=== PATIENT | female | born 1955 | race Caucasian/White ===

== ENCOUNTER → 2017-10-17 06:28 | Outpatient (CLI) | payer BC, SELFPAY ==
--- NOTE | 2017-10-17 11:00 | STRESSREP ---
Stress Test Report Exercise/pharmacologic myocardial perfusion stress test. 62-year-old lady with a history of an abnormal EKG. Medications aspirin atorvastatin lisinopril. Stress protocol: Resting EKG demonstrates normal sinus rhythm with a rate of 89 bpm and a right bundle branch block pattern. Resting blood pressures 130/78 mmHg. The patient exercised according to regular Stephen protocol for total duration of 50 seconds and then discontinue the treadmill. 0.4 mg of regadenoson was infused per usual protocol. Patient maintained sinus rhythm throughout the recording there were occasional premature ventricular complexes noted the average heart rate was noted to be 121 bpm which was 76% maximum predicted heart rate the maximum workload was 1 metabolic equivalent. At rest no ST or T-wave changes were noted suggest abnormal flow reserve at peak infusion no ST or T-wave changes were noted suggest abnormal flow reserve. The resting blood pressure is 130/78 with a final blood pressure 120/80 mmHg. Myocardial perfusion protocol. 14.8 mCi of technetium 99m sestamibi was injected at rest. 0.4 mg regadenoson was infused per usual protocol peak infusion 44.5 mCi of technetium 99m sestamibi was injected stress images were obtained stress and rest images were reconstructed and compared in the short axis vertical long horizontal long axis. Gated images were also obtained pre- Perfusion SPECT analysis: Review of the stress images demonstrate normal uptake of tracer noted in all areas of the myocardium. The resting images similarly demonstrate normal uptake of tracer noted in all areas of myocardium. No areas of reversibility are noted suggest ischemia. Gated SPECT analysis: The gated ejection fraction is noted to be 82%. Conclusion: Normal pharmacologic myocardial perfusion stress test. Preserved ejection fraction.
== END ==
PROVIDERS: Family Provider Family Medicine; PCP Family Medicine; Visit Provider Family Medicine
DX: I45.10 Unspecified right bundle-branch block (principal); R94.31 Abnormal electrocardiogram [ECG] [EKG]
CPT/HCPCS: 78452; 93017; A9500; A4216; J2785

== ENCOUNTER 2018-02-10 13:50 | Observation (INO) | payer BC, SELFPAY ==
[2018-02-10] VITALS (15 sets, daily range): BP systolic 98–143; BP diastolic 50–90; PULSE 80–105; RESP 16–18; TEMP 35.4–37.6; O2SAT 93–97; BMI 37.0; BMI 37.1
--- NOTE | 2018-02-10 14:36 | ED.VISSUMM ---
- ER Visit Summary Date of Service: 02/10/18 Chief Complaint: Sent in for low blood count from outpatient lab History of Present Illness: The patient is a 62 F prior history of noncemented diabetes, hypertension and prior hysterectomy due to heavy periods. 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 She denies any vaginal bleeding. She denies any rectal bleeding or melena. She denies any hematemesis. She denies any bruising. She denies any petechiae or purpura. She denies any nosebleeds. She is on no blood thinners. She has felt fatigued for multiple weeks. She denies chest pain. Physical Examination: Well-appearing older female. Vital signs are stable afebrile. Her initial blood pressure is 143/90. Heart rate 105. H EENT exam unremarkable other than pale. Moist weeks membranes. Neck anterior cervical lymphadenopathy bilaterally. Trachea midline. Lungs clear to auscultation bilaterally. Heart regular rhythm rate about 105 no murmur. Abdomen soft nontender nondistended no organomegaly or masses. Normal bowel sounds. No peritoneal signs. Patient is moving all 4 extremities. They are neurovascularly intact. Calves are nontender without edema or cords. Neurologically she is awake and alert. With no focal motor or sensory deficits. Back is nontender. Skin is unremarkable other than pale. There is no bruising or rashes. Test Results: CBC shows a white count of 7. Hemoglobin is 7.1 hematocrit of 24. We do not have any recent labs in the year except from 2011 at that time her hemoglobin was 12. Electrolytes unremarkable. Gap at 12. Glucose 237. Creatinine of 1. Emergency Department Course and Treatment: Patient with anemia with low hemoglobin from outpatient labs. She will be typed and crossed. Treatment Plan: I discussed with the patient options she is comfortable with inpatient admission for further workup of her anemia. I spoke to the hospitalist and they will admit her and do further evaluation of the cause of her anemia. I will leave it up to the hospitalist to order the labs they want to do further evaluation. Disposition: Admission Impression: Acute anemia of uncertain etiology This note was generated with [employer] dictation software. It may contain incorrect words, spelling, and punctuation that were not noted in review of the chart prior to signing ED Disposition - Plan for ED Patient: Chief Complaint: Abn Labs Referrals: Vladimir Dinh MD [Primary Care Provider] -
[2018-02-10 14:46] LABS: Absolute Lymphocyte Count 1.57 X10^3/ul (0.83-4.51); Basophil# 0.01 X10^3/uL; Basophil% 0.1 % (0-1); Eosinophil# 0.14 X10^3/uL; Hematocrit 24.6 % (37-47); Hemoglobin 7.1 g/dl (12.0-15.0); Lymphocyte # 1.57 X10^3/ul (4.0); Lymphocyte % 22.1 % (19-41); Mean Corp Hgb Conc 28.9 g/gl (32-36); Mean Corpuscular Hgb 20.3 pg (27.0-32.0); Mean Corpuscular Volume 70.5 fL (81-99); Mean Platelet Vol. 9.4 fl (6.2-12.0); Monocyte# 0.39 X10^3/uL; Monocyte% 5.5 % (0-10); Neutrophil # 4.97 X10^3/uL (2.7-7.7); Platelet Count 331 K/mm3 (150-450); RBC Distribution Width CV 16.5 % (11.6-14.6); RBC Distribution Width SD 42.5 fl (35.1-43.9); Red Blood Count 3.49 M/mm3 (4.2-5.4); White Blood Count 7.1 K/mm3 (4.4-11.0)
[2018-02-10 14:47] LABS: Differential Indicated SCAN CRITERIA MET; POSITIVE COUNT NO; POSITIVE DIFFERENTIAL NO; POSITIVE MORPHOLOGY YES
[2018-02-10 15:00] LABS: Anion Gap 12 (5-15); BUN 22 mg/dL (7-18); Calcium,Total 9.2 mg/dL (8.5-10.1); Chloride 102 mmol/L (98-107); Creatinine, Serum 1.05 mg/dL (0.55-1.02); EST Glomerular Filtration Rate 56 mL/min (>60); Est Glom Filt Rate - Afr Amer 68 mL/min (>60); Estimated Creatinine Clearance 47.97 ml/min; Glucose 237 mg/dL (74-106); Platelet Estimate ADEQUATE (ADEQ); Potassium 3.4 mmol/L (3.5-5.1); Sodium Level 140 mmol/L (136-145)
[2018-02-10 15:01] LABS: Anisocytosis 1+; Hypochromasia 2+; Microcytosis 1+; Ovalocyte 1+; Polychromasia RARE
--- NOTE | 2018-02-10 15:32 | NURSING ---
DR CARPENTER FOR DR MOSLEY
--- NOTE | 2018-02-10 15:37 | NURSING ---
PCU OBS ANEMIA OF UNCERTAIN CAUSE PAINTSIL
--- NOTE | 2018-02-10 15:44 | PCM.HP.STD ---
Problem List (1) Severe anemia Status: Acute (2) Hypertension Status: Chronic Qualifiers: Hypertension type: essential hypertension Qualified Code(s): I10 - Essential (primary) hypertension (3) DM type 2 (diabetes mellitus, type 2) Status: Chronic Qualifiers: Diabetes mellitus residential insulin use: without hard metals engraver hand use Diabetes mellitus complication status: without complication Qualified Code(s): E11.9 - Type 2 diabetes mellitus without complications (4) Hypothyroidism Status: Chronic Qualifiers: Hypothyroidism type: unspecified Qualified Code(s): E03.9 - Hypothyroidism, unspecified History of Present Illness Date of Admission: 02/10/18 Chief Complaint: Fatigue and dizziness on standing on going for days The patient is a 62 year old F with past medical history of menorrhagia status post hysterectomy who comes to the ED with abnormal blood work with hemoglobin of 7.1. Patient had blood work done by her cattle care worker and was supposed to follow-up with a physician financial legal assistant in [facility]. She received a call today to come to the ED because her blood work was abnormal. She had been complaining of fatigue and dizziness on standing up from lying. Denied any melena or hematochezia or hematemesis. In the ED showed temperature of 95.7, heart rate 105, blood pressure 143/90 which improved to 118/61, respiratory rate was 16, SPO2 is 97% on room air. Admitting blood work showed RBC count of 7.1, hemoglobin 7.1, with microcytic indices, platelet count 231, BMP shows sodium 140, potassium 3.4, chloride 102, bicarbonate 26, BUN 20, creatinine 1.05 Past Medical History Past Medical History (Chronic Problems): Chronic Problems Hypertension (Chronic) DM type 2 (diabetes mellitus, type 2) (Chronic) Hypothyroidism (Chronic) Allergies Iodinated Contrast- Oral and IV Dye [CONTRASTS] Allergy (Verified 02/02/17 10:34) Rash Sulfa (Sulfonamide Antibiotics) Allergy (Verified 02/02/17 10:34) Hives Home Medications: Ambulatory Orders Medication Instructions Recorded Cholecalciferol (VIT D3) [Vitamin 1,000 unit PO DAILY 02/02/17 D] Fish Oil/Om-3/E/Folic/B6-B12 1 capsule PO DAILY 02/02/17 [Cardiovid Plus Softgel] Fluticasone 0.05% [Flonase Nasal 1 spray NASAL QHS 02/02/17 [place]] Lansoprazole 30 mg PO DAILY 02/02/17 Levothyroxine [Synthroid] 100 mcg PO DAILY 02/02/17 Lisinopril [Zestril] 2.5 mg PO DAILY 02/02/17 Sertraline HCl [Zoloft] 100 mg PO DAILY 02/02/17 Spironolact/Hydrochlorothiazid 1 tab PO DAILY 02/02/17 [Aldactazide 25-25 Tablet] Verapamil HCl [Verapamil Sr] 120 mg PO DAILY 02/02/17 Aspirin E.C. [Ecotrin] 81 mg PO DAILY 02/10/18 Atorvastatin Calcium [Lipitor] 40 mg PO QHS 02/10/18 Diphenhydramine HCl [Benadryl 25 mg PO QHS PRN PRN 02/10/18 Allergy] Metformin HCl 1,000 mg PO BID 02/10/18 Montelukast Sodium [Singulair] 10 mg PO QHS 02/10/18 Surgical History: appendectomy, hysterectomy, total knee arthroplasty - Bilateral, tonsillectomy, - - Status post thyroid surgery Psychiatric History: No pertinent psych hx RESPIRATORY DIRECTOR History: No pertinent RESPIRATORY DIRECTOR history Lives: With Family Smoking Status: Never smoker Tobacco Use: Non-smoker Alcohol: None Drugs: None - *Family History Maternal History Items: Cancer, Heart Disease - Rheumatic heart disease, Paternal History Items: Heart Disease - Rheumatic heart disease Review of Systems Constitutional: Reports: Fatigue. Denies: Anorexia, Chills, Fever, Malaise, Weakness, Weight Change Eyes: Denies: Blurred vision, Cataracts, Pain, Redness, Vision Change HEENT: Denies: Difficulty Hearing, Difficulty Swallowing, Head Aches, Hearing Changes, Sinus Congestion, Sinus Drainage, Sore Throat Cardiovascular: Denies: Chest Pain, Claudication, Chest Pressure, Chest Tightness, Orthopnea, Palpitations, Paroxysmal Noc. Dyspnea Respiratory: Denies: Cough, Hemoptysis, Shortness of Breath, Shortness of breath at rest, Shortness of breath upon exertion, Sputum production Gastrointestinal: Denies: Abdominal Pain, Constipation, Hematemesis, Hematochezia, Nausea, Vomiting Genitourinary: Denies: Dysuria, Frequency, Incontinence, Nocturia Gynecological: Denies: Breast symptoms, Excessively long or heavy periods, Vaginal discharge, Vaginal itching Musculoskeletal: Denies: Joint Pain, Joint stiffness, Joint swelling, Joint Tenderness Skin: Denies: Pruritis, Rash, Wounds Neurological: Denies: Difficulty swallowing, Focal weakness, Numbness, Tingling Psychiatric: Denies: Anxiety, Depression, Homicidal Ideations, Suicidal Ideations Endocrine: Denies: Change in Body Habitus, Heat/ Cold Intolerance Hematologic/ Lymphatic: Denies: Easy Bruising, Easy Bleeding VTE Information - Inpt Only VTE Present on Admission: No VTE Pharm Prophylaxis ordered?: Yes Patient Problems: Active and Suspected Problems Severe anemia (Acute) - Physical Exam General: Alert, Oriented x3, Cooperative, No apparent distress HEENT: Atraumatic, PERRLA, EOMI, Normocephalic, - - obese Oral: Moist Mucosa Neck: Supple Lungs: Clear to auscultation, Normal air movement Cardiovascular: Regular rate, Regular Rhythm, Normal S1, Normal S2, No murmurs Abdomen: Bowel Sounds Present, Soft, Non Tender, Non-Distended, No Hepato-splenomegaly, Obese Extremities: No edema, Capillary Refill Less than 3 Seconds Skin: No rashes, No breakdown Musculoskeletal: No Tenderness to Palpation of Joints or Extremities Lymphatic: No Cervical, Supraclavicular, or Inguinal Adenopathy Neurological: Cranial nerves II-XII grossly intact, Neuro grossly intact Psych/Mental Status: Normal Affect, Appropriate Vital Signs Temp Pulse Resp BP Pulse Ox 95.7 F L 105 H 16 143/90 H 97 02/10/18 13:50 02/10/18 13:50 02/10/18 13:50 02/10/18 13:50 02/10/18 13:50 Oxygen Delivery Method Room Air Weight: 97.976 kg Body Mass Index (BMI) 37.0 Laboratory Tests Past 24 Hrs 02/10/18 02/10/18 02/10/18 14:34 14:34 14:34 WBC 7.1 RBC 3.49 L Hgb 7.1 L Hct 24.6 L MCV 70.5 L MCH 20.3 L MCHC 28.9 L RDW 16.5 H RDW Differential 42.5 Plt Count 331 MPV 9.4 Immature Gran % (Auto) 0.300 Neut % (Auto) 70.0 Lymph % (Auto) 22.1 [place] % (Auto) 5.5 Eos % (Auto) 2.0 Baso % (Auto) 0.1 Absolute Neuts (auto) 5.0 Absolute Lymphs (auto) 1.57 Total Counted Not Reportable Platelet Estimate ADEQUATE Polychromasia RARE Hypochromasia 2+ Anisocytosis 1+ Microcytosis 1+ Ovalocytes 1+ Sodium 140 Potassium 3.4 L Chloride 102 Carbon Dioxide 26.0 Anion Gap 12 BUN 22 H Creatinine 1.05 H Estim Creat Clear Calc 47.97 Est GFR (MDRD) Af Amer 68 Est GFR (MDRD) Non-Af 56 L BUN/Creatinine Ratio 21.0 H Glucose 237 H Calcium 9.2 Blood Type Pending Antibody Screen Pending Crossmatch See Detail Assessment/Plan All Active Problems Severe anemia (Acute) 62 year old F with past medical history of menorrhagia status post hysterectomy who comes to the ED with abnormal blood work with hemoglobin of 7.1. Patient had blood work done by her cattle care worker and was supposed to follow-up with a physician financial legal assistant in [facility]. 1. Severe symptomatic anemia, with fatigue, dizziness on from lying to standing, hemoglobin of 7.1, no active cardiac history, status post hysterectomy, suspected GI bleed, Plan: Admit to PCU, monitor on telemetry, will transfuse 1 unit of packed RBC, monitor per protocol, H&H, PPI IV twice daily, will hold aspirin, labs in a.m. 2. Suspected GI bleed, history of polyps, last colonoscopy was 3 years ago, will check stool for occult blood, IV PPI, general surgery, Dr. Pathak consulted, aspirin on hold 3. Hypertension, controlled, will continue on lisinopril, continue to monitor vitals 4. Type 2 DM, on metformin, will hold metformin during this admission, will put on Accu-Cheks with insulin sliding scale 5. Hypothyroidism, on levothyroxine 6. Hyperlipidemia, on statin 7. Depression, on Zoloft, will hold zoloft for now in the light of possible GI bleed 8. DVT PPx- SCDs. Code Visit Inpatient E&M: 40598 Init Hosp L3
[2018-02-10 17:31] LABS: Ferritin 5 ng/mL (8-252); Iron 16 ug/dL (50-170); Iron Binding Capacity,Total 342 ug/dL (250-450); PERCENT IRON SATURATION 4.7 % (15.0-55.0)
[2018-02-10 17:41] LABS: Bedside Glucose 89 mg/dL (70-110)
--- NOTE | 2018-02-10 20:48 | PCM.CONS.GEN ---
Reason for Consult Date of Consultation: 02/10/18 Reason for Consultation: fatigue-anemia History of Present Illness: The patient is a 62 year old F who has noticed increasing fatigue for at least the last few weeks. She presented for her routine gynecologic evaluation was noted to be pale. The patient a previous hysterectomy. She notes no reasons for pad blood loss. She denies abdominal pain. She notes no black tarry stools other difficulties. She underwent a complete blood count which demonstrated on 02 07 a hemoglobin of 7.8 with microcytic parameters. The patient had previous undergone a CBC in 2016 with a hemoglobin of 12.2 and normal red cell indices. She had undergone colonoscopy by Dr. Kole Parra on January 07, 2015. 25 mm polyps were found in the proximal transverse colon diverticulosis. It was recommended the patient have follow-up colonoscopy in 5 years. Prior to that, the patient went upper and lower endoscopy in December 26, 2011. Also by Dr. Kole Parra. Upper endoscopy was unremarkable.colonoscopy demonstrated 210 mm polyps and the patient was recommended 3 year follow-up colonoscopy at that time. patient's past history is otherwise significant for hypothyroidism, hypertension, asthma, type 2 diabetes, obesity, reflux depression. she'll surgical history includes carpal tunnel procedures, thyroidectomy, total abdominal hysterectomy, previous appendectomy. Past Medical History Past Medical History (Chronic Problems): Chronic Problems Hypertension (Chronic) DM type 2 (diabetes mellitus, type 2) (Chronic) Hypothyroidism (Chronic) Allergies Iodinated Contrast- Oral and IV Dye [CONTRASTS] Allergy (Verified 02/02/17 10:34) Rash Sulfa (Sulfonamide Antibiotics) Allergy (Verified 02/02/17 10:34) Hives Home Medications: Ambulatory Orders Medication Instructions Recorded Cholecalciferol (VIT D3) [Vitamin 1,000 unit PO DAILY 02/02/17 D] Fish Oil/Om-3/E/Folic/B6-B12 1 capsule PO DAILY 02/02/17 [Cardiovid Plus Softgel] Fluticasone 0.05% [Flonase Nasal 1 spray NASAL QHS 02/02/17 [place]] Lansoprazole 30 mg PO DAILY 02/02/17 Levothyroxine [Synthroid] 100 mcg PO DAILY 02/02/17 Lisinopril [Zestril] 2.5 mg PO DAILY 02/02/17 Sertraline HCl [Zoloft] 100 mg PO DAILY 02/02/17 Spironolact/Hydrochlorothiazid 1 tab PO DAILY 02/02/17 [Aldactazide 25-25 Tablet] Verapamil HCl [Verapamil Sr] 120 mg PO DAILY 02/02/17 Aspirin E.C. [Ecotrin] 81 mg PO DAILY 02/10/18 Atorvastatin Calcium [Lipitor] 40 mg PO QHS 02/10/18 Diphenhydramine HCl [Benadryl 25 mg PO QHS PRN PRN 02/10/18 Allergy] Metformin HCl 1,000 mg PO BID 02/10/18 Montelukast Sodium [Singulair] 10 mg PO QHS 02/10/18 Surgical History: appendectomy, hysterectomy, total knee arthroplasty - Bilateral, tonsillectomy, - - Status post thyroid surgery Psychiatric History: No pertinent psych hx PROFESSIONAL HEALTHCARE REPRESENTATIVE History: No pertinent PROFESSIONAL HEALTHCARE REPRESENTATIVE history Lives: With Family Smoking Status: Never smoker Tobacco Use: Non-smoker Alcohol: None Drugs: None - *Family History Maternal History Items: Cancer, Heart Disease - Rheumatic heart disease, Paternal History Items: Heart Disease - Rheumatic heart disease Review of Systems Constitutional: Reports: Malaise, Weakness. Denies: Chills, Fever, Weight Change HEENT: Denies: Head Aches, Sinus Congestion, Sinus Drainage Cardiovascular: Denies: Chest Pain, Palpitations Respiratory: Denies: Cough, Shortness of breath at rest, Sputum production Gastrointestinal: Denies: Abdominal Pain, Nausea, Vomiting Genitourinary: Denies: Dysuria Musculoskeletal: Denies: Joint Pain, Joint Tenderness Skin: Denies: Rash, Wounds Neurological: Denies: Numbness, Tingling, Focal weakness Psychiatric: Denies: Anxiety, Depression, Homicidal Ideations, Suicidal Ideations Hematologic/ Lymphatic: Denies: Easy Bruising, Easy Bleeding Patient Problems: Active and Suspected Problems Severe anemia (Acute) - Physical Exam General: Alert, Oriented x3, Cooperative HEENT: Atraumatic, PERRLA, EOMI, Normocephalic Neck: Supple, No JVD, Negative Carotid Bruits Lungs: Clear to auscultation, Normal air movement Cardiovascular: Regular rate, No murmurs Abdomen: Bowel Sounds Present, Soft, Non Tender Extremities: No edema, Capillary Refill Less than 3 Seconds Skin: No rashes, No breakdown Musculoskeletal: No Tenderness to Palpation of Joints or Extremities Neurological: Cranial nerves II-XII grossly intact Psych/Mental Status: Normal Affect, Appropriate Vital Signs Temp Pulse Resp BP Pulse Ox 98.2 F 83 18 98/56 L 93 02/10/18 20:23 02/10/18 20:23 02/10/18 20:23 02/10/18 20:23 02/10/18 20:23 Oxygen Delivery Method Room Air Weight: 97.976 kg Body Mass Index (BMI) 37.0 Intake and Output for Last 24 Hours 02/08/18 02/09/18 02/10/18 23:59 23:59 23:59 Intake Total 764 / 764 Output Total 0 / 0 Balance 764 / 764 Laboratory Tests Past 24 Hrs 02/10/18 02/10/18 02/10/18 14:34 14:34 14:34 WBC 7.1 RBC 3.49 L Hgb 7.1 L Hct 24.6 L MCV 70.5 L MCH 20.3 L MCHC 28.9 L RDW 16.5 H RDW Differential 42.5 Plt Count 331 MPV 9.4 Immature Gran % (Auto) 0.300 Neut % (Auto) 70.0 Lymph % (Auto) 22.1 [place] % (Auto) 5.5 Eos % (Auto) 2.0 Baso % (Auto) 0.1 Absolute Neuts (auto) 5.0 Absolute Lymphs (auto) 1.57 Total Counted Not Reportable Platelet Estimate ADEQUATE Polychromasia RARE Hypochromasia 2+ Anisocytosis 1+ Microcytosis 1+ Ovalocytes 1+ Sodium 140 Potassium 3.4 L Chloride 102 Carbon Dioxide 26.0 Anion Gap 12 BUN 22 H Creatinine 1.05 H Estim Creat Clear Calc 47.97 Est GFR (MDRD) Af Amer 68 Est GFR (MDRD) Non-Af 56 L BUN/Creatinine Ratio 21.0 H Glucose 237 H Calcium 9.2 Iron TIBC Iron Saturation Ferritin Blood Type A POSITIVE Antibody Screen NEGATIVE Crossmatch See Detail 02/10/18 14:34 WBC RBC Hgb Hct MCV MCH MCHC RDW RDW Differential Plt Count MPV Immature Gran % (Auto) Neut % (Auto) Lymph % (Auto) [place] % (Auto) Eos % (Auto) Baso % (Auto) Absolute Neuts (auto) Absolute Lymphs (auto) Total Counted Platelet Estimate Polychromasia Hypochromasia Anisocytosis Microcytosis Ovalocytes Sodium Potassium Chloride Carbon Dioxide Anion Gap BUN Creatinine Estim Creat Clear Calc Est GFR (MDRD) Af Amer Est GFR (MDRD) Non-Af BUN/Creatinine Ratio Glucose Calcium Iron 16 L TIBC 342 Iron Saturation 4.7 L Ferritin 5 L Blood Type Antibody Screen Crossmatch POC Glucose 02/10/18 17:19 POC Glucose 89 Assessment/Plan All Active Problems Severe anemia (Acute) significant anemia with iron deficient parameters. I would recommend upper and lower endoscopy. The patient understands the risks, benefits, complications and possible alternatives and consents to the planned procedure. She does not need to remain in the hospital for this procedure. Reaming performance procedure urgently the following week. She would like to proceed free from this week since her will be undergoing a foot procedure next Saturday.
[2018-02-10] MEDS: Montelukast 10 MG Tablet PO (21:27)
[2018-02-10] MEDS: Fluticasone 0.05% 1 SPRAY NASAL.SRY NASAL (21:27)
[2018-02-10] MEDS: Atorvastatin Calcium 40 MG Tablet PO (21:27)
[2018-02-10 21:41] LABS: Hematocrit 26.1 % (37-47); Hemoglobin 7.9 g/dl (12.0-15.0)
[2018-02-10 21:41] LABS: Bedside Glucose 101 mg/dL (70-110)
[2018-02-10] MEDS: 0.9% NaCl Peripheral Flush Adult/Peds IV (21:42)
[2018-02-11] VITALS (10 sets, daily range): BP systolic 100–136; BP diastolic 57–83; PULSE 74–81; RESP 18; TEMP 36.7–37; O2SAT 94–98
[2018-02-11] MEDS: Acetaminophen 325 MG Tablet 650 MG PO (02:14)
[2018-02-11] MEDS: Levothyroxine 100 MCG Tablet PO (05:00)
--- NOTE | 2018-02-11 06:26 | PN.SURG_ITS ---
Patient Problems: Active and Suspected Problems Severe anemia (Acute) Subjective: no complaints - Physical Exam Abdomen: Bowel Sounds Present, Soft, Non Tender Vital Signs Temp Pulse Resp BP Pulse Ox 98.1 F 76 18 136/77 H 97 02/11/18 04:57 02/11/18 04:57 02/11/18 04:57 02/11/18 04:57 02/11/18 04:57 Oxygen Delivery Method Room Air Weight: 97.976 kg Body Mass Index (BMI) 37.0 Orthostatic Vital Signs Start: 02/11/18 04:52 Freq: q24h Status: Active Protocol: Activity Type Activity Date Activity User E-Sign Co-Sign Detail Recorded Client Recorded Date Recorded By Document 02/11/18 04:52 [id number] 02/11/18 04:57 [facility] 02/11/18 04:52 Orthostatic Vitals Standing -Blood Pressure (90/60-120/80) 136/77 H -Extremity Use Left Arm -Pulse Rate (60-100) 76 Sitting -Blood Pressure (90/60-120/80) 129/83 H -Extremity Use Left Arm -Pulse Rate (60-100) 80 Lying -Blood Pressure (90/60-120/80) 100/62 -Extremity Use Left Arm -Pulse Rate (60-100) 76 Intake and Output for Last 24 Hours 02/09/18 02/10/18 02/11/18 23:59 23:59 23:59 Intake Total 1404 / 1404 520 / 520 Output Total 350 / 350 Balance 1054 / 1054 520 / 520 Laboratory Tests Past 24 Hrs 02/10/18 02/10/18 02/10/18 14:34 14:34 14:34 WBC 7.1 RBC 3.49 L Hgb 7.1 L Hct 24.6 L MCV 70.5 L MCH 20.3 L MCHC 28.9 L RDW 16.5 H RDW Differential 42.5 Plt Count 331 MPV 9.4 Immature Gran % (Auto) 0.300 Neut % (Auto) 70.0 Lymph % (Auto) 22.1 [place] % (Auto) 5.5 Eos % (Auto) 2.0 Baso % (Auto) 0.1 Absolute Neuts (auto) 5.0 Absolute Lymphs (auto) 1.57 Total Counted Not Reportable Platelet Estimate ADEQUATE Polychromasia RARE Hypochromasia 2+ Anisocytosis 1+ Microcytosis 1+ Ovalocytes 1+ Sodium 140 Potassium 3.4 L Chloride 102 Carbon Dioxide 26.0 Anion Gap 12 BUN 22 H Creatinine 1.05 H Estim Creat Clear Calc 47.97 Est GFR (MDRD) Af Amer 68 Est GFR (MDRD) Non-Af 56 L BUN/Creatinine Ratio 21.0 H Glucose 237 H Calcium 9.2 Iron TIBC Iron Saturation Ferritin Blood Type A POSITIVE Antibody Screen NEGATIVE Crossmatch See Detail 02/10/18 02/10/18 02/10/18 14:34 14:34 21:30 WBC RBC Hgb 7.9 L Hct 26.1 L MCV MCH MCHC RDW RDW Differential Plt Count MPV Immature Gran % (Auto) Neut % (Auto) Lymph % (Auto) [place] % (Auto) Eos % (Auto) Baso % (Auto) Absolute Neuts (auto) Absolute Lymphs (auto) Total Counted Platelet Estimate Polychromasia Hypochromasia Anisocytosis Microcytosis Ovalocytes Sodium Potassium Chloride Carbon Dioxide Anion Gap BUN Creatinine Estim Creat Clear Calc Est GFR (MDRD) Af Amer Est GFR (MDRD) Non-Af BUN/Creatinine Ratio Glucose Calcium Iron 16 L TIBC 342 Iron Saturation 4.7 L Ferritin 5 L Blood Type Antibody Screen Crossmatch See Detail 02/11/18 05:44 WBC RBC Hgb Hct MCV MCH MCHC RDW RDW Differential Plt Count MPV Immature Gran % (Auto) Neut % (Auto) Lymph % (Auto) [place] % (Auto) Eos % (Auto) Baso % (Auto) Absolute Neuts (auto) Absolute Lymphs (auto) Total Counted Platelet Estimate Polychromasia Hypochromasia Anisocytosis Microcytosis Ovalocytes Sodium Pending Potassium Pending Chloride Pending Carbon Dioxide Pending Anion Gap Pending BUN Pending Creatinine Pending Estim Creat Clear Calc Est GFR (MDRD) Af Amer Pending Est GFR (MDRD) Non-Af Pending BUN/Creatinine Ratio Pending Glucose Pending Calcium Pending Iron TIBC Iron Saturation Ferritin Blood Type Antibody Screen Crossmatch POC Glucose 02/10/18 02/10/18 21:36 17:19 POC Glucose 101 89 Medical Necessity - Tobacco Use Smoking Status: Never smoker Tobacco Use: Non-smoker Assessment/Plan All Active Problems Severe anemia (Acute) significant anemia with iron deficient parameters. Hgb to 7.9. would transfuse 3rd unit PRBC I would recommend upper and lower endoscopy. The patient understands the risks, benefits, complications and possible alternatives and consents to the planned procedure. She does not need to remain in the hospital for this procedure. We will schedule for Saturday since her will be undergoing a foot procedure next Saturday. Will send script [facility]
[2018-02-11 06:37] LABS: Absolute Neutrophil Count 5.1 X10^3/uL (2.0-7.7); Basophil# 0.02 X10^3/uL; Basophil% 0.2 % (0-1); Eosinophil# 0.18 X10^3/uL; Eosinophils% 2.1 % (0-5); Hemoglobin 8.7 g/dl (12.0-15.0); Lymphocyte % 29.7 % (19-41); Mean Corpuscular Hgb 22.1 pg (27.0-32.0); Mean Corpuscular Volume 73.8 fL (81-99); Mean Platelet Vol. 9.6 fl (6.2-12.0); Monocyte# 0.63 X10^3/uL; Monocyte% 7.5 % (0-10); Neutrophil # 5.08 X10^3/uL (2.7-7.7); Neutrophil % 60.3 % (47-70); Platelet Count 327 K/mm3 (150-450); RBC Distribution Width CV 18.2 % (11.6-14.6); RBC Distribution Width SD 49.3 fl (35.1-43.9); Red Blood Count 3.93 M/mm3 (4.2-5.4); White Blood Count 8.4 K/mm3 (4.4-11.0)
[2018-02-11 06:39] LABS: Differential Indicated SCAN CRITERIA MET; POSITIVE COUNT NO; POSITIVE DIFFERENTIAL NO; POSITIVE MORPHOLOGY YES
[2018-02-11 06:45] LABS: Bedside Glucose 129 mg/dL (70-110)
[2018-02-11 06:46] LABS: Anion Gap 10 (5-15); BUN 19 mg/dL (7-18); BUN/Creat Ratio 20.1 RATIO (10-20); Calcium,Total 8.9 mg/dL (8.5-10.1); Chloride 106 mmol/L (98-107); Creatinine, Serum 0.95 mg/dL (0.55-1.02); EST Glomerular Filtration Rate 64 mL/min (>60); Est Glom Filt Rate - Afr Amer 77 mL/min (>60); Estimated Creatinine Clearance 53.02 ml/min; Glucose 108 mg/dL (74-106); Potassium 4.2 mmol/L (3.5-5.1); Sodium Level 143 mmol/L (136-145)
[2018-02-11 06:55] LABS: Anisocytosis 3+; Differential Comment SCANNED; Hypochromasia 3+; Macrocytosis 1+; Microcytosis 2+; Ovalocyte 1+
[2018-02-11 06:56] LABS: Schistocytes RARE; Target Cells RARE
[2018-02-11] MEDS: Spironolactone 25 MG Tablet PO (10:18)
[2018-02-11] MEDS: Verapamil SR 240 MG Tablet 120 MG PO (10:18)
[2018-02-11] MEDS: hydroCHLOROthiazide 25 MG Tablet PO (10:18)
[2018-02-11] MEDS: Lisinopril 2.5 MG Tablet PO (10:19)
--- NOTE | 2018-02-11 10:59 | DCINST_ITS ---
- Discharge Diagnoses Current Active Problems: Current Active and Chronic Problems Severe anemia (Acute) Hypertension (Chronic) DM type 2 (diabetes mellitus, type 2) (Chronic) Hypothyroidism (Chronic) You will use the following diet at home:: Other - Light diet. Clear liquids beginning 02/13/18 with bowel prep per Dr. Pathak orders. Discharge Activity: Return to Normal Activity Call your doctor if you observe: Shortness of breath, Dizziness, Fainting spells, Chest pain Allergies/Adverse Reactions: Allergies Iodinated Contrast- Oral and IV Dye [CONTRASTS] Allergy (Verified 02/02/17 10:34) Rash Sulfa (Sulfonamide Antibiotics) Allergy (Verified 02/02/17 10:34) Hives Medications to take at Discharge Cholecalciferol (VIT D3) [Vitamin D3] 1,000 unit PO DAILY 02/02/17 Fish Oil/Om-3/E/Folic/B6-B12 [Cardiovid Plus Softgel] 1 capsule PO DAILY 02/02/17 Fluticasone 0.05% [Flonase Nasal [place]] 1 spray NASAL QHS 02/02/17 Lansoprazole 30 mg PO DAILY 02/02/17 Levothyroxine [Synthroid] 100 mcg PO DAILY 02/02/17 Lisinopril [Zestril] 2.5 mg PO DAILY 02/02/17 Sertraline HCl [Zoloft] 100 mg PO DAILY 02/02/17 Spironolact/Hydrochlorothiazid [Aldactazide 25-25 Tablet] 1 tab PO DAILY 02/02/17 Verapamil HCl [Verapamil Sr] 120 mg PO DAILY 02/02/17 Aspirin E.C. [Ecotrin] 81 mg PO DAILY 02/10/18 Atorvastatin Calcium [Lipitor] 40 mg PO QHS 02/10/18 Diphenhydramine HCl [Benadryl Allergy] 25 mg PO QHS PRN PRN 02/10/18 Metformin HCl 1,000 mg PO BID 02/10/18 Montelukast Sodium [Singulair] 10 mg PO QHS 02/10/18 Ferrous Sulfate [Iron] 325 mg PO BID #60 tablet 02/11/18 Pantoprazole Sodium [Protonix] 40 mg PO DAILY #30 tablet 02/11/18 The following prescriptions were given: Pantoprazole Sodium [Protonix] 40 mg PO DAILY #30 tablet Ferrous Sulfate [Iron] 325 mg PO BID #60 tablet Primary Care Physician: Vladimir Dinh MD [Primary Care Provider] - Please follow up with your Primary Care Physician in: 1 Week Test Results: Test results from this visit will be discussed in further detail at your follow- up appointment, if applicable. Please Follow Up With: Juvencio Pathak MD When: As scheduled, for scope 02/14/18. Proposed Discharge Date: 02/11/18
--- NOTE | 2018-02-11 11:00 | PCM.DC.SUM ---
<Jaci Timmons - Last Filed: 02/11/18 11:12> Discharge Date and Diagnosis Date of Admission: 02/10/18 Date of Discharge: 02/11/18 - Primary Discharge Diagnosis Active and Suspected Problems 1. Acute blood loss anemia due to suspected GI bleed/iron deficiency anemia 2. Hypertension 3. Hyperlipidemia 4. Type 2 diabetes mellitus 5. Depression 6. Hypothyroidism 7. Obesity - Secondary Discharge Diagnosis Chronic Problems Hypertension (Chronic) DM type 2 (diabetes mellitus, type 2) (Chronic) Hypothyroidism (Chronic) Hospital Course and Treatment Dr. Pathak- General Surgery Operations: None Procedures: None Summary of Care Provided: The patient is a 62 year old F admitted 02/10/2018 due to abnormal blood work with hemoglobin 7.1. Patient denies symptoms with this. She states she was at routine [facility] appointments where her provider felt that she was pale and ordered routine lab work. She was noted to have a hemoglobin of 7.1 and referred to the emergency room. Stool positive for occult blood. Patient received 2 units PRBC. Hemoglobin 8.7 [address] of [address] Hollingsworth, general surgery consulted. Patient is stable for discharge home with EGD/colonoscopy with Dr. Hollingsworth on 02/14/2018. Patient was instructed to hold home aspirin regimen until further evaluated by general surgery. She was noted to have iron deficiency and received IV iron x1. She will be discharged on iron 325 mg p.o. twice daily. She will also be discharged on Protonix 40 mg daily which may later be discontinued if further workup unremarkable. Patient denies melena, hematochezia, hematemesis. She denies dizziness, lightheadedness, shortness of breath, chest pain. Her other past medical history includes hypertension, hyperlipidemia, type 2 diabetes mellitus, hypothyroidism, depression, obesity. Chronic medical conditions stable at this time. General: Alert, Oriented x3, Cooperative, No apparent distress HEENT: Atraumatic, PERRLA, EOMI, Normocephalic Oral: Moist Mucosa Neck: Supple Lungs: Clear to auscultation, Normal air movement Cardiovascular: Regular rate, Regular Rhythm, Normal S1, Normal S2, No murmurs Abdomen: Bowel Sounds Present, Soft, Non Tender, Non-Distended, Obese Extremities: No edema, Capillary Refill Less than 3 Seconds Skin: No rashes, No breakdown Musculoskeletal: No Tenderness to Palpation of Joints or Extremities Lymphatic: No Cervical, Supraclavicular, or Inguinal Adenopathy Neurological: Cranial nerves II-XII grossly intact, Neuro grossly intact Psych/Mental Status: Normal Affect, Appropriate Patient seen and examined prior to discharge. Physical assessment as noted above. Patient is stable for discharge home with follow-up as noted above. This patient was seen by DILMA Chino under the supervision of Dr. Granados. - Physical Exam Vital Signs Temp Pulse Resp BP Pulse Ox 98.2 F 80 18 103/62 94 02/11/18 10:11 02/11/18 10:11 02/11/18 10:11 02/11/18 10:11 02/11/18 10:11 Oxygen Delivery Method Room Air Weight: 216 lb Body Mass Index (BMI) 37.0 Orthostatic Vital Signs Start: 02/11/18 04:52 Freq: q24h Status: Active Protocol: Activity Type Activity Date Activity User E-Sign Co-Sign Detail Recorded Client Recorded Date Recorded By Document 02/11/18 04:52 [facility] [id number] 02/11/18 04:57 [facility] 02/11/18 04:52 Orthostatic Vitals Standing -Blood Pressure (90/60-120/80) 136/77 H -Extremity Use Left Arm -Pulse Rate (60-100) 76 Sitting -Blood Pressure (90/60-120/80) 129/83 H -Extremity Use Left Arm -Pulse Rate (60-100) 80 Lying -Blood Pressure (90/60-120/80) 100/62 -Extremity Use Left Arm -Pulse Rate (60-100) 76 Intake and Output for Last 24 Hours 02/09/18 02/10/18 02/11/18 23:59 23:59 23:59 Intake Total 1404 / 1404 520 / 520 Output Total 350 / 350 Balance 1054 / 1054 520 / 520 Microbiology Past 72 Hours 02/11/18 06:40 Stool Occult Blood (YULIA) - Final Stool Occult Blood Positive Laboratory Tests Past 24 Hrs 02/10/18 02/10/18 02/10/18 14:34 14:34 14:34 WBC 7.1 RBC 3.49 L Hgb 7.1 L Hct 24.6 L MCV 70.5 L MCH 20.3 L MCHC 28.9 L RDW 16.5 H RDW Differential 42.5 Plt Count 331 MPV 9.4 Immature Gran % (Auto) 0.300 Neut % (Auto) 70.0 Lymph % (Auto) 22.1 [place] % (Auto) 5.5 Eos % (Auto) 2.0 Baso % (Auto) 0.1 Absolute Neuts (auto) 5.0 Absolute Lymphs (auto) 1.57 Total Counted Not Reportable Differential Comment Platelet Estimate ADEQUATE Polychromasia RARE Hypochromasia 2+ Anisocytosis 1+ Microcytosis 1+ Macrocytosis Target Cells Ovalocytes 1+ Schistocytes Sodium 140 Potassium 3.4 L Chloride 102 Carbon Dioxide 26.0 Anion Gap 12 BUN 22 H Creatinine 1.05 H Estim Creat Clear Calc 47.97 Est GFR (MDRD) Af Amer 68 Est GFR (MDRD) Non-Af 56 L BUN/Creatinine Ratio 21.0 H Glucose 237 H Calcium 9.2 Iron TIBC Iron Saturation Ferritin Blood Type A POSITIVE Antibody Screen NEGATIVE Crossmatch See Detail 02/10/18 02/10/18 02/10/18 14:34 14:34 21:30 WBC RBC Hgb 7.9 L Hct 26.1 L MCV MCH MCHC RDW RDW Differential Plt Count MPV Immature Gran % (Auto) Neut % (Auto) Lymph % (Auto) [place] % (Auto) Eos % (Auto) Baso % (Auto) Absolute Neuts (auto) Absolute Lymphs (auto) Total Counted Differential Comment Platelet Estimate Polychromasia Hypochromasia Anisocytosis Microcytosis Macrocytosis Target Cells Ovalocytes Schistocytes Sodium Potassium Chloride Carbon Dioxide Anion Gap BUN Creatinine Estim Creat Clear Calc Est GFR (MDRD) Af Amer Est GFR (MDRD) Non-Af BUN/Creatinine Ratio Glucose Calcium Iron 16 L TIBC 342 Iron Saturation 4.7 L Ferritin 5 L Blood Type Antibody Screen Crossmatch See Detail 02/11/18 02/11/18 05:44 05:44 WBC 8.4 RBC 3.93 L Hgb 8.7 L Hct 29.0 L MCV 73.8 L MCH 22.1 L MCHC 30.0 L RDW 18.2 H RDW Differential 49.3 H Plt Count 327 MPV 9.6 Immature Gran % (Auto) 0.200 Neut % (Auto) 60.3 Lymph % (Auto) 29.7 [place] % (Auto) 7.5 Eos % (Auto) 2.1 Baso % (Auto) 0.2 Absolute Neuts (auto) 5.1 Absolute Lymphs (auto) 2.50 Total Counted Not Reportable Differential Comment SCANNED Platelet Estimate Polychromasia Hypochromasia 3+ Anisocytosis 3+ Microcytosis 2+ Macrocytosis 1+ Target Cells RARE Ovalocytes 1+ Schistocytes RARE Sodium 143 Potassium 4.2 Chloride 106 Carbon Dioxide 27.0 Anion Gap 10 BUN 19 H Creatinine 0.95 Estim Creat Clear Calc 53.02 Est GFR (MDRD) Af Amer 77 Est GFR (MDRD) Non-Af 64 BUN/Creatinine Ratio 20.1 H Glucose 108 H Calcium 8.9 Iron TIBC Iron Saturation Ferritin Blood Type Antibody Screen Crossmatch POC Glucose 02/11/18 02/10/18 02/10/18 06:39 21:36 17:19 POC Glucose 129 H 101 89 Discharge Diet: - - Light diet Discharge Activity: Return to Normal Activity Call your doctor if you observe: Shortness of breath, Dizziness, Fainting spells, Chest pain Home Medications: Medications to take at Discharge Cholecalciferol (VIT D3) [Vitamin D3] 1,000 unit PO DAILY 02/02/17 Fish Oil/Om-3/E/Folic/B6-B12 [Cardiovid Plus Softgel] 1 capsule PO DAILY 02/02/17 Fluticasone 0.05% [Flonase Nasal [place]] 1 spray NASAL QHS 02/02/17 Lansoprazole 30 mg PO DAILY 02/02/17 Levothyroxine [Synthroid] 100 mcg PO DAILY 02/02/17 Lisinopril [Zestril] 2.5 mg PO DAILY 02/02/17 Sertraline HCl [Zoloft] 100 mg PO DAILY 02/02/17 Spironolact/Hydrochlorothiazid [Aldactazide 25-25 Tablet] 1 tab PO DAILY 02/02/17 Verapamil HCl [Verapamil Sr] 120 mg PO DAILY 02/02/17 Aspirin E.C. [Ecotrin] 81 mg PO DAILY 02/10/18 Atorvastatin Calcium [Lipitor] 40 mg PO QHS 02/10/18 Diphenhydramine HCl [Benadryl Allergy] 25 mg PO QHS PRN PRN 02/10/18 Metformin HCl 1,000 mg PO BID 02/10/18 Montelukast Sodium [Singulair] 10 mg PO QHS 02/10/18 Ferrous Sulfate [Iron] 325 mg PO BID #60 tablet 02/11/18 Pantoprazole Sodium [Protonix] 40 mg PO DAILY #30 tablet 02/11/18 Following Prescrptions Were Given to Patient: Pantoprazole Sodium [Protonix] 40 mg PO DAILY #30 tablet Ferrous Sulfate [Iron] 325 mg PO BID #60 tablet Primary Care Physician: Vladimir Dinh MD [Primary Care Provider] - Please follow up with your Primary Care Physician in: 1 Week Please Follow Up With: Juvencio Pathak MD When: As scheduled, for scope 02/14/18. Disposition: Home Minutes spent on discharge:: 35 Patient Condition:: Stable Medical Necessity - Tobacco Use Smoking Status: Never smoker Tobacco Use: Non-smoker Meaningful Use Info Meaningful Use Diagnoses (Choose all that apply): None applicable <Lulu Granados E - Last Filed: 02/11/18 11:43> Discharge Date and Diagnosis - Secondary Discharge Diagnosis Chronic Problems Hypertension (Chronic) DM type 2 (diabetes mellitus, type 2) (Chronic) Hypothyroidism (Chronic) Hospital Course and Treatment Procedures: Blood transfusion Summary of Care Provided: Hospitalist note: Discharge summary above reviewed and I agree with above discharge plan. Patient was admitted for symptoms of fatigue and dizziness secondary to acute blood loss anemia attributed to suspected GI bleed as well as severe iron deficiency anemia. On admission, her hemoglobin was 7.1 g/dL and she was symptomatic. She denied any bleeding from body orifices such as epistaxis, hematemesis, hemoptysis, hematuria, metaplasia or melena. She did have a history of menorrhagia long time ago status post hysterectomy. At this time, she denied any vaginal bleeding. Her stool was positive for occult blood. She received 2 units of packed RBCs and hemoglobin went up to 8.7 g/dL. Serum iron was very low as well as serum ferritin and iron saturation her TIBC was normal. General surgery consulted and Dr. Hollingsworth recommended outpatient upper EGD and colonoscopy this coming Saturday. After transfusion, patient symptoms improved and her vital signs remained stable. She received 1 dose of IV Venofer. Patient discharged home in a stable medical condition, discharged on Protonix and iron supplement, continued on her home medications without any changes, plan for upper EGD and colonoscopy this coming Saturday with Dr. Hollingsworth, recommended from PCP in 1 week. - Physical Exam General: Alert, Oriented x3, Cooperative, No apparent distress. HEENT: Atraumatic, PERRLA, EOMI. Neck: Supple, No JVD, Negative Carotid Bruits, Trachea Midline, Thyroid Normal. Lungs: Clear to auscultation, Normal air movement, No rhonchi, No wheeze, No rales. Cardiovascular: Regular rate, Regular Rhythm, Normal S1, Normal S2, PMI Normal. Abdomen: Bowel Sounds Present, Soft, Non Tender, Non-Distended, No Hepato-splenomegaly. Extremities: No clubbing, No cyanosis, No edema Skin: No rashes, No breakdown Neurological: Neuro grossly intact Vital Signs are stable. This note was generated with [employer] dictation software. It may contain incorrect words, spelling, and punctuation that were not noted in checking the note before signing. - Physical Exam Vital Signs Temp Pulse Resp BP Pulse Ox 98.2 F 77 18 103/62 94 02/11/18 10:11 02/11/18 11:06 02/11/18 10:11 02/11/18 10:11 02/11/18 10:11 Oxygen Delivery Method Room Air Weight: 216 lb Body Mass Index (BMI) 37.0 Orthostatic Vital Signs Start: 02/11/18 04:52 Freq: q24h Status: Active Protocol: Activity Type Activity Date Activity User E-Sign Co-Sign Detail Recorded Client Recorded Date Recorded By Document 02/11/18 04:52 [facility] [id number] 02/11/18 04:57 [facility] 02/11/18 04:52 Orthostatic Vitals Standing -Blood Pressure (90/60-120/80) 136/77 H -Extremity Use Left Arm -Pulse Rate (60-100) 76 Sitting -Blood Pressure (90/60-120/80) 129/83 H -Extremity Use Left Arm -Pulse Rate (60-100) 80 Lying -Blood Pressure (90/60-120/80) 100/62 -Extremity Use Left Arm -Pulse Rate (60-100) 76 Intake and Output for Last 24 Hours 02/09/18 02/10/18 02/11/18 23:59 23:59 23:59 Intake Total 1404 / 1404 838 / 838 Output Total 350 / 350 Balance 1054 / 1054 838 / 838 Microbiology Past 72 Hours 02/11/18 06:40 Stool Occult Blood (YULIA) - Final Stool Occult Blood Positive Laboratory Tests Past 24 Hrs 02/10/18 02/10/18 02/10/18 14:34 14:34 14:34 WBC 7.1 RBC 3.49 L Hgb 7.1 L Hct 24.6 L MCV 70.5 L MCH 20.3 L MCHC 28.9 L RDW 16.5 H RDW Differential 42.5 Plt Count 331 MPV 9.4 Immature Gran % (Auto) 0.300 Neut % (Auto) 70.0 Lymph % (Auto) 22.1 [place] % (Auto) 5.5 Eos % (Auto) 2.0 Baso % (Auto) 0.1 Absolute Neuts (auto) 5.0 Absolute Lymphs (auto) 1.57 Total Counted Not Reportable Differential Comment Platelet Estimate ADEQUATE Polychromasia RARE Hypochromasia 2+ Anisocytosis 1+ Microcytosis 1+ Macrocytosis Target Cells Ovalocytes 1+ Schistocytes Sodium 140 Potassium 3.4 L Chloride 102 Carbon Dioxide 26.0 Anion Gap 12 BUN 22 H Creatinine 1.05 H Estim Creat Clear Calc 47.97 Est GFR (MDRD) Af Amer 68 Est GFR (MDRD) Non-Af 56 L BUN/Creatinine Ratio 21.0 H Glucose 237 H Calcium 9.2 Iron TIBC Iron Saturation Ferritin Blood Type A POSITIVE Antibody Screen NEGATIVE Crossmatch See Detail 02/10/18 02/10/18 02/10/18 14:34 14:34 21:30 WBC RBC Hgb 7.9 L Hct 26.1 L MCV MCH MCHC RDW RDW Differential Plt Count MPV Immature Gran % (Auto) Neut % (Auto) Lymph % (Auto) [place] % (Auto) Eos % (Auto) Baso % (Auto) Absolute Neuts (auto) Absolute Lymphs (auto) Total Counted Differential Comment Platelet Estimate Polychromasia Hypochromasia Anisocytosis Microcytosis Macrocytosis Target Cells Ovalocytes Schistocytes Sodium Potassium Chloride Carbon Dioxide Anion Gap BUN Creatinine Estim Creat Clear Calc Est GFR (MDRD) Af Amer Est GFR (MDRD) Non-Af BUN/Creatinine Ratio Glucose Calcium Iron 16 L TIBC 342 Iron Saturation 4.7 L Ferritin 5 L Blood Type Antibody Screen Crossmatch See Detail 02/11/18 02/11/18 05:44 05:44 WBC 8.4 RBC 3.93 L Hgb 8.7 L Hct 29.0 L MCV 73.8 L MCH 22.1 L MCHC 30.0 L RDW 18.2 H RDW Differential 49.3 H Plt Count 327 MPV 9.6 Immature Gran % (Auto) 0.200 Neut % (Auto) 60.3 Lymph % (Auto) 29.7 [place] % (Auto) 7.5 Eos % (Auto) 2.1 Baso % (Auto) 0.2 Absolute Neuts (auto) 5.1 Absolute Lymphs (auto) 2.50 Total Counted Not Reportable Differential Comment SCANNED Platelet Estimate Polychromasia Hypochromasia 3+ Anisocytosis 3+ Microcytosis 2+ Macrocytosis 1+ Target Cells RARE Ovalocytes 1+ Schistocytes RARE Sodium 143 Potassium 4.2 Chloride 106 Carbon Dioxide 27.0 Anion Gap 10 BUN 19 H Creatinine 0.95 Estim Creat Clear Calc 53.02 Est GFR (MDRD) Af Amer 77 Est GFR (MDRD) Non-Af 64 BUN/Creatinine Ratio 20.1 H Glucose 108 H Calcium 8.9 Iron TIBC Iron Saturation Ferritin Blood Type Antibody Screen Crossmatch POC Glucose 02/11/18 02/10/18 02/10/18 06:39 21:36 17:19 POC Glucose 129 H 101 89 Disposition: Home Minutes spent on discharge:: 26 Patient Condition:: Stable Meaningful Use Info Meaningful Use Diagnoses (Choose all that apply): None applicable Code Visit OBSV E&M: 25679 Observation care discharge
--- NOTE | 2018-02-11 11:10 | DS.PCM_ITS ---
<Jaci Timmons - Last Filed: 02/11/18 11:12> Discharge Date and Diagnosis Date of Admission: 02/10/18 Date of Discharge: 02/11/18 - Primary Discharge Diagnosis Active and Suspected Problems 1. Acute blood loss anemia due to suspected GI bleed/iron deficiency anemia 2. Hypertension 3. Hyperlipidemia 4. Type 2 diabetes mellitus 5. Depression 6. Hypothyroidism 7. Obesity - Secondary Discharge Diagnosis Chronic Problems Hypertension (Chronic) DM type 2 (diabetes mellitus, type 2) (Chronic) Hypothyroidism (Chronic) Hospital Course and Treatment Dr. Pathak- General Surgery Operations: None Procedures: None Summary of Care Provided: The patient is a 62 year old F admitted 02/10/2018 due to abnormal blood work with hemoglobin 7.1. Patient denies symptoms with this. She states she was at routine [employer] appointments where her provider felt that she was pale and ordered routine lab work. She was noted to have a hemoglobin of 7.1 and referred to the emergency room. Stool positive for occult blood. Patient received 2 units PRBC. Hemoglobin 8.7 [address] Hollingsworth, general surgery consulted. Patient is stable for discharge home with EGD/colonoscopy with Dr. Hollingsworth on 02/14/2018. Patient was instructed to hold home aspirin regimen until further evaluated by general surgery. She was noted to have iron deficiency and received IV iron x1. She will be discharged on iron 325 mg p.o. twice daily. She will also be discharged on Protonix 40 mg daily which may lat er be discontinued if further workup unremarkable. Patient denies melena, hematochezia, hematemesis. She denies dizziness, lightheadedness, shortness of breath, chest pain. Her other past medical history includes hypertension, hyperlipidemia, type 2 diabetes mellitus, hypothyroidism, depression, obesity. Chronic medical conditions stable at this time. General: Alert, Oriented x3, Cooperative, No apparent distress HEENT: Atraumatic, PERRLA, EOMI, Normocephalic Oral: Moist Mucosa Neck: Supple Lungs: Clear to auscultation, Normal air movement Cardiovascular: Regular rate, Regular Rhythm, Normal S1, Normal S2, No murmurs Abdomen: Bowel Sounds Present, Soft, Non Tender, Non-Distended, Obese Extremities: No edema, Capillary Refill Less than 3 Seconds Skin: No rashes, No breakdown Musculoskeletal: No Tenderness to Palpation of Joints or Extremities Lymphatic: No Cervical, Supraclavicular, or Inguinal Adenopathy Neurological: Cranial nerves II-XII grossly intact, Neuro grossly intact Psych/Mental Status: Normal Affect, Appropriate Patient seen and examined prior to discharge. Physical assessment as noted above. Patient is stable for discharge home with follow-up as noted above. This patient was seen by DILMA Chino under the supervision of Dr. Granados. - Physical Exam Vital Signs Temp Pulse Resp BP Pulse Ox 98.2 F 80 18 103/62 94 02/11/18 10:11 02/11/18 10:11 02/11/18 10:11 02/11/18 10:11 02/11/18 10:11 Oxygen Delivery Method Room Air Weight: 216 lb Body Mass Index (BMI) 37.0 Orthostatic Vital Signs Start: 02/11/18 04:52 Freq: q24h Status: Active Protocol: Activity Type Activity Date Activity User E-Sign Co-Sign Detail Recorded Client Recorded Date Recorded By Document 02/11/18 04:52 [facility] [id number] 02/11/18 04:57 [facility] 02/11/18 04:52 Orthostatic Vitals Standing -Blood Pressure (90/60-120/80) 136/77 H -Extremity Use Left Arm -Pulse Rate (60-100) 76 Sitting -Blood Pressure (90/60-120/80) 129/83 H -Extremity Use Left Arm -Pulse Rate (60-100) 80 Lying -Blood Pressure (90/60-120/80) 100/62 -Extremity Use Left Arm -Pulse Rate (60-100) 76 Intake and Output for Last 24 Hours 02/09/18 02/10/18 02/11/18 23:59 23:59 23:59 Intake Total 1404 / 1404 520 / 520 Output Total 350 / 350 Balance 1054 / 1054 520 / 520 Microbiology Past 72 Hours 02/11/18 06:40 Stool Occult Blood (YULIA) - Final Stool Occult Blood Positive Laboratory Tests Past 24 Hrs 02/10/18 02/10/18 02/10/18 14:34 14:34 14:34 WBC 7.1 RBC 3.49 L Hgb 7.1 L Hct 24.6 L MCV 70.5 L MCH 20.3 L MCHC 28.9 L RDW 16.5 H RDW Differential 42.5 Plt Count 331 MPV 9.4 Immature Gran % (Auto) 0.300 Neut % (Auto) 70.0 Lymph % (Auto) 22.1 Levy % (Auto) 5.5 Eos % (Auto) 2.0 Baso % (Auto) 0.1 Absolute Neuts (auto) 5.0 Absolute Lymphs (auto) 1.57 Total Counted Not Reportable Differential Comment Platelet Estimate ADEQUATE Polychromasia RARE Hypochromasia 2+ Anisocytosis 1+ Microcytosis 1+ Macrocytosis Target Cells Ovalocytes 1+ Schistocytes Sodium 140 Potassium 3.4 L Chloride 102 Carbon Dioxide 26.0 Anion Gap 12 BUN 22 H Creatinine 1.05 H Estim Creat Clear Calc 47.97 Est GFR (MDRD) Af Amer 68 Est GFR (MDRD) Non-Af 56 L BUN/Creatinine Ratio 21.0 H Glucose 237 H Calcium 9.2 Iron TIBC Iron Saturation Ferritin Blood Type A POSITIVE Antibody Screen NEGATIVE Crossmatch See Detail 02/10/18 02/10/18 02/10/18 14:34 14:34 21:30 WBC RBC Hgb 7.9 L Hct 26.1 L MCV MCH MCHC RDW RDW Differential Plt Count MPV Immature Gran % (Auto) Neut % (Auto) Lymph % (Auto) Levy % (Auto) Eos % (Auto) Baso % (Auto) Absolute Neuts (auto) Absolute Lymphs (auto) Total Counted Differential Comment Platelet Estimate Polychromasia Hypochromasia Anisocytosis Microcytosis Macrocytosis Target Cells Ovalocytes Schistocytes Sodium Potassium Chloride Carbon Dioxide Anion Gap BUN Creatinine Estim Creat Clear Calc Est GFR (MDRD) Af Amer Est GFR (MDRD) Non-Af BUN/Creatinine Ratio Glucose Calcium Iron 16 L TIBC 342 Iron Saturation 4.7 L Ferritin 5 L Blood Type Antibody Screen Crossmatch See Detail 02/11/18 02/11/18 05:44 05:44 WBC 8.4 RBC 3.93 L Hgb 8.7 L Hct 29.0 L MCV 73.8 L MCH 22.1 L MCHC 30.0 L RDW 18.2 H RDW Differential 49.3 H Plt Count 327 MPV 9.6 Immature Gran % (Auto) 0.200 Neut % (Auto) 60.3 Lymph % (Auto) 29.7 Levy % (Auto) 7.5 Eos % (Auto) 2.1 Baso % (Auto) 0.2 Absolute Neuts (auto) 5.1 Absolute Lymphs (auto) 2.50 Total Counted Not Reportable Differential Comment SCANNED Platelet Estimate Polychromasia Hypochromasia 3+ Anisocytosis 3+ Microcytosis 2+ Macrocytosis 1+ Target Cells RARE Ovalocytes 1+ Schistocytes RARE Sodium 143 Potassium 4.2 Chloride 106 Carbon Dioxide 27.0 Anion Gap 10 BUN 19 H Creatinine 0.95 Estim Creat Clear Calc 53.02 Est GFR (MDRD) Af Amer 77 Est GFR (MDRD) Non-Af 64 BUN/Creatinine Ratio 20.1 H Glucose 108 H Calcium 8.9 Iron TIBC Iron Saturation Ferritin Blood Type Antibody Screen Crossmatch POC Glucose 02/11/18 02/10/18 02/10/18 06:39 21:36 17:19 POC Glucose 129 H 101 89 Discharge Diet: - - Light diet Discharge Activity: Return to Normal Activity Call your doctor if you observe: Shortness of breath, Dizziness, Fainting spells, Chest pain Home Medications: Medications to take at Discharge Cholecalciferol (VIT D3) [Vitamin D3] 1,000 unit PO DAILY 02/02/17 Fish Oil/Om-3/E/Folic/B6-B12 [Cardiovid Plus Softgel] 1 capsule PO DAILY 02/02/17 Fluticasone 0.05% [Flonase Nasal [place]] 1 spray NASAL QHS 02/02/17 Lansoprazole 30 mg PO DAILY 02/02/17 Levothyroxine [Synthroid] 100 mcg PO DAILY 02/02/17 Lisinopril [Zestril] 2.5 mg PO DAILY 02/02/17 Sertraline HCl [Zoloft] 100 mg PO DAILY 02/02/17 Spironolact/Hydrochlorothiazid [Aldactazide 25-25 Tablet] 1 tab PO DAILY 02/02/17 Verapamil HCl [Verapamil Sr] 120 mg PO DAILY 02/02/17 Aspirin E.C. [Ecotrin] 81 mg PO DAILY 02/10/18 Atorvastatin Calcium [Lipitor] 40 mg PO QHS 02/10/18 Diphenhydramine HCl [Benadryl Allergy] 25 mg PO QHS PRN PRN 02/10/18 Metformin HCl 1,000 mg PO BID 02/10/18 Montelukast Sodium [Singulair] 10 mg PO QHS 02/10/18 Ferrous Sulfate [Iron] 325 mg PO BID #60 tablet 02/11/18 Pantoprazole Sodium [Protonix] 40 mg PO DAILY #30 tablet 02/11/18 Following Prescrptions Were Given to Patient: Pantoprazole Sodium [Protonix] 40 mg PO DAILY #30 tablet Ferrous Sulfate [Iron] 325 mg PO BID #60 tablet Primary Care Physician: Vladimir Dinh MD [Primary Care Provider] - Please follow up with your Primary Care Physician in: 1 Week Please Follow Up With: Juvencio Pathak MD When: As scheduled, for scope 02/14/18. Disposition: Home Minutes spent on discharge:: 35 Patient Condition:: Stable Medical Necessity - Tobacco Use Smoking Status: Never smoker Tobacco Use: Non-smoker Meaningful Use Info Meaningful Use Diagnoses (Choose all that apply): None applicable <Lulu Granados E - Last Filed: 02/11/18 11:43> Discharge Date and Diagnosis - Secondary Discharge Diagnosis Chronic Problems Hypertension (Chronic) DM type 2 (diabetes mellitus, type 2) (Chronic) Hypothyroidism (Chronic) Hospital Course and Treatment Procedures: Blood transfusion Summary of Care Provided: Hospitalist note: Discharge summary above reviewed and I agree with above discharge plan. Patient was admitted for symptoms of fatigue and dizziness secondary to acute blood loss anemia attributed to suspected GI bleed as well as severe iron deficiency anemia. On admission, her hemoglobin was 7.1 g/dL and she was symptomatic. She denied any bleeding from body orifices such as epistaxis, hematemesis, hemoptysis, hematuria, metaplasia or melena. She did have a history of menorrhagia long time ago status post hysterectomy. At this time, she denied any vaginal bleeding. Her stool was positive for occult blood. She received 2 units of packed RBCs and hemoglobin went up to 8.7 g/dL. Serum iron was very low as well as serum ferritin and iron saturation her TIBC was normal. General surgery consulted and Dr. Hollingsworth recommended outpatient upper EGD and co lonoscopy this coming Saturday. After transfusion, patient symptoms improved and her vital signs remained stable. She received 1 dose of IV Venofer. Patient discharged home in a stable medical condition, discharged on Protonix and iron supplement, continued on her home medications without any changes, plan for upper EGD and colonoscopy this coming Saturday with Dr. Hollingsworth, recommended from PCP in 1 week. - Physical Exam General: Alert, Oriented x3, Cooperative, No apparent distress. HEENT: Atraumatic, PERRLA, EOMI. Neck: Supple, No JVD, Negative Carotid Bruits, Trachea Midline, Thyroid Normal. Lungs: Clear to auscultation, Normal air movement, No rhonchi, No wheeze, No rales. Cardiovascular: Regular rate, Regular Rhythm, Normal S1, Normal S2, PMI Normal. Abdomen: Bowel Sounds Present, Soft, Non Tender, Non-Distended, No Hepato- splenomegaly. Extremities: No clubbing, No cyanosis, No edema Skin: No rashes, No breakdown Neurological: Neuro grossly intact Vital Signs are stable. This note was generated with [employer] dictation software. It may contain incorrect words, spelling, and punctuation that were not noted in checking the note before signing. - Physical Exam Vital Signs Temp Pulse Resp BP Pulse Ox 98.2 F 77 18 103/62 94 02/11/18 10:11 02/11/18 11:06 02/11/18 10:11 02/11/18 10:11 02/11/18 10:11 Oxygen Delivery Method Room Air Weight: 216 lb Body Mass Index (BMI) 37.0 Orthostatic Vital Signs Start: 02/11/18 04:52 Freq: q24h Status: Active Protocol: Activity Type Activity Date Activity User E-Sign Co-Sign Detail Recorded Client Recorded Date Recorded By Document 02/11/18 04:52 [facility] [id number] 02/11/18 04:57 [facility] 02/11/18 04:52 Orthostatic Vitals Standing -Blood Pressure (90/60-120/80) 136/77 H -Extremity Use Left Arm -Pulse Rate (60-100) 76 Sitting -Blood Pressure (90/60-120/80) 129/83 H -Extremity Use Left Arm -Pulse Rate (60-100) 80 Lying -Blood Pressure (90/60-120/80) 100/62 -Extremity Use Left Arm -Pulse Rate (60-100) 76 Intake and Output for Last 24 Hours 02/09/18 02/10/18 02/11/18 23:59 23:59 23:59 Intake Total 1404 / 1404 838 / 838 Output Total 350 / 350 Balance 1054 / 1054 838 / 838 Microbiology Past 72 Hours 02/11/18 06:40 Stool Occult Blood (YULIA) - Final Stool Occult Blood Positive Laboratory Tests Past 24 Hrs 02/10/18 02/10/18 02/10/18 14:34 14:34 14:34 WBC 7.1 RBC 3.49 L Hgb 7.1 L Hct 24.6 L MCV 70.5 L MCH 20.3 L MCHC 28.9 L RDW 16.5 H RDW Differential 42.5 Plt Count 331 MPV 9.4 Immature Gran % (Auto) 0.300 Neut % (Auto) 70.0 Lymph % (Auto) 22.1 Levy % (Auto) 5.5 Eos % (Auto) 2.0 Baso % (Auto) 0.1 Absolute Neuts (auto) 5.0 Absolute Lymphs (auto) 1.57 Total Counted Not Reportable Differential Comment Platelet Estimate ADEQUATE Polychromasia RARE Hypochromasia 2+ Anisocytosis 1+ Microcytosis 1+ Macrocytosis Target Cells Ovalocytes 1+ Schistocytes Sodium 140 Potassium 3.4 L Chloride 102 Carbon Dioxide 26.0 Anion Gap 12 BUN 22 H Creatinine 1.05 H Estim Creat Clear Calc 47.97 Est GFR (MDRD) Af Amer 68 Est GFR (MDRD) Non-Af 56 L BUN/Creatinine Ratio 21.0 H Glucose 237 H Calcium 9.2 Iron TIBC Iron Saturation Ferritin Blood Type A POSITIVE Antibody Screen NEGATIVE Crossmatch See Detail 02/10/18 02/10/18 02/10/18 14:34 14:34 21:30 WBC RBC Hgb 7.9 L Hct 26.1 L MCV MCH MCHC RDW RDW Differential Plt Count MPV Immature Gran % (Auto) Neut % (Auto) Lymph % (Auto) Levy % (Auto) Eos % (Auto) Baso % (Auto) Absolute Neuts (auto) Absolute Lymphs (auto) Total Counted Differential Comment Platelet Estimate Polychromasia Hypochromasia Anisocytosis Microcytosis Macrocytosis Target Cells Ovalocytes Schistocytes Sodium Potassium Chloride Carbon Dioxide Anion Gap BUN Creatinine Estim Creat Clear Calc Est GFR (MDRD) Af Amer Est GFR (MDRD) Non-Af BUN/Creatinine Ratio Glucose Calcium Iron 16 L TIBC 342 Iron Saturation 4.7 L Ferritin 5 L Blood Type Antibody Screen Crossmatch See Detail 02/11/18 02/11/18 05:44 05:44 WBC 8.4 RBC 3.93 L Hgb 8.7 L Hct 29.0 L MCV 73.8 L MCH 22.1 L MCHC 30.0 L RDW 18.2 H RDW Differential 49.3 H Plt Count 327 MPV 9.6 Immature Gran % (Auto) 0.200 Neut % (Auto) 60.3 Lymph % (Auto) 29.7 Levy % (Auto) 7.5 Eos % (Auto) 2.1 Baso % (Auto) 0.2 Absolute Neuts (auto) 5.1 Absolute Lymphs (auto) 2.50 Total Counted Not Reportable Differential Comment SCANNED Platelet Estimate Polychromasia Hypochromasia 3+ Anisocytosis 3+ Microcytosis 2+ Macrocytosis 1+ Target Cells RARE Ovalocytes 1+ Schistocytes RARE Sodium 143 Potassium 4.2 Chloride 106 Carbon Dioxide 27.0 Anion Gap 10 BUN 19 H Creatinine 0.95 Estim Creat Clear Calc 53.02 Est GFR (MDRD) Af Amer 77 Est GFR (MDRD) Non-Af 64 BUN/Creatinine Ratio 20.1 H Glucose 108 H Calcium 8.9 Iron TIBC Iron Saturation Ferritin Blood Type Antibody Screen Crossmatch POC Glucose 02/11/18 02/10/18 02/10/18 06:39 21:36 17:19 POC Glucose 129 H 101 89 Disposition: Home Minutes spent on discharge:: 26 Patient Condition:: Stable Meaningful Use Info Meaningful Use Diagnoses (Choose all that apply): None applicable Code Visit OBSV E&M: 13575 Observation care discharge
[2018-02-11] MEDS: 0.9% NaCl Peripheral Flush Adult/Peds IV (11:35)
[2018-02-11 11:45] LABS: Bedside Glucose 135 mg/dL (70-110)
== END 2018-02-11 10:58 | disposition home or self-care (01) ==
LOC: ED 15:40 → PCU 15:46
PROVIDERS: Family Medicine; Admitting Provider Internal Medicine; Emergency Provider Emergency Medicine; Family Provider Family Medicine; PCP Family Medicine; Visit Provider Hospitalist
DX: D62 Acute posthemorrhagic anemia (principal); D50.0 Iron deficiency anemia secondary to blood loss (chronic); E78.5 Hyperlipidemia, unspecified; E03.9 Hypothyroidism, unspecified; E11.9 Type 2 diabetes mellitus without complications; F32.9 Major depressive disorder, single episode, unspecified; Z79.899 Other long term (current) drug therapy; Z79.82 Long term (current) use of aspirin; Z79.84 Long term (current) use of oral hypoglycemic drugs; Z79.51 Long term (current) use of inhaled steroids; I10 Essential (primary) hypertension; K92.2 Gastrointestinal hemorrhage, unspecified; E66.9 Obesity, unspecified; Z68.37 Body mass index [BMI] 37.0-37.9, adult; Z71.3 Dietary counseling and surveillance
CPT/HCPCS: 36415; 36430; 80048; 82274; 82728; 82962; 83540; 83550; 85014; 85018; 85025; 86850; 86900; 86920; 86922; 96365; 96366; 96367; 99218; 99283; J1756; J7040; P9016; A4216; G0378

== ENCOUNTER 2018-02-14 22:05 | Emergency (ER) | payer BC, SELFPAY ==
[2018-02-14 22:07] VITALS: BP 121/73; PULSE 88; RESP 20; TEMP 36.8; O2SAT 97; BMI 37.2
--- NOTE | 2018-02-14 22:26 | ED.VISSUMM ---
- ER Visit Summary Date of Service: 02/14/18 Chief Complaint: Right arm redness History of Present Illness: The patient is a 62 F who presents with redness on her right arm. She was admitted earlier this week for anemia and had a blood transfusion. Tonight she noticed some redness around the site where her IV was. She otherwise denies any fever chest pain shortness of breath or other complaints. Physical Examination: Afebrile vitals normal Moist mucous membranes Heart regular Arrest distress There is some induration in the right forearm near the site where her IV was. However there is also some surrounding cellulitis no fluctuance no drainage no lymphangitic streaking she is neurovascularly intact distally with easily palpable radial pulse brisk capillary refill normal sensation no edema of the upper extremity Test Results: Not indicated Emergency Department Course and Treatment: History and examination are consistent with thrombophlebitis with associated cellulitis. She was advised on supportive care for phlebitis including warm compresses. She was prescribed Keflex. She understands to return for new or worsening symptoms and was instructed on signs and symptoms to monitor for. She was discharged Treatment Plan: [] Disposition: Discharge Impression: Phlebitis Cellulitis This note was generated with [employer] dictation software. It may contain incorrect words, spelling, and punctuation that were not noted in review of the chart prior to signing ED Disposition - Plan for ED Patient: Chief Complaint: Cellulitis Referrals: Vladimir Dinh MD [Primary Care Provider] -
--- NOTE | 2018-02-14 22:28 | ED.DEP ---
ED Disposition - Plan for ED Patient: Chief Complaint: Cellulitis Instructions: ED Phlebitis Superficial, ED Infec Skin Cellulitis Prescriptions: Cephalexin [Keflex] 500 mg PO Q6 #40 cap Referrals: Vladimir Dinh MD [Primary Care Provider] -
[2018-02-14 22:35] VITALS: BP 114/78; PULSE 80; RESP 14; O2SAT 98
[2018-02-14] MEDS: Cephalexin 250 MG Capsule 500 MG PO (22:39)
== END 2018-02-14 22:40 | disposition home or self-care (01) ==
LOC: ED 22:39
PROVIDERS: Emergency Provider Emergency Medicine; Family Provider Family Medicine; PCP Family Medicine
DX: I80.8 Phlebitis and thrombophlebitis of other sites (principal); L03.113 Cellulitis of right upper limb; I10 Essential (primary) hypertension; E11.9 Type 2 diabetes mellitus without complications; K21.9 Gastro-esophageal reflux disease without esophagitis; Z79.82 Long term (current) use of aspirin; Z79.84 Long term (current) use of oral hypoglycemic drugs; Z79.899 Other long term (current) drug therapy
CPT/HCPCS: 99283

== ENCOUNTER → 2018-03-19 05:36 | Outpatient (CLI) | payer BC, SELFPAY ==
[2018-02-18 09:55] VITALS: BP 131/75; PULSE 85; RESP 16; TEMP 36.9; O2SAT 97; BMI 37.1
--- NOTE | 2018-02-18 10:19 | SDCEKG_ITS ---
Test Reason : Blood Pressure : / mmHG Vent. Rate : 075 BPM Atrial Rate : 075 BPM P-R Int : 176 ms QRS Dur : 144 ms QT Int : 410 ms P-R-T Axes : 038 000 003 degrees QTc Int : 457 ms Normal sinus rhythm Right bundle branch block Abnormal ECG Confirmed by ASHISH FERRARI, JOHAN ([id number]), photographic editor SUSAN PATRICIA ([id number]) on 02/21/2018 1:44:49 PM Referred By: Juvencio Pathak Confirmed By:JOHAN HINOJOSA MD
[2018-02-18 10:53] LABS: Partial Thromboplast Time 24.7 Seconds (24.1-36.2)
[2018-02-18 10:55] LABS: Hematocrit 31.4 % (37-47); Hemoglobin 9.5 g/dl (12.0-15.0); Mean Corp Hgb Conc 30.3 g/gl (32-36); Mean Corpuscular Hgb 22.6 pg (27.0-32.0); Mean Corpuscular Volume 74.8 fL (81-99); Mean Platelet Vol. 10.7 fl (6.2-12.0); Platelet Count 351 K/mm3 (150-450); RBC Distribution Width CV 20.2 % (11.6-14.6); RBC Distribution Width SD 52.5 fl (35.1-43.9); Scan Indicated on CBC? Y/N YES- FLAGS NOTED; White Blood Count 13.3 K/mm3 (4.4-11.0)
[2018-02-18 11:03] LABS: Anion Gap 11 (5-15); BUN 22 mg/dL (7-18); BUN/Creat Ratio 23.8 RATIO (10-20); Calcium,Total 9.8 mg/dL (8.5-10.1); Chloride 106 mmol/L (98-107); Creatinine, Serum 0.92 mg/dL (0.55-1.02); EST Glomerular Filtration Rate 65 mL/min (>60); Est Glom Filt Rate - Afr Amer 79 mL/min (>60); Estimated Creatinine Clearance 54.75 ml/min; Glucose 124 mg/dL (74-106); Potassium 3.5 mmol/L (3.5-5.1); Sodium Level 142 mmol/L (136-145); Thyroid Stim Hormone (TSH) 0.45 uIU/mL (0.358-3.74)
[2018-02-18 11:16] LABS: Hemoglobin A1c 6.6 % (4.2-6.3)
--- OUTSIDE RECORDS SUMMARY | 2018-06-20 07:22 | XMS RPT_ITS ---
:1955 Author Organization OHIP Support Name Relationship Address Phone IVELISSE CORDERO Unavailable [address] + [place] [address] HARVEY, KATERINA Unavailable [address] + [place] [address] UE Unavailable Unavailable Unavailable GIL IVELISSE Unavailable [address] + [place] [address] HARVEY, KATERINA Unavailable [address] + [place] [address] UE Unavailable Unavailable Unavailable IVELISSE CORDERO Unavailable [address] + [place] [address] HARVEY, KATERINA Unavailable [address] + [place] [address] UE Unavailable Unavailable Unavailable GILIVELISSE Unavailable [address] + [place] [address] HARVEY, KATERINA Unavailable [address] + [place] [address] UE Unavailable Unavailable Unavailable IVELISSE CORDERO Unavailable [address] + [place] [address] HARVEY, KATERINA Unavailable [address] + [place] [address] UE Unavailable Unavailable Unavailable GILIVELISSE Unavailable [address] + [place] [address] HARVEY, KATERINA Unavailable [address] + [place] [address] UE Unavailable Unavailable Unavailable IVELISSE CORDERO Unavailable [address] + [place] [address] HARVEY, KATERINA Unavailable [address] + [place] [address] UE Unavailable Unavailable Unavailable IVELISSE CORDERO Unavailable [address] + [place] [address] KATERINA HARVEY Unavailable [address] + [place] [address] UE Unavailable Unavailable Unavailable Care Team Providers Name Role Phone CELESTINA MONTESINOS ([facility]) Attending Unavailable ELIZABETH DINH) Referring Unavailable ELIZABETH DINH) Attending Unavailable ELIZABETH DINH) Referring Unavailable DALY HARRISON ([facility]) Attending Unavailable NARGIS SNYDER Referring Unavailable ELIZABETH DINH) Referring Unavailable ZO, PRAFUL Jamison Admitting Unavailable ZO, PRAFUL Jamison Attending Unavailable ZO, PRAFUL Jamison Referring Unavailable ZO, PRAFUL Jamison Admitting Unavailable ZO, PRAFUL Jamison Attending Unavailable ELIZABETH DINH) Referring Unavailable ZO, PRAFUL Jamison Admitting Unavailable ZO, PRAFUL Jamison Attending Unavailable ZO, PRAFUL Jamison Referring Unavailable ZO, PRAFUL Jamison Admitting Unavailable ZO, PRAFUL Jamison Attending Unavailable ZO, PRAFUL Jamison Referring Unavailable ZO, PRAFUL Jamison Attending Unavailable ELIZABETH DINH) Referring Unavailable ZO, PRAFUL Jamison Referring Unavailable YODER, KING R Attending Unavailable ZO, PRAFUL Jamison Referring Unavailable YODER, KING R Referring Unavailable YODER, KING R Referring Unavailable GRBILL S Attending Unavailable JUSTINA CONSTANTINO Referring Unavailable YODER, KING R Referring Unavailable YODER, KING R Referring Unavailable YODER, KING R Admitting Unavailable YODER, KING R Attending Unavailable ZO, PRAFUL Jamison Attending Unavailable ELIZABETH DINH) Referring Unavailable MASCI, OLLIE Holguin Attending Unavailable YODERKING Rice R Referring Unavailable MASCI, OLLIE Holguin Referring Unavailable ELIZABETH DINH) Attending Unavailable ELIZABETH DINH) Referring Unavailable STACEY BARRIGA ([facility]) Attending Unavailable MASCI, OLLIE Holguin Referring Unavailable MASCI, OLLIE Holguin Referring Unavailable ELIZABETH DINH) Referring Unavailable MASCI, OLLIE Holguin Referring Unavailable MASCI, OLLIE Holguin Referring Unavailable MASCI, OLLIE Holguin Referring Unavailable MASCI, OLLIE Chelsie Referring Unavailable MASCI, OLLIE Chelsie Referring Unavailable MASCI, OLLIE Chelsie Referring Unavailable MASCI, OLLIE Chelsie Referring Unavailable MASCI, OLLIE A Referring Unavailable ZO, PRAFUL T Referring Unavailable PRAFUL PATHAK T Referring Unavailable PRAFUL PATHAK T Admitting Unavailable PRAFUL PATHAK T Attending Unavailable Vladimir Dinh Attending Unavailable Vladimir Ledesma Referring Unavailable Vladimir Dinh Primary Care Unavailable Bart Veras Attending Unavailable Vladimir Dinh Primary Care Unavailable Paintsil, Crawford Admitting Unavailable Zo, Praful Consulting Unavailable Reneelftanvi, Kenyaasem Attending Unavailable Paintsil, Crawford Admitting Unavailable Paintsil, Crawford Attending Unavailable Fabrizio, Vladimir Primary Care Unavailable Paintsil, Crawford Consulting Unavailable Paintsil, Crawford Admitting Unavailable Fabrizio, Vladiimr Primary Care Unavailable Zo, Praful Consulting Unavailable Ashelfah, Ghasem Attending Unavailable Ashelfah, Ghasem Consulting Unavailable Fabrizio, Vladimir Primary Care Unavailable Zack Felix Attending Unavailable Zo, Praful Admitting Unavailable Zo, Praful Attending Unavailable Zo, Praful Referring Unavailable Vladimir Dinh Primary Care Unavailable Rito, Bart Attending Unavailable Zo, Praful Referring Unavailable PROBLEMS PROBLEMS DATE TYPE CONDITION / CODE ATTENDING STATUS SOURCE 04/15/2018 Active 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 secondary to blood Clinic Main loss (chronic) / [place] D50.0(ICD-10) Repository 04/14/2018 Active Hypercalcemia / NA [facility] E83.52(ICD-10) Clinic Main [place] Repository 03/31/2018 Active Malignant neoplasm of [facility] transverse colon / Clinic Main C18.4(ICD-10) [place] Repository 04/10/2018 Active Other terminal operator NA [facility] (current) drug therapy Clinic Main / Z79.899(ICD-10) [place] Repository 04/07/2012 Active Other allergy status, [facility] other than to drugs PRAFUL Jamison Clinic Other and biological [place] substances / Repository Z91.09(ICD-10) 03/04/2018 Active Malignant neoplasm of KING YODER [facility] colon, unspecified / R Clinic Main C18.9(ICD-10) [place] Repository 03/06/2018 Active Other acute YODER KING [facility] postprocedural pain / R Clinic Main G89.18(ICD-10) [place] Repository 03/04/2018 Active Encounter for other BILL GR Active [place] preprocedural S [facility] Main examination / [place] Z01.818(ICD-10) Repository 03/04/2018 Unknown R94.31 - Abnormal [place], [place] Active [place] electrocardiogram Community [ECG] [EKG] / Hospital R94.31(ICD-10) Repository 03/04/2018 Unknown I45.10 - Unspecified Rito, Bart Active [place] right bundle-branch Community block / I45.10(ICD-10) Hospital Repository 02/14/2018 Active Anemia, unspecified / ZO, Active [place] D64.9(ICD-10) [facility] Main [place] Repository 04/23/2015 Active Mixed hyperlipidemia / ZO, Active [place] E78.2(ICD-10) [facility] Main [place] Repository 02/14/2018 Active Intra-abdominal and ZO, Active [place] pelvic swelling, mass [facility] Main and lump, unspecified [place] site / R19.00(ICD-10) Repository 02/07/2018 Active Hypothyroidism, NA Active [place] unspecified / Clinic Main E03.9(ICD-10) [place] Repository 02/07/2018 Active Encounter for NA Active [place] screening mammogram [facility] Main for malignant neoplasm [place] of breast / Repository Z12.31(ICD-10) 10/04/2017 Active Type 2 diabetes NA Active [place] mellitus without Clinic Main complications / [place] E11.9(ICD-10) Repository PROCEDURES PROCEDURES No Procedure Records FoundRESULTS RESULTS [place] ABS GR + CBC Collected: 04/14/2018 Status: F Source: [facility] 8:25 AM CLINIC MAIN CAMPUS REPOSITORY TYPE CODE TESTS RESULT OUT OF REFERENCE UNITS RANGE LAB WWBC 3.70-11.00 k/uL [place] WBC 5.83 LAB WRBC 3.90-5.20 m/uL [place] RBC 4.09 LAB WHGB 11.5-15.5 g/dL Low [place] Hemoglobin 9.7 LAB WHCT 36.0-46.0 % Low [place] Hematocrit 31.5 LAB WMCV 80.0-100.0 fL Low [place] MCV 77.0 LAB WMCH 26.0-34.0 pg Low [place] MCH 23.7 LAB WMCHC 30.5-36.0 g/dL [place] MCHC 30.8 LAB WRDW 11.5-15.0 % [place] High RDW 20.7 LAB WPLT 150-400 k/uL [place] Platelet Cnt 234 LAB WMPV 9.0-12.7 fL [place] MPV 11.0 Result Comment: Test performed at: [facility] [place], [address] [place] [address]. LAB ABGRAN 1.45-7.50 k/uL Absol Gran 2.98 Count COMP METABOLIC PANEL Collected: 04/14/2018 Status: F Source: [place] 8:25 AM [facility] MAIN CAMPUS REPOSITORY TYPE CODE TESTS RESULT OUT OF REFERENCE UNITS RANGE LAB TP 6.3-8.0 g/dL Protein, Total 6.8 LAB ALB 3.9-4.9 g/dL Albumin 4.1 LAB CA 8.5-10.2 mg/dL Calcium, Total 10.2 LAB TBIL 0.2-1.3 mg/dL Bilirubin, Total 0.2 LAB ALKP 34-123 U/L Alkaline Phosphatase 98 LAB AST 13-35 U/L AST 13 LAB GLU 74-99 mg/dL Glucose High 173 LAB BUN 7-21 mg/dL BUN 19 LAB CRET 0.58-0.96 mg/dL Creatinine 0.76 LAB NA 136-144 mmol/L Sodium 140 LAB K 3.7-5.1 mmol/L Potassium Low 3.3 LAB CL 97-105 mmol/L Chloride 103 LAB CO2 22-30 mmol/L CO2 26 LAB AGAP mmol/L Anion Gap 11 LAB ALT 7-38 U/L ALT 12 LAB GFRAA eGFR- >60 Amer. LAB GFRNAA . eGFR-All Other Races >60 Result Comment: eGFR (Estimated GFR) Units of measure: mL/min/1.73 meters squared eGFR is derived from the reexpressed MDRD Study equation using the following parameters: serum creatinine, age, gender and race. The creatinine assay has been calibrated to be traceable to IDMS. An eGFR <60 mL/min/1.73m2 for >3 months is consistent with chronic kidney disease. Refer to KDOQI guidelines for clinical interpretation. In patients with unstable renal function, e.g. those with acute kidney injury, the eGFR may not accurately reflect actual GFR. MAGNESIUM Collected: 04/14/2018 Status: F Source: [place] 8:25 AM [facility] REPOSITORY TYPE CODE TESTS RESULT OUT OF REFERENCE UNITS RANGE LAB MG 1.7-2.3 mg/dL Low Magnesium 1.4 FERRITIN Collected: 04/14/2018 Status: F Source: [place] 8:25 AM [facility] REPOSITORY TYPE CODE TESTS RESULT OUT OF REFERENCE UNITS RANGE LAB FERR 14.7-205.1 ng/mL Ferritin 26.4 Performed By: #### FERR, IRON, HBA1C #### [place] [id number] [place] [address] IRON AND TIBC Collected: 04/14/2018 Status: F Source: [facility] 8:25 AM [facility] REPOSITORY TYPE CODE TESTS RESULT OUT OF REFERENCE UNITS RANGE LAB IRN 41-186 ug/dL Low Iron 29 LAB TIBC 232-386 ug/dL TIBC 293 LAB SAT 15-57 % Low Transferrin Saturatn 10 Performed By: #### FERR, IRON, HBA1C #### [place] [address] HEMOGLOBIN A1C Collected: 04/14/2018 Status: F Source: [facility] 8:25 AM [facility] REPOSITORY TYPE CODE TESTS RESULT OUT OF REFERENCE UNITS RANGE LAB HGBA1C 4.3-5.6 % High Hemoglobin A1c 6.1 Result Comment: [place] Diabetes Association guidelines indicate that patients with HgbA1c in the range 5.7-6.4% are at increased risk for development of diabetes, and intervention by lifestyle modification may be beneficial. HgbA1c greater or equal to 6.5% is considered diagnostic of diabetes. LAB HBA0 mg/dL Est. Average Glucose 128 Result Comment: eAG: (Estimated average glucose) is a calculated value from HgbA1c and is small business sales representative of the average blood glucose level in the last 2-3 month period. Performed By: #### FERR, IRON, HBA1C #### [place] [address] PTH, INTACT Collected: 04/14/2018 Status: F Source: [place] 8:25 [facility] REPOSITORY TYPE CODE TESTS RESULT OUT OF REFERENCE UNITS RANGE LAB PTH 15-65 pg/mL High PTH, Intact 66 Performed By: #### PTHI #### [facility] [address] [place] [address] [place], [place] [address] PROGRESS Observed: 04/11/2018 Status: COMPLETED Source: [facility] 2:10 PM [facility] MAIN CAMPUS REPOSITORY HNO ID: [id number] Author: Elizabeth Heurta) Fabrizio Service: (none) Author Type: Physician Type: Progress Notes Filed: 04/13/2018 7:22 PM Note Text: Chief Complaint Patient presents with: F/U 6 Month HPI Anne Cordero is a 62 year old female who presents here today for 6 month follow up. Since last OV, patient was found to have colon cancer after presenting to [employer] office pale and SOB. New finding of anemia on CBC. Admitted to [facility] and Dr. Pathak found bulky mass on colonoscopy. Underwent laparoscopic colectomy in March and has been following up with Dr. Krause since. 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 -Reviewed CT results with patient and . -I discussed with the patient and her the natural history, treated course, and prognosis of stage IIIC colon cancer. Also discussed the rationale, logistics, potential risks (including ), benefits and alternatives, as well as the personnel involved in the administration of FOLFOX. I answered her questions in detail and she verbalized understanding and agreed with the recommended therapy. Please see the electronic consent document for details of doses and schedule. Plan: -Genetic counseling assessment. -Referral to Dr. Pathak for port. -Chemotherapy teaching. -Rx for Zofran sent. -Begin chemotherapy week of 04/07. Port placed in left chest on 04/09 without complication. Chemo to start Friday 04/14 at 8 am. Has bandage in place over port, requesting help removing today. Has been feeling well physically, but has been more nervous. Complains of productive cough and night sweats last night. Admits to sinus congestion, rhinorrhea. Denies fever, chills, nausea, vomiting, diarrhea, sore throat, ear pain/fullness, swollen glands. Treating cough with robitussin DM which worked well for symptoms. DIABETES MELLITUS: Ms. Cordero was last seen 6 months ago. Since our last visit she denies excessive thirst or increased frequency of urination, numbness, tingling or pain in extremities, new or unusual visual symptoms and low sugar/hypoglycemic reactions. Follows a diabetic diet most of the time. She is compliant with medication(s) and is tolerating med(s) without any side effects. She reports checking her glucose on a infrequent to not at all basis. Patient's last HgA1C was Hemoglobin A1C (%) Date Value 10/04/2017 7.0 04/09/2017 6.6 ) Last Ophthalmology exam was more than 12 months ago Last Podiatry exam was within the past 12 months Anxiety/depression: symptoms fairly well controlled on current dose of Zoloft, even with new cancer diagnosis. Denies suicidal ideation, panic symptoms. Happy with current dosage. Refusing counseling. Past medical history, appointments, medications, allergies reviewed. Previous Medical History PAST MEDICAL HISTORY Diagnosis Date - Abnormal EKG RIGHT BUNDLE BRANCH BLOCK - Anxiety state, unspecified - Arrhythmia Dr. 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) 03/2018 - Depressive disorder, not elsewhere classified - Diarrhea - Diverticulosis of colon (without mention of hemorrhage) - Esophageal reflux - Family history of malignant neoplasm of gastrointestinal tract family history of colon cancer - Goiter, unspecified Goiter - Internal hemorrhoids without mention of complication - LATERAL EPICONDYLITIS 04/27/2007 - Mixed hyperlipidemia Hyperlipidemia - Obesity, unspecified Obesity - Osteoarthrosis, unspecified whether generalized or localized, other specified sites - Osteopenia - Snoring - Tooth abscess - Type II or unspecified type diabetes mellitus without mention of complication, not stated as uncontrolled - Unspecified essential hypertension Essential hypertension - Unspecified hypothyroidism Previous Surgical History PAST SURGICAL HISTORY Procedure Laterality Date - APPENDECTOMY 07/24/1966 - CARPAL TUNNEL 2011 bilateral - CHG DELIVERY 1986 , low cervical - COLONOSCOP W/ OR W/O BRSH SPEC 07/15/06 Repeat in -2011 - COLONOSCOP W/ OR W/O BRSH SPEC 12/26/2011 Colonoscopy - COLONOSCOP W/ OR W/O BRSH SPEC 01/07/2015 Colonoscopy - COLONOSCOP W/ OR W/O BRSH SPEC 02/14/2018 Colonoscopy - EGD W/O OR W/BRUSH/WASH 12/26/2011 EGD - EGD W/O OR W/BRUSH/WASH 02/14/2018 EGD - HYSTEROSCOPY, DIAGNOSTIC (SEPARATE 11/30/1993 Hysteroscopy - KNEE SCOPE,DIAGNOSTIC 04/29/2003 Arthroscopy, knee, left - LAPAROSCOPY DIAGNOSTIC 03/06/2018 with splenic flexure mobilization / colectomy/TAP block - PAST SURGICAL HISTORY OF SINUS SURGERY - PAST SURGICAL HISTORY OF 2010 EYE SURGERY- DROOPY LIDS - PAST SURGICAL HISTORY OF 03/11 right partial knee replacement - PAST SURGICAL HISTORY OF 01/08/12 left medial compartment unicompartmental knee arthroplasty - PORTOCATH PLACEMENT 04/09/2018 - REMOVAL OF TONSILS,<12 Y/O 03/08/1961 Tonsillectomy AND adenoidectomy - SIGMOIDOSCOPY 03/06/2018 - SIGMOIDOSCOPY FLEX DIAG 5 YEARS AGO Sigmoidoscopy - THYROIDECTOMY 08/25/1992 left - THYROIDECTOMY 12/14/2003 right lobectomy - TOTAL ABDOM HYSTERECTOMY 03/29/1994 Hysterectomy, PASCUAL Family History FAMILY HISTORY Problem Relation Age of Onset - Breast Cancer Mother - Heart Mother - Diabetes Mother - Colon Cancer Father - Heart Father - Diabetes Father - Colon Cancer Paternal Grandmother - Colon Cancer Paternal Grandfather Patient Allergies ALLERGIES Allergen Reactions - Atenolol Mental Status Change fatigue - Depo-Medrol [Methyl* facial redness, elevated glucose - Ivp Dye [Iodine] Hives, Swelling occurred in the 70's. Had swelling and hives on arm only where IV was - Sulfa (Sulfonamide * Hives Current Medications Current Outpatient Prescriptions on File Prior to Visit: sertraline (ZOLOFT) 100 mg tablet Take 1 tablet by mouth once daily. acetaminophen (TYLENOL) 325 mg tablet Take 2 tablets by mouth every 6 hours as needed for Pain. metFORMIN (GLUCOPHAGE) 1,000 mg tablet TAKE 1 TABLET BY MOUTH TWICE A DAY WITH MEALS lansoprazole (PREVACID) 30 mg capsule TAKE 1 CAPSULE BY MOUTH ONCE DAILY verapamil ER (VERELAN) 120 mg 24 hr capsule TAKE 1 CAPSULE BY MOUTH ONCE DAILY lisinopril 2.5 mg tablet TAKE 1 TABLET BY MOUTH ONCE A DAY FOR BLOOD PRESSURE atorvastatin (LIPITOR) 80 mg tablet TAKE ONE-HALF TABLET BY MOUTH ONCE DAILY spironolactone-hctz 25/25 (ALDACTAZIDE) 25-25 mg per tablet TAKE 1 TABLET BY MOUTH ONCE DAILY fluticasone (FLONASE) 50 mcg/actuation nasal spray Use 2 Sprays in each nostril once daily. Rinse mouth after use. Cholecalciferol, Vitamin D3, 1,000 unit cap Take 1 capsule by mouth once daily. levothyroxine (SYNTHROID) 100 mcg ORAL tablet Take 1 tablet by mouth once daily. ASPIRIN 81 MG ORAL TAB Take one (1) tablet daily . oxyCODONE-acetaminophen (PERCOCET) 5-325 mg tablet Take 1 tablet by mouth every 8 hours as needed for up to 7 days. ondansetron (ZOFRAN) 8 mg tablet Take 1 tablet by mouth every 8 hours as needed for Nausea/Vomiting. clotrimazole (LOTRIMIN, CLOTRIM) 1 % cream Apply 1 application to affected area twice daily. LORATADINE/PSEUDOEPHEDRINE (CLARITIN-D 24 HOUR ORAL) Take 1 tablet by mouth once daily. Prn Oxymetazoline HCl 0.05 % mist Use 30 mL in the nose twice daily as needed. WEAN off No current facility-administered medications on file prior to visit. 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 Social History Main Topics Smoking status: Never Smoker Smokeless tobacco: Never Used Alcohol use: No Drug use: No Sexual activity: Yes Partners with: Male control/protection: Surgical Comment: [facility] Review of Symptoms REVIEW OF SYSTEMS GENERAL: No weight loss, malaise or fevers RESPIRATORY: Negative for cough, hemoptysis, wheezing, COPD, dyspnea or shortness of breath CARDIOVASCULAR: Negative for chest pain, leg swelling, hypertension, CHF or palpitations GI: No nausea, vomiting, or diarrhea SKIN: Negative for lesions, rash, and itching EXAM: BP 102/70 Pulse 84 Temp 36.9 ?C (98.5 ?F) (Left Tympanic) Resp 10 Wt 95.3 kg (210 lb) BMI 34.95 kg/m? General Appearance: Well appearing, alert, in no acute distress, well-hydrated, well nourished.. Skin: Skin color, texture, turgor normal, no suspicious rashes or lesions. Port in place on left chest. Bandage removed. Steri strips in place. No cellulitis. Ears: Negative findings: Right tympanic membrane normal. Positive findings: cerumen on right, amount Large. Removed manually during exam without complications. Lungs: lungs clear to auscultation. No wheezing, rhonchi, rales. Heart: RRR without murmur, gallop, or rubs. No ectopy. Abdomen: Normal abdominal exam, Abdomen soft, non-tender. Bowel sounds normal. No masses, organomegaly. Extremities: No deformities, edema, skin discoloration, clubbing or cyanosis. Good capillary refill. . Health Maintenance List DILATED RETINAL EXAM due on 02/12/2018 HBA1C due on 04/06/2018 STATIN MED ADHERENCE due on 05/02/2018 DIABETES MED ADHERENCE due on 05/02/2018 DIABETIC FOOT EXAM due on 10/09/2018 ANNUAL PCP TEAM CHRONIC DISEASE VISIT due on 10/09/2018 MAMMOGRAM due on 02/07/2019 LDL CHOLESTEROL due on 02/14/2019 BP CONTROLLED (<130/80) due on 03/31/2019 URINE ALBUMIN:CREATININE RATIO due on 04/10/2019 COLORECTAL CANCER SCREENING,SEE MODIFIER due on 02/14/2023 DTAP,TDAP,TD(2 - Td) due on 10/21/2023 ONE PNEUMOVAX PRIOR TO AGE 65 Completed INFLUENZA Completed HEPATITIS C SCREENING Completed Data reviewed Component Latest Ref Rng AND Units 03/07/2018 03/26/2018 04/10/2018 Protein, Total 6.3 - 8.0 g/dL 7.3 Albumin 3.9 - 4.9 g/dL 4.6 Calcium 8.5 - 10.2 mg/dL 8.9 10.5 (H) Bilirubin, Total 0.2 - 1.3 mg/dL 0.2 Alkaline Phosphatase 34 - 123 U/L 81 AST 13 - 35 U/L 13 Glucose 74 - 99 mg/dL 116 (H) 112 (H) BUN 7 - 21 mg/dL 17 18 Creatinine 0.58 - 0.96 mg/dL 1.03 (H) 0.76 Sodium 136 - 144 mmol/L 141 138 Potassium 3.7 - 5.1 mmol/L 4.0 4.1 Chloride 97 - 105 mmol/L 102 99 CO2 22 - 30 mmol/L 27 28 Anion Gap mmol/L 12 11 ALT 7 - 38 U/L 11 eGFR- >60 >60 eGFR-All Other Races . 54 >60 WBC 3.70 - 11.00 k/uL 5.84 RBC 3.90 - 5.20 m/uL 3.32 (L) Hemoglobin 11.5 - 15.5 g/dL 7.5 (L) Hematocrit 36.0 - 46.0 % 25.0 (L) MCV 80.0 - 100.0 fL 75.3 (L) MCH 26.0 - 34.0 pG 22.6 (L) MCHC 30.5 - 36.0 g/dL 30.0 (L) RDW-CV 11.5 - 15.0 % 21.4 (H) Platelet Count 150 - 400 k/uL 218 MPV 9.0 - 12.7 fL 11.2 Absolute nRBC <0.01 k/uL <0.01 WBC, [place] 3.70 - 11.00 k/uL 7.21 RBC, [place] 3.90 - 5.20 m/uL 4.52 Hemoglobin, [place] 11.5 - 15.5 g/dL 10.5 (L) Hematocrit, [place] 36.0 - 46.0 % 34.5 (L) MCV, [place] 80.0 - 100.0 fL 76.3 (L) MCH, [place] 26.0 - 34.0 pg 23.2 (L) MCHC, [place] 30.5 - 36.0 g/dL 30.4 (L) RDW, [place] 11.5 - 15.0 % 21.9 (H) Platelet Cnt, [place] 150 - 400 k/uL 354 MPV, [place] 9.0 - 12.7 fL 10.5 Absol Gran Count 1.45 - 7.50 k/uL 4.39 Iron 41 - 186 ug/dL 35 (L) TIBC 232 - 386 ug/dL 378 Transferrin Saturation 15 - 57 % 9 (L) Creatinine, Ur Random (UCRR) 20 - 300 mg/dL 226.3 Albumin, Urine Random 0.0 - 23.0 mg/L 46.7 (H) Albumin/Creat Ratio 0 - 30 mg/g 21 Magnesium 1.7 - 2.3 mg/dL 2.1 Phosphorus 2.7 - 4.8 mg/dL 2.5 (L) Troponin T 0.000 - 0.029 ng/mL <0.010 Ferritin 14.7 - 205.1 ng/mL 23.1 ASSESSMENT/PLAN: 1. Cancer of splenic flexure of colon metastatic to intra- abdominal lymph node (HCC) - ICD9: 153.7, 196.2, ICD10: C18.5, C77.2 (primary diagnosis) S/p colectomy. Port in place. F/u with oncology as recommended. 2. Type 2 diabetes mellitus without complication, without long-term current use of insulin (HCC) - ICD9: 250.00, ICD10: E11.9 Controlled. - Continue current medications - Check HgA1C - Blood glucose monitoring on a twice a day schedule - Encouraged regular aerobic exercise and weight loss - Daily Asprin therapy recommended - Follow up in 3 months, sooner should any other issues arise. - HGB A1C 3. Essential hypertension - ICD9: 401.9, ICD10: I10 - good control - Continue current medication(s) - Encouraged dietary sodium restriction/DASH diet - Recommended regular aerobic exercise. - Reviewed risks of HTN and principles of treatment - Goal of BP <140/90 4. Mixed hyperlipidemia - ICD9: 272.2, ICD10: E78.2 - good control - Continue current medication. - Encouraged following a low fat, low cholesterol diet. - Discussed the benefits of regular aerobic exercise and weight loss. 5. Acquired hypothyroidism - ICD9: 244.9, ICD10: E03.9 - Instructed patient on importance of taking on an empty stomach either first thing in the morning or at bedtime. - continue current dose of Synthroid 0.100 mg 6. Gastroesophageal reflux disease, esophagitis presence not specified - ICD9: 530.81, ICD10: K21.9 - Continue treatment with Prevacid 30 mg BID 7. Anxiety - ICD9: 300.00, ICD10: F41.9 Controlled on current regimen despite recent cancer diagnosis. Continue current regimen. 8. Impacted cerumen of right ear - ICD9: 380.4, ICD10: H61.21 Cerumen removed with cuvette. TM normal. Elizabeth Dinh MD CNOV Observed: 04/11/2018 Status: COMPLETED Source: [place] 2:00 PM [facility] REPOSITORY Office Visit (FAMPWS) ANNE CORDERO ([id number]) 1955 F Date Time Provider Department 04/11/18 2:00 PM ELIZABETH DINH) FAMPWS During your visit today, we recorded the following information about you: Temperature Pulse Respiration Blood pressure 98.5 degrees 84/minute 10/minute 102/70 Weight 95.3 kg Elizabeth Dinh MD 04/13/2018 7:22 PM Signed Chief Complaint Patient presents with: F/U 6 Month HPI Anne Cordero is a 62 year old female who presents here today for 6 month follow up. Since last OV, patient was found to have colon cancer after presenting to [facility] office pale and SOB. New finding of anemia on CBC. Admitted to [facility] and Dr. Pathak found bulky mass on colonoscopy. Underwent laparoscopic colectomy in March and has been following up with Dr. Krause since. 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 -Reviewed CT results with patient and . -I discussed with the patient and her the natural history, treated course, and prognosis of stage IIIC colon cancer. Also discussed the rationale, logistics, potential risks (including ), benefits and alternatives, as well as the personnel involved in the administration of FOLFOX. I answered her questions in detail and she verbalized understanding and agreed with the recommended therapy. Please see the electronic consent document for details of doses and schedule. Plan: -Genetic counseling assessment. -Referral to Dr. Pathak for port. -Chemotherapy teaching. -Rx for Zofran sent. -Begin chemotherapy week of 04/07. Port placed in left chest on 04/09 without complication. Chemo to start Friday 04/14 at 8 am. Has bandage in place over port, requesting help removing today. Has been feeling well physically, but has been more nervous. Complains of productive cough and night sweats last night. Admits to sinus congestion, rhinorrhea. Denies fever, chills, nausea, vomiting, diarrhea, sore throat, ear pain/fullness, swollen glands. Treating cough with robitussin DM which worked well for symptoms. DIABETES MELLITUS: Ms. Cordero was last seen 6 months ago. Since our last visit she denies excessive thirst or increased frequency of urination, numbness, tingling or pain in extremities, new or unusual visual symptoms and low sugar/hypoglycemic reactions. Follows a diabetic diet most of the time. She is compliant with medication(s) and is tolerating med(s) without any side effects. She reports checking her glucose on a infrequent to not at all basis. Patient's last HgA1C was Hemoglobin A1C (%) Date Value 10/04/2017 7.0 04/09/2017 6.6 ) Last Ophthalmology exam was more than 12 months ago Last Podiatry exam was within the past 12 months Anxiety/depression: symptoms fairly well controlled on current dose of Zoloft, even with new cancer diagnosis. Denies suicidal ideation, panic symptoms. Happy with current dosage. Refusing counseling. Past medical history, appointments, medications, allergies reviewed. Previous Medical History PAST MEDICAL HISTORY Diagnosis Date - Abnormal EKG RIGHT BUNDLE BRANCH BLOCK - Anxiety state, unspecified - Arrhythmia Dr. 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) 03/2018 - Depressive disorder, not elsewhere classified - Diarrhea - Diverticulosis of colon (without mention of hemorrhage) - Esophageal reflux - Family history of malignant neoplasm of gastrointestinal tract family history of colon cancer - Goiter, unspecified Goiter - Internal hemorrhoids without mention of complication - LATERAL EPICONDYLITIS 04/27/2007 - Mixed hyperlipidemia Hyperlipidemia - Obesity, unspecified Obesity - Osteoarthrosis, unspecified whether generalized or localized, other specified sites - Osteopenia - Snoring - Tooth abscess - Type II or unspecified type diabetes mellitus without mention of complication, not stated as uncontrolled - Unspecified essential hypertension Essential hypertension - Unspecified hypothyroidism Previous Surgical History PAST SURGICAL HISTORY Procedure Laterality Date - APPENDECTOMY 07/24/1966 - CARPAL TUNNEL 2011 bilateral - CHG DELIVERY 1981, 1986 , low cervical - COLONOSCOP W/ OR W/O [facility] SPEC 07/15/06 Repeat in - COLONOSCOP W/ OR W/O [facility] SPEC 12/26/2011 Colonoscopy - COLONOSCOP W/ OR W/O [facility] SPEC 01/07/2015 Colonoscopy - COLONOSCOP W/ OR W/O [facility] SPEC 02/14/2018 Colonoscopy - EGD W/O OR W/BRUSH/WASH 12/26/2011 EGD - EGD W/O OR W/BRUSH/WASH 02/14/2018 EGD - HYSTEROSCOPY, DIAGNOSTIC (SEPARATE 11/30/1993 Hysteroscopy - KNEE SCOPE,DIAGNOSTIC 04/29/2003 Arthroscopy, knee, left - LAPAROSCOPY DIAGNOSTIC 03/06/2018 with splenic flexure mobilization / colectomy/TAP block - PAST SURGICAL HISTORY OF SINUS SURGERY - PAST SURGICAL HISTORY OF 2010 EYE SURGERY- DROOPY LIDS - PAST SURGICAL HISTORY OF 03/11 right partial knee replacement - PAST SURGICAL HISTORY OF 01/08/12 left medial compartment unicompartmental knee arthroplasty - PORTOCATH PLACEMENT 04/09/2018 - REMOVAL OF TONSILS,<12 Y/O 03/08/1961 Tonsillectomy AND adenoidectomy - SIGMOIDOSCOPY 03/06/2018 - SIGMOIDOSCOPY FLEX DIAG 5 YEARS AGO Sigmoidoscopy - THYROIDECTOMY 08/25/1992 left - THYROIDECTOMY 12/14/2003 right lobectomy - TOTAL ABDOM HYSTERECTOMY 03/29/1994 Hysterectomy, PASCUAL Family History FAMILY HISTORY Problem Relation Age of Onset - Breast Cancer Mother - Heart Mother - Diabetes Mother - Colon Cancer Father - Heart Father - Diabetes Father - Colon Cancer Paternal Grandmother - Colon Cancer Paternal Grandfather Patient Allergies ALLERGIES Allergen Reactions - Atenolol Mental Status Change fatigue - Depo-Medrol [Methyl* facial redness, elevated glucose - Ivp Dye [Iodine] Hives, Swelling occurred in the 70's. Had swelling and hives on arm only where IV was - Sulfa (Sulfonamide * Hives Current Medications Current Outpatient Prescriptions on File Prior to Visit: sertraline (ZOLOFT) 100 mg tablet Take 1 tablet by mouth once daily. acetaminophen (TYLENOL) 325 mg tablet Take 2 tablets by mouth every 6 hours as needed for Pain. metFORMIN (GLUCOPHAGE) 1,000 mg tablet TAKE 1 TABLET BY MOUTH TWICE A DAY WITH MEALS lansoprazole (PREVACID) 30 mg capsule TAKE 1 CAPSULE BY MOUTH ONCE DAILY verapamil ER (VERELAN) 120 mg 24 hr capsule TAKE 1 CAPSULE BY MOUTH ONCE DAILY lisinopril 2.5 mg tablet TAKE 1 TABLET BY MOUTH ONCE A DAY FOR BLOOD PRESSURE atorvastatin (LIPITOR) 80 mg tablet TAKE ONE-HALF TABLET BY MOUTH ONCE DAILY spironolactone-hctz 25/25 (ALDACTAZIDE) 25-25 mg per tablet TAKE 1 TABLET BY MOUTH ONCE DAILY fluticasone (FLONASE) 50 mcg/actuation nasal spray Use 2 Sprays in each nostril once daily. Rinse mouth after use. Cholecalciferol, Vitamin D3, 1,000 unit cap Take 1 capsule by mouth once daily. levothyroxine (SYNTHROID) 100 mcg ORAL tablet Take 1 tablet by mouth once daily. ASPIRIN 81 MG ORAL TAB Take one (1) tablet daily . oxyCODONE-acetaminophen (PERCOCET) 5-325 mg tablet Take 1 tablet by mouth every 8 hours as needed for up to 7 days. ondansetron (ZOFRAN) 8 mg tablet Take 1 tablet by mouth every 8 hours as needed for Nausea/Vomiting. clotrimazole (LOTRIMIN, CLOTRIM) 1 % cream Apply 1 application to affected area twice daily. LORATADINE/PSEUDOEPHEDRINE (CLARITIN-D 24 HOUR ORAL) Take 1 tablet by mouth once daily. Prn Oxymetazoline HCl 0.05 % mist Use 30 mL in the nose twice daily as needed. WEAN off No current facility-administered medications on file prior to visit. 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 Social History Main Topics Smoking status: Never Smoker Smokeless tobacco: Never Used Alcohol use: No Drug use: No Sexual activity: Yes Partners with: Male control/protection: Surgical Comment: [facility] Review of Symptoms REVIEW OF SYSTEMS GENERAL: No weight loss, malaise or fevers RESPIRATORY: Negative for cough, hemoptysis, wheezing, COPD, dyspnea or shortness of breath CARDIOVASCULAR: Negative for chest pain, leg swelling, hypertension, CHF or palpitations GI: No nausea, vomiting, or diarrhea SKIN: Negative for lesions, rash, and itching EXAM: BP 102/70 Pulse 84 Temp 36.9 ?C (98.5 ?F) (Left Tympanic) Resp 10 Wt 95.3 kg (210 lb) BMI 34.95 kg/m? General Appearance: Well appearing, alert, in no acute distress, well-hydrated, well nourished.. Skin: Skin color, texture, turgor normal, no suspicious rashes or lesions. Port in place on left chest. Bandage removed. Steri strips in place. No cellulitis. Ears: Negative findings: Right tympanic membrane normal. Positive findings: cerumen on right, amount Large. Removed manually during exam without complications. Lungs: lungs clear to auscultation. No wheezing, rhonchi, rales. Heart: RRR without murmur, gallop, or rubs. No ectopy. Abdomen: Normal abdominal exam, Abdomen soft, non-tender. Bowel sounds normal. No masses, organomegaly. Extremities: No deformities, edema, skin discoloration, clubbing or cyanosis. Good capillary refill. . Health Maintenance List DILATED RETINAL EXAM due on 02/12/2018 HBA1C due on 04/06/2018 STATIN MED ADHERENCE due on 05/02/2018 DIABETES MED ADHERENCE due on 05/02/2018 DIABETIC FOOT EXAM due on 10/09/2018 ANNUAL PCP TEAM CHRONIC DISEASE VISIT due on 10/09/2018 MAMMOGRAM due on 02/07/2019 LDL CHOLESTEROL due on 02/14/2019 BP CONTROLLED (<130/80) due on 03/31/2019 URINE ALBUMIN:CREATININE RATIO due on 04/10/2019 COLORECTAL CANCER SCREENING,SEE MODIFIER due on 02/14/2023 DTAP,TDAP,TD(2 - Td) due on 10/21/2023 ONE PNEUMOVAX PRIOR TO AGE 65 Completed INFLUENZA Completed HEPATITIS C SCREENING Completed Data reviewed Component Latest Ref Rng AND Units 03/07/2018 03/26/2018 04/10/2018 Protein, Total 6.3 - 8.0 g/dL 7.3 Albumin 3.9 - 4.9 g/dL 4.6 Calcium 8.5 - 10.2 mg/dL 8.9 10.5 (H) Bilirubin, Total 0.2 - 1.3 mg/dL 0.2 Alkaline Phosphatase 34 - 123 U/L 81 AST 13 - 35 U/L 13 Glucose 74 - 99 mg/dL 116 (H) 112 (H) BUN 7 - 21 mg/dL 17 18 Creatinine 0.58 - 0.96 mg/dL 1.03 (H) 0.76 Sodium 136 - 144 mmol/L 141 138 Potassium 3.7 - 5.1 mmol/L 4.0 4.1 Chloride 97 - 105 mmol/L 102 99 CO2 22 - 30 mmol/L 27 28 Anion Gap mmol/L 12 11 ALT 7 - 38 U/L 11 eGFR- >60 >60 eGFR-All Other Races . 54 >60 WBC 3.70 - 11.00 k/uL 5.84 RBC 3.90 - 5.20 m/uL 3.32 (L) Hemoglobin 11.5 - 15.5 g/dL 7.5 (L) Hematocrit 36.0 - 46.0 % 25.0 (L) MCV 80.0 - 100.0 fL 75.3 (L) MCH 26.0 - 34.0 pG 22.6 (L) MCHC 30.5 - 36.0 g/dL 30.0 (L) RDW-CV 11.5 - 15.0 % 21.4 (H) Platelet Count 150 - 400 k/uL 218 MPV 9.0 - 12.7 fL 11.2 Absolute nRBC <0.01 k/uL <0.01 WBC, [place] 3.70 - 11.00 k/uL 7.21 RBC, [place] 3.90 - 5.20 m/uL 4.52 Hemoglobin, Rupinder 11.5 - 15.5 g/dL 10.5 (L) Hematocrit, [place] 36.0 - 46.0 % 34.5 (L) MCV, [place] 80.0 - 100.0 fL 76.3 (L) MCH, [place] 26.0 - 34.0 pg 23.2 (L) MCHC, [place] 30.5 - 36.0 g/dL 30.4 (L) RDW, [place] 11.5 - 15.0 % 21.9 (H) Platelet Cnt, [place] 150 - 400 k/uL 354 MPV, [place]up[place] 9.0 - 12.7 fL 10.5 Absol Gran Count 1.45 - 7.50 k/uL 4.39 Iron 41 - 186 ug/dL 35 (L) TIBC 232 - 386 ug/dL 378 Transferrin Saturation 15 - 57 % 9 (L) Creatinine, Ur Random (UCRR) 20 - 300 mg/dL 226.3 Albumin, Urine Random 0.0 - 23.0 mg/L 46.7 (H) Albumin/Creat Ratio 0 - 30 mg/g 21 Magnesium 1.7 - 2.3 mg/dL 2.1 Phosphorus 2.7 - 4.8 mg/dL 2.5 (L) Troponin T 0.000 - 0.029 ng/mL <0.010 Ferritin 14.7 - 205.1 ng/mL 23.1 ASSESSMENT/PLAN: 1. Cancer of splenic flexure of colon metastatic to intra- abdominal lymph node (HCC) - ICD9: 153.7, 196.2, ICD10: C18.5, C77.2 (primary diagnosis) S/p colectomy. Port in place. F/u with oncology as recommended. 2. Type 2 diabetes mellitus without complication, without long-term current use of insulin (HCC) - ICD9: 250.00, ICD10: E11.9 Controlled. - Continue current medications - Check HgA1C - Blood glucose monitoring on a twice a day schedule - Encouraged regular aerobic exercise and weight loss - Daily Asprin therapy recommended - Follow up in 3 months, sooner should any other issues arise. - HGB A1C 3. Essential hypertension - ICD9: 401.9, ICD10: I10 - good control - Continue current medication(s) - Encouraged dietary sodium restriction/DASH diet - Recommended regular aerobic exercise. - Reviewed risks of HTN and principles of treatment - Goal of BP <140/90 4. Mixed hyperlipidemia - ICD9: 272.2, ICD10: E78.2 - good control - Continue current medication. - Encouraged following a low fat, low cholesterol diet. - Discussed the benefits of regular aerobic exercise and weight loss. 5. Acquired hypothyroidism - ICD9: 244.9, ICD10: E03.9 - Instructed patient on importance of taking on an empty stomach either first thing in the morning or at bedtime. - continue current dose of Synthroid 0.100 mg 6. Gastroesophageal reflux disease, esophagitis presence not specified - ICD9: 530.81, ICD10: K21.9 - Continue treatment with Prevacid 30 mg BID 7. Anxiety - ICD9: 300.00, ICD10: F41.9 Controlled on current regimen despite recent cancer diagnosis. Continue current regimen. 8. Impacted cerumen of right ear - ICD9: 380.4, ICD10: H61.21 Cerumen removed with cuvette. TM normal. Elizabeth Dinh MD Referring Provider: ELIZABETH DINH) [[id number]] Allergies As of Date: 04/11/2018 Noted Allergy Reaction ATENOLOL 03/07/2011 1 - Mental Status Change Comments: fatigue DEPO-MEDROL (METHYLPREDNISOLONE A*03/01/2005 Comments: facial redness, elevated glucose IVP DYE (IODINE) 03/01/2005 4 - Hives 7 - Swelling Comments: occurred in the 70's. Had swelling and hives on arm only where IV was SULFA (SULFONAMIDE ANTIBIOTICS) 03/01/2005 4 - Hives Date Reviewed: 04/11/2018 Reviewed by: Gisselle Alvarado Ma - Fully Assessed Reason for Visit: F/U 6 Month [444] Primary Visit Diagnosis:Cancer of splenic flexure of colon metastatic to intra-abdominal lymph node (HCC) [C18.5, C77.2] Other Visit Diagnoses:Type 2 diabetes mellitus without complication, without long-term current use of insulin (HCC) [E11.9] Essential hypertension [I10] Mixed hyperlipidemia [E78.2] Acquired hypothyroidism [E03.9] Gastroesophageal reflux disease, esophagitis presence not specified [K21.9] Anxiety [F41.9] Impacted cerumen of right ear [H61.21] Order(s):HGB A1C [[id number]] Order #: [id number] FUTURE Prescriptions as of 04/11/2018 Sig: SERTRALINE 100 MG TABLET Take 1 tablet by mouth once d* ACETAMINOPHEN 325 MG TABLET Take 2 tablets by mouth every* METFORMIN 1,000 MG TABLET TAKE 1 TABLET BY MOUTH TWICE* LANSOPRAZOLE 30 MG CAPSULE,DE* TAKE 1 CAPSULE BY MOUTH ONCE* VERAPAMIL ER 120 MG 24 HR CAP* TAKE 1 CAPSULE BY MOUTH ONCE* LISINOPRIL 2.5 MG TABLET TAKE 1 TABLET BY MOUTH ONCE A* ATORVASTATIN 80 MG TABLET TAKE ONE-HALF TABLET BY MOUT* SPIRONOLACTONE 25 MG-HYDROCHL* TAKE 1 TABLET BY MOUTH ONCE D* FLUTICASONE 50 MCG/ACTUATION * Use 2 Sprays in each nostril * CHOLECALCIFEROL (VITAMIN D3) * Take 1 capsule by mouth once * LEVOTHYROXINE 100 MCG TABLET Take 1 tablet by mouth once d* * ASPIRIN 81 MG TABLET Take one (1) tablet daily . 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 Essential hypertension [I10] INVALID FOR* More... Mixed hyperlipidemia [E78.2] INVALID FOR* More... Unspecified asthma(493.90) [J45.909] INVALID FOR*04/10/2017 More... Primary osteoarthritis involving multiple joint*INVALID FOR* RIGHT AXILLARY PAIN [R07.9] INVALID FOR*01/25/2011 FAMILY HX COLON CANCER [Z80.0] INVALID FOR* More... Esophageal reflux [K21.9] More... Anxiety [F41.9] Recurrent major depressive disorder, in full re* 04/10/2017 More... Hypokalemia [E87.6] INVALID FOR* More... OSTEOARTHROS NOS-L/LEG [M17.10] INVALID FOR* Lateral epicondylitis of elbow [M77.10] INVALID FOR*02/18/2013 Hypothyroidism [E03.9] INVALID FOR* More... PVC's [I49.49] INVALID FOR* Shoulder bursitis [M75.50] INVALID FOR*02/18/2013 Allergy to environmental factors [Z91.09] INVALID FOR* Special screening for malignant neoplasms, colo*INVALID FOR*01/07/2015 Malignant neoplasm of transverse colon (HCC) [C*INVALID FOR* More... Obesity, Class II, BMI 35-39.9 [E66.9] INVALID FOR* Hypomagnesemia [E83.42] INVALID FOR* More... Post-op pain [G89.18] INVALID FOR* More... JOSE (acute kidney injury) (HCC) [N17.9] INVALID FOR* More... Cancer of splenic flexure of colon metastatic t*INVALID FOR* Disposition: Return in about 6 months (around 10/09/2018). Follow-up and Disposition History Recorded Encounter Status:Closed by ELIZABETH DINH MD on 04/13/18 ALBUMIN/CREAT RATIO Collected: 04/10/2018 Status: F Source: [facility] 11:18 AM [facility] REPOSITORY TYPE CODE TESTS RESULT OUT OF REFERENCE UNITS RANGE LAB UCRR 20-300 mg/dL Creatinine,Ur 226.3 ine,Ran LAB UALBR 0.0-23.0 mg/L High Albumin Urine 46.7 Random LAB UALBCR 0-30 mg/g Albumin/Creat 21 Ratio Result Comment: 30 to 300 mg/g indicates an increased risk for diabetic nephropathy. Greater than 300 mg/g is consistent with clinical nephropathy. (Am J Kidney Disease 1995, 25:107) Performed By: #### UACR #### [facility] [address] [place], [place] [address] ANES POST Observed: 04/09/2018 Status: COMPLETED Source: [place] 11:57 AM [facility] OTHER CAMPUS REPOSITORY HNO ID: [id number] Author: Bobo Thompson Service: Anesthesiology Author Type: Anesthesiologist Type: Anesthesia PostOp Filed: 04/09/2018 12:50 PM Note Text: POST ANESTHESIA EVALUATION NOTE SERVICE DATE: 04/09/2018 SERVICE TIME: 12:50 PM : 1955 Vitals: 04/09/18 0822 04/09/18 1020 04/09/18 1100 Temp: 36.6 ?C (97.9 ?F) 37.1 ?C (98.8 ?F) 36.8 ?C (98.2 ?F) 04/09/18 1030 04/09/18 1045 04/09/18 1100 04/09/18 1115 BP: 116/66 115/66 116/66 118/65 04/09/18 1030 04/09/18 1045 04/09/18 1100 04/09/18 1115 Pulse: 95 82 86 84 04/09/18 1030 04/09/18 1045 04/09/18 1100 04/09/18 1115 Resp: 16 16 16 16 04/09/18 1030 04/09/18 1045 04/09/18 1100 04/09/18 1115 SpO2: 95% 96% 95% 96% Validated Vital Signs: Yes POST ANES STATUS: No apparent anesthetic complications. The patient is appropriately hydrated with stable respiratory and cardiovascular status. Patient has safe and adequate airway control. The patient has appropriate pain relief and no significant post operative nausea or vomiting. The patient has achieved baseline mental status. Further assessment by Anesthesia Service: None Other Remarks: SIGNATURE: Bobo Thompson MD PATIENT NAME: Anne Cordero DATE: April 09, 2018 TIME: 12:50 PM PAGER/CONTACT #: [phone] PT ED Observed: 04/09/2018 Status: COMPLETED Source: [place] 11:57 AM [facility] REPOSITORY HNO ID: [id number] Author: Edwin Childers) FILIPPO Stone Service: Nursing Author Type: Registered Nurse Type: Patient Education Filed: 04/09/2018 1:38 PM Note Text: POST OP LEARNING RESPONSE ? INSTRUCTION PROVIDED TO: Patient and family member METHOD OF INSTRUCTION: Teach Back . Written instruction - handouts PATIENT / FAMILY RESPONSE: Verbalizes understanding of: POST-PROCEDURE INSTRUCTIONS-Correct actions to take to reduce post procedure complications FOLLOW-UP PLAN: Complete - No need for follow-up SUPPLEMENTAL MATERIAL: None REFERRAL (RECOMMENDATION): None ? ? Electronically Signed By: Edwin Stone RN In Department: [facility] SURGERY NURSING PROG Observed: 04/09/2018 Status: COMPLETED Source: [place] 11:56 AM [facility] REPOSITORY HNO ID: [id number] Author: Edwin Stone RN Service: Nursing Author Type: Registered Nurse Type: Nursing Progress Note Filed: 04/09/2018 11:57 AM Note Text: POST OP LEARNING RESPONSE INSTRUCTION PROVIDED TO: Patient and family member METHOD OF INSTRUCTION: Teach Back . Written instruction - handouts PATIENT / FAMILY RESPONSE: Verbalizes understanding of: POST-PROCEDURE INSTRUCTIONS-Correct actions to take to reduce post procedure complications FOLLOW-UP PLAN: Complete - No need for follow-up SUPPLEMENTAL MATERIAL: None REFERRAL (RECOMMENDATION): None Electronically Signed By: dEwin Stone RN In Department: [facility] SURGERY XR CHEST 1V FRONTAL Observed: 04/09/2018 Status: F Source: [facility] 10:33 AM [facility] REPOSITORY * * *Final Report* * * DATE OF EXAM: Apr 09 2018 10:33AM MDX [id number] - XR CHEST 1V FRONTAL PORT / PROCEDURE REASON: Evaluate tube, line or lead position * * * * Physician Interpretation * * * * EXAMINATION: CHEST RADIOGRAPH (PORTABLE SINGLE VIEW AP) Exam Date/Time: 04/09/2018 10:33 AM Clinical History: Evaluate tube, line or lead position, MQ: [id number] Comparison: CT 02/19/2018 RESULT: IMPRESSION: 1. Lines, Tubes, and Devices: Left-sided central line tip projects over the expected region of the superior vena cava. 2. Lungs and Pleura: The lungs are clear. No infiltrates, nodules or pleural effusions are seen. No pneumothorax is seen 3. Cardiomediastinal silhouette: Heart size is unchanged. Pulmonary vascularity is unremarkable. 4. Other: Bony structures unremarkable. Emulsion Operator: PSCB Transcribe Date/Time: Apr 09 2018 10:40A Dictated by : BOLIVAR VALDES DO This examination was interpreted and the report reviewed and electronically signed by: BOLIVAR VALDES DO on Apr 09 2018 10:49AM EST [id number] OP NOT Observed: 04/09/2018 Status: COMPLETED Source: [place] 10:09 AM [facility] OTHER CAMP[facility] REPOSITORY HNO ID: [id number] Author: Praful Pathak Service: General Surgery Author Type: Physician Type: Brief Op Note Filed: 04/09/2018 10:12 AM Note Text: BRIEF OPERATIVE NOTATION FOR SURGICAL PROCEDURE. Anne Cordero 1955 [id number] female LOG ID: [id number] Surgery/Procedure Date: 04/09/2018 Incision/Procedure Start Time: 9:48 AM Incision Close/Procedure End Time: 10:07 AM Surgeon(s)/Proceduralist(s) and Transformer Shop Supervisor(s): Surgeon(s) and Role: * Praful Pathak - Primary Physician Transformer Shop Supervisor: Renee Palafox REFERRING PHYSICIAN: Outpatient DEPT: [facility] PROVIDER: Sp POS: [id number] ANESTHESIA: Monitored Anesthesia Care ASA CLASS: 3 - Severe DIAGNOSIS: PROCEDURE: left Subclavian portacath - [id number] and Fluoroscopic for vascular access - 10149-508-39 IVF: 200 EBL: 10 Specimens: none ADDITIONAL DIAGNOSES: FINDINGS: COMPLICATIONS: None PMHx - PAST MEDICAL HISTORY Diagnosis Date - Abnormal EKG RIGHT BUNDLE BRANCH BLOCK - Anxiety state, unspecified - Arrhythmia Dr. 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) 03/2018 - Depressive disorder, not elsewhere classified - Diarrhea - Diverticulosis of colon (without mention of hemorrhage) - Esophageal reflux - Family history of malignant neoplasm of gastrointestinal tract family history of colon cancer - Goiter, unspecified Goiter - Internal hemorrhoids without mention of complication - LATERAL EPICONDYLITIS 04/27/2007 - Mixed hyperlipidemia Hyperlipidemia - Obesity, unspecified Obesity - Osteoarthrosis, unspecified whether generalized or localized, other specified sites - Osteopenia - Snoring - Tooth abscess - Type II or unspecified type diabetes mellitus without mention of complication, not stated as uncontrolled - Unspecified essential hypertension Essential hypertension - Unspecified hypothyroidism COMORBIDITIES - HTN Post Op Occurrences - None Wound Classification - Clean Operative note dictated in the dictation system. - [id number] Praful Pathak MD XR FLUOROSCOPY Observed: 04/09/2018 Status: F Source: [place] 10:05 AM [facility] REPOSITORY * * *Final Report* * * DATE OF EXAM: Apr 09 2018 10:05AM MDR [id number] - XR FLUOROSCOPY / PROCEDURE REASON: PORT PLACEMENT UNDER FLUORO FOR COLON CA * * * * Physician Interpretation * * * * XR FLUOROSCOPY HISTORY: Indication: PORT PLACEMENT UNDER FLUORO FOR COLON CA COLON CA TECHNIQUE: Fluoroscopic Radiation Summary: Plane A, Air Kerma: 8.1 mGy Dose Area Product (DAP): 2420.4 mGy*cmS2 Fluoro time: 0:41 min:sec Images obtained: 2 Spot film images under fluoroscopic guidance. Images were stored in a permanent archive. Comparison: NONE. RESULT: Findings: Tip of the left-sided central line projects over the expected region of superior vena cava. See procedural note in Epic for further discussion. IMPRESSION: As discussed above Emulsion Operator: GARY Transcribe Date/Time: Apr 09 2018 10:40A Dictated by : BOLIVAR VALDES DO This examination was interpreted and the report reviewed and electronically signed by: BOLIVAR VALDES DO on Apr 09 2018 10:40AM EST [id number] ANES PREOP Observed: 04/09/2018 Status: COMPLETED Source: [place] 8:43 AM [facility] REPOSITORY HNO ID: [id number] Author: Bobo Thompson Service: Anesthesiology Author Type: Anesthesiologist Type: Anesthesia PreOp Filed: 04/09/2018 8:43 AM Note Text: ANESTHESIOLOGY DAY OF SURGERY NOTE SERVICE DATE: 04/09/2018 SERVICE TIME: 8:43 AM : 1955 Procedure(s) (LRB): INSERTION PORT VENOUS ACCESS ADULT (Pending) Surgeon(s): Praful Pathak Estimated body mass index is 33.95 kg/m? as calculated from the following: Height as of this encounter: 165.1 cm (5' 5). Weight as of this encounter: 92.5 kg (204 lb). Most recent hematocrit and potassium results: Hematocrit 25.0 03/07/2018 Potassium 4.1 03/26/2018 ANES DOS/PREOP NOTE: Vitals: 04/09/18 0822 BP: 128/70 Pulse: 90 Resp: 17 Temp: 36.6 ?C (97.9 ?F) SpO2: 96% Weight: 92.5 kg (204 lb) Height: 165.1 cm (5' 5) ACTIVE PROBLEM LIST Diabetes Mellitus (Hcc) Essential Hypertension Mixed Hyperlipidemia Primary Osteoarthritis Involving Multiple Joints FAMILY HX COLON CANCER Esophageal Reflux Anxiety Hypokalemia Osteoarthrosis, Unspecified Whether Generalized Or Localized, Lower Leg Hypothyroidism PVC's Allergy to Environmental Factors Malignant Neoplasm of Transverse Colon (Hcc) Obesity, Class II, Bmi 35-39.9 Hypomagnesemia Post-Op Pain Jose (Acute Kidney Injury) (Hcc) PAST MEDICAL HISTORY Diagnosis Date - Abnormal EKG RIGHT BUNDLE BRANCH BLOCK - Anxiety state, unspecified - Arrhythmia Dr. 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) 03/2018 - Depressive disorder, not elsewhere classified - Diarrhea - Diverticulosis of colon (without mention of hemorrhage) - Esophageal reflux - Family history of malignant neoplasm of gastrointestinal tract family history of colon cancer - Goiter, unspecified Goiter - Internal hemorrhoids without mention of complication - LATERAL EPICONDYLITIS 04/27/2007 - Mixed hyperlipidemia Hyperlipidemia - Obesity, unspecified Obesity - Osteoarthrosis, unspecified whether generalized or localized, other specified sites - Osteopenia - Snoring - Tooth abscess - Type II or unspecified type diabetes mellitus without mention of complication, not stated as uncontrolled - Unspecified essential hypertension Essential hypertension - Unspecified hypothyroidism PAST SURGICAL HISTORY Procedure Laterality Date - APPENDECTOMY 07/24/1966 - CARPAL TUNNEL 2011 bilateral - CHG DELIVERY 1981, 1986 , low cervical - COLONOSCOP W/ OR W/O [facility] SPEC 07/15/06 Repeat in 4-2011 - COLONOSCOP W/ OR W/O [facility] SPEC 12/26/2011 Colonoscopy - COLONOSCOP W/ OR W/O [facility] SPEC 01/07/2015 Colonoscopy - COLONOSCOP W/ OR W/O BRS SPEC 02/14/2018 Colonoscopy - EGD W/O OR W/BRUSH/WASH 12/26/2011 EGD - EGD W/O OR W/BRUSH/WASH 02/14/2018 EGD - HYSTEROSCOPY, DIAGNOSTIC (SEPARATE 11/30/1993 Hysteroscopy - KNEE SCOPE,DIAGNOSTIC 04/29/2003 Arthroscopy, knee, left - LAPAROSCOPY DIAGNOSTIC 03/06/2018 with splenic flexure mobilization / colectomy/TAP block - PAST SURGICAL HISTORY OF SINUS SURGERY - PAST SURGICAL HISTORY OF 2010 EYE SURGERY- DROOPY LIDS - PAST SURGICAL HISTORY OF 03/11 right partial knee replacement - PAST SURGICAL HISTORY OF 01/08/12 left medial compartment unicompartmental knee arthroplasty - REMOVAL OF TONSILS,<12 Y/O 03/08/1961 Tonsillectomy AND adenoidectomy - SIGMOIDOSCOPY 03/06/2018 - SIGMOIDOSCOPY FLEX DIAG 5 YEARS AGO Sigmoidoscopy - THYROIDECTOMY 08/25/1992 left - THYROIDECTOMY 12/14/2003 right lobectomy - TOTAL ABDOM HYSTERECTOMY 03/29/1994 Hysterectomy, PASCUAL FAMILY HISTORY Problem Relation Age of Onset - Breast Cancer Mother - Heart Mother - Diabetes Mother - Colon Cancer Father - Heart Father - Diabetes Father - Colon Cancer Paternal Grandmother - Colon Cancer Paternal Grandfather Social History: Social History Substance Use Topics - Smoking status: Never Smoker - Smokeless tobacco: Never Used - Alcohol use No No current facility-administered medications on file prior to encounter. Current Outpatient Prescriptions on File Prior to Encounter: ondansetron (ZOFRAN) 8 mg tablet Take 1 tablet by mouth every 8 hours as needed for Nausea/Vomiting. acetaminophen (TYLENOL) 325 mg tablet Take 2 tablets by mouth every 6 hours as needed for Pain. metFORMIN (GLUCOPHAGE) 1,000 mg tablet TAKE 1 TABLET BY MOUTH TWICE A DAY WITH MEALS lansoprazole (PREVACID) 30 mg capsule TAKE 1 CAPSULE BY MOUTH ONCE DAILY verapamil ER (VERELAN) 120 mg 24 hr capsule TAKE 1 CAPSULE BY MOUTH ONCE DAILY lisinopril 2.5 mg tablet TAKE 1 TABLET BY MOUTH ONCE A DAY FOR BLOOD PRESSURE atorvastatin (LIPITOR) 80 mg tablet TAKE ONE-HALF TABLET BY MOUTH ONCE DAILY spironolactone-hctz 25/25 (ALDACTAZIDE) 25-25 mg per tablet TAKE 1 TABLET BY MOUTH ONCE DAILY clotrimazole (LOTRIMIN, CLOTRIM) 1 % cream Apply 1 application to affected area twice daily. fluticasone (FLONASE) 50 mcg/actuation nasal spray Use 2 Sprays in each nostril once daily. Rinse mouth after use. LORATADINE/PSEUDOEPHEDRINE (CLARITIN-D 24 HOUR ORAL) Take 1 tablet by mouth once daily. Prn Oxymetazoline HCl 0.05 % mist Use 30 mL in the nose twice daily as needed. WEAN off Cholecalciferol, Vitamin D3, 1,000 unit cap Take 1 capsule by mouth once daily. levothyroxine (SYNTHROID) 100 mcg ORAL tablet Take 1 tablet by mouth once daily. ASPIRIN 81 MG ORAL TAB Take one (1) tablet daily . Current Facility-Administered Medications: lactated ringers infusion 30 mL/hr INTRAVENOUS CONTINUOUS Praful Pathak Last Rate: 30 mL/hr at 04/09/18825 30 mL/hr at 04/09/18825 ceFAZolin iv piggyback 2 g in D5W (iso-osmotic) 100 mL (ANCEF) 2 g INTRAVENOUS Pre-Op Once Praful Pathak Allergies: ALLERGIES Allergen Reactions - Atenolol Mental Status Change fatigue - Depo-Medrol [Methyl* facial redness, elevated glucose - Ivp Dye [Iodine] Hives, Swelling occurred in the 70's. Had swelling and hives on arm only where IV was - Sulfa (Sulfonamide * Hives DOS EXAM: Adequate NPO status: Yes Anesthetic risks, benefits, alternatives, personnel and consent discussed: Yes Patient agrees to proceed: Yes Previous Anesthesia: No history of adverse event. Airway Assessment: MP 2; Neck ROM: Full ROM without neurologic symptoms; Airway Evaluation: No significant abnormalities Symptoms of Sleep Apnea: None Dentition: Teeth intact Additional Physical Exam: Lungs: Patient health status unchanged since recent history and physical. See history and physical for exam findings. Cardiac: Patient health status unchanged since recent history and physical. See history and physical for exam findings. Additional Pertinent Findings: N/A Blood Products: Not anticipated for this procedure. Anesthetic Plan: MAC with Sedation Pain Management Plan: Parenteral or Oral ASA Class: 3 Other Medical Problems: None I have interviewed and examined the patient. I have reviewed the medical record and/or the pre-anesthesia evaluation, pertinent labs, and test results. Significant changes in the patient's condition since the History and Physical, not otherwise documented in primary service progress notes: No This contains updated information obtained within 48 hours of Surgery/Procedure. SIGNATURE: Bobo Thompson MD PATIENT NAME: Anne Cordero DATE: April 09, 2018 TIME: 8:43 AM CSN: [id number] HISTORY PHYSICAL Observed: 04/09/2018 Status: COMPLETED Source: [facility] 8:33 AM [facility] OTHER [facility] REPOSITORY O ID: [id number] Author: Praful Pathak Service: General Surgery Author Type: Physician Type: HANDP Filed: 04/09/2018 8:33 AM Note Text: HISTORY AND PHYSICAL ? Anne Cordero 1955 ? ? REFERRING PHYSICIAN: Ollie Krause, DO ? CHIEF COMPLAINT: Consult (Consult Port placement) ? HPI: The patient is a 62 year old female with a diagnosis of colon cancer. Anne is currently scheduled to undergo chemotherapy and needs vascular access for treatment. The patient denies a prior history of clavicular injury or central venous access. ? The patient is being seen by me today at the request of Dr. Krause to schedule port placement. ? Patient's past medical history is significant for colon cancer as noted above, hypertension, hyperlipidemia, PVCs, type II diabetes mellitus, hypothyroidism, anxiety. Patient follows with Dr. Dinh for her chronic medical conditions and with Dr. Krause for her colon cancer. ? Patient denies chest pain or shortness of breath. Denies problems with sedation in the past. ? ? PAST MEDICAL HISTORY PAST MEDICAL HISTORY Diagnosis Date - Abnormal EKG ? ? RIGHT BUNDLE BRANCH BLOCK - Anxiety state, unspecified ? - Arrhythmia ? ? Dr. 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) 03/2018 - Depressive disorder, not elsewhere classified ? - Diarrhea ? - Diverticulosis of colon (without mention of hemorrhage) ? - Esophageal reflux ? - Family history of malignant neoplasm of gastrointestinal tract ? ? family history of colon cancer - Goiter, unspecified ? ? Goiter - Internal hemorrhoids without mention of complication ? - LATERAL EPICONDYLITIS 04/27/2007 - Mixed hyperlipidemia ? ? Hyperlipidemia - Obesity, unspecified ? ? Obesity - Osteoarthrosis, unspecified whether generalized or localized, other specified sites ? - Osteopenia ? - Snoring ? - Tooth abscess ? - Type II or unspecified type diabetes mellitus without mention of complication, not stated as uncontrolled ? - Unspecified essential hypertension ? ? Essential hypertension - Unspecified hypothyroidism ? ? ? PAST SURGICAL HISTORY PAST SURGICAL HISTORY Procedure Laterality Date - APPENDECTOMY ? 07/24/1966 - CARPAL TUNNEL ? 2010 ? bilateral - CHG DELIVERY ? 1981, 1986 ? , low cervical - COLONOSCOP W/ OR W/O [facility] SPEC ? 07/15/06 ? Repeat in - COLONOSCOP W/ OR W/O [facility] SPEC ? 12/26/2011 ? Colonoscopy - COLONOSCOP W/ OR W/O [facility] SPEC ? 01/07/2015 ? Colonoscopy - COLONOSCOP W/ OR W/O [facility] SPEC ? 02/14/2018 ? Colonoscopy - EGD W/O OR W/BRUSH/WASH ? 12/26/2011 ? EGD - EGD W/O OR W/BRUSH/WASH ? 02/14/2018 ? EGD - HYSTEROSCOPY, DIAGNOSTIC (SEPARATE ? 11/30/1993 ? Hysteroscopy - KNEE SCOPE,DIAGNOSTIC ? 04/29/2003 ? Arthroscopy, knee, left - LAPAROSCOPY DIAGNOSTIC ? 03/06/2018 ? with splenic flexure mobilization / colectomy/TAP block - PAST SURGICAL HISTORY OF ? ? ? SINUS SURGERY - PAST SURGICAL HISTORY OF ? 2010 ? EYE SURGERY- DROOPY LIDS - PAST SURGICAL HISTORY OF ? 03/11 ? right partial knee replacement - PAST SURGICAL HISTORY OF ? 01/08/12 ? left medial compartment unicompartmental knee arthroplasty - REMOVAL OF TONSILS,<12 Y/O ? 03/08/1961 ? Tonsillectomy AND adenoidectomy - SIGMOIDOSCOPY ? 03/06/2018 - SIGMOIDOSCOPY FLEX DIAG ? 5 YEARS AGO ? Sigmoidoscopy - THYROIDECTOMY ? 08/25/1992 ? left - THYROIDECTOMY ? 12/14/2003 ? right lobectomy - TOTAL ABDOM HYSTERECTOMY ? 03/29/1994 ? Hysterectomy, PASCUAL ? ? ? CURRENT MEDICATIONS ? Current Outpatient Prescriptions: acetaminophen (TYLENOL) 325 mg tablet Take 2 tablets by mouth every 6 hours as needed for Pain. Disp: Rfl: ASPIRIN 81 MG ORAL TAB Take one (1) tablet daily . Disp: Rfl: 0 atorvastatin (LIPITOR) 80 mg tablet TAKE ONE-HALF TABLET BY MOUTH ONCE DAILY Disp: 45 tablet Rfl: 3 Cholecalciferol, Vitamin D3, 1,000 unit cap Take 1 capsule by mouth once daily. Disp: 100 capsule Rfl: 3 clotrimazole (LOTRIMIN, CLOTRIM) 1 % cream Apply 1 application to affected area twice daily. Disp: 30 g Rfl: 2 fluticasone (FLONASE) 50 mcg/actuation nasal spray Use 2 Sprays in each nostril once daily. Rinse mouth after use. Disp: 3 Bottle Rfl: 3 lansoprazole (PREVACID) 30 mg capsule TAKE 1 CAPSULE BY MOUTH ONCE DAILY Disp: 90 capsule Rfl: 1 levothyroxine (SYNTHROID) 100 mcg ORAL tablet Take 1 tablet by mouth once daily. Disp: 90 tablet Rfl: 3 lisinopril 2.5 mg tablet TAKE 1 TABLET BY MOUTH ONCE A DAY FOR BLOOD PRESSURE Disp: 90 tablet Rfl: 3 LORATADINE/PSEUDOEPHEDRINE (CLARITIN-D 24 HOUR ORAL) Take 1 tablet by mouth once daily. Prn Disp: Rfl: metFORMIN (GLUCOPHAGE) 1,000 mg tablet TAKE 1 TABLET BY MOUTH TWICE A DAY WITH MEALS Disp: 180 tablet Rfl: 1 ondansetron (ZOFRAN) 8 mg tablet Take 1 tablet by mouth every 8 hours as needed for Nausea/Vomiting. Disp: 30 tablet Rfl: 2 Oxymetazoline HCl 0.05 % mist Use 30 mL in the nose twice daily as needed. WEAN off Disp: Rfl: sertraline (ZOLOFT) 100 mg tablet TAKE 1 TABLET BY MOUTH ONCE DAILY Disp: 90 tablet Rfl: 1 spironolactone-hctz 25/25 (ALDACTAZIDE) 25-25 mg per tablet TAKE 1 TABLET BY MOUTH ONCE DAILY Disp: 90 tablet Rfl: 1 verapamil ER (VERELAN) 120 mg 24 hr capsule TAKE 1 CAPSULE BY MOUTH ONCE DAILY Disp: 90 capsule Rfl: 1 ? No current facility-administered medications for this visit. ? ALLERGIES: Atenolol; Depo-Medrol [Methylprednisolone Acetate]; Ivp Dye [Iodine]; Sulfa (Sulfonamide Antibiotics) ? PERSONAL HISTORY: SOCIAL HISTORY Social History Marital status: Spouse name: Ivelisse Years of education: Number of children: 2 ? Occupational History 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ER ? Social History Main Topics Smoking status: Never Smoker ? Smokeless tobacco: Never Used Alcohol use: No Drug use: No Sexual activity: Yes Partners with: Male control/protection: Surgical Comment: PASCUAL ? ? FAMILY HISTORY: FAMILY HISTORY FAMILY HISTORY Problem Relation Age of Onset - Breast Cancer Mother ? - Heart Mother ? - Diabetes Mother ? - Colon Cancer Father ? - Heart Father ? - Diabetes Father ? - Colon Cancer Paternal Grandmother ? - Colon Cancer Paternal Grandfather ? ? ? REVIEW OF SYMPTOMS: The review of systems data was entered by the nurse and reviewed by me ? Nursing Notes: Naresh Patricia 03/31/2018 9:04 AM Signed REVIEW OF SYSTEMS: General: The patient denies fatigue, denies weight loss, denies weight gain, denies feeling hot, and denies feelings of cold. Eyes: The patient denies glaucoma, denies eye injury/surgery, does not wear glasses or contacts. Ear/Nose/Throat: The patient NOTES allergies, NOTES hayfever, denies ear infections, and denies bloody noses. Cardiovascular: The patient denies chest pain, denies heart disease, NOTES high blood pressure,denies cardiac stent, denies prior heart attack, denies irregular heart beat, NOTES high cholesterol, denies poor circulation, denies heart failure, other cardiac issues, denies claudication, denies cold feet, denies peripheral arterial stent. Respiratory: The patient denies tuberculosis, denies pneumonia, denies frequent cough, denies pulmonary embolism, denies shortness of breath, and denies coughing up blood. Gastrointestinal: The patient denies difficulty swallowing, NOTES acid reflux, denies ulcers, denies vomiting, denies jaundice/hepatitis, denies gallbladder problems, denies black or tarry stools, denies hemorrhoids, denies bleeding from rectum, denies diverticulitis, denies constipation, denies diarrhea, denies loss of stool control, and denies hernias. Kidney/Bladder: The patient denies kidney stones, denies urine infections, and denies bloody urine. Skin: The patient denies a history of skin cancer, denies bleeding/changing moles, and denies a history of skin rash. Neurologic: The patient denies a history of epilepsy/convulsions, denies headaches, denies head/spinal injuries, and denies stroke/TIA. Psychiatric: The patient denies psychiatric medications, NOTES depression, and denies voices, denies substance abuse. Endocrine: The patient denies thyroid disorders, NOTES diabetes, and denies hormonal problems. Hematologic: The patient denies a history of bruising, denies bleeding, and denies anemia, denies blood clots. Infections: The patient denies a history of measles and mumps, denies rheumatic fever, and denies sexually transmitted diseases. Musculoskeletal: The patient denies back pain/injury, denies back problems, denies sciatica, denies knee/foot trouble, NOTES arthritis, or denies gout. ? ? When was patient's last Mammogram screening? 02/07/2018 ? Last Colonoscopy: 02/14/2018 ? Naresh Patricia I have confirmed and edited as necessary, the PFSH and ROS obtained by others. ? PHYSICAL EXAMINATION: ? General: The patient is 62 year old female, well nourished, well hydrated in no acute distress. The patient is oriented to time, place, and person. ? VITALS: Blood pressure 112/64, pulse 99, temperature (!) 35.8 ?C (96.5 ?F), temperature source Temporal Artery, height 164.5 cm (5' 4.75), weight 95.4 kg (210 lb 6.4 oz), SpO2 97 %. Body mass index is 35.28 kg/m?. ? HEENT: Normal cephalic, ataumatic, pupils are equally round, sclera are anicteric, mucous membranes are moist, oropharynx is clear. Neck has no masses, asymmetry or lymphadenopathy. ? Respiratory: Clear to auscultation and percussion. Normal respiratory excursion and pattern. ? Cardiac: Examination is regular rate and rhythm. Normal S1/S2 ? Abdominal exam: Soft, nontender, with no palpable masses. No hepatosplenomegaly. No palpable hernias. ? Rectal exam: exam deferred ? Extremities: no clubbing, cyanosis or edema. No adenopathy. ? Other: ? ? LABORATORY VALUES: As Noted ? RADIOLOGIC STUDIES: As Noted ? Assessment IMPRESSION: Colon cancer, need for IV access. Anemia ? PLAN: I have reviewed my findings with Dr. Pathak. He plans to perform a left subclavian port a cath placement. The planned surgical procedure was discussed extensively with the patient. The risks, benefits, anticipated outcomes and possible complications were mentioned. My staff has also explained the procedure in understandable terms and the patient was given the option to take printed material concerning the planned procedure. The patient had the opportunity to ask questions concerning the planned procedure. The patient freely consents to the planned procedure. ? Patient instructed to hold fish oil for 5 days prior to port placement ? [facility] [id number] ? Patient Weight Last 1 Encounter Wt Readings: Date: Wt: 03/31/2018 95.4 kg (210 lb 6.4 oz) ? Antibiotic: Ancef 1gm IVPB air conditioning equipment mechanic to OR ? Planned Anesthetic: MAC with local ? Dr. Pathak may plan to access the port at the time of surgery. ? Diagnoses: (C18.5) Malignant neoplasm of splenic flexure (HCC) (primary encounter diagnosis) ? ? ? Stacey Barriga PA-C PT ED Observed: 04/09/2018 Status: COMPLETED Source: [place] 8:23 AM [facility] REPOSITORY HNO ID: [id number] Author: Britney (Rn) FILIPPO Linares Service: (none) Author Type: Registered Nurse Type: Patient Education Filed: 04/09/2018 8:24 AM Note Text: PRE OP LEARNING ASSESSMENT PROCEDURE/SURGERY: SURGERY: port placement READINESS TO LEARN COGNITIVE ABILITY: Alert and oriented MOTIVATION TO LEARN: Interested FAMILY SUPPORT: High - Very involved in pt care PATIENT LEARNS BEST BY: Verbal Instruction FACTORS AFFECTING LEARNING: None PHYSICAL LIMITATIONS AFFECTING LEARNING: None Electronically Signed By: Britney Linares RN In Department: [facility] SURGERY OPERATIVE NO Observed: 04/09/2018 Status: COMPLETED Source: [place] 12:00 AM [facility] REPOSITORY HNO ID: [id number] Author: Praful Pathak Service: General Surgery Author Type: Physician Type: Operative Report Filed: 04/10/2018 10:59 AM Note Text: [facility] - Operative Report ANNE CORDERO : 1955 AGE: 62. SEX: F PATIENT TYPE: A HOSP SVC: GENS LOCATION: [facility] ATTENDING PHYSICIAN: PRAFUL PATHAK CSN NUMBER: [id number] DATE OF SURGERY/PROCEDURE: 04/09/2018 INCISION/PROCEDURE START TIME: 9:48. INCISION CLOSE/PROCEDURE END TIME: 10:07. PREOPERATIVE DIAGNOSIS: Colon cancer, need for IV access. POSTOPERATIVE DIAGNOSIS: Successful left subclavian Port-A-Cath placement. SURGEON: Praful Pathak M.D. LOG FEEDER: Physician Transformer Shop Supervisor: Renee Palafox SURGERY/PROCEDURE: Left subclavian Port-A-Cath placement with fluoroscopy using a Bard PowerPort, reference number [id number], lot number [id number], expires 06/30/2019. ANESTHESIA: Local MAC. LOG ID NUMBER: [id number]. ASA: 3. IV FLUIDS: 200 cc. EBL: 10 cc. URINE OUTPUT: No catheter. FINDINGS: Tip of the catheter in the SVC-RA. DRAINS: None. COMPLICATIONS: None. DISPOSITION: The patient was taken to PACU in stable condition. DESCRIPTION OF PROCEDURE: The patient was marked in the holding area on the left side and that we would not be accessing the port, and the patient concurred this was the planned site. Sign-in was performed verifying patient, site, procedure, position, critical nursing information, VTE and antibiotic prophylaxis. The patient received 2 grams of Ancef. Following IV sedation, the left neck and chest were prepped and draped in the usual fashion. Time-out was performed verifying patient, site, procedure, and position. Local anesthetic was injected. Seldinger needle was used to access the left subclavian vein on the first attempt. Under fluoroscopic guidance, the guidewire was inserted to the SVC-RA region. Following this, the needle was withdrawn. Local anesthetic was injected and incision was made. A pocket was created for the port site. Next, the catheter was tunneled from the wire site to the port site under fluoroscopic control. Introducer sheath and dilator were inserted over the wire. Wire and dilator were removed. Catheter fed through the introducer sheath to the SVC-RA region and the introducer sheath removed. The catheter was cut to length, affixed to the port with a locking ring, and secured in the pocket with two 2-0 Prolene sutures. There was good return of venous blood and easy inflow of saline. Fluoroscopy demonstrated good position of the system. Subcutaneous fat was closed with 3-0 Vicryl sutures. Skin was closed with 4-0 Biosyn running subcuticular suture. Steri-Strips and dressings were applied. The port was accessed, good return of venous blood and easy inflow of saline, flushed with 4 cc of 100 units/cc heparin. Dressing was applied. The patient was taken to recovery with plans for postprocedure chest x-ray. Praful Pathak M.D. [id number] /[id number] NURSING PROG Observed: 04/08/2018 Status: COMPLETED Source: [facility] 7:34 AM CLINIC OTHER CAMPUS REPOSITORY HNO ID: [id number] Author: Lo (Rn) FILIPPO Childers Service: Nursing Author Type: Registered Nurse Type: Nursing Progress Note Filed: 04/08/2018 1:56 PM Note Text: PACC Nurse Progress Note History AND Physical: PACC Visit Date: N/A Original HANDP Date: 03/26/18 ED visit Date: N/A Outside HANDP Scanned Date: N/A Labs Within Last 6 Months: CBC: Date 03/26/18 Cbc-within acceptable limits, Hgb 10.5/hct 34.5 BMP/CMP: Date 03/26/18 cmp BS 112, Hx DM 03/26/18 Tibc and ferritin- wnl, Iron low Imaging Within Last 12 Months: CT Scan- chest, 02/19/18, wnl Cardiac Testing: EKG in last 12 Months: Yes: Date: 03/04/18, Comment: NSR,complete RBBB Last Menstrual Period: LMP Date: N/A Postmenopausal >1yr: yes S/P Hysterectomy: yes BMI Percentile (PEDS): N/A Risk Assessment: N/A Anesthesia Review: N/A Narrative: HX SHARAD anemia colon CA Pre-op Considerations: HX DM- oral med Chart Check: IN PROGRESS needs instructions. Lo Childers RN April 08, 2018 7:34 AM 04/08/18 9 am ML x1 for pt to call back for instructions. FILIPPO Costa PATIENT PREOPERATIVE INSTRUCTIONS No ref. provider found has scheduled you for your procedure at this surgery center: [facility]: [phone] -- [address] [id number]. Please read below carefully for your personalized instructions. Blood Thinning Medications: - Stop NSAIDS (Ibuprofen, Advil, Aleve, Motrin, Celebrex, Mobic, etc.) 7 days before surgery, as directed by your surgeon. - Stop Vitamin E, ALL multi-vitamins, herbals and dietary supplements 7 days before surgery. Dietary Restrictions: - No solid food after midnight. - You may have 12 ounces of clear liquids (water, clear juices such as apple juice or gatorade, carbonated beverages, clear tea, black coffee, jello) until 2 hours before scheduled arrival at facility. Pain Medications: Medications: Approved medications to take the morning of surgery with a sip of water: Zoloft, synthroid, verapamil - No diabetic medication the morning of surgery. - Accucheck day of surgery. If you start any new medications after today's visit, please contact the surgeon's office. Important Reminders: - Candy, mints, gum and tobacco products are NOT permitted the morning of surgery. - Hearing aids, dentures and glasses may be worn the morning of surgery. - NO jewelry, body piercings, makeup, hairpins or contacts are to be worn the day of surgery. OK to shower DOS do not use creams, lotions, powders perfume/cologne or after shave if extremity surgery remove all nail vietnamese pre op and do not shave site If you develop symptoms such as a fever, cold, or flu, or have other changes to your health within TWO DAYS of scheduled surgery or the morning of surgery, please contact the surgery center above. Personal Belongings: - Leave ALL valuables and money at home or with family members. For Outpatient Procedures: - YOU MUST HAVE A RESPONSIBLE CORSET MAKER TAKE YOU HOME. A MOBILE PHLEBOTOMIST OR METROLOGIST CANNOT BE MADE A RESPONSIBLE CORSET MAKER. - We recommend that a responsible person stays with you overnight to take care of you. - You cannot stay in a hotel alone after outpatient surgery. You will not be permitted to have your surgery, if you do not have someone to take care of you. Arrival Time for Surgery: - The Surgery Center or hospital where you are having surgery will call the afternoon before surgery (or Saturday for Saturday surgery) with a scheduled arrival time. - If you have not heard by 4 pm, please contact the surgery center above. Please be aware that emergency situations arise, which may delay or change your surgical time. If this happens, we will notify you as soon as possible and regret any inconvenience. Lo Childers RN 04/08/18 1:55 pm PROGRESS Observed: 03/31/2018 Status: COMPLETED Source: [place] 4:40 PM [facility] REPOSITORY HNO ID: [id number] Author: Stacey Barriga (Pa) Service: (none) Author Type: Physician Transformer Shop Supervisor Type: Progress Notes Filed: 04/02/2018 4:52 PM Note Text: HISTORY AND PHYSICAL Anne Cordero 1955 REFERRING PHYSICIAN: Ollie Krause DO CHIEF COMPLAINT: Consult (Consult Port placement) HPI: The patient is a 62 year old female with a diagnosis of colon cancer. Anne is currently scheduled to undergo chemotherapy and needs vascular access for treatment. The patient denies a prior history of clavicular injury or central venous access. The patient is being seen by me today at the request of Dr. Krause to schedule port placement. Patient's past medical history is significant for colon cancer as noted above, hypertension, hyperlipidemia, PVCs, type II diabetes mellitus, hypothyroidism, anxiety. Patient follows with Dr. Dinh for her chronic medical conditions and with Dr. Krause for her colon cancer. Patient denies chest pain or shortness of breath. Denies problems with sedation in the past. PAST MEDICAL HISTORY Diagnosis Date - Abnormal EKG RIGHT BUNDLE BRANCH BLOCK - Anxiety state, unspecified - Arrhythmia Dr. 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) 03/2018 - Depressive disorder, not elsewhere classified - Diarrhea - Diverticulosis of colon (without mention of hemorrhage) - Esophageal reflux - Family history of malignant neoplasm of gastrointestinal tract family history of colon cancer - Goiter, unspecified Goiter - Internal hemorrhoids without mention of complication - LATERAL EPICONDYLITIS 04/27/2007 - Mixed hyperlipidemia Hyperlipidemia - Obesity, unspecified Obesity - Osteoarthrosis, unspecified whether generalized or localized, other specified sites - Osteopenia - Snoring - Tooth abscess - Type II or unspecified type diabetes mellitus without mention of complication, not stated as uncontrolled - Unspecified essential hypertension Essential hypertension - Unspecified hypothyroidism PAST SURGICAL HISTORY Procedure Laterality Date - APPENDECTOMY 07/24/1966 - CARPAL TUNNEL 2011 bilateral - CHG DELIVERY 1986 , low cervical - COLONOSCOP W/ OR W/O BRSH SPEC 07/15/06 Repeat in - COLONOSCOP W/ OR W/O BRS SPEC 12/26/2011 Colonoscopy - COLONOSCOP W/ OR W/O [facility] SPEC 01/07/2015 Colonoscopy - COLONOSCOP W/ OR W/O [facility] SPEC 02/14/2018 Colonoscopy - EGD W/O OR W/BRUSH/WASH 12/26/2011 EGD - EGD W/O OR W/BRUSH/WASH 02/14/2018 EGD - HYSTEROSCOPY, DIAGNOSTIC (SEPARATE 11/30/1993 Hysteroscopy - KNEE SCOPE,DIAGNOSTIC 04/29/2003 Arthroscopy, knee, left - LAPAROSCOPY DIAGNOSTIC 03/06/2018 with splenic flexure mobilization / colectomy/TAP block - PAST SURGICAL HISTORY OF SINUS SURGERY - PAST SURGICAL HISTORY OF 2010 EYE SURGERY- DROOPY LIDS - PAST SURGICAL HISTORY OF 03/11 right partial knee replacement - PAST SURGICAL HISTORY OF 01/08/12 left medial compartment unicompartmental knee arthroplasty - REMOVAL OF TONSILS,<12 Y/O 03/08/1961 Tonsillectomy AND adenoidectomy - SIGMOIDOSCOPY 03/06/2018 - SIGMOIDOSCOPY FLEX DIAG 5 YEARS AGO Sigmoidoscopy - THYROIDECTOMY 08/25/1992 left - THYROIDECTOMY 12/14/2003 right lobectomy - TOTAL ABDOM HYSTERECTOMY 03/29/1994 Hysterectomy, [facility] Current Outpatient Prescriptions: acetaminophen (TYLENOL) 325 mg tablet Take 2 tablets by mouth every 6 hours as needed for Pain. Disp: Rfl: ASPIRIN 81 MG ORAL TAB Take one (1) tablet daily . Disp: Rfl: 0 atorvastatin (LIPITOR) 80 mg tablet TAKE ONE-HALF TABLET BY MOUTH ONCE DAILY Disp: 45 tablet Rfl: 3 Cholecalciferol, Vitamin D3, 1,000 unit cap Take 1 capsule by mouth once daily. Disp: 100 capsule Rfl: 3 clotrimazole (LOTRIMIN, CLOTRIM) 1 % cream Apply 1 application to affected area twice daily. Disp: 30 g Rfl: 2 fluticasone (FLONASE) 50 mcg/actuation nasal spray Use 2 Sprays in each nostril once daily. Rinse mouth after use. Disp: 3 Bottle Rfl: 3 lansoprazole (PREVACID) 30 mg capsule TAKE 1 CAPSULE BY MOUTH ONCE DAILY Disp: 90 capsule Rfl: 1 levothyroxine (SYNTHROID) 100 mcg ORAL tablet Take 1 tablet by mouth once daily. Disp: 90 tablet Rfl: 3 lisinopril 2.5 mg tablet TAKE 1 TABLET BY MOUTH ONCE A DAY FOR BLOOD PRESSURE Disp: 90 tablet Rfl: 3 LORATADINE/PSEUDOEPHEDRINE (CLARITIN-D 24 HOUR ORAL) Take 1 tablet by mouth once daily. Prn Disp: Rfl: metFORMIN (GLUCOPHAGE) 1,000 mg tablet TAKE 1 TABLET BY MOUTH TWICE A DAY WITH MEALS Disp: 180 tablet Rfl: 1 ondansetron (ZOFRAN) 8 mg tablet Take 1 tablet by mouth every 8 hours as needed for Nausea/Vomiting. Disp: 30 tablet Rfl: 2 Oxymetazoline HCl 0.05 % mist Use 30 mL in the nose twice daily as needed. WEAN off Disp: Rfl: sertraline (ZOLOFT) 100 mg tablet TAKE 1 TABLET BY MOUTH ONCE DAILY Disp: 90 tablet Rfl: 1 spironolactone-hctz 25/25 (ALDACTAZIDE) 25-25 mg per tablet TAKE 1 TABLET BY MOUTH ONCE DAILY Disp: 90 tablet Rfl: 1 verapamil ER (VERELAN) 120 mg 24 hr capsule TAKE 1 CAPSULE BY MOUTH ONCE DAILY Disp: 90 capsule Rfl: 1 No current facility-administered medications for this visit. ALLERGIES: Atenolol; Depo-Medrol [Methylprednisolone Acetate]; Ivp Dye [Iodine]; Sulfa (Sulfonamide Antibiotics) PERSONAL HISTORY: Social History Marital status: Spouse name: Ivelisse Years of education: Number of children: 2 Occupational History 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ER Social History Main Topics Smoking status: Never Smoker Smokeless tobacco: Never Used Alcohol use: No Drug use: No Sexual activity: Yes Partners with: Male control/protection: Surgical Comment: PACSUAL FAMILY HISTORY: FAMILY HISTORY Problem Relation Age of Onset - Breast Cancer Mother - Heart Mother - Diabetes Mother - Colon Cancer Father - Heart Father - Diabetes Father - Colon Cancer Paternal Grandmother - Colon Cancer Paternal Grandfather REVIEW OF SYMPTOMS: The review of systems data was entered by the nurse and reviewed by sc Nursing Notes: Naresh Patricia 03/31/2018 9:04 AM Signed REVIEW OF SYSTEMS: General: The patient denies fatigue, denies weight loss, denies weight gain, denies feeling hot, and denies feelings of cold. Eyes: The patient denies glaucoma, denies eye injury/surgery, does not wear glasses or contacts. Ear/Nose/Throat: The patient NOTES allergies, NOTES hayfever, denies ear infections, and denies bloody noses. Cardiovascular: The patient denies chest pain, denies heart disease, NOTES high blood pressure,denies cardiac stent, denies prior heart attack, denies irregular heart beat, NOTES high cholesterol, denies poor circulation, denies heart failure, other cardiac issues, denies claudication, denies cold feet, denies peripheral arterial stent. Respiratory: The patient denies tuberculosis, denies pneumonia, denies frequent cough, denies pulmonary embolism, denies shortness of breath, and denies coughing up blood. Gastrointestinal: The patient denies difficulty swallowing, NOTES acid reflux, denies ulcers, denies vomiting, denies jaundice/hepatitis, denies gallbladder problems, denies black or tarry stools, denies hemorrhoids, denies bleeding from rectum, denies diverticulitis, denies constipation, denies diarrhea, denies loss of stool control, and denies hernias. Kidney/Bladder: The patient denies kidney stones, denies urine infections, and denies bloody urine. Skin: The patient denies a history of skin cancer, denies bleeding/changing moles, and denies a history of skin rash. Neurologic: The patient denies a history of epilepsy/convulsions, denies headaches, denies head/spinal injuries, and denies stroke/TIA. Psychiatric: The patient denies psychiatric medications, NOTES depression, and denies voices, denies substance abuse. Endocrine: The patient denies thyroid disorders, NOTES diabetes, and denies hormonal problems. Hematologic: The patient denies a history of bruising, denies bleeding, and denies anemia, denies blood clots. Infections: The patient denies a history of measles and mumps, denies rheumatic fever, and denies sexually transmitted diseases. Musculoskeletal: The patient denies back pain/injury, denies back problems, denies sciatica, denies knee/foot trouble, NOTES arthritis, or denies gout. When was patient's last Mammogram screening? 02/07/2018 Last Colonoscopy: 02/14/2018 Naresh Patricia I have confirmed and edited as necessary, the PFSH and ROS obtained by others. PHYSICAL EXAMINATION: General: The patient is 62 year old female, well nourished, well hydrated in no acute distress. The patient is oriented to time, place, and person. VITALS: Blood pressure 112/64, pulse 99, temperature (!) 35.8 ?C (96.5 ?F), temperature source Temporal Artery, height 164.5 cm (5' 4.75), weight 95.4 kg (210 lb 6.4 oz), SpO2 97 %. Body mass index is 35.28 kg/m?. HEENT: Normal cephalic, ataumatic, pupils are equally round, sclera are anicteric, mucous membranes are moist, oropharynx is clear. Neck has no masses, asymmetry or lymphadenopathy. Respiratory: Clear to auscultation and percussion. Normal respiratory excursion and pattern. Cardiac: Examination is regular rate and rhythm. Normal S1/S2 Abdominal exam: Soft, nontender, with no palpable masses. No hepatosplenomegaly. No palpable hernias. Rectal exam: exam deferred Extremities: no clubbing, cyanosis or edema. No adenopathy. Other: LABORATORY VALUES: As Noted RADIOLOGIC STUDIES: As Noted Assessment IMPRESSION: Colon cancer, need for IV access. Anemia PLAN: I have reviewed my findings with Dr. Pathak. He plans to perform a left subclavian port a cath placement. The planned surgical procedure was discussed extensively with the patient. The risks, benefits, anticipated outcomes and possible complications were mentioned. My staff has also explained the procedure in understandable terms and the patient was given the option to take printed material concerning the planned procedure. The patient had the opportunity to ask questions concerning the planned procedure. The patient freely consents to the planned procedure. Patient instructed to hold fish oil for 5 days prior to port placement Planned [facility] [id number] Patient Weight Last 1 Encounter Wt Readings: Date: Wt: 03/31/2018 95.4 kg (210 lb 6.4 oz) Antibiotic: Ancef 1gm IVPB air conditioning equipment mechanic to OR Planned Anesthetic: MAC with local Dr. Pathak may plan to access the port at the time of surgery. Diagnoses: (C18.5) Malignant neoplasm of splenic flexure (HCC) (primary encounter diagnosis) Stacey Barriga PA-C PROGRESS Observed: 03/31/2018 Status: COMPLETED Source: [place] 9:38 AM [facility] [place] REPOSITORY HNO ID: [id number] Author: Kira Shields Service: (none) Author Type: (none) Type: Progress Notes Filed: 03/31/2018 9:39 AM Note Text: AMBULATORY PATIENT EDUCATION NOTE TOPIC: Chemotherapy READINESS TO LEARN COGNITIVE ABILITY: Alert and oriented MOTIVATION TO LEARN: Interested FAMILY SUPPORT: High - Very involved in pt care INSTRUCTION PROVIDED TO: Patient and family member PATIENT LEARNS BEST BY: Individual Instruction FACTORS AFFECTING LEARNING: None PHYSICAL LIMITATIONS AFFECTING LEARNING: None LEARNING RESPONSE DIAGNOSIS: Colon CA METHOD OF INSTRUCTION: Individual instruction PATIENT / FAMILY RESPONSE: Verbalizes understanding of: CHEMOTHERAPY-Regimen, toxicity and side effects FOLLOW-UP PLAN: Complete - No need for follow-up SUPPLEMENTAL MATERIAL: Patient instructions given for: Fluorouracil/5FU, including side effect information from [email or web address] REFERRAL (RECOMMENDATION): None Electronically Signed By Kira Shields In the department of : Hematology/Oncology CNLASHAUN Observed: 03/31/2018 Status: COMPLETED Source: [place] 8:30 AM [facility] REPOSITORY Office Visit (GENSWS) ANNE CORDERO ([id number]) 1955 F Date Time Provider Department 03/31/18 8:30 AM STACEY BARRIGA) GENSWS During your visit today, we recorded the following information about you: Temperature Pulse Blood pressure Weight 96.5 degrees 99/minute 112/64 95.4 kg Height 1.645 m Naresh Patricia 03/31/2018 9:04 AM Signed REVIEW OF SYSTEMS: General: The patient denies fatigue, denies weight loss, denies weight gain, denies feeling hot, and denies feelings of cold. Eyes: The patient denies glaucoma, denies eye injury/surgery, does not wear glasses or contacts. Ear/Nose/Throat: The patient NOTES allergies, NOTES hayfever, denies ear infections, and denies bloody noses. Cardiovascular: The patient denies chest pain, denies heart disease, NOTES high blood pressure,denies cardiac stent, denies prior heart attack, denies irregular heart beat, NOTES high cholesterol, denies poor circulation, denies heart failure, other cardiac issues, denies claudication, denies cold feet, denies peripheral arterial stent. Respiratory: The patient denies tuberculosis, denies pneumonia, denies frequent cough, denies pulmonary embolism, denies shortness of breath, and denies coughing up blood. Gastrointestinal: The patient denies difficulty swallowing, NOTES acid reflux, denies ulcers, denies vomiting, denies jaundice/hepatitis, denies gallbladder problems, denies black or tarry stools, denies hemorrhoids, denies bleeding from rectum, denies diverticulitis, denies constipation, denies diarrhea, denies loss of stool control, and denies hernias. Kidney/Bladder: The patient denies kidney stones, denies urine infections, and denies bloody urine. Skin: The patient denies a history of skin cancer, denies bleeding/changing moles, and denies a history of skin rash. Neurologic: The patient denies a history of epilepsy/convulsions, denies headaches, denies head/spinal injuries, and denies stroke/TIA. Psychiatric: The patient denies psychiatric medications, NOTES depression, and denies voices, denies substance abuse. Endocrine: The patient denies thyroid disorders, NOTES diabetes, and denies hormonal problems. Hematologic: The patient denies a history of bruising, denies bleeding, and denies anemia, denies blood clots. Infections: The patient denies a history of measles and mumps, denies rheumatic fever, and denies sexually transmitted diseases. Musculoskeletal: The patient denies back pain/injury, denies back problems, denies sciatica, denies knee/foot trouble, NOTES arthritis, or denies gout. When was patient's last Mammogram screening? 02/07/2018 Last Colonoscopy: 02/14/2018 Naresh Barriga PA-C 04/02/2018 4:52 PM Signed HISTORY AND PHYSICAL Anne Cash Gil 1955 REFERRING PHYSICIAN: Ollie Krause DO CHIEF COMPLAINT: Consult (Consult Port placement) HPI: The patient is a 62 year old female with a diagnosis of colon cancer. Anne is currently scheduled to undergo chemotherapy and needs vascular access for treatment. The patient denies a prior history of clavicular injury or central venous access. The patient is being seen by me today at the request of Dr. Krause to schedule port placement. Patient's past medical history is significant for colon cancer as noted above, hypertension, hyperlipidemia, PVCs, type II diabetes mellitus, hypothyroidism, anxiety. Patient follows with Dr. Dinh for her chronic medical conditions and with Dr. Krause for her colon cancer. Patient denies chest pain or shortness of breath. Denies problems with sedation in the past. PAST MEDICAL HISTORY Diagnosis Date - Abnormal EKG RIGHT BUNDLE BRANCH BLOCK - Anxiety state, unspecified - Arrhythmia Dr. 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) 03/2018 - Depressive disorder, not elsewhere classified - Diarrhea - Diverticulosis of colon (without mention of hemorrhage) - Esophageal reflux - Family history of malignant neoplasm of gastrointestinal tract family history of colon cancer - Goiter, unspecified Goiter - Internal hemorrhoids without mention of complication - LATERAL EPICONDYLITIS 04/27/2007 - Mixed hyperlipidemia Hyperlipidemia - Obesity, unspecified Obesity - Osteoarthrosis, unspecified whether generalized or localized, other specified sites - Osteopenia - Snoring - Tooth abscess - Type II or unspecified type diabetes mellitus without mention of complication, not stated as uncontrolled - Unspecified essential hypertension Essential hypertension - Unspecified hypothyroidism PAST SURGICAL HISTORY Procedure Laterality Date - APPENDECTOMY 07/24/1966 - CARPAL TUNNEL 2011 bilateral - CHG DELIVERY 1986 , low cervical - COLONOSCOP W/ OR W/O [facility] SPEC 07/15/06 Repeat in -2011 - COLONOSCOP W/ OR W/O [facility] SPEC 12/26/2011 Colonoscopy - COLONOSCOP W/ OR W/O [facility] SPEC 01/07/2015 Colonoscopy - COLONOSCOP W/ OR W/O [facility] SPEC 02/14/2018 Colonoscopy - EGD W/O OR W/BRUSH/WASH 12/26/2011 EGD - EGD W/O OR W/BRUSH/WASH 02/14/2018 EGD - HYSTEROSCOPY, DIAGNOSTIC (SEPARATE 11/30/1993 Hysteroscopy - KNEE SCOPE,DIAGNOSTIC 04/29/2003 Arthroscopy, knee, left - LAPAROSCOPY DIAGNOSTIC 03/06/2018 with splenic flexure mobilization / colectomy/TAP block - PAST SURGICAL HISTORY OF SINUS SURGERY - PAST SURGICAL HISTORY OF 2010 EYE SURGERY- DROOPY LIDS - PAST SURGICAL HISTORY OF 03/11 right partial knee replacement - PAST SURGICAL HISTORY OF 01/08/12 left medial compartment unicompartmental knee arthroplasty - REMOVAL OF TONSILS,<12 Y/O 03/08/1961 Tonsillectomy AND adenoidectomy - SIGMOIDOSCOPY 03/06/2018 - SIGMOIDOSCOPY FLEX DIAG 5 YEARS AGO Sigmoidoscopy - THYROIDECTOMY 08/25/1992 left - THYROIDECTOMY 12/14/2003 right lobectomy - TOTAL ABDOM HYSTERECTOMY 03/29/1994 Hysterectomy, [facility] Current Outpatient Prescriptions: acetaminophen (TYLENOL) 325 mg tablet Take 2 tablets by mouth every 6 hours as needed for Pain. Disp: Rfl: ASPIRIN 81 MG ORAL TAB Take one (1) tablet daily . Disp: Rfl: 0 atorvastatin (LIPITOR) 80 mg tablet TAKE ONE-HALF TABLET BY MOUTH ONCE DAILY Disp: 45 tablet Rfl: 3 Cholecalciferol, Vitamin D3, 1,000 unit cap Take 1 capsule by mouth once daily. Disp: 100 capsule Rfl: 3 clotrimazole (LOTRIMIN, CLOTRIM) 1 % cream Apply 1 application to affected area twice daily. Disp: 30 g Rfl: 2 fluticasone (FLONASE) 50 mcg/actuation nasal spray Use 2 Sprays in each nostril once daily. Rinse mouth after use. Disp: 3 Bottle Rfl: 3 lansoprazole (PREVACID) 30 mg capsule TAKE 1 CAPSULE BY MOUTH ONCE DAILY Disp: 90 capsule Rfl: 1 levothyroxine (SYNTHROID) 100 mcg ORAL tablet Take 1 tablet by mouth once daily. Disp: 90 tablet Rfl: 3 lisinopril 2.5 mg tablet TAKE 1 TABLET BY MOUTH ONCE A DAY FOR BLOOD PRESSURE Disp: 90 tablet Rfl: 3 LORATADINE/PSEUDOEPHEDRINE (CLARITIN-D 24 HOUR ORAL) Take 1 tablet by mouth once daily. Prn Disp: Rfl: metFORMIN (GLUCOPHAGE) 1,000 mg tablet TAKE 1 TABLET BY MOUTH TWICE A DAY WITH MEALS Disp: 180 tablet Rfl: 1 ondansetron (ZOFRAN) 8 mg tablet Take 1 tablet by mouth every 8 hours as needed for Nausea/Vomiting. Disp: 30 tablet Rfl: 2 Oxymetazoline HCl 0.05 % mist Use 30 mL in the nose twice daily as needed. WEAN off Disp: Rfl: sertraline (ZOLOFT) 100 mg tablet TAKE 1 TABLET BY MOUTH ONCE DAILY Disp: 90 tablet Rfl: 1 spironolactone-hctz 25/25 (ALDACTAZIDE) 25-25 mg per tablet TAKE 1 TABLET BY MOUTH ONCE DAILY Disp: 90 tablet Rfl: 1 verapamil ER (VERELAN) 120 mg 24 hr capsule TAKE 1 CAPSULE BY MOUTH ONCE DAILY Disp: 90 capsule Rfl: 1 No current facility-administered medications for this visit. ALLERGIES: Atenolol; Depo-Medrol [Methylprednisolone Acetate]; Ivp Dye [Iodine]; Sulfa (Sulfonamide Antibiotics) PERSONAL HISTORY: Social History Marital status: Spouse name: Ivelisse Years of education: Number of children: 2 Occupational History 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ER Social History Main Topics Smoking status: Never Smoker Smokeless tobacco: Never Used Alcohol use: No Drug use: No Sexual activity: Yes Partners with: Male control/protection: Surgical Comment: [facility] FAMILY HISTORY: FAMILY HISTORY Problem Relation Age of Onset - Breast Cancer Mother - Heart Mother - Diabetes Mother - Colon Cancer Father - Heart Father - Diabetes Father - Colon Cancer Paternal Grandmother - Colon Cancer Paternal Grandfather REVIEW OF SYMPTOMS: The review of systems data was entered by the nurse and reviewed by sc Nursing Notes: Naresh Patricia 03/31/2018 9:04 AM Signed REVIEW OF SYSTEMS: General: The patient denies fatigue, denies weight loss, denies weight gain, denies feeling hot, and denies feelings of cold. Eyes: The patient denies glaucoma, denies eye injury/surgery, does not wear glasses or contacts. Ear/Nose/Throat: The patient NOTES allergies, NOTES hayfever, denies ear infections, and denies bloody noses. Cardiovascular: The patient denies chest pain, denies heart disease, NOTES high blood pressure,denies cardiac stent, denies prior heart attack, denies irregular heart beat, NOTES high cholesterol, denies poor circulation, denies heart failure, other cardiac issues, denies claudication, denies cold feet, denies peripheral arterial stent. Respiratory: The patient denies tuberculosis, denies pneumonia, denies frequent cough, denies pulmonary embolism, denies shortness of breath, and denies coughing up blood. Gastrointestinal: The patient denies difficulty swallowing, NOTES acid reflux, denies ulcers, denies vomiting, denies jaundice/hepatitis, denies gallbladder problems, denies black or tarry stools, denies hemorrhoids, denies bleeding from rectum, denies diverticulitis, denies constipation, denies diarrhea, denies loss of stool control, and denies hernias. Kidney/Bladder: The patient denies kidney stones, denies urine infections, and denies bloody urine. Skin: The patient denies a history of skin cancer, denies bleeding/changing moles, and denies a history of skin rash. Neurologic: The patient denies a history of epilepsy/convulsions, denies headaches, denies head/spinal injuries, and denies stroke/TIA. Psychiatric: The patient denies psychiatric medications, NOTES depression, and denies voices, denies substance abuse. Endocrine: The patient denies thyroid disorders, NOTES diabetes, and denies hormonal problems. Hematologic: The patient denies a history of bruising, denies bleeding, and denies anemia, denies blood clots. Infections: The patient denies a history of measles and mumps, denies rheumatic fever, and denies sexually transmitted diseases. Musculoskeletal: The patient denies back pain/injury, denies back problems, denies sciatica, denies knee/foot trouble, NOTES arthritis, or denies gout. When was patient's last Mammogram screening? 02/07/2018 Last Colonoscopy: 02/14/2018 Naresh Patricia I have confirmed and edited as necessary, the PFSH and ROS obtained by others. PHYSICAL EXAMINATION: General: The patient is 62 year old female, well nourished, well hydrated in no acute distress. The patient is oriented to time, place, and person. VITALS: Blood pressure 112/64, pulse 99, temperature (!) 35.8 ?C (96.5 ?F), temperature source Temporal Artery, height 164.5 cm (5' 4.75), weight 95.4 kg (210 lb 6.4 oz), SpO2 97 %. Body mass index is 35.28 kg/m?. HEENT: Normal cephalic, ataumatic, pupils are equally round, sclera are anicteric, mucous membranes are moist, oropharynx is clear. Neck has no masses, asymmetry or lymphadenopathy. Respiratory: Clear to auscultation and percussion. Normal respiratory excursion and pattern. Cardiac: Examination is regular rate and rhythm. Normal S1/S2 Abdominal exam: Soft, nontender, with no palpable masses. No hepatosplenomegaly. No palpable hernias. Rectal exam: exam deferred Extremities: no clubbing, cyanosis or edema. No adenopathy. Other: LABORATORY VALUES: As Noted RADIOLOGIC STUDIES: As Noted Assessment IMPRESSION: Colon cancer, need for IV access. Anemia PLAN: I have reviewed my findings with Dr. Pathak. He plans to perform a left subclavian port a cath placement. The planned surgical procedure was discussed extensively with the patient. The risks, benefits, anticipated outcomes and possible complications were mentioned. My staff has also explained the procedure in understandable terms and the patient was given the option to take printed material concerning the planned procedure. The patient had the opportunity to ask questions concerning the planned procedure. The patient freely consents to the planned procedure. 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 Pathak may plan to access the port at the time of surgery. Diagnoses: (C18.5) Malignant neoplasm of splenic flexure (HCC) (primary encounter diagnosis) GERRY CalderónC Referring Provider: OLLIE KRAUSE [[id number]] Allergies As of Date: 03/31/2018 Noted Allergy Reaction ATENOLOL 03/07/2011 1 - Mental Status Change Comments: fatigue DEPO-MEDROL (METHYLPREDNISOLONE A*03/01/2005 Comments: facial redness, elevated glucose IVP DYE (IODINE) 03/01/2005 4 - Hives 7 - Swelling Comments: occurred in the 70's. Had swelling and hives on arm only where IV was SULFA (SULFONAMIDE ANTIBIOTICS) 03/01/2005 4 - Hives Date Reviewed: 03/31/2018 Reviewed by: Stacey Barriga (Pa) - Fully Assessed Reason for Visit: Consult [173] Cmt: Consult Port placement Primary Visit Diagnosis:Malignant neoplasm of splenic flexure (HCC) [C18.5] Prescriptions as of 03/31/2018 Sig: ACETAMINOPHEN 325 MG TABLET Take 2 tablets by mouth every* * ASPIRIN 81 MG TABLET Take one (1) tablet daily . ATORVASTATIN 80 MG TABLET TAKE ONE-HALF TABLET BY MOUT* CHOLECALCIFEROL (VITAMIN D3) * Take 1 capsule by mouth once * CLOTRIMAZOLE 1 % TOPICAL CREAM Apply 1 application to affect* FLUTICASONE 50 MCG/ACTUATION * Use 2 Sprays in each nostril * LANSOPRAZOLE 30 MG CAPSULE,DE* TAKE 1 CAPSULE BY MOUTH ONCE* LEVOTHYROXINE 100 MCG TABLET Take 1 tablet by mouth once d* LISINOPRIL 2.5 MG TABLET TAKE 1 TABLET BY MOUTH ONCE A* CLARITIN-D 24 HOUR ORAL Take 1 tablet by mouth once d* METFORMIN 1,000 MG TABLET TAKE 1 TABLET BY MOUTH TWICE* ONDANSETRON HCL 8 MG TABLET Take 1 tablet by mouth every * OXYMETAZOLINE 0.05 % NASAL IL* Use 30 mL in the nose twice d* SERTRALINE 100 MG TABLET TAKE 1 TABLET BY MOUTH ONCE D* SPIRONOLACTONE 25 MG-HYDROCHL* TAKE 1 TABLET BY MOUTH ONCE D* VERAPAMIL ER 120 MG 24 HR CAP* TAKE 1 CAPSULE BY MOUTH ONCE* Problem List As Of Date 03/31/2018 Noted Resolved 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 Essential hypertension [I10] INVALID FOR* More... Mixed hyperlipidemia [E78.2] INVALID FOR* More... Unspecified asthma(493.90) [J45.909] INVALID FOR*04/10/2017 More... Primary osteoarthritis involving multiple joint*INVALID FOR* RIGHT AXILLARY PAIN [R07.9] INVALID FOR*01/25/2011 FAMILY HX COLON CANCER [Z80.0] INVALID FOR* More... Esophageal reflux [K21.9] More... Anxiety [F41.9] Recurrent major depressive disorder, in full re* 04/10/2017 More... Hypokalemia [E87.6] INVALID FOR* More... OSTEOARTHROS NOS-L/LEG [M17.10] INVALID FOR* Lateral epicondylitis of elbow [M77.10] INVALID FOR*02/18/2013 Hypothyroidism [E03.9] INVALID FOR* More... PVC's [I49.49] INVALID FOR* Shoulder bursitis [M75.50] INVALID FOR*02/18/2013 Allergy to environmental factors [Z91.09] INVALID FOR* Special screening for malignant neoplasms, colo*INVALID FOR*01/07/2015 Malignant neoplasm of transverse colon (HCC) [C*INVALID FOR* More... Obesity, Class II, BMI 35-39.9 [E66.9] INVALID FOR* Hypomagnesemia [E83.42] INVALID FOR* More... Post-op pain [G89.18] INVALID FOR* More... JOSE (acute kidney injury) (HCC) [N17.9] INVALID FOR* More... Visit Notes: >> Naresh Patricia Mon Mar 31, 2018 9:01 AM Status: Signed REVIEW OF SYSTEMS: General: The patient denies fatigue, denies weight loss, denies weight gain, denies feeling hot, and denies feelings of cold. Eyes: The patient denies glaucoma, denies eye injury/surgery, does not wear glasses or contacts. Ear/Nose/Throat: The patient NOTES allergies, NOTES hayfever, denies ear infections, and denies bloody noses. Cardiovascular: The patient denies chest pain, denies heart disease, NOTES high blood pressure,denies cardiac stent, denies prior heart attack, denies irregular heart beat, NOTES high cholesterol, denies poor circulation, denies heart failure, other cardiac issues, denies claudication, denies cold feet, denies peripheral arterial stent. Respiratory: The patient denies tuberculosis, denies pneumonia, denies frequent cough, denies pulmonary embolism, denies shortness of breath, and denies coughing up blood. Gastrointestinal: The patient denies difficulty swallowing, NOTES acid reflux, denies ulcers, denies vomiting, denies jaundice/hepatitis, denies gallbladder problems, denies black or tarry stools, denies hemorrhoids, denies bleeding from rectum, denies diverticulitis, denies constipation, denies diarrhea, denies loss of stool control, and denies hernias. Kidney/Bladder: The patient denies kidney stones, denies urine infections, and denies bloody urine. Skin: The patient denies a history of skin cancer, denies bleeding/changing moles, and denies a history of skin rash. Neurologic: The patient denies a history of epilepsy/convulsions, denies headaches, denies head/spinal injuries, and denies stroke/TIA. Psychiatric: The patient denies psychiatric medications, NOTES depression, and denies voices, denies substance abuse. Endocrine: The patient denies thyroid disorders, NOTES diabetes, and denies hormonal problems. Hematologic: The patient denies a history of bruising, denies bleeding, and denies anemia, denies blood clots. Infections: The patient denies a history of measles and mumps, denies rheumatic fever, and denies sexually transmitted diseases. Musculoskeletal: The patient denies back pain/injury, denies back problems, denies sciatica, denies knee/foot trouble, NOTES arthritis, or denies gout. When was patient's last Mammogram screening? 02/07/2018 Last Colonoscopy: 02/14/2018 Naresh Noble Follow-up and Disposition History Recorded Encounter Status:Closed by STACEY BARRIGA PA-C on 04/02/18 HOSP Observed: 03/31/2018 Status: COMPLETED Source: [facility] 12:00 AM CLINIC OTHER CAMPUS REPOSITORY Patient:Anne Cordero MRN: <[id number]> Height:5' 5(1.651 m) Weight:204 lb (92.534 kg) Outpatient Medications as of 04/09/18: sertraline (ZOLOFT) 100 mg tablet ondansetron (ZOFRAN) 8 mg tablet acetaminophen (TYLENOL) 325 mg tablet metFORMIN (GLUCOPHAGE) 1,000 mg tablet lansoprazole (PREVACID) 30 mg capsule verapamil ER (VERELAN) 120 mg 24 hr capsule lisinopril 2.5 mg tablet atorvastatin (LIPITOR) 80 mg tablet spironolactone-hctz 25/25 (ALDACTAZIDE) 25-25 mg per tablet clotrimazole (LOTRIMIN, CLOTRIM) 1 % cream fluticasone (FLONASE) 50 mcg/actuation nasal spray LORATADINE/PSEUDOEPHEDRINE (CLARITIN-D 24 HOUR ORAL) Oxymetazoline HCl 0.05 % mist Cholecalciferol, Vitamin D3, 1,000 unit cap levothyroxine (SYNTHROID) 100 mcg ORAL tablet ASPIRIN 81 MG ORAL TAB Admission/Clinic Administered Medications as of 04/09/18: lactated ringers infusion ceFAZolin iv piggyback 2 g in D5W (iso-osmotic) 100 mL (ANCEF) Problem List: Diabetes mellitus (HCC) [E11.9] Essential hypertension [I10] Mixed hyperlipidemia [E78.2] Primary osteoarthritis involving multiple joints [M15.0] FAMILY HX COLON CANCER [Z80.0] Esophageal reflux [K21.9] Anxiety [F41.9] Hypokalemia [E87.6] Osteoarthrosis, unspecified whether generalized or localized, lower leg [M17.10] Hypothyroidism [E03.9] PVC's [I49.49] Allergy to environmental factors [Z91.09] Malignant neoplasm of transverse colon (HCC) [C18.4] Obesity, Class II, BMI 35-39.9 [E66.9] Hypomagnesemia [E83.42] Post-op pain [G89.18] JOSE (acute kidney injury) (HCC) [N17.9] Allergies: Atenolol Depo-Medrol [Methylprednisolone Acetate] Ivp Dye [Iodine] Sulfa (Sulfonamide Antibiotics) Date Verified: 04/09/18 Lab Values Lab Value Units Date High Low POTA* 4.1 mmol/L 03/26/2018 5.1 3.7 Progress Notes ([facility]): Gaurav Denis 04/07/2018 4:49 PM Signed Patient has been identified by name and date of : Yes Pharmacy phones for refill(s): No medications selected for refill. Date of last office visit in primary care: 10/09/17; next 04/11/18 Last rx 10/23/17 #90 w/1 refill Last 2 Encounter Wt Readings: Date: Wt: 03/31/2018 95.4 kg (210 lb 6.4 oz) 03/26/2018 94.6 kg (208 lb 8 oz) Previous labs/tests for medication: Not applicable Please advise. Thank you. Gaurav Denis Progress Notes ([facility]): Naresh Patricia 03/31/2018 10:45 AM Signed Called left patient a message asking her if she can do her procedure in [place] on 04-09-2018. No other time available Naresh Particia 03/31/2018 11:01 AM Signed 04-09-2018 port placement Naresh Patricia IRON AND TIBC Collected: 03/26/2018 Status: F Source: [facility] 3:12 PM CLINIC MAIN CAMPUS REPOSITORY TYPE CODE TESTS RESULT OUT OF REFERENCE UNITS RANGE LAB IRN 41-186 ug/dL Low Iron 35 LAB TIBC 232-386 ug/dL TIBC 378 LAB SAT 15-57 % Low Transferrin Saturatn 9 Performed By: #### IRON, FERR #### [facility] [employer] [address], [place] [address] FERRITIN Collected: 03/26/2018 Status: F Source: [facility] 3:12 PM [facility] REPOSITORY TYPE CODE TESTS RESULT OUT OF REFERENCE UNITS RANGE LAB FERR 14.7-205.1 ng/mL Ferritin 23.1 Performed By: #### IRON, FERR #### [facility] [address], [place] [address] RUPINDER ABS GR + CBC Collected: 03/26/2018 Status: F Source: [facility] 3:11 PM [facility] REPOSITORY TYPE CODE TESTS RESULT OUT OF REFERENCE UNITS RANGE LAB WWBC 3.70-11.00 k/uL [place] WBC 7.21 LAB WRBC 3.90-5.20 m/uL Rupinder RBC 4.52 LAB WHGB 11.5-15.5 g/dL Low Rupinder Hemoglobin 10.5 LAB WHCT 36.0-46.0 % Low [place] Hematocrit 34.5 LAB WMCV 80.0-100.0 fL Low Rupinder MCV 76.3 LAB WMCH 26.0-34.0 pg Low Rupinder MCH 23.2 LAB WMCHC 30.5-36.0 g/dL Low Rupindre MCHC 30.4 LAB WRDW 11.5-15.0 % [place] High RDW 21.9 LAB WPLT 150-400 k/uL Rupinder Platelet Cnt 354 LAB WMPV 9.0-12.7 fL Rupinder MPV 10.5 Result Comment: Test performed at: [facility], [address] [place] [address] Rd[address] [place] [address]. LAB ABGRAN 1.45-7.50 k/uL Absol Gran 4.39 Count COMP METABOLIC PANEL Collected: 03/26/2018 Status: F Source: [facility] 3:11 PM [facility] REPOSITORY TYPE CODE TESTS RESULT OUT OF REFERENCE UNITS RANGE LAB TP 6.3-8.0 g/dL Protein, Total 7.3 LAB ALB 3.9-4.9 g/dL Albumin 4.6 LAB CA 8.5-10.2 mg/dL Calcium, High Total 10.5 LAB TBIL 0.2-1.3 mg/dL Bilirubin, Total 0.2 LAB ALKP 34-123 U/L Alkaline Phosphatase 81 LAB AST 13-35 U/L AST 13 LAB GLU 74-99 mg/dL Glucose High 112 LAB BUN 7-21 mg/dL BUN 18 LAB CRET 0.58-0.96 mg/dL Creatinine 0.76 LAB NA 136-144 mmol/L Sodium 138 LAB K 3.7-5.1 mmol/L Potassium 4.1 LAB CL 97-105 mmol/L Chloride 99 LAB CO2 22-30 mmol/L CO2 28 LAB AGAP mmol/L Anion Gap 11 LAB ALT 7-38 U/L ALT 11 LAB GFRAA eGFR- >60 Amer. LAB GFRNAA . eGFR-All Other Races >60 Result Comment: eGFR (Estimated GFR) Units of measure: mL/min/1.73 meters squared eGFR is derived from the reexpressed MDRD Study equation using the following parameters: serum creatinine, age, gender and race. The creatinine assay has been calibrated to be traceable to IDMS. An eGFR <60 mL/min/1.73m2 for >3 months is consistent with chronic kidney disease. Refer to KDOQI guidelines for clinical interpretation. In patients with unstable renal function, e.g. those with acute kidney injury, the eGFR may not accurately reflect actual GFR. CNOVSP Observed: 03/26/2018 Status: COMPLETED Source: [facility] 2:00 PM [facility] REPOSITORY Visit (SP) Office ([facility]) ANNE CORDERO ([id number]) 1955 F Date Time Provider Department 03/26/18 2:00 PM OLLIE KRAUSE During your visit today, we recorded the following information about you: Temperature Pulse Blood pressure Weight 97.4 degrees 99/minute 138/64 94.6 kg Height 1.645 m Ollie Krause DO 03/27/2018 1:05 PM Signed Diagnosis: 1) Stage III colon cancer. HPI: The patient is a 62-year-old female who has a past medical history significant for hypertension, hypothyroidism, type 2 diabetes who in early January 2018 was found to be anemic with a hemoglobin of 7.1 g/dL. Underwent EGD and colonoscopy on 02/14/2018. On the EGD portion of the study, she was observed to have moderate inflammation characterized by adherent blood, Marlene in's and erythema in the gastric antrum. Biopsies were obtained. The examined portions of the jejunum and duodenum were normal. The esophagus was noted to be normal. There were multiple small sessile polyps with no stigmata of recent bleeding found in the gastric fundus. On colonoscopy she was found to have a fungating partially obstructing large mass in the mid transverse colon. It was circumferential. Oozing was observed. Biopsies were obtained. Tattoo was performed. Exam was otherwise without abnormality. CT A/P 02/17/2018: Irregular wall thickening involving the colon at the splenic flexure with adjacent nodules potentially representing peritoneum metastasis was observed. There was no other abdominal or pelvic lymphadenopathy. The observed nodules were in the mesentery/peritoneum adjacent to the splenic flexure area liver was noted to be normal. No other abnormal findings. CT chest 02/19/2018: Normal. Patient underwent diagnostic laparoscopy with laparoscopic splenic flexure mobilization, tap block and flexible sigmoidoscopy on 03/06/2018. Pathology: Splenic flexure, segmental colectomy: - Invasive poorly-differentiated adenocarcinoma with neuroendocrine features and focal mucinous and signet ring cell features (see Tumor synoptic report and comment). - Tumor penetrates to the surface of the visceral peritoneum (serosa). - Lymphovascular invasion is present. - Margins negative for dysplasia and malignancy. - Three tumor deposits. - Ten of thirty-six lymph nodes, positive for metastatic carcinoma (10/36). COMMENT Immunostains were performed on the previously submitted biopsy of this tumor (see [id number],02/14/2018) and demonstrate that the overall immunoreactivity pattern was consistent with a poorly-differentiated carcinoma (colonic primary) with neuroendocrine features. In addition, focal mucinous and signet ring cell features are present within sections from the tumor from this resection specimen. SYNOPTIC REPORT OF [facility] SPLENIC FLEXURE: ? ? ?COLON AND RECTUM:RESECTION, INCLUDING TRANSANAL DISK EXCISION OF RECTAL NEOPLASMS WORKSHEET: Procedure: ? ? ? Other: Segmental colectomy Tumor Site: ? ? ? Splenic flexure Tumor Size: ? ? ? Greatest dimension: 5.0 cm Macroscopic Tumor Perforation: ? ? ? Not identified Histologic Type: ? ? ? Adenocarcinoma Histologic Grade: ? ? ? G3: Poorly differentiated Tumor Extension: ? ? ? Tumor invades the visceral peritoneum (including tumor continuous with serosal surface through area of inflammation) Margins: ? ? ? All margins are uninvolved by invasive carcinoma, high-grade dysplasia, intramucosal adenocarcinoma, and adenoma ? ? ? Margins examined: Proximal, distal, mesenteric ? ? ? Distance of invasive carcinoma from closest margin: 4.4 cm ? ? ? Distance of invasive carcinoma from closest margin - Specify margin: mesenteric Proximal Margin: ? ? ? Uninvolved by invasive carcinoma Distal Margin: ? ? ? Uninvolved by invasive carcinoma Circumferential Radial Margin: ? ? ? Not applicable Mesenteric Margin: ? ? ? Uninvolved by invasive carcinoma Treatment Effect: ? ? ? No known presurgical therapy Lymphovascular Invasion: ? ? ? Present ? ? ? Small vessel lymph-vascular invasion ? ? ? Large vessel (venous) invasion ? ? ? Extramural Perineural Invasion: ? ? ? Present Tumor Deposits: ? ? ? Present ? ? ? Specify number of deposits: 3 Regional Lymph Nodes: ? ? ? Number of nodes involved: 10 ? ? ? Number of nodes examined: 36 ? Pathologic Stage Classification (pTNM,AJCC 8th ed) TNM Descriptors: ? ? ? Not applicable Pathologic Staging (pTNM): pT4a: -Tumor invades through the visceral peritoneum (including gross perforation of the bowel through tumor and continuous invasion of tumor through areas of inflammation to the surface of the visceral peritoneum Regional Lymph Nodes (pN): pN2b: -7 or more regional lymph nodes are positive Distant Metastasis (pM): ? ? ? Not applicable/Not confirmed pathologically in this case Additional Pathologic Findings: ? ? ? Adenoma(s) ? ? ? Other: Focal tattoo pigment present SPECIMEN SUBMITTED A: SPLENIC FLEXURE ADDITIONAL PROCEDURE(S) MMR STATUS ? Date Ordered: ?03/12/2018 ? ? ? Date Reported: ?03/12/2018 Procedure Results and Interpretation MMR Status Report - Immunohistochemistry Colon, invasive adenocarcinoma, immunohistochemical staining for mismatch repair proteins: Result: - Loss of MLH1 and PMS2 proteins in carcinoma nuclei. - Normal expression of MSH2 and MSH6 proteins in carcinoma nuclei. Mismatch repair (MMR) status: Deficient (microsatellite unstable) Family history: Both paternal grand parents of colon cancer. Father had colon cancer in his 70s. from complications of heart valve surgery. Paternal uncle has colon polyps. She became very nice recovery from surgery. She has chronic loose bowel movements that predated her colon cancer diagnosis. Her appetite is normal. No nausea or vomiting. No abdominal pain per se but she has soreness still at the trocar insertion sites. No episodes of jaundice. She feels that she's not had any issues with urinary retention. PMH, medications and allergies personally reviewed by me today. Any changes documented in appropriate section. ROS: Constitutional: Denies episodes of fever and night sweats. Not significantly fatigued. Normal appetite. Neuro: Denies RODAS, vertigo, dizziness and imbalance. No symptoms of baseline neuropathy. HEENT: No recent change in voice, vision or hearing. Resp: Denies cough, wheeze and hemoptysis. Denies shortness of breath at rest. Denies BROWN. CVS: Denies exertional chest pain, PND, orthopnea and LE edema. GI: Denies dysgeusia. Denies symptoms of stomatitis. Denies dysphagia and odynophagia. : Denies dysuria or gross hematuria. Endo: Denies hot flashes. Denies polyuria and polydipsia. Denies heat and cold intolerance. Musculoskeletal: Denies bone, back, joint and muscular pain. Derm: Denies rash. Denies jaundice and diffuse pruritis. Heme: Denies unusual bleeding and unexplained bruising. Psych: Normal mood. PHYSICAL EXAM: Vitals: Blood pressure 138/64, pulse 99, temperature 36.3 ?C (97.4 ?F), height 164.5 cm (5' 4.76), weight 94.6 kg (208 lb 8 oz). Well-appearing and in no acute distress. EYES: Sclerae are anicteric bilaterally. NECK: Supple. LYMPHATIC: There is no palpable cervical, supraclavicular, axillary or inguinal adenopathy. RESPIRATORY: Inspiratory breath sounds are of normal intensity in all adams. No rales, wheezes or rhonchi. CARDIOVASCULAR: Rhythm is regular. Normal intensity S1/S2. ABDOMEN: The abdomen is nondistended. Incision site and trocar sites appear to be healing very nicely with no evidence of infection. There is no significant tenderness with palpation throughout the abdomen. Extremities: No swelling or edema. SKIN: No jaundice or rash. No petechiae. NEUROLOGIC: activities aide II-XII are grossly intact. No focal motor weakness. DTRs are symmetric and normal. MUSCULOSKELETAL: No muscle wasting. 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 -Reviewed CT results with patient and . -I discussed with the patient and her the natural history, treated course, and prognosis of stage IIIC colon cancer. Also discussed the rationale, logistics, potential risks (including ), benefits and alternatives, as well as the personnel involved in the administration of FOLFOX. I answered her questions in detail and she verbalized understanding and agreed with the recommended therapy. Please see the electronic consent document for details of doses and schedule. Plan: -Genetic counseling assessment. -Referral to Dr. Pathak for port. -Chemotherapy teaching. -Rx for Zofran sent. -Begin chemotherapy week of 04/07. DO Sally Ramirez LPN, LPN 03/26/2018 2:25 PM Signed New pat. Discuss recent DX: Invascive poorly differentialted adenocarcinoma colon Referring Provider: KING YODER [[id number]] Allergies As of Date: 03/26/2018 Noted Allergy Reaction ATENOLOL 03/07/2011 1 - Mental Status Change Comments: fatigue DEPO-MEDROL (METHYLPREDNISOLONE A*03/01/2005 Comments: facial redness, elevated glucose IVP DYE (IODINE) 03/01/2005 4 - Hives 7 - Swelling Comments: occurred in the 70's. Had swelling and hives on arm only where IV was SULFA (SULFONAMIDE ANTIBIOTICS) 03/01/2005 4 - Hives Date Reviewed: 03/26/2018 Reviewed by: Sally Bright (David) DAVID Bhagat - Fully Assessed Reason for Visit: New Patient [172] Primary Visit Diagnosis:Malignant neoplasm of transverse colon (HCC) [C18.4] Other Visit Diagnoses:Iron deficiency anemia due to chronic blood loss [D50.0] Family history of colon cancer [Z80.0] Order(s):RUPINDER ABS GRAN CT + CBC [SQWAGCBC] Order #: [id number] FUTURE COMP METABOLIC PANEL [SQCMP] Order #: [id number] FUTURE IRON + TIBC [SQIRON] Order #: [id number] FUTURE FERRITIN BLD [SQFERR] Order #: [id number] FUTURE CONSULT TO GENETIC COUNSELING [[id number]] Order #: [id number]: 1 ondansetron (ZOFRAN) 8 mg tabletTake 1 tablet by mouth every 8 hours as needed for Nausea/Vomiting.Disp: 30 tabletRfl: 2 Follow-up and Disposition History Recorded Prescriptions as of 03/26/2018 Sig: ACETAMINOPHEN 325 MG TABLET Take 2 tablets by mouth every* * ASPIRIN 81 MG TABLET Take one (1) tablet daily . ATORVASTATIN 80 MG TABLET TAKE ONE-HALF TABLET BY MOUT* CHOLECALCIFEROL (VITAMIN D3) * Take 1 capsule by mouth once * CLOTRIMAZOLE 1 % TOPICAL CREAM Apply 1 application to affect* FLUTICASONE 50 MCG/ACTUATION * Use 2 Sprays in each nostril * LANSOPRAZOLE 30 MG CAPSULE,DE* TAKE 1 CAPSULE BY MOUTH ONCE* LEVOTHYROXINE 100 MCG TABLET Take 1 tablet by mouth once d* LISINOPRIL 2.5 MG TABLET TAKE 1 TABLET BY MOUTH ONCE A* CLARITIN-D 24 HOUR ORAL Take 1 tablet by mouth once d* METFORMIN 1,000 MG TABLET TAKE 1 TABLET BY MOUTH TWICE* OXYMETAZOLINE 0.05 % NASAL IL* Use 30 mL in the nose twice d* SERTRALINE 100 MG TABLET TAKE 1 TABLET BY MOUTH ONCE D* SPIRONOLACTONE 25 MG-HYDROCHL* TAKE 1 TABLET BY MOUTH ONCE D* VERAPAMIL ER 120 MG 24 HR CAP* TAKE 1 CAPSULE BY MOUTH ONCE* ONDANSETRON HCL 8 MG TABLET Take 1 tablet by mouth every * Problem List As Of Date 03/26/2018 Noted Resolved 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 Essential hypertension [I10] INVALID FOR* More... Mixed hyperlipidemia [E78.2] INVALID FOR* More... Unspecified asthma(493.90) [J45.909] INVALID FOR*04/10/2017 More... Primary osteoarthritis involving multiple joint*INVALID FOR* RIGHT AXILLARY PAIN [R07.9] INVALID FOR*01/25/2011 FAMILY HX COLON CANCER [Z80.0] INVALID FOR* More... Esophageal reflux [K21.9] More... Anxiety [F41.9] Recurrent major depressive disorder, in full re* 04/10/2017 More... Hypokalemia [E87.6] INVALID FOR* More... OSTEOARTHROS NOS-L/LEG [M17.10] INVALID FOR* Lateral epicondylitis of elbow [M77.10] INVALID FOR*02/18/2013 Hypothyroidism [E03.9] INVALID FOR* More... PVC's [I49.49] INVALID FOR* Shoulder bursitis [M75.50] INVALID FOR*02/18/2013 Allergy to environmental factors [Z91.09] INVALID FOR* Special screening for malignant neoplasms, colo*INVALID FOR*01/07/2015 Malignant neoplasm of transverse colon (HCC) [C*INVALID FOR* More... Obesity, Class II, BMI 35-39.9 [E66.9] INVALID FOR* Hypomagnesemia [E83.42] INVALID FOR* More... Post-op pain [G89.18] INVALID FOR* More... JOSE (acute kidney injury) (HCC) [N17.9] INVALID FOR* More... Visit Notes: >> Sally Bright ([facility]) DAVID Bhagat Wed Mar 26, 2018 2:05 PM Status: Signed New pat. Discuss recent DX: Invascive poorly differentialted adenocarcinoma colon Encounter Status:Closed by OLLIE KRAUSE DO on 03/27/18 PROGRESS Observed: 03/26/2018 Status: COMPLETED Source: [place] 1:53 PM [facility] REPOSITORY O ID: [id number] Author: Ollie Krause Service: (none) Author Type: Physician Type: Progress Notes Filed: 03/27/2018 1:05 PM Note Text: Diagnosis: 1) Stage III colon cancer. HPI: The patient is a 62-year-old female who has a past medical history significant for hypertension, hypothyroidism, type 2 diabetes who in early January 2018 was found to be anemic with a hemoglobin of 7.1 g/dL. Underwent EGD and colonoscopy on 02/14/2018. On the EGD portion of the study, she was observed to have moderate inflammation characterized by adherent blood, Marlene in's and erythema in the gastric antrum. Biopsies were obtained. The examined portions of the jejunum and duodenum were normal. The esophagus was noted to be normal. There were multiple small sessile polyps with no stigmata of recent bleeding found in the gastric fundus. On colonoscopy she was found to have a fungating partially obstructing large mass in the mid transverse colon. It was circumferential. Oozing was observed. Biopsies were obtained. Tattoo was performed. Exam was otherwise without abnormality. CT A/P 02/17/2018: Irregular wall thickening involving the colon at the splenic flexure with adjacent nodules potentially representing peritoneum metastasis was observed. There was no other abdominal or pelvic lymphadenopathy. The observed nodules were in the mesentery/peritoneum adjacent to the splenic flexure area liver was noted to be normal. No other abnormal findings. CT chest 02/19/2018: Normal. Patient underwent diagnostic laparoscopy with laparoscopic splenic flexure mobilization, tap block and flexible sigmoidoscopy on 03/06/2018. Pathology: Splenic flexure, segmental colectomy: - Invasive poorly-differentiated adenocarcinoma with neuroendocrine features and focal mucinous and signet ring cell features (see Tumor synoptic report and comment). - Tumor penetrates to the surface of the visceral peritoneum (serosa). - Lymphovascular invasion is present. - Margins negative for dysplasia and malignancy. - Three tumor deposits. - Ten of thirty-six lymph nodes, positive for metastatic carcinoma (10/36). COMMENT Immunostains were performed on the previously submitted biopsy of this tumor (see [id number],02/14/2018) and demonstrate that the overall immunoreactivity pattern was consistent with a poorly-differentiated carcinoma (colonic primary) with neuroendocrine features. In addition, focal mucinous and signet ring cell features are present within sections from the tumor from this resection specimen. SYNOPTIC REPORT OF [facility] SPLENIC FLEXURE: ? ? ?COLON AND RECTUM:RESECTION, INCLUDING TRANSANAL DISK EXCISION OF RECTAL NEOPLASMS WORKSHEET: Procedure: ? ? ? Other: Segmental colectomy Tumor Site: ? ? ? Splenic flexure Tumor Size: ? ? ? Greatest dimension: 5.0 cm Macroscopic Tumor Perforation: ? ? ? Not identified Histologic Type: ? ? ? Adenocarcinoma Histologic Grade: ? ? ? G3: Poorly differentiated Tumor Extension: ? ? ? Tumor invades the visceral peritoneum (including tumor continuous with serosal surface through area of inflammation) Margins: ? ? ? All margins are uninvolved by invasive carcinoma, high-grade dysplasia, intramucosal adenocarcinoma, and adenoma ? ? ? Margins examined: Proximal, distal, mesenteric ? ? ? Distance of invasive carcinoma from closest margin: 4.4 cm ? ? ? Distance of invasive carcinoma from closest margin - Specify margin: mesenteric Proximal Margin: ? ? ? Uninvolved by invasive carcinoma Distal Margin: ? ? ? Uninvolved by invasive carcinoma Circumferential Radial Margin: ? ? ? Not applicable Mesenteric Margin: ? ? ? Uninvolved by invasive carcinoma Treatment Effect: ? ? ? No known presurgical therapy Lymphovascular Invasion: ? ? ? Present ? ? ? Small vessel lymph-vascular invasion ? ? ? Large vessel (venous) invasion ? ? ? Extramural Perineural Invasion: ? ? ? Present Tumor Deposits: ? ? ? Present ? ? ? Specify number of deposits: 3 Regional Lymph Nodes: ? ? ? Number of nodes involved: 10 ? ? ? Number of nodes examined: 36 ? Pathologic Stage Classification (pTNM,AJCC 8th ed) TNM Descriptors: ? ? ? Not applicable Pathologic Staging (pTNM): pT4a: -Tumor invades through the visceral peritoneum (including gross perforation of the bowel through tumor and continuous invasion of tumor through areas of inflammation to the surface of the visceral peritoneum Regional Lymph Nodes (pN): pN2b: -7 or more regional lymph nodes are positive Distant Metastasis (pM): ? ? ? Not applicable/Not confirmed pathologically in this case Additional Pathologic Findings: ? ? ? Adenoma(s) ? ? ? Other: Focal tattoo pigment present SPECIMEN SUBMITTED A: SPLENIC FLEXURE ADDITIONAL PROCEDURE(S) MMR STATUS ? Date Ordered: ?03/12/2018 ? ? ? Date Reported: ?03/12/2018 Procedure Results and Interpretation MMR Status Report - Immunohistochemistry Colon, invasive adenocarcinoma, immunohistochemical staining for mismatch repair proteins: Result: - Loss of MLH1 and PMS2 proteins in carcinoma nuclei. - Normal expression of MSH2 and MSH6 proteins in carcinoma nuclei. Mismatch repair (MMR) status: Deficient (microsatellite unstable) Family history: Both paternal grand parents of colon cancer. Father had colon cancer in his 70s. from complications of heart valve surgery. Paternal uncle has colon polyps. She became very nice recovery from surgery. She has chronic loose bowel movements that predated her colon cancer diagnosis. Her appetite is normal. No nausea or vomiting. No abdominal pain per se but she has soreness still at the trocar insertion sites. No episodes of jaundice. She feels that she's not had any issues with urinary retention. PMH, medications and allergies personally reviewed by me today. Any changes documented in appropriate section. ROS: Constitutional: Denies episodes of fever and night sweats. Not significantly fatigued. Normal appetite. Neuro: Denies RODAS, vertigo, dizziness and imbalance. No symptoms of baseline neuropathy. HEENT: No recent change in voice, vision or hearing. Resp: Denies cough, wheeze and hemoptysis. Denies shortness of breath at rest. Denies BROWN. CVS: Denies exertional chest pain, PND, orthopnea and LE edema. GI: Denies dysgeusia. Denies symptoms of stomatitis. Denies dysphagia and odynophagia. : Denies dysuria or gross hematuria. Endo: Denies hot flashes. Denies polyuria and polydipsia. Denies heat and cold intolerance. Musculoskeletal: Denies bone, back, joint and muscular pain. Derm: Denies rash. Denies jaundice and diffuse pruritis. Heme: Denies unusual bleeding and unexplained bruising. Psych: Normal mood. PHYSICAL EXAM: Vitals: Blood pressure 138/64, pulse 99, temperature 36.3 ?C (97.4 ?F), height 164.5 cm (5' 4.76), weight 94.6 kg (208 lb 8 oz). Well-appearing and in no acute distress. EYES: Sclerae are anicteric bilaterally. NECK: Supple. LYMPHATIC: There is no palpable cervical, supraclavicular, axillary or inguinal adenopathy. RESPIRATORY: Inspiratory breath sounds are of normal intensity in all adams. No rales, wheezes or rhonchi. CARDIOVASCULAR: Rhythm is regular. Normal intensity S1/S2. ABDOMEN: The abdomen is nondistended. Incision site and trocar sites appear to be healing very nicely with no evidence of infection. There is no significant tenderness with palpation throughout the abdomen. Extremities: No swelling or edema. SKIN: No jaundice or rash. No petechiae. NEUROLOGIC: activities aide II-XII are grossly intact. No focal motor weakness. DTRs are symmetric and normal. MUSCULOSKELETAL: No muscle wasting. 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 -Reviewed CT results with patient and . -I discussed with the patient and her the natural history, treated course, and prognosis of stage IIIC colon cancer. Also discussed the rationale, logistics, potential risks (including ), benefits and alternatives, as well as the personnel involved in the administration of FOLFOX. I answered her questions in detail and she verbalized understanding and agreed with the recommended therapy. Please see the electronic consent document for details of doses and schedule. Plan: -Genetic counseling assessment. -Referral to Dr. Pathak for port. -Chemotherapy teaching. -Rx for Zofran sent. -Begin chemotherapy week of 04/07. Ollie Krause DO [facility] Observed: 03/24/2018 Status: COMPLETED Source: [place] 12:00 AM [facility] REPOSITORY Patient Outreach ([facility]) ANNE CORDERO ([id number]) 1955 F Date Time Provider Department 03/24/18 ELIZABETH DINH) [facility] During your visit today, we recorded the following information about you: Allergies As of Date: 03/24/2018 Noted Allergy Reaction ATENOLOL 03/07/2011 1 - Mental Status Change Comments: fatigue DEPO-MEDROL (METHYLPREDNISOLONE A*03/01/2005 Comments: facial redness, elevated glucose IVP DYE (IODINE) 03/01/2005 4 - Hives 7 - Swelling Comments: occurred in the 70's. Had swelling and hives on arm only where IV was SULFA (SULFONAMIDE ANTIBIOTICS) 03/01/2005 4 - Hives Date Reviewed: 03/20/2018 Reviewed by: Praful T Zo - Fully Assessed Visit Diagnosis:Medication management [Z79.899] Order(s):ALBUMIN/CREAT RATIO RND UR [SQUACR] Order #: [id number] FUTURE Prescriptions as of 03/24/2018 Sig: ACETAMINOPHEN 325 MG TABLET Take 2 tablets by mouth every* METFORMIN 1,000 MG TABLET TAKE 1 TABLET BY MOUTH TWICE* LANSOPRAZOLE 30 MG CAPSULE,DE* TAKE 1 CAPSULE BY MOUTH ONCE* VERAPAMIL ER 120 MG 24 HR CAP* TAKE 1 CAPSULE BY MOUTH ONCE* LISINOPRIL 2.5 MG TABLET TAKE 1 TABLET BY MOUTH ONCE A* ATORVASTATIN 80 MG TABLET TAKE ONE-HALF TABLET BY MOUT* SPIRONOLACTONE 25 MG-HYDROCHL* TAKE 1 TABLET BY MOUTH ONCE D* X SERTRALINE 100 MG TABLET TAKE 1 TABLET BY MOUTH ONCE D* CLOTRIMAZOLE 1 % TOPICAL CREAM Apply 1 application to affect* FLUTICASONE 50 MCG/ACTUATION * Use 2 Sprays in each nostril * CLARITIN-D 24 HOUR ORAL Take 1 tablet by mouth once d* OXYMETAZOLINE 0.05 % NASAL IL* Use 30 mL in the nose twice d* CHOLECALCIFEROL (VITAMIN D3) * Take 1 capsule by mouth once * LEVOTHYROXINE 100 MCG TABLET Take 1 tablet by mouth once d* * ASPIRIN 81 MG TABLET Take one (1) tablet daily . 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 Essential hypertension [I10] INVALID FOR* More... Mixed hyperlipidemia [E78.2] INVALID FOR* More... Unspecified asthma(493.90) [J45.909] INVALID FOR*04/10/2017 More... Primary osteoarthritis involving multiple joint*INVALID FOR* RIGHT AXILLARY PAIN [R07.9] INVALID FOR*01/25/2011 FAMILY HX COLON CANCER [Z80.0] INVALID FOR* More... Esophageal reflux [K21.9] More... Anxiety [F41.9] Recurrent major depressive disorder, in full re* 04/10/2017 More... Hypokalemia [E87.6] INVALID FOR* More... OSTEOARTHROS NOS-L/LEG [M17.10] INVALID FOR* Lateral epicondylitis of elbow [M77.10] INVALID FOR*02/18/2013 Hypothyroidism [E03.9] INVALID FOR* More... PVC's [I49.49] INVALID FOR* Shoulder bursitis [M75.50] INVALID FOR*02/18/2013 Allergy to environmental factors [Z91.09] INVALID FOR* Special screening for malignant neoplasms, colo*INVALID FOR*01/07/2015 Colon cancer (HCC) [C18.9] INVALID FOR* More... Obesity, Class II, BMI 35-39.9 [E66.9] INVALID FOR* Hypomagnesemia [E83.42] INVALID FOR* More... Post-op pain [G89.18] INVALID FOR* More... JOSE (acute kidney injury) (HCC) [N17.9] INVALID FOR* More... Encounter Status:Closed by HOWARD, PRODUSER on 04/08/18 CNCO Observed: 03/21/2018 Status: COMPLETED Source: [place] 12:00 AM [facility] [place] REPOSITORY Letter Text [facility] Department of Colorectal Surgery King Yoder MD [address] [place] [address] March 21, 2018 Praful Pathak MD [address] [address] VIA In Basket Re: Anne Cordero : [address] Pathak, We recently discussed our patient, Anne Cordero at the Multidisciplinary Tumor Board Meeting. Attached are the summarized discussion and recommendations. Colon Cancer Tumor Board Post-Operative Discussion Note ? Date of conference: March 19, 2018 ? Presenter/specialty: CORS ? Date of surgery: 03/06/2018 ? Surgical procedure: 1. Diagnostic laparoscopy with a laparoscopic splenic flexure mobilization. 2. TAP block. 3. Flexible sigmoidoscopy. ? Enbloc resection: NA ? Metastectomy: NA ? Margins: Not involved ? Lymph Nodes Examined: 36 ? Lymph Nodes Involved: 10 ? Type of Imaging Reviewed: NA ? Pathology stage: [id number] ? Histology: Invasive poorly-differentiated adenocarcinoma with neuroendocrine features and focal mucinous and signet ring cell features ? Lymphovascular invasion: Present ? Perineural Invasion: Present ? Tumor deposits: 3 ? MSI status: MSI-H ? Clinical Trial Candidate: No ? Tumor Board recommends 1-Adjuvant chemotherapy 2-Methylation study for the promoter regions of the Mismatch repair genes ( by pathology) - if this is positive, will meet with genetic counseling. ? ? I called and spoke to the patient and passed along this information. I also told Dr. Praful Pathak her referring provider. ? Disciplines present: Colorectal Surgery, Medical Oncology, Radiation Oncology, Radiology, Anatomic Pathology and Genetic Counseling ? This is the summary of the general discussion provided at tumor board conference. The final recommendations will be made by the primary health car team and the patient after discussing the benefits, risks and alternatives to the various treatment options. Please feel free to call if you have any questions or concerns. Thank you for allowing us to participate in the care of your patient. Sincerely, King Yoder MD (Signed electronically to expedite mailing) cc: Elizabeth Huerta) MD [address] [place] [address] VIA Facsimile: [phone] Ollie Krause MD [address] [address] VIA In Basket Anne Cordero [address] [place] [address] PROGRESS Observed: 03/20/2018 Status: COMPLETED Source: [place] 10:29 AM [facility] [place] REPOSITORY HNO ID: [id number] Author: Praful Pathak Service: (none) Author Type: Physician Type: Progress Notes Filed: 03/20/2018 11:21 AM Note Text: FOLLOW [id number] DATE OF SERVICE: 03/20/2018 : 1955 REFERRING PHYSICIAN: Elizabeth Dinh MD Anne is a patient I am following for a bulky splenic flexure colon cancer. Anne is a patient I am following for anemia with no other significant complaints. I saw her in [facility] on February 10 and the diagnosis of anemia The patient is a 62 year old F who has noticed increasing fatigue for at least the last few weeks. She presented for her routine gynecologic evaluation was noted to be pale. The patient had undergone a previous hysterectomy. She notes no reasons for other than gastrointestinal blood loss. She denies abdominal pain. She notes no black tarry stools other difficulties. She underwent a complete blood count which demonstrated on 02/07/18 a hemoglobin of 7.8 with microcytic parameters. The patient had previous undergone a CBC in 2017 with a hemoglobin of 12.2 and normal red cell indices. She had undergone colonoscopy by Dr. Kole Parra on January 07, 2015. 2 - 5 mm polyps were found in the proximal transverse colon and also noted was a degree of diverticulosis. It was recommended the patient have follow-up colonoscopy in 5 years. Prior to that, the patient went upper and lower endoscopy in December 26, 2011. Also by Dr. Kole Parra. Upper endoscopy was unremarkable. Colonoscopy demonstrated 2 - 10 mm polyps and the patient was recommended 3 year follow-up colonoscopy at that time. All polyps were noted to be adenomatous polyps. The patient's past history is otherwise significant for hypothyroidism, hypertension, asthma, type 2 diabetes, obesity, reflux depression. she'll surgical history includes carpal tunnel procedures, thyroidectomy, total abdominal hysterectomy, previous appendectomy. I performed upper and lower endoscopy on February 14, 2018. The patient was found to have a degree of erosive gastritis with some adherent superficial clots without significant ulceration noted and fundic gland polyps on upper endoscopy. Colonoscopy demonstrated a near obstructing mass when the scope was advanced to 90 cm. Attempts to advance the scope beyond this point were unsuccessful. The site was tattooed and a resolution metallic clip was placed to allow identification of the site of abnormality. A KUB was obtained that day which demonstrated the abnormality to be at the splenic flexure. Laboratory studies were obtained which demonstrated: CT scan demonstrated a bulky tumor at the splenic flexure with concern for invasion or local advanced disease close to the spleen and near the first portion of the jejunum. For these reasons, the patient was referred to [facility]-colorectal surgery-Dr. King Yoder for definitive surgical procedure. The patient underwent laparoscopic splenic flexure mobilization/resection on March 06, 2018 area did surgery all with the patient. She had minimal pain postoperatively. The patient was discharged home on March 08, 2018. 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 - Tumor penetrates to the surface of the visceral peritoneum (serosa). - Lymphovascular invasion is present. - Margins negative for dysplasia and malignancy. - Three tumor deposits. - Ten of thirty-six lymph nodes, positive for metastatic carcinoma (10/36). COMMENT Immunostains were performed on the previously submitted biopsy of this tumor (see [id number],02/14/2018) and demonstrate that the overall immunoreactivity pattern was consistent with a poorly-differentiated carcinoma (colonic primary) with neuroendocrine features. In addition, focal mucinous and signet ring cell features are present within sections from the tumor from this resection specimen. NHI/arturo 03/11/2018 SYNOPTIC REPORT OF [facility] SPLENIC FLEXURE: ? ? ?COLON AND RECTUM:RESECTION, INCLUDING TRANSANAL DISK EXCISION OF RECTAL NEOPLASMS WORKSHEET: Procedure: ? ? ? Other: Segmental colectomy Tumor Site: ? ? ? Splenic flexure Tumor Size: ? ? ? Greatest dimension: 5.0 cm Macroscopic Tumor Perforation: ? ? ? Not identified Histologic Type: ? ? ? Adenocarcinoma Histologic Grade: ? ? ? G3: Poorly differentiated Tumor Extension: ? ? ? Tumor invades the visceral peritoneum (including tumor continuous with serosal surface through area of inflammation) Margins: ? ? ? All margins are uninvolved by invasive carcinoma, high-grade dysplasia, intramucosal adenocarcinoma, and adenoma ? ? ? Margins examined: Proximal, distal, mesenteric ? ? ? Distance of invasive carcinoma from closest margin: 4.4 cm ? ? ? Distance of invasive carcinoma from closest margin - Specify margin: mesenteric Proximal Margin: ? ? ? Uninvolved by invasive carcinoma Distal Margin: ? ? ? Uninvolved by invasive carcinoma Circumferential Radial Margin: ? ? ? Not applicable Mesenteric Margin: ? ? ? Uninvolved by invasive carcinoma Treatment Effect: ? ? ? No known presurgical therapy Lymphovascular Invasion: ? ? ? Present ? ? ? Small vessel lymph-vascular invasion ? ? ? Large vessel (venous) invasion ? ? ? Extramural Perineural Invasion: ? ? ? Present Tumor Deposits: ? ? ? Present ? ? ? Specify number of deposits: 3 Regional Lymph Nodes: ? ? ? Number of nodes involved: 10 ? ? ? Number of nodes examined: 36 ? Pathologic Stage Classification (pTNM,AJCC 8th ed) TNM Descriptors: ? ? ? Not applicable Pathologic Staging (pTNM): ? ? ? pT4a: Tumor invades through the visceral peritoneum (including gross perforation of the bowel through tumor and continuous invasion of tumor through areas of inflammation to the surface of the visceral peritoneum Regional Lymph Nodes (pN): ? ? ? pN2b: 7 or more regional lymph nodes are positive Distant Metastasis (pM): ? ? ? Not applicable/Not confirmed pathologically in this case Additional Pathologic Findings: ? ? ? Adenoma(s) ? ? ? Other: Focal tattoo pigment present Ancillary Studies: ? ? ? Immunohistochemistry Studies for Mismatch Repair Proteins-Addendum to follow Patient returns for staple removal. She is doing quite well. She had minimal pain postoperatively area her bowel habits are normal. ADDITIONAL PROCEDURE(S) VITALS: Blood pressure 130/78, pulse 90, temperature 36 ?C (96.8 ?F), weight 94.2 kg (207 lb 9.6 oz), SpO2 98 %. On examination, patient's abdomen is clinically benign. The wounds are healing well as expected. The ashish were removed and Steri- Strips were applied. Assessment IMPRESSION: Splenic flexure colon cancer PLAN: If the patient notes any problems or signs of wound issues, the patient should contact me immediately. She is currently scheduled see Dr. Ollie Krause. If the patient requires a Port-A-Cath to follow- up with me for placement. Otherwise, I'm happy to follow up with the patient whenever she has issues or concerns. I generally discussed with the patient that after she follows with Dr. Yoder for the first few visits, I like to see my patients 6 months after surgery to make sure that doing well and then perform colonoscopy to check the anastomosis and assure there is no other issues at 1 year post procedure. Diagnoses: (C18.5) Malignant neoplasm of splenic flexure (HCC) (primary encounter diagnosis) Return to Clinic: The patient is instructed to follow- up with me in 6 months or sooner if needed. Praful Pathak MD CNOV Observed: 03/20/2018 Status: COMPLETED Source: [place] 10:10 AM [facility] REPOSITORY Office Visit (GENSWS) ANNE CORDERO ([id number]) 1955 F Date Time Provider Department 03/20/18 10:10 AM PRAFUL PATHAK During your visit today, we recorded the following information about you: Temperature Pulse Blood pressure Weight 96.8 degrees 90/minute 130/78 94.2 kg Praful Pathak MD 03/20/2018 11:21 AM Signed FOLLOW UP VISIT NAME: Anne Cordero CLINIC NO.: [id number] DATE OF SERVICE: 03/20/2018 : 1955 REFERRING PHYSICIAN: Elizabeth Dinh MD Anne is a patient I am following for a bulky splenic flexure colon cancer. Anne is a patient I am following for anemia with no other significant complaints. I saw her in [facility] on February 10 and the diagnosis of anemia The patient is a 62 year old F who has noticed increasing fatigue for at least the last few weeks. She presented for her routine gynecologic evaluation was noted to be pale. The patient had undergone a previous hysterectomy. She notes no reasons for other than gastrointestinal blood loss. She denies abdominal pain. She notes no black tarry stools other difficulties. She underwent a complete blood count which demonstrated on 02/07/18 a hemoglobin of 7.8 with microcytic parameters. The patient had previous undergone a CBC in 2016 with a hemoglobin of 12.2 and normal red cell indices. She had undergone colonoscopy by Dr. Kole Parra on January 07, 2015. 2 - 5 mm polyps were found in the proximal transverse colon and also noted was a degree of diverticulosis. It was recommended the patient have follow-up colonoscopy in 5 years. Prior to that, the patient went upper and lower endoscopy in December 26, 2011. Also by Dr. Kole Parra. Upper endoscopy was unremarkable. Colonoscopy demonstrated 2 - 10 mm polyps and the patient was recommended 3 year follow-up colonoscopy at that time. All polyps were noted to be adenomatous polyps. The patient's past history is otherwise significant for hypothyroidism, hypertension, asthma, type 2 diabetes, obesity, reflux depression. she'll surgical history includes carpal tunnel procedures, thyroidectomy, total abdominal hysterectomy, previous appendectomy. I performed upper and lower endoscopy on February 14, 2018. The patient was found to have a degree of erosive gastritis with some adherent superficial clots without significant ulceration noted and fundic gland polyps on upper endoscopy. Colonoscopy demonstrated a near obstructing mass when the scope was advanced to 90 cm. Attempts to advance the scope beyond this point were unsuccessful. The site was tattooed and a resolution metallic clip was placed to allow identification of the site of abnormality. A KUB was obtained that day which demonstrated the abnormality to be at the splenic flexure. Laboratory studies were obtained which demonstrated: CT scan demonstrated a bulky tumor at the splenic flexure with concern for invasion or local advanced disease close to the spleen and near the first portion of the jejunum. For these reasons, the patient was referred to [facility]-colorectal surgery-Dr. iKng Yoder for definitive surgical procedure. The patient underwent laparoscopic splenic flexure mobilization/resection on March 06, 2018 area did surgery all with the patient. She had minimal pain postoperatively. The patient was discharged home on March 08, 2018. 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 - Tumor penetrates to the surface of the visceral peritoneum (serosa). - Lymphovascular invasion is present. - Margins negative for dysplasia and malignancy. - Three tumor deposits. - Ten of thirty-six lymph nodes, positive for metastatic carcinoma (10/36). COMMENT Immunostains were performed on the previously submitted biopsy of this tumor (see [id number],02/14/2018) and demonstrate that the overall immunoreactivity pattern was consistent with a poorly-differentiated carcinoma (colonic primary) with neuroendocrine features. In addition, focal mucinous and signet ring cell features are present within sections from the tumor from this resection specimen. NHI/arturo 03/11/2018 SYNOPTIC REPORT OF [facility] SPLENIC FLEXURE: ? ? ?COLON AND RECTUM:RESECTION, INCLUDING TRANSANAL DISK EXCISION OF RECTAL NEOPLASMS WORKSHEET: Procedure: ? ? ? Other: Segmental colectomy Tumor Site: ? ? ? Splenic flexure Tumor Size: ? ? ? Greatest dimension: 5.0 cm Macroscopic Tumor Perforation: ? ? ? Not identified Histologic Type: ? ? ? Adenocarcinoma Histologic Grade: ? ? ? G3: Poorly differentiated Tumor Extension: ? ? ? Tumor invades the visceral peritoneum (including tumor continuous with serosal surface through area of inflammation) Margins: ? ? ? All margins are uninvolved by invasive carcinoma, high-grade dysplasia, intramucosal adenocarcinoma, and adenoma ? ? ? Margins examined: Proximal, distal, mesenteric ? ? ? Distance of invasive carcinoma from closest margin: 4.4 cm ? ? ? Distance of invasive carcinoma from closest margin - Specify margin: mesenteric Proximal Margin: ? ? ? Uninvolved by invasive carcinoma Distal Margin: ? ? ? Uninvolved by invasive carcinoma Circumferential Radial Margin: ? ? ? Not applicable Mesenteric Margin: ? ? ? Uninvolved by invasive carcinoma Treatment Effect: ? ? ? No known presurgical therapy Lymphovascular Invasion: ? ? ? Present ? ? ? Small vessel lymph-vascular invasion ? ? ? Large vessel (venous) invasion ? ? ? Extramural Perineural Invasion: ? ? ? Present Tumor Deposits: ? ? ? Present ? ? ? Specify number of deposits: 3 Regional Lymph Nodes: ? ? ? Number of nodes involved: 10 ? ? ? Number of nodes examined: 36 ? Pathologic Stage Classification (pTNM,AJCC 8th ed) TNM Descriptors: ? ? ? Not applicable Pathologic Staging (pTNM): ? ? ? pT4a: Tumor invades through the visceral peritoneum (including gross perforation of the bowel through tumor and continuous invasion of tumor through areas of inflammation to the surface of the visceral peritoneum Regional Lymph Nodes (pN): ? ? ? pN2b: 7 or more regional lymph nodes are positive Distant Metastasis (pM): ? ? ? Not applicable/Not confirmed pathologically in this case Additional Pathologic Findings: ? ? ? Adenoma(s) ? ? ? Other: Focal tattoo pigment present Ancillary Studies: ? ? ? Immunohistochemistry Studies for Mismatch Repair Proteins- Addendum to follow Patient returns for staple removal. She is doing quite well. She had minimal pain postoperatively area her bowel habits are normal. ADDITIONAL PROCEDURE(S) VITALS: Blood pressure 130/78, pulse 90, temperature 36 ?C (96.8 ?F), weight 94.2 kg (207 lb 9.6 oz), SpO2 98 %. On examination, patient's abdomen is clinically benign. The wounds are healing well as expected. The ashish were removed and Steri-Strips were applied. Assessment IMPRESSION: Splenic flexure colon cancer PLAN: If the patient notes any problems or signs of wound issues, the patient should contact me immediately. She is currently scheduled see Dr. Ollie Krause. If the patient requires a Port-A-Cath to follow-up with me for placement. Otherwise, I'm happy to follow up with the patient whenever she has issues or concerns. I generally discussed with the patient that after she follows with Dr. Yoder for the first few visits, I like to see my patients 6 months after surgery to make sure that doing well and then perform colonoscopy to check the anastomosis and assure there is no other issues at 1 year post procedure. Diagnoses: (C18.5) Malignant neoplasm of splenic flexure (HCC) (primary encounter diagnosis) Return to Clinic: The patient is instructed to follow- up with me in 6 months or sooner if needed. Praful Pathak MD Referring Provider: ELIZABETH DINH) [[id number]] Allergies As of Date: 03/20/2018 Noted Allergy Reaction ATENOLOL 03/07/2011 1 - Mental Status Change Comments: fatigue DEPO-MEDROL (METHYLPREDNISOLONE A*03/01/2005 Comments: facial redness, elevated glucose IVP DYE (IODINE) 03/01/2005 4 - Hives 7 - Swelling Comments: occurred in the 70's. Had swelling and hives on arm only where IV was SULFA (SULFONAMIDE ANTIBIOTICS) 03/01/2005 4 - Hives Date Reviewed: 03/20/2018 Reviewed by: Praful Pathak - Fully Assessed Reason for Visit: Post Op [174] Primary Visit Diagnosis:Malignant neoplasm of splenic flexure (HCC) [C18.5] Prescriptions as of 03/20/2018 Sig: ACETAMINOPHEN 325 MG TABLET Take 2 tablets by mouth every* * ASPIRIN 81 MG TABLET Take one (1) tablet daily . ATORVASTATIN 80 MG TABLET TAKE ONE-HALF TABLET BY MOUT* CHOLECALCIFEROL (VITAMIN D3) * Take 1 capsule by mouth once * CLOTRIMAZOLE 1 % TOPICAL CREAM Apply 1 application to affect* FLUTICASONE 50 MCG/ACTUATION * Use 2 Sprays in each nostril * LANSOPRAZOLE 30 MG CAPSULE,DE* TAKE 1 CAPSULE BY MOUTH ONCE* LEVOTHYROXINE 100 MCG TABLET Take 1 tablet by mouth once d* LISINOPRIL 2.5 MG TABLET TAKE 1 TABLET BY MOUTH ONCE A* CLARITIN-D 24 HOUR ORAL Take 1 tablet by mouth once d* METFORMIN 1,000 MG TABLET TAKE 1 TABLET BY MOUTH TWICE* OXYMETAZOLINE 0.05 % NASAL IL* Use 30 mL in the nose twice d* SERTRALINE 100 MG TABLET TAKE 1 TABLET BY MOUTH ONCE D* SPIRONOLACTONE 25 MG-HYDROCHL* TAKE 1 TABLET BY MOUTH ONCE D* VERAPAMIL ER 120 MG 24 HR CAP* TAKE 1 CAPSULE BY MOUTH ONCE* Problem List As Of Date 03/20/2018 Noted Resolved 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 Essential hypertension [I10] INVALID FOR* More... Mixed hyperlipidemia [E78.2] INVALID FOR* More... Unspecified asthma(493.90) [J45.909] INVALID FOR*04/10/2017 More... Primary osteoarthritis involving multiple joint*INVALID FOR* RIGHT AXILLARY PAIN [R07.9] INVALID FOR*01/25/2011 FAMILY HX COLON CANCER [Z80.0] INVALID FOR* More... Esophageal reflux [K21.9] More... Anxiety [F41.9] Recurrent major depressive disorder, in full re* 04/10/2017 More... Hypokalemia [E87.6] INVALID FOR* More... OSTEOARTHROS NOS-L/LEG [M17.10] INVALID FOR* Lateral epicondylitis of elbow [M77.10] INVALID FOR*02/18/2013 Hypothyroidism [E03.9] INVALID FOR* More... PVC's [I49.49] INVALID FOR* Shoulder bursitis [M75.50] INVALID FOR*02/18/2013 Allergy to environmental factors [Z91.09] INVALID FOR* Special screening for malignant neoplasms, colo*INVALID FOR*01/07/2015 Colon cancer (HCC) [C18.9] INVALID FOR* More... Obesity, Class II, BMI 35-39.9 [E66.9] INVALID FOR* Hypomagnesemia [E83.42] INVALID FOR* More... Post-op pain [G89.18] INVALID FOR* More... JOSE (acute kidney injury) (HCC) [N17.9] INVALID FOR* More... Follow-up and Disposition History Recorded Encounter Status:Closed by PRAFUL PATHAK MD on 03/20/18 PROGRESS Observed: 03/19/2018 Status: COMPLETED Source: [place] 3:13 PM [facility] REPOSITORY HNO ID: [id number] Author: Dru Martinez (Fel) Service: (none) Author Type: Fellow Type: Progress Notes Filed: 03/19/2018 3:52 PM Note Text: Colon Cancer Tumor Board Post-Operative Discussion Note Date of conference: March 19, 2018 Presenter/specialty: CORS Date of surgery: 03/06/2018 Surgical procedure: 1. Diagnostic laparoscopy with a laparoscopic splenic flexure mobilization. 2. TAP block. 3. Flexible sigmoidoscopy. 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 I called and spoke to the patient and passed along this information. I also told Dr Praful Pathak her referring provider. Disciplines present: Colorectal Surgery, Medical Oncology, Radiation Oncology, Radiology, Anatomic Pathology and Genetic Counseling This is the summary of the general discussion provided at tumor board conference. The final recommendations will be made by the primary health car team and the patient after discussing the benefits, risks and alternatives to the various treatment options. PLAN OF CARE Observed: 03/08/2018 Status: COMPLETED Source: [place] 1:49 PM [facility] REPOSITORY HNO ID: [id number] Author: Fiona Milton (Neon Technician) Service: (none) Author Type: (none) Type: Plan of Care Filed: 03/08/2018 1:50 PM Note Text: PHARMACY BEDSIDE DELIVERY SERVICE Patient Name: Anne Cordero The marked outpatient medications were Filled at: [facility] and delivered to the patient's bedside to patient Medication List START taking these medications acetaminophen 325 mg tablet Commonly known as: TYLENOL Take 2 tablets by mouth every 6 hours as needed for Pain. oxyCODONE IR 5 mg immediate release tablet Commonly known as: ROXICODONE Take 1-2 tablets by mouth every 4 hours as needed for up to 7 days. Delivered CONTINUE taking these medications Aspirin 81 mg Tab atorvastatin 80 mg tablet Commonly known as: LIPITOR TAKE ONE-HALF TABLET BY MOUTH ONCE DAILY Cholecalciferol (Vitamin D3) 1,000 unit Cap Take 1 capsule by mouth once daily. CLARITIN-D 24 HOUR ORAL clotrimazole 1 % cream Commonly known as: LOTRIMIN, CLOTRIM Apply 1 application to affected area twice daily. fluticasone 50 mcg/actuation nasal spray Commonly known as: FLONASE Use 2 Sprays in each nostril once daily. Rinse mouth after use. lansoprazole 30 mg capsule Commonly known as: PREVACID TAKE 1 CAPSULE BY MOUTH ONCE DAILY levothyroxine 100 mcg tablet Commonly known as: SYNTHROID Take 1 tablet by mouth once daily. lisinopril 2.5 mg tablet TAKE 1 TABLET BY MOUTH ONCE A DAY FOR BLOOD PRESSURE metFORMIN 1,000 mg tablet Commonly known as: GLUCOPHAGE TAKE 1 TABLET BY MOUTH TWICE A DAY WITH MEALS Oxymetazoline HCl 0.05 % Mist Use 30 mL in the nose twice daily as needed. WEAN off sertraline 100 mg tablet Commonly known as: ZOLOFT TAKE 1 TABLET BY MOUTH ONCE DAILY spironolactone-hctz 25/25 25-25 mg per tablet Commonly known as: ALDACTAZIDE TAKE 1 TABLET BY MOUTH ONCE DAILY verapamil ER 120 mg 24 hr capsule Commonly known as: VERELAN TAKE 1 CAPSULE BY MOUTH ONCE DAILY You might also be taking other medications not listed above. If you have questions about any of your other medications, talk to the person who prescribed them or your Primary Care Provider. Fiona Milton (Neon Technician) March 08, 2018 1:49 PM PROGRESS Observed: 03/08/2018 Status: COMPLETED Source: [place] 12:34 PM [facility] REPOSITORY HNO ID: [id number] Author: Esther Turner (Fel) Service: Colorectal Author Type: Fellow Type: Progress Notes Filed: 03/08/2018 12:34 PM Note Text: SERVICE DATE: 03/08/2018 SERVICE TIME: 12:34 PM COLORECTAL SURGERY PROGRESS NOTE POD #2 Diagnostic laparoscopy with a laparoscopic splenic flexure mobilization, TAP block, Flexible sigmoidoscopy. ? Subjective INTERVAL HPI and PERTINENT ROS: Doing well, tolerating a diet, having flatus and BM. MEDICATIONS: Current hospital medications: oxymetazoline 0.05 % 2 Pana (GENASAL) 2 Pana EACH NOSTRIL BID acetaminophen 325 mg-caffeine 40 mg-butalbital 50 mg 1 tablet (FIORICET) 1 tablet ORAL q 6 H PRN acetaminophen 650 mg tab(s) (TYLENOL) 650 mg ORAL q 6 H insulin lispro injection (rapid acting) (HumaLOG) SUBCUTANEOUS w MEALS AND HS potassium chloride ER 20-40 mEq tab(s) (K-DUR, KLOR-CON) 20- 40 mEq ORAL PRN potassium chloride iv piggyback 20 mEq/100 mL 20 mEq INTRAVENOUS PRN magnesium sulfate in water 2 g in sterile water 50 ml 2 g INTRAVENOUS PRN(NO DISPENSE) sodium glycerophosphate 45 mmol in NaCl 0.9% 250 mL (GLYCOPHOS) 45 mmol INTRAVENOUS PRN(NO DISPENSE) ondansetron (PF) 4 mg injection (ZOFRAN) 4 mg INTRAVENOUS q 6 H PRN gabapentin 300 mg cap(s) (NEURONTIN) 300 mg ORAL q 8 H diazePAM 2 mg tab(s) (VALIUM) 2 mg ORAL q 8 H PRN oxyCODONE IR 5-10 mg tab(s) (ROXICODONE) 5-10 mg ORAL q 4 H PRN HYDROmorphone 0.2 mg injection (DILAUDID) 0.2 mg INTRAVENOUS q 3 H PRN heparin 5,000 Units injection 5,000 Units SUBCUTANEOUS q 12 H dextrose 40 % 15 g 15 g ORAL PRN glucagon 1 mg injection (GLUCAGEN) 1 mg INTRAMUSCULAR PRN dextrose 50 % 12.5 g injection 12.5 g INTRAVENOUS PRN atorvastatin 80 mg tab(s) (LIPITOR) 80 mg ORAL DAILY sertraline 100 mg tab(s) (ZOLOFT) 100 mg ORAL DAILY levothyroxine 100 mcg tab(s) (SYNTHROID) 100 mcg ORAL BEFORE BREAKFAST DAILY Objective PHYSICAL EXAM: BP 107/56 Pulse 83 Temp 36.9 ?C (98.4 ?F) (Oral) Resp 18 Ht 162.6 cm (5' 4.02) Wt 97.6 kg (215 lb 1.6 oz) SpO2 94% BMI 36.90 kg/m? GENERAL: Alert and oriented times 3, in no acute distress. LUNGS: Clear to auscultation, no wheezing or rhonchi. CARDIAC: RRR without murmur, gallop, or rubs. No ectopy. ABDOMEN: Soft, non-tender, non-distended. Incisions clean dry and intact. No skin breakdown noted. Date 03/08/18 0700 - 03/09/18 0659 Shift 6521-3110 3650-7987 6766-1013 24 Hour Total I N T A K E PO 120 120 Shift Total 120 120 O U T P U T Urine 950 950 Shift Total 950 950 Weight (kg) 97.6 97.6 97.6 97.6 Lines, Drains, and Airways Line Peripheral 03/07/18 1200 Short Left Wrist 20 Gauge 1 day DATA: Diagnostic tests reviewed for today's visit: Most recent labs and imaging results. LABS: CBC, Coags, BMP, Mg, Phos Recent Labs 03/07/18 2156 03/06/18 2107 WBC 5.84 7.25 HB 7.5* 7.6* HCT 25.0* 25.2* PLT 218 238 NA 141 143 K 4.0 3.6* CHLOR 102 105 CO2 27 26 BUN 17 13 CREAT 1.03* 1.02* GLUC 116* 119* CA 8.9 8.9 MG 2.1 1.4* P 2.5* 4.5 *A review of daily goals, interventions, and plan of care with the multidisciplinary team and patient has been conducted. The patient?s concerns have been addressed and he/she agrees to proceed with today?s plan of care. ASSESSMENT AND PLAN Assessment AND Plan, Most Recent Note from ALL Problems our Service Addressed Neurology Post-op pain PLAN: -multimodal pain management Nephrology JOSE (acute kidney injury) (HCC) PLAN: -avoid nephrotoxic meds -d/c toradol/ibuprofen Hypomagnesemia PLAN: -replete mag>2 Hypokalemia PLAN: -replete k>4 Oncology * Colon cancer (HCC) PLAN: -GI soft diet - dc home Medication and Non-Pharmacologic VTE Prophylaxis/Anticoagulants Anticoagulant AND Antiplatelet Medications Start Dose Route Frequency Ordered Stop 03/07/18 0900 heparin 5,000 Units injection (Surgical High Risk ) 5,000 Units SUBCUTANEOUS EVERY 12 HOURS 03/06/181910 -- 03/06/181914 pneumatic compression stockings (mo,pr) 03/06/181914 activity - mobilize patient ([place], [place]) 03/06/18 06 pneumatic compression stockings ([place]) VTE Prophylaxis: VTE prophylaxis appropriate Plan of care discussed with: Attending SIGNATURE: Esther Turner MD PATIENT NAME: Anne Cordero DATE: March 08, 2018 TIME: 12:34 PM PAGER/CONTACT #: [phone] PLAN OF CARE Observed: 03/08/2018 Status: COMPLETED Source: [place] 11:26 AM [facility] REPOSITORY HNO ID: [id number] Author: Dottie Reynaga (Shoot it!) Service: (none) Author Type: (none) Type: Plan of Care Filed: 03/08/2018 11:27 AM Note Text: Pharmacy Discharge Medication Service: This patient has elected to receive their discharge prescriptions through the [facility] Bedside Prescription Delivery program. The prescriptions are currently being processed. A follow-up note will be entered once the prescriptions have been filled and delivered to the patient. Please contact me with any questions or updates to the patient's discharge medications. Dottie Reynaga (Shoot it!) DCT Contact Info: [id number] PLAN OF CARE Observed: 03/08/2018 Status: COMPLETED Source: [place] 11:26 AM [facility] REPOSITORY HNO ID: [id number] Author: Dottie Reynaga (Shoot it!) Service: (none) Author Type: (none) Type: Plan of Care Filed: 03/08/2018 11:26 AM Note Text: TONE REGULATOR BEDSIDE DELIVERY SURVEY 1. Patient to use [facility] Bedside Delivery - YES 2. If fax, patient would like us to fax prescriptions to Pharmacy of choice a. Pharmacy: b. Location: c. Phone: 3. Insurance card on file - YES 4. Credit card for payment - N/A D/c 2pm please have delivered before 1:30 CNDS Observed: 03/08/2018 Status: COMPLETED Source: [place] 8:21 AM [facility] REPOSITORY HNO ID: [id number] Author: King Yoder Service: Colorectal Author Type: Physician Type: Discharge Summaries Filed: 03/18/2018 9:21 AM Note Text: DISCHARGE SUMMARY PATIENT NAME: Anne Cordero ADMISSION DATE: 03/06/2018 DISCHARGE DATE: 03/08/2018 ATTENDING PHYSICIAN: King Yoder Code Status: Not on file REASON FOR HOSPITALIZATION: Ms. Cordero is a 62 y/o female with a known transverse colon mass and possible peritoneal carcinomatosis who presents to the [facility] for planned surgery. DIAGNOSIS: Principal Problem: Colon cancer (HCC) Active Problems: Hypokalemia Hypomagnesemia Post-op pain JOSE (acute kidney injury) (HCC) Resolved Problems: * No resolved hospital problems. * OPERATIONS DURING HOSPITALIZATION: Diagnostic laparoscopy and laparoscopic segmental colectomy with end to end hand sewn two layered anastomosis PROCEDURES DURING HOSPITALIZATION: Intubation: For surgery HOSPITAL COURSE: Ms. Cordero came to the hospital to have surgery with Dr. King Yoder MD. Her surgery was uneventful and afterwards, she was transferred to a regular nursing floor. Her pain was controlled with oral and IV medication and her intake and output was closely monitored. Her diet was advanced as tolerated. Her Ricks catheter was removed on postoperative day (POD) 1 and she was able to void. DVT prophylaxis was managed by Heparin 5000 units BID and intermittent compression stockings. Her electrolytes were monitored with daily labs and replaced as needed. Once her pain was controlled with oral medication, she was tolerating a GI soft diet, and her bowels was functioning appropriately, she was deemed fit for discharge. Please follow up with Jessica Langley Colorectal ANCHOR TACKER in the clinic in 4-6 weeks. Transitions of Care Critical Issues: LABS AND PROCEDURES PENDING AT DISCHARGE: Pathology Results (surgical pathology) PATIENT CONDITION AT DISCHARGE: Stable DISCHARGE DISPOSITION: Home/Self Care INFORMATION PROVIDED TO PATIENT: Discharge instructions ALLERGIES Allergen Reactions - Atenolol Mental Status Change fatigue - Depo-Medrol [Methyl* facial redness, elevated glucose - Ivp Dye [Iodine] Hives, Swelling occurred in the 70's. Had swelling and hives on arm only where IV was - Sulfa (Sulfonamide * Hives DISCHARGE MEDICATION: Current Discharge Medication List START taking these medications acetaminophen (TYLENOL) 650 mg Take 650 mg by mouth every 6 hours as needed for Pain. oxyCODONE IR (ROXICODONE) 5-10 mg Take 5-10 mg by mouth every 4 hours as needed. Earliest Fill Date: 03/08/18 Qty: 20 tablet Refills: 0 Associated Diagnoses:Post-op pain CONTINUE these medications which have NOT CHANGED metFORMIN (GLUCOPHAGE) 1,000 mg tablet TAKE 1 TABLET BY MOUTH TWICE A DAY WITH MEALS Qty: 180 tablet Refills: 1 lansoprazole (PREVACID) 30 mg capsule TAKE 1 CAPSULE BY MOUTH ONCE DAILY Qty: 90 capsule Refills: 1 verapamil ER (VERELAN) 120 mg Take 120 mg by mouth once daily. Qty: 90 capsule Refills: 1 lisinopril 2.5 mg tablet TAKE 1 TABLET BY MOUTH ONCE A DAY FOR BLOOD PRESSURE Qty: 90 tablet Refills: 3 atorvastatin (LIPITOR) 80 mg tablet TAKE ONE-HALF TABLET BY MOUTH ONCE DAILY Qty: 45 tablet Refills: 3 spironolactone-hctz 25/25 (ALDACTAZIDE) 25-25 mg per tablet TAKE 1 TABLET BY MOUTH ONCE DAILY Qty: 90 tablet Refills: 1 sertraline (ZOLOFT) 100 mg tablet TAKE 1 TABLET BY MOUTH ONCE DAILY Qty: 90 tablet Refills: 1 fluticasone (FLONASE) 2 Sprays Use 2 Sprays in each nostril once daily. Rinse mouth after use. Qty: 3 Bottle Refills: 3 Associated Diagnoses:Chronic rhinitis LORATADINE/PSEUDOEPHEDRINE (CLARITIN-D 24 HOUR ORAL) 1 tablet Take 1 tablet by mouth once daily. Oxymetazoline HCl 30 mL Use 30 mL in the nose twice daily as needed. WEAN off Cholecalciferol (Vitamin D3) 1,000 Units Take 1,000 Units by mouth once daily. Qty: 100 capsule Refills: 3 levothyroxine (SYNTHROID) 100 mcg Take 100 mcg by mouth once daily. Qty: 90 tablet Refills: 3 clotrimazole (LOTRIMIN, CLOTRIM) 1 application Apply 1 application to affected area twice daily. Qty: 30 g Refills: 2 Associated Diagnoses:Fungal infection of skin ASPIRIN 81 MG ORAL TAB Take one (1) tablet daily . Refills: 0 Addendum, final pathology with 'Ten of thirty-six lymph nodes, positive for metastatic carcinoma ()' consistent with stage 3 colon cancer. FUTURE APPOINTMENTS: Future Appointments Date Time Provider Department Center 03/20/2018 10:10 AM Praful Pathak GENSWS [facility] RUPINDER 04/10/2018 11:00 AM Jessica Holguin BLDG 04/11/2018 2:00 PM Elizabeth SULTANAPWS [facility] SIGNATURE: Esther Turner MD PAGER/CONTACT #: [phone] DATE: 03/08/18 TIME: 11:03 AM CBC Collected: 03/07/2018 Status: F Source: [place] 9:56 PM [facility] REPOSITORY TYPE CODE TESTS RESULT OUT OF REFERENCE UNITS RANGE LAB WBC 3.70-11.00 k/uL WBC 5.84 LAB RBC 3.90-5.20 m/uL Low RBC 3.32 LAB HGB 11.5-15.5 g/dL Low Hemoglobin 7.5 LAB HCT 36.0-46.0 % Low Hematocrit 25.0 LAB MCV 80.0-100.0 fL Low MCV 75.3 LAB MCH 26.0-34.0 pG Low MCH 22.6 LAB MCHC 30.5-36.0 g/dL Low MCHC 30.0 LAB RDWCV 11.5-15.0 % RDW-CV High 21.4 LAB PLTCT 150-400 k/uL Platelet Count 218 LAB MPV 9.0-12.7 fL MPV 11.2 LAB ABSNUC <0.01 k/uL Absolute nRBC <0.01 Performed By: #### CBC, BMP, MG1, PHOS, BUZZ #### [facility] [address] [address] BASIC METABOLIC PANL Collected: 03/07/2018 Status: F Source: [place] 9:56 PM [facility] REPOSITORY TYPE CODE TESTS RESULT OUT OF REFERENCE UNITS RANGE LAB GLU 74-99 mg/dL High Glucose 116 Result Comment: The English Diabetes Association (ADA) provides guidance for cutoff values for fasting glucose and random glucose. The ADA defines fasting as no caloric intake for at least 8 hours. Fas ting plasma glucose results between 100 to 125 mg/dL indicate increased risk for diabetes (prediabetes). Fasting plasma glucose results greater than or equal to 126 mg/dL meet the criteria for diagnosis of diabetes. In the absence of unequivocal hyperglycemia, results should be confirmed by repeat testing. In a patient with classic symptoms of hyperglycemia or hyperglycemic crisis, random plasma glucose results greater than or equal to 200 mg/dL meet the criteria for diagnosis of diabetes. Reference: Standards of Medical Care in Diabetes 2016, English Diabetes Association. Diabetes Care. 2016.39(Suppl 1). LAB BUN 7-21 mg/dL BUN 17 LAB CRET 0.58-0.96 mg/dL Creatinine High 1.03 LAB NA 136-144 mmol/L Sodium 141 LAB K 3.7-5.1 mmol/L Potassium 4.0 LAB CL 97-105 mmol/L Chloride 102 LAB CO2 22-30 mmol/L CO2 27 LAB AGAP 9-18 mmol/L Anion Gap 12 LAB CA 8.5-10.2 mg/dL Calcium, Total 8.9 LAB GFRAA eGFR- Amer. >60 LAB GFRNAA . eGFR-All Other Races 54 Result Comment: eGFR (Estimated GFR) Units of measure: mL/min/1.73 meters squared eGFR is derived from the reexpressed MDRD Study equation using the following parameters: serum creatinine, age, gender and race. The creatinine assay has been calibrated to be traceable to IDMS. An eGFR <60 mL/min/1.73m2 for >3 months is consistent with chronic kidney disease. Refer to KDOQI guidelines for clinical interpretation. In patients with unstable renal function, e.g. those with acute kidney injury, the eGFR may not accurately reflect actual GFR. Performed By: #### CBC, BMP, MG1, PHOS, BUZZ #### [facility] [employer] [address] [place] [id number] MAGNESIUM Collected: 03/07/2018 Status: F Source: [place] 9:56 PM [facility] REPOSITORY TYPE CODE TESTS RESULT OUT OF REFERENCE UNITS RANGE LAB MG 1.7-2.3 mg/dL Magnesium 2.1 Performed By: #### CBC, BMP, MG1, PHOS, BUZZ #### [facility] [employer] [address] [place], [place] [id number] PHOSPHORUS Collected: 03/07/2018 Status: F Source: [place] 9:56 PM [facility] REPOSITORY TYPE CODE TESTS RESULT OUT OF REFERENCE UNITS RANGE LAB PHOS 2.7-4.8 mg/dL Low Phosphorus 2.5 Performed By: #### CBC, BMP, MG1, PHOS, BUZZ #### [facility] [address] [place], [place] [address] TROPONIN T Collected: 03/07/2018 Status: F Source: [place] 9:56 PM [facility] [place] REPOSITORY TYPE CODE TESTS RESULT OUT OF REFERENCE UNITS RANGE LAB TROPT 0.000-0.029 ng/mL Troponin T <0.010 Performed By: #### CBC, BMP, MG1, PHOS, BUZZ #### [facility] [address] [place], [place] [address] PT ED Observed: 03/07/2018 Status: COMPLETED Source: [place] 12:17 PM [facility] REPOSITORY HNO ID: [id number] Author: Lo Caraballo (Diet-T) Service: Nutrition Therapy Author Type: Strand And Binder Controller Type: Patient Education Filed: 03/07/2018 12:19 PM Note Text: NUTRITION PATIENT EDUCATION TOPIC: Lifestyle Changes: Diet PATIENT NAME: Anne Cordero SERVICE DATE: March 07, 2018 Diagnosis: ADULT: colon cancer READINESS TO LEARN Motivation to Learn: Eager Family Support: Unable to assess - Family not present Instruction Provided to: Patient Factors Affecting Learning: None Physical Limitations Affecting Learning: None LEARNING RESPONSE Patient / Family Response: Verbalizes understanding of CORS/GI Soft Diet: Rationale behind diet restriction, foods allowed/to avoid, small frequent meals, chewing thoroughly, fluid recommendations, how long to continue on diet as well as how to transition off diet and(if applicable) dealing with potential problems (ostomy patients only). Method of Instruction: Individual instruction Written instruction - handouts Verbal instruction Instructional Aids Used: NA Supplemental Material Provided to Patient: Nutrition Therapy instruction material: Eating Right and Avoiding Dehydration after Bowel Surgery Referral (Recommendation): None MNT Billing Type: Routine Care/15 min 2 units Nathan Gary Pager: [phone] March 07, 2018 12:17 PM CASE MGT INIT Observed: 03/07/2018 Status: COMPLETED Source: [facility] 11:14 AM [facility] [place] REPOSITORY HNO ID: [id number] Author: Debbie MckennaRn) FILIPPO Rodriguez Service: Case Management Author Type: Registered Nurse Type: Care Mgt Initial Assessment Filed: 03/07/2018 11:28 AM Note Text: CARE MANAGEMENT: ASSESSMENT AND DISCHARGE PLAN SERVICE DATE: 03/07/2018 SERVICE TIME: 10:50am PRIMARY CARE PHYSICIAN: Elizabeth Dinh MD ADMISSION STATUS: Inpatient Needs Prior to Discharge: None MEDICAL: Patient/Motor Analyst Stated Goals: To have reduction in symptoms To be cured/healed Health Insurance: BLUE CARD PPO patient verified Health Issues Impacting Discharge Plan: None Last Admission Date: none Is this Within the Past 30 days? No Advance Directive: Current Advance Directive: None Machine Plug Shaper Attempted to Assist with AD Completion: Yes Action: Patient Unwilling (Patient states she has the paperwork at home. ) Health Literacy: 1. How often do you need to have someone help you when you read instructions, pamphlets, or other written material from your doctor or pharmacy? Never - 1 2. How confident are you filling out medical forms by yourself? Extremely - 1 If Patient scores > 3 on either question, the following interventions were put into place: Patient did not score > 3 FUNCTIONAL AND COGNITIVE/BEHAVIORAL PRIOR TO ADMISSION: Baseline Mental Status: Alert AND Oriented, Person, Place , Time and Situation Functional Status: Independent Does Patient Currently Receive Any Community Services or Home Care? None Equipment Prior to Admission: None Has the Patient Been in a Fdc Facility in the Past 30 days? No SOCIAL: Living Arrangement: Home Lives With: Spouse, Son and sister Financial Resources: Unemployed Primary Contact: Extended Emergency Contact Information Primary Emergency Contact: Ivelisse Cordero Address: [address] [place] [address] Mobile Relation: Spouse Supportive: Yes Other Important Patient Contacts: Family: Name: Nancy Harvey Caregiver Assessment: Caregiver is ready, willing and able to meet the patient's needs as recommended by the inter-professional team? No Caregiver Needed Patient's transition needs and plan for meeting these needs: f/u appointments Does the patient have an acute stroke diagnosis, or has the patient had a stroke during this admission? No Medication Adherence: I am convinced of the importance of my prescription medication: Agree mostly - 0 I worry that my prescription medication will do more harm than good to me Disagree mostly - 0 I feel financially burdened by my iyo-jy-hwapyl expenses for my prescription medication: Disagree mostly -0 Patient is categorized as low risk < 2 Are you interested in bedside delivery of your medications? Yes Food Concerns: In the Last Month, Have You had Trouble Getting Food? No trouble getting food During the Last Month, Have You Worried Whether Your Food Would Run Out Before You Had Enough Money to Buy More? No Is the Patient Psychosocially Complex? No ASSESSMENT AND PLAN: Medical Needs: 2 or more chronic diseases and Diabetes - Education Psychosocial Needs: None FREEDOM OF CHOICE EXPLAINED: N/A POTENTIAL TRANSITION PLANS Home Met with patient at bedside after brief review of EMR to discuss CM role and discharge plan. Patient is a 62 year old female admit for malignant neoplasm of colon. Patient independent prior to admission. Anticipates no skilled needs. Spouse to transport at time of discharge. Per morning rounds, patient will dc Saturday with no skilled needs. SIGNATURE: Debbie Rodriguez RN PATIENT NAME: Anne Cordero DATE: March 07, 2018 TIME: 11:14 AM PAGER/CONTACT #: [phone] [facility] Observed: 03/07/2018 Status: COMPLETED Source: [place] 11:03 AM [facility] REPOSITORY [facility] ID: [id number] Author: Latonya Acosta (Chaplain) Service: (none) Author Type: Type: Allied Health Filed: 03/07/2018 11:07 AM Note Text: SPIRITUALCARE Spiritual Care Visit- Brief Note Name: Anne Cordero Date: March 07, 2018 Notes: Crusher Feeder visited. Pt expressed great happiness at the results of her procedure, feeling relief. Pt optimistic about her future. Crusher Feeder Signature: Chaplain Janice Resident To contact the Spiritual Care Department: Please call [phone] or Page the On-Call Crusher Feeder at pager [phone] Thank you for the opportunity to be of service. This is an electronically created document. IF PRINTED, PLEASE DO NOT REMOVE FROM THE CHART OR MODIFY PRINTED COPY. PROGRESS Observed: 03/07/2018 Status: COMPLETED Source: [place] 9:41 AM [facility] REPOSITORY HNO ID: [id number] Author: Aga Chavarria (Pa) Service: Colorectal Author Type: Physician Transformer Shop Supervisor Type: Progress Notes Filed: 03/07/2018 9:41 AM Note Text: SERVICE DATE: 03/07/2018 SERVICE TIME: 9:41 AM COLORECTAL SURGERY PROGRESS NOTE POD #1 Diagnostic laparoscopy with a laparoscopic splenic flexure mobilization, TAP block, Flexible sigmoidoscopy. ? Subjective INTERVAL HPI and PERTINENT ROS: JOE overnight. HANDH trending down to 7.6/25.2 from pre-op 9.9/32.9. Serum CR/BUN mild increase from pre-op values. Tolerating GI soft diet. No bowel function yet. Pain control adequate. MEDICATIONS: Current hospital medications: NaCl 0.45% with 20 mEq/L KCl iv infusion 75 mL/hr INTRAVENOUS CONTINUOUS potassium chloride ER 20-40 mEq tab(s) (K-DUR, KLOR-CON) 20- 40 mEq ORAL PRN potassium chloride iv piggyback 20 mEq/100 mL 20 mEq INTRAVENOUS PRN magnesium sulfate in water 2 g in sterile water 50 ml 2 g INTRAVENOUS PRN(NO DISPENSE) sodium glycerophosphate 45 mmol in NaCl 0.9% 250 mL (GLYCOPHOS) 45 mmol INTRAVENOUS PRN(NO DISPENSE) ondansetron (PF) 4 mg injection (ZOFRAN) 4 mg INTRAVENOUS q 6 H PRN acetaminophen 1,000 mg tab(s) (TYLENOL) 1,000 mg ORAL q 6 H gabapentin 300 mg cap(s) (NEURONTIN) 300 mg ORAL q 8 H diazePAM 2 mg tab(s) (VALIUM) 2 mg ORAL q 8 H PRN oxyCODONE IR 5-10 mg tab(s) (ROXICODONE) 5-10 mg ORAL q 4 H PRN HYDROmorphone 0.2 mg injection (DILAUDID) 0.2 mg INTRAVENOUS q 3 H PRN heparin 5,000 Units injection 5,000 Units SUBCUTANEOUS q 12 H dextrose 40 % 15 g 15 g ORAL PRN glucagon 1 mg injection (GLUCAGEN) 1 mg INTRAMUSCULAR PRN dextrose 50 % 12.5 g injection 12.5 g INTRAVENOUS PRN insulin lispro injection (rapid acting) (HumaLOG) SUBCUTANEOUS q 6 H atorvastatin 80 mg tab(s) (LIPITOR) 80 mg ORAL DAILY sertraline 100 mg tab(s) (ZOLOFT) 100 mg ORAL DAILY levothyroxine 100 mcg tab(s) (SYNTHROID) 100 mcg ORAL BEFORE BREAKFAST DAILY Objective PHYSICAL EXAM: BP 110/62 Pulse 86 Temp 37.1 ?C (98.7 ?F) (Oral) Resp 16 Ht 162.6 cm (5' 4.02) Wt 101.5 kg (223 lb 12.3 oz) SpO2 94% BMI 38.39 kg/m? GENERAL: Alert and oriented times 3, in no acute distress. SKIN: Skin color, texture, turgor normal, no suspicious rashes or lesions. HEAD: Normal EYES: Extraocular movements are intact. EARS: External ears normal. OROPHARYNX: Mucosa moist. NECK: Normal size. BACK: Motor and sensory appear to be normal. ABDOMEN: abdomen soft, incision c/d/i with ashish No skin breakdown noted. Date 03/07/18 0700 - 03/08/18 0659 Shift [id number] 4275-3173 1655-9487 24 Hour Total I N T A K E PO 220 220 Shift Total 220 220 O U T P U T Urine 200 200 Shift Total 200 200 Weight (kg) 101.5 101.5 101.5 101.5 Lines, Drains, and Airways Line Peripheral 03/06/18 Assessment Short Right Hand 18 Gauge 1 day Reviewed lines, drains, AND airways. Need to be continued post op car DATA: Diagnostic tests reviewed for today's visit: Most recent labs LABS: CBC, Coags, BMP, Mg, Phos Recent Labs 03/06/18 2107 03/04/18 1608 WBC 7.25 9.48 HB 7.6* 9.9* HCT 25.2* 32.9* PLT 238 373 NA 143 142 K 3.6* 3.6* CHLOR 105 102 CO2 26 24 BUN 13 18 CREAT 1.02* 0.90 GLUC 119* 118* CA 8.9 10.5* MG 1.4* -- P 4.5 -- *A review of daily goals, interventions, and plan of care with the multidisciplinary team and patient has been conducted. The patient?s concerns have been addressed and he/she agrees to proceed with today?s plan of care. ASSESSMENT AND PLAN Assessment AND Plan, all Hosp Problems Active Hospital Problems as of 03/07/2018 Noted - Resolved Hospital JOSE (acute kidney injury) (HCC) 03/07/2018 - Present Current Assessment AND Plan PLAN: -avoid nephrotoxic meds -d/c toradol/ibuprofen * (Principal)Colon cancer (HCC) 03/04/2018 - Present Current Assessment AND Plan PLAN: -GI soft diet -remove ricks catheter -encourage OOB and ambulation -anticipated d/c wknd pending ROBF -hold dvt ppx heparin today due to drop in HANDH Hypokalemia 07/23/2006 - Present Current Assessment AND Plan PLAN: -replete k>4 Hypomagnesemia 03/07/2018 - Present Current Assessment AND Plan PLAN: -replete mag>2 Post-op pain 03/07/2018 - Present Current Assessment AND Plan PLAN: -multimodal pain management Medication and Non-Pharmacologic VTE Prophylaxis/Anticoagulants Anticoagulant AND Antiplatelet Medications Start Dose Route Frequency Ordered Stop 03/07/18 0900 heparin 5,000 Units injection (Surgical High Risk ) 5,000 Units SUBCUTANEOUS EVERY 12 HOURS 03/06/181910 -- 03/06/181914 pneumatic compression stockings (mo,oh) 03/06/181914 activity - mobilize patient (mo,oh) 03/06/18 0600 pneumatic compression stockings (mo,pr) VTE Prophylaxis: VTE prophylaxis appropriate Plan of care discussed with: Attending and Patient SIGNATURE: Aga Chavarria PA-C PATIENT NAME: Anne Cordero DATE: March 07, 2018 TIME: 9:41 AM PAGER/CONTACT #: [phone] CBC AND DIFFERENTIAL Collected: 03/06/2018 Status: F Source: [place] 9:07 PM [facility] REPOSITORY TYPE CODE TESTS RESULT OUT OF REFERENCE UNITS RANGE LAB WBC 3.70-11.00 k/uL WBC 7.25 LAB RBC 3.90-5.20 m/uL Low RBC 3.38 LAB HGB 11.5-15.5 g/dL Low Hemoglobin 7.6 LAB HCT 36.0-46.0 % Low Hematocrit 25.2 LAB MCV 80.0-100.0 fL Low MCV 74.6 LAB MCH 26.0-34.0 pG Low MCH 22.5 LAB MCHC 30.5-36.0 g/dL Low MCHC 30.2 LAB RDWCV 11.5-15.0 % RDW-CV High 21.5 LAB PLTCT 150-400 k/uL Platelet Count 238 LAB MPV 9.0-12.7 fL MPV 11.3 LAB ANEUT % Neut% 72.4 LAB AANEUT 1.45-7.50 k/uL Abs Neut 5.25 LAB ALYMP % Lymph% 20.4 LAB AALYMP 1.00-4.00 k/uL Abs Lymph 1.48 LAB AMONO % [place]% 6.6 LAB AAMONO <0.87 k/uL Abs [place] 0.48 LAB AEOS % Eosin% 0.3 LAB AAEOS <0.46 k/uL Abs Eosin <0.03 LAB ABASO % Baso% 0.3 LAB AABASO <0.11 k/uL Abs Baso <0.03 LAB AUNRBC 0 /100 WBC NRBCs 0.0 LAB ABNRBC <0.01 k/uL Absolute nRBC <0.01 LAB DTYP DTYPE Auto Diff Performed By: #### CBCDIF, BMP, MG1, PHOS, BUZZ #### [facility] [address] [place], [place] [address] BASIC METABOLIC PANL Collected: 03/06/2018 Status: F Source: [place] 9:07 PM [facility] REPOSITORY TYPE CODE TESTS RESULT OUT OF REFERENCE UNITS RANGE LAB GLU 74-99 mg/dL High Glucose 119 Result Comment: The English Diabetes Association (ADA) provides guidance for cutoff values for fasting glucose and random glucose. The ADA defines fasting as no caloric intake for at least 8 hours. Fas ting plasma glucose results between 100 to 125 mg/dL indicate increased risk for diabetes (prediabetes). Fasting plasma glucose results greater than or equal to 126 mg/dL meet the criteria for diagnosis of diabetes. In the absence of unequivocal hyperglycemia, results should be confirmed by repeat testing. In a patient with classic symptoms of hyperglycemia or hyperglycemic crisis, random plasma glucose results greater than or equal to 200 mg/dL meet the criteria for diagnosis of diabetes. Reference: Standards of Medical Care in Diabetes 2016, English Diabetes Association. Diabetes Care. 2016.39(Suppl 1). LAB BUN 7-21 mg/dL BUN 13 LAB CRET 0.58-0.96 mg/dL Creatinine High 1.02 LAB NA 136-144 mmol/L Sodium 143 LAB K 3.7-5.1 mmol/L Low Potassium 3.6 LAB CL 97-105 mmol/L Chloride 105 LAB CO2 22-30 mmol/L CO2 26 LAB AGAP 9-18 mmol/L Anion Gap 12 LAB CA 8.5-10.2 mg/dL Calcium, Total 8.9 LAB GFRAA eGFR- Amer. >60 LAB GFRNAA . eGFR-All Other Races 55 Result Comment: eGFR (Estimated GFR) Units of measure: mL/min/1.73 meters squared eGFR is derived from the reexpressed MDRD Study equation using the following parameters: serum creatinine, age, gender and race. The creatinine assay has been calibrated to be traceable to IDMS. An eGFR <60 mL/min/1.73m2 for >3 months is consistent with chronic kidney disease. Refer to KDOQI guidelines for clinical interpretation. In patients with unstable renal function, e.g. those with acute kidney injury, the eGFR may not accurately reflect actual GFR. Performed By: #### CBCDIF, BMP, MG1, PHOS, BUZZ #### [facility] [employer] [address] [address] MAGNESIUM Collected: 03/06/2018 Status: F Source: [place] 9:07 [facility] REPOSITORY TYPE CODE TESTS RESULT OUT OF REFERENCE UNITS RANGE LAB MG 1.7-2.3 mg/dL Low Magnesium 1.4 Performed By: #### CBCDIF, BMP, MG1, PHOS, BUZZ #### [facility] [employer] [address] [address] PHOSPHORUS Collected: 03/06/2018 Status: F Source: [place] 9:07 [facility] REPOSITORY TYPE CODE TESTS RESULT OUT OF REFERENCE UNITS RANGE LAB PHOS 2.7-4.8 mg/dL Phosphorus 4.5 Performed By: #### CBCDIF, BMP, MG1, PHOS, BUZZ #### [facility] [employer] [address] [address] TROPONIN T Collected: 03/06/2018 Status: F Source: [place] 9:07 [facility] REPOSITORY TYPE CODE TESTS RESULT OUT OF REFERENCE UNITS RANGE LAB TROPT 0.000-0.029 ng/mL Troponin T <0.010 Performed By: #### CBCDIF, BMP, MG1, PHOS, BUZZ #### [facility] [address] [place], [place] [address] NURSING PROG Observed: 03/06/2018 Status: COMPLETED Source: [place] 7:39 PM [facility] REPOSITORY HNO ID: [id number] Author: Emy Benites RN Service: Nursing Author Type: Registered Nurse Type: Nursing Progress Note Filed: 03/06/2018 7:40 PM Note Text: Nursing Progress Note Patient Name: Anne Cordero Patient Location: [facility] 011/H050-11 Transfer Note: Patient transferred into room/unit H50-11 in stable condition. Actions taken: Skin check performed with Skye Anderson RN and WNL. No futher actions taken at this time. Will continue to monitor and check with patient. This note was completed by: Emy Benites RN NURSING PROG Observed: 03/06/2018 Status: COMPLETED Source: [place] 4:04 PM [facility] REPOSITORY HNO ID: [id number] Author: Katie Villasenor RN Service: (none) Author Type: Registered Nurse Type: Nursing Progress Note Filed: 03/06/2018 4:07 PM Note Text: Nursing Progress Note Topic of Note: PACU nursing note Anne Cordero [id number] Assumed care of patient at 1600 for a lunch coverage. Aware of plan of care. Patient is still in pacu awaiting a regular floor bed. States pain 2/10, declines need for pain medicine. Family at bedside recently but did go home. This note was completed by: Katie Villasenor RN ANES POST Observed: 03/06/2018 Status: COMPLETED Source: [place] 2:37 PM [facility] REPOSITORY HNO ID: [id number] Author: Matthew Rojas Service: Anesthesiology Author Type: Anesthesiologist Type: Anesthesia PostOp Filed: 03/06/2018 2:38 PM Note Text: POST ANESTHESIA EVALUATION NOTE SERVICE DATE: 03/06/2018 SERVICE TIME: 2:38 PM : 1955 Vitals: 03/06/18 0618 03/06/18 1102 03/06/18 1400 Temp: 36.2 ?C (97.2 ?F) 36.1 ?C (97 ?F) 36.3 ?C (97.3 ?F) 03/06/18 1215 03/06/18 1230 03/06/18 1300 03/06/18 1400 BP: 110/64 113/66 119/74 121/76 03/06/18 1215 03/06/18 1230 03/06/18 1300 03/06/18 1400 Pulse: 83 83 79 80 03/06/18 1215 03/06/18 1230 03/06/18 1300 03/06/18 1400 Resp: 14 16 16 20 03/06/18 1215 03/06/18 1230 03/06/18 1300 03/06/18 1400 SpO2: 99% 99% 99% 98% Validated Vital Signs: Yes POST ANES STATUS: No apparent anesthetic complications. The patient is appropriately hydrated with stable respiratory and cardiovascular status. Patient has safe and adequate airway control. The patient has appropriate pain relief and no significant post operative nausea or vomiting. The patient has achieved baseline mental status. Intra-Operative Events: See the [facility] record for the event detail Further assessment by Anesthesia Service: None Other Remarks: SIGNATURE: Matthew Rojas MD PATIENT NAME: Anne Cordero DATE: March 06, 2018 TIME: 2:38 PM PAGER/CONTACT #: [phone] BRIEF OP NOT Observed: 03/06/2018 Status: COMPLETED Source: [place] 10:34 AM [facility] REPOSITORY HNO ID: [id number] Author: Felicia Barney (Fel) Service: Colorectal Author Type: Fellow Type: Brief Op Note Filed: 03/06/2018 10:36 AM Note Text: BRIEF OPERATIVE NOTE - COLORECTAL SURGERY Log ID: [id number] Surgery/Procedure Date: 03/06/2018 Incision/Procedure Start Time: 8:00 AM Incision Close/Procedure End Time: 10:33am Surgeon(s) and Transformer Shop Supervisor(s): Surgeon(s) and Role: * King Yoder - Primary * Felicia Barney (Fel) - Fellow * Elizabeth Torres - Assisting No Additional Staff Procedures and Anesthesia: Procedure(s) and Anesthesia Type: * LAPAROSCOPY DIAGNOSTIC - General * COLECTOMY - LITHOTOMY - General Stoma Type: N/A Findings: Large bulky tumour distal transverse w/ bulky mesenteric nodes. Colectomy performed. End to end hand sewn 2 layered anastomosis. Leak test negative Estimated Blood Loss: 50 ml Specimens: 1. Specimen ID Type Site Comments Sent To path # 1 Tissue spenic flexure Pathology Routine Diagnosis Code(s): Pre-Op Diagnosis Codes: * Colon cancer (HCC) [C18.9] Postop Diagnosis: as above Drains: None Wound Classification: Class 2, operative wound clean-contaminated, gastrointestinal tract entered without significant spillage Complications: None SIGNATURE: Felicia Barney MD PATIENT NAME: Anne Cordero DATE: March 06, 2018 TIME: 10:34 AM PAGER/CONTACT #: [phone] NURSING PROG Observed: 03/06/2018 Status: COMPLETED Source: [place] 6:20 AM [facility] REPOSITORY HNO ID: [id number] Author: Celestina (Rn) FILIPPO Norris Service: Nursing Author Type: Registered Nurse Type: Nursing Progress Note Filed: 03/06/2018 6:21 AM Note Text: PRE OP LEARNING ASSESSMENT PROCEDURE/SURGERY: SURGERY: pre-op logistics READINESS TO LEARN COGNITIVE ABILITY: Alert and oriented MOTIVATION TO LEARN: Eager FAMILY SUPPORT: High - Very involved in pt care PATIENT LEARNS BEST BY: Individual Instruction FACTORS AFFECTING LEARNING: None PHYSICAL LIMITATIONS AFFECTING LEARNING: None Electronically Signed By: Celestina Norris RN In Department: HOSP MAIN G031 OPERATIVE NO Observed: 03/06/2018 Status: COMPLETED Source: [place] 12:00 AM [facility] REPOSITORY HNO ID: [id number] Author: King Yoder Service: Colorectal Author Type: Physician Type: Operative Report Filed: 03/07/2018 8:30 AM Note Text: [facility] - Operative Report [id number] [address] [place] ANNE CORDERO : 1955 AGE: 62. SEX: F PATIENT TYPE: I HOSP SVC: CORS LOCATION: [id number] ATTENDING PHYSICIAN: King Yoder M.D. [facility] NUMBER: [id number] DATE OF SURGERY/PROCEDURE: 03/06/2018 INCISION/PROCEDURE START TIME: 08:02. INCISION CLOSE/PROCEDURE END TIME: 10:22. 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 POSTOPERATIVE DIAGNOSIS: Splenic flexure cancer with bulky adenopathy. SURGEON: King Yoder M.D. LOG FEEDER: 1. Felicia Barney. 2. Elizabeth Torres M.D. SURGERY/PROCEDURE: 1. Diagnostic laparoscopy with a laparoscopic splenic flexure mobilization. 2. TAP block. 3. Flexible sigmoidoscopy. ANESTHESIA: General endo-orotracheal. OPERATIVE INDICATIONS: The patient has a history of rectal bleeding and underwent a scope that identified her to have a splenic flexure mass and CT scan confirmed, noted to be bulky adenopathy versus carcinomatosis and now presents for diagnostic laparoscopy, possible biopsy, and possible resection as well as possible ileostomy. She has been counseled as the risks of the procedure to include, but not limited to pain, bleeding, infection, need for other surgery, anesthesia risks, and . In addition, she was counseled as the need for other procedures, such as an ileostomy or a HIPEC procedure. OPERATIVE FINDINGS: 1. Splenic flexure tumor with large bulky adenopathy and no sign of any carcinomatosis. 2. Hand-sewn two-layer end-to-end anastomosis with no sign of any air leak on flexible sigmoidoscopy. DESCRIPTION OF PROCEDURE: After patient consent, the patient was taken to the operating room and placed in a supine position on operating table. We made a pause to identify the patient, procedure, and other pertinent information. Once everyone was in agreement, we proceeded. She underwent general endo-orotracheal intubation and was placed in lithotomy position on operating table ensuring all bony prominences were well padded. She had a Ricks catheter placed, and orogastric tube placed. She was given perioperative antibiotics with Rocephin and Flagyl as well as subcutaneous heparin. After waiting 3 minutes for the skin prep time to dry, we made a secondary pause and then made a small incision above the umbilicus and the abdomen was entered using a standard Tez technique. Two right-sided 5-mm ports were placed and a left-sided 5-mm port was placed. Generalized inspection of the abdomen revealed there to be the obvious tattoo at the splenic flexure as well as large bulky adenopathy adjacent to the tumor, but there was no sign of any carcinomatosis. We evaluated underneath the diaphragm in the cul-de-sac and she did have some adhesions to the anterior abdominal wall down into the pelvis, but there were no signs of any identifiable metastatic carcinomatosis spread. We placed the patient in a right- sided down head up position and performed a lateral and medial mobilization with takedown of the gastrocolic ligament and getting into the lesser sac and mobilizing the mesentery off the undersurface of the pancreas off the retroperitoneum with full takedown of the splenic flexure. With full takedown of the splenic flexure to include retroperitoneal attachments, lateral attachments, and omental attachments. We continued from lateral to medial fashion along the white line of Toldt all the way to the sigmoid colon. At this stage, we were able to make sure that she had enough mobilization in order to come to the midline and we made a small incision above the umbilicus and placed a medium-sized wound protector. Due to the size of tumor, I had to extend this incision slightly superior. We then were able to bring the specimen into view and then came at 15 cm proximal and 10 cm distal with identification of the blood flow to ensure that we had adequate reserve blood flow. We divided the bowel both proximally and distally using a CHRISTIAN-80 mm stapler with a blue load and then we did a wide oncological mesenteric resection of the vessels including the bulky lymphadenopathy using a LigaSure. We passed the specimen off for pathology. The staple lines were then cut off and we performed a hand-sewn end-to-end 2-layer anastomosis by using an inner running layer of 3-0 PDS in a running type fashion and an outer layer of 3-0 Vicryl sutures in a Lembert type fashion. Once this was complete, we ensured that there was tension free. There was no sign of any internal hernia. We clamped proximally, submerged this anastomosis under water and performed a flexible sigmoidoscopy up to the level of the anastomosis. Air leak test confirmed there to be no sign of any air leak and the bowel appeared to be patent, healthy, and completely intact. After we removed the scope, we copiously irrigated out the site. We freed up some omentum and we mobilized it around our anastomosis tacking into position using a 3-0 Vicryl sutures. We then performed a TAP block with 50 mL of 0.25% Marcaine without epinephrine by coming 2 cm below the costal margin, 2 cm above the ASIS and the midclavicular line in 4 separate spots and injecting 12.5 mL of this local anesthetic at the level of the transversalis fascia. Once this was completed, we checked for sponge, needle, instruments. We closed the midline using a #1 looped PDS in a running type fashion. We copiously irrigated out the subcutaneous tissue and closed the skin using 4-0 Monocryl in running subcuticular form. All trocar sites were removed, we copiously irrigated out those and closed the skin site using a 4-0 Monocryl in running subcuticular form. Steri-Strips and sterile gauze dressing were applied. The patient tolerated the procedure well. All counts to include sponge, needle, instrument counts were correct. She was extubated and taken to PACU in stable condition. COUNTS: All counts to include sponge, needle, instrument counts were correct. TOTAL INTRAVENOUS FLUIDS: 2 L. ESTIMATED BLOOD LOSS: 50 mL. URINE OUTPUT: 35 mL. ANTIBIOTICS: Rocephin and Flagyl. SPECIMEN: To Pathology splenic flexure colon with mass and bulky adenopathy. DRAINS: None. WOUND CLASS: 3. ATTESTATION: I was present, scrubbed in throughout all the critical portions of procedure. Kign Yoder M.D. 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 - Tumor penetrates to the surface of the visceral peritoneum (serosa). - Lymphovascular invasion is present. - Margins negative for dysplasia and malignancy. - Three tumor deposits. - Ten of thirty-six lymph nodes, positive for metastatic carcinoma (10/36). COMMENT Immunostains were performed on the previously submitted biopsy of this tumor (see [id number],02/14/2018) and demonstrate that the overall immunoreactivity pattern was consistent with a poorly-differentiated carcinoma (colonic primary) with neuroendocrine features. In addition, focal mucinous and signet ring cell features are present within sections from the tumor from this resection specimen. NHI/arturo 03/11/2018 SYNOPTIC REPORT OF [facility] PATHOLOGIC FINDINGS SPLENIC FLEXURE: COLON AND RECTUM:RESECTION, INCLUDING TRANSANAL DISK EXCISION OF RECTAL NEOPLASMS WORKSHEET: Procedure: Other: Segmental colectomy Tumor Site: Splenic flexure Tumor Size: Greatest dimension: 5.0 cm Macroscopic Tumor Perforation: Not identified Histologic Type: Adenocarcinoma Histologic Grade: G3: Poorly differentiated Tumor Extension: Tumor invades the visceral peritoneum (including tumor continuous with serosal surface through area of inflammation) Margins: All margins are uninvolved by invasive carcinoma, high-grade dysplasia, intramucosal adenocarcinoma, and adenoma Margins examined: Proximal, distal, mesenteric Distance of invasive carcinoma from closest margin: 4.4 cm Distance of invasive carcinoma from closest margin - Specify margin: mesenteric Proximal Margin: Uninvolved by invasive carcinoma Distal Margin: Uninvolved by invasive carcinoma Circumferential Radial Margin: Not applicable Mesenteric Margin: Uninvolved by invasive carcinoma Treatment Effect: No known presurgical therapy Lymphovascular Invasion: Present Small vessel lymph-vascular invasion Large vessel (venous) invasion Extramural Perineural Invasion: Present Tumor Deposits: Present Specify number of deposits: 3 Regional Lymph Nodes: Number of nodes involved: 10 Number of nodes examined: 36 Pathologic Stage Classification (pTNM,AJCC 8th ed) TNM Descriptors: Not applicable Pathologic Staging (pTNM): pT4a: Tumor invades through the visceral peritoneum (including gross perforation of the bowel through tumor and continuous invasion of tumor through areas of inflammation to the surface of the visceral peritoneum Regional Lymph Nodes (pN): pN2b: 7 or more regional lymph nodes are positive Distant Metastasis (pM): Not applicable/Not confirmed pathologically in this case Additional Pathologic Findings: Adenoma(s) Other: Focal tattoo pigment present Ancillary Studies: Immunohistochemistry Studies for Mismatch Repair Proteins- Addendum to follow Sheyla Wills M.D. (Electronic Signature) SPECIMEN SUBMITTED A: SPLENIC FLEXURE ADDITIONAL PROCEDURE(S) MMR STATUS Date Ordered: 03/12/2018 Date Reported: 03/12/2018 Procedure Results and Interpretation MMR Status Report - Immunohistochemistry Colon, invasive adenocarcinoma, immunohistochemical staining for mismatch repair proteins: Result: - Loss of MLH1 and PMS2 proteins in carcinoma nuclei. - Normal expression of MSH2 and MSH6 proteins in carcinoma nuclei. Mismatch repair (MMR) status: Deficient (microsatellite unstable) Specimen: [id number] Block: A5 Comment: Immunohistochemical stains for mismatch repair proteins were performed and show loss of expression of MLH1 and PMS2 in carcinoma nuclei with retained expression of MSH2 and MSH6. Controls were appropriately positive for each immunohistochemical stain. Loss of protein expression for any of the mismatch repair genes helps to identify the causative gene for the MSI-H phenotype and makes further mutation testing more efficient, if indicated following genetic counseling. Immunohistochemical results are not definitive evidence of a germline versus a tumor-acquired alteration. In fact, up to 50% of tumors previously considered to be highly suggestive of Daniel syndrome based on molecular and immunohistochemical analyses arise due to tumor-acquired mutations rather than germline mutations. These patients have been dubbed Daniel-like or tumor-Daniel. Consensus management guidelines are lacking for these patients, but at least some of these patients (and their family members) are likely different than those with germline mutation-confirmed Daniel syndrome. In a phase 2 study of patients with metastatic carcinoma, Tina et al ([facility] 2015;372:8322-82) reported that clinical benefit of pembrolizumab, an anti-programmed 1 (PD-1) immune checkpoint inhibitor, was predicted by the tumor's mismatch repair status; mismatch repair deficient (dMMR) tumors are more responsive to PD-1 blockade than mismatch repair proficient tumors. Pembrolizumab is FDA-approved for the treatment of adult and pediatric patients with unresectable or metastatic solid tumors that display microsatellite instability-high (MSI-H) by PCR assay or dMMR by immunohistochemistry (IHC). The FDA does not distinguish between PCR and IHC-based assays, as these are considered equivalent and complimentary tests. As clinically indicated, and in the appropriate setting of genetic counseling with informed patient consent, further genetic testing may be helpful. For more information or questions about this result, please call the [facility] at . Mismatch Repair Protein Immunohistochemistry Results (Loss, Normal, or Not indicated): MLH1: Loss MSH2: Normal MSH6: Normal PMS2: Loss MLH1 promoter hypermethylation pending: Yes Laboratory Developed Test (LDT) Disclaimer: Positive and negative controls stain appropriately. Performance characteristics of immunohistochemical, immunofluorescent and chromogenic in-situ hybridization tests have been determined by [facility] [place] ([facility]) in a manner consistent with CLIA requirements. One or more of these tests have not been cleared or approved by the FDA. [facility] is regulated under CLIA as qualified to perform high-complexity testing. These tests are used for clinical purposes. They should not be regarded as investigational or for research. MARBIN/NISHA/03-12-2018 Procedure Pathologist: Anthony Pope M.D. Electronic Signature MLH1 PROMOTER HYPERMETHYLATION Date Ordered: 03/13/2018 Date Reported: 03/19/2018 Procedure Results and Interpretation MLH1 promoter hypermethylation: PRESENT Tissue Analyzed: splenic flexure Block: [id number] Reference Range: Methylation Absent means that MLH1 promoter region methylation is observed to be less than or equal to 9%. Methylation Present means that MLH1 promoter region methylation is observed to be greater than or equal to10%. Interpretation: Presence of MLH1 hypermethylation suggests a sporadic, rather than hereditary, etiology of colorectal and endometrial tumors that have high microsatellite instability (MSI-H) and/or loss of MLH1 protein expression. Patients with this tumor phenotype have a low likelihood of a germline mutation in a DNA mismatch repair gene. However, a small percentage of Daniel syndrome patients may also have MLH1 promoter hypermethylation, and as such, the presence of hypermethylation of the MLH1 promoter cannot definitively rule out Daniel syndrome. Daniel syndrome is a hereditary cancer predisposition caused by germline mutations in one of the DNA mismatch repair genes. High-frequency microsatellite instability (MSI-H) occurs in most colorectal and endometrial adenocarcinomas arising from Daniel syndrome. However, most colorectal and endometrial cancers with MSI-H and loss of MLH1 protein expression can be attributed to somatic promoter hypermethylation of the MLH1 gene and subsequent suppression of MLH1 protein production rather than Daniel syndrome. Testing for methylation of the MLH1 promoter in tumor tissue helps differentiate sporadic from hereditary tumors and guide further evaluation. Method: Formalin-fixed, paraffin-embedded tumor tissue was microdissected to enrich for tumor cells. Genomic DNA was purified and treated with sodium bisulfite to convert unmethylated cytosines residues to uracil. PCR amplification of a targeted region of the MLH1 promoter was performed and methylation of four CpG sites in the region encompassing -209bp to -181bp from the basket weaver start site was analyzed by pyrosequencing of the amplicons (MR Presta [id number] instrument). The mean percentage methylation was calculated and used to determine methylation status. This test was developed and its performace characteristics determined by [facility] [place] ([facility]). It has not been cleared or approved by the FDA. -[facility] is regulated under CLIA as qualified to perform high-complexity testing. This test is used for clincial purposes. It should not be regarded as investigational or for research. As reviewed by: Charly Bergman M.D. RICARDO/elizabeth [id number] References: Douglas NICOLAS, et al. Utility of MLH1 methylation analysis in the clinical evaluation of Daniel Syndrome in women with endometrial cancer. Curr Pharm Mal. 2014;20(11):1655-63. Marques G, et al. Methylation of CpG in a small region of the hMLH1 promoter invariably correlates with the absence of gene expression. Cancer Res. 1998July 30;59(9):2029-33. Ramón Santana, et al. MLH1 promoter hypermethylation in the analytical algorithm of Daniel syndrome: a cost-effectiveness study. Eur J Hum Qian. 2011;20(7):762-8. Nasir BENEDICT, et al. Incidence and functional consequences of hMLH1 promoter hypermethylation in colorectal carcinoma. Proc Natl Acad Sci [place]. 1998 Sep 07;95(12):6870-5. Rafael K, et al. Tumour MLH1 promoter region methylation testing is an effective prescreen for Daniel Syndrome (HNPCC). J Med Qian. 2014 Mar;51(12):789-96. P?Del Harvey, et al. Methylation analysis of MLH1 improves the selection of patients for genetic testing in Daniel syndrome. J Molec Diagn. 2010 Sep;12(4):498-504. Procedure Pathologist: Charly Bergman M.D. Electronic Signature CLINICAL DATA DIVERTICULITIS; Splenic flexure mass GROSS DESCRIPTION A. Received in formalin labeled splenic flexure is an unoriented segment of bowel measuring 19.5 cm in length. One end is arbitrarily inked blue. The opposing end is arbitrarily inked orange. The serosal surface is brewer-pink. The wall of the specimen measures 0.4 cm in thickness. The mucosal surface demonstrates an ulcerated mass with slightly fungating edges measuring 5.0 x 3.8 x 0.5 cm, which is located 6.4 cm from the blue-inked margin, 6.0 cm from the orange-inked margin, and 4.4 cm from the mesenteric margin. Upon sectioning, the mass extends into and through the wall for 1.6 cm and appears to grossly extend to the serosal surface. The remainder of the mucosal surface is brewer-pink and displays normal folds. Sectioning through the attached adipose tissue reveals multiple nodules resembling lymph nodes ranging in size from 0.1 cm to 1.7 cm in greatest dimension. Several of the possible lymph nodes appear grossly involved by tumor. Motor Analyst sections are submitted as follows: A1-A2 shave of blue-inked margin, A3-A4 shave of orange-inked margin, A5-A8 small business sales representative sections of mass, A9 small business sales representative sections of apparent uninvolved bowel, A10 mesenteric margin, A11-A12 six nodules in each cassette resembling lymph nodes, A13-A15 four nodules in each cassette resembling lymph nodes, A16-A26 one nodule sectioned and totally submitted in each cassette, A27-A33 one small business sales representative section in each cassette of a grossly positive-appearing lymph node. KVB/ka 03/07/2018 Gross examination performed at [address] [place] [address] Date of Report: 03/11/2018 Date of Procedure: 03/06/2018 Date of Receipt: 03/06/2018 Submitted by: KING HURST Location: [facility] Diagnostic interpretation performed at [facility], [address] [place] [address], [place] [address]. CONFIRM BLOOD TYPE Collected: 03/04/2018 Status: F Source: MURDO 4:15 PM [facility] REPOSITORY TYPE CODE TESTS RESULT OUT OF REFERENCE UNITS RANGE LAB %ABR A ABO/RH(D) POSITIVE Performed By: #### CONABO #### [address] [address] CBC Collected: 03/04/2018 Status: F Source: MURDO 4:08 PM [facility] REPOSITORY TYPE CODE TESTS RESULT OUT OF REFERENCE UNITS RANGE LAB WBC 3.70-11.00 k/uL WBC 9.48 LAB RBC 3.90-5.20 m/uL RBC 4.47 LAB HGB 11.5-15.5 g/dL Low Hemoglobin 9.9 LAB HCT 36.0-46.0 % Low Hematocrit 32.9 LAB MCV 80.0-100.0 fL Low MCV 73.6 LAB MCH 26.0-34.0 pG Low MCH 22.1 LAB MCHC 30.5-36.0 g/dL Low MCHC 30.1 LAB RDWCV 11.5-15.0 % RDW-CV High 21.8 LAB PLTCT 150-400 k/uL Platelet Count 373 LAB MPV 9.0-12.7 fL MPV 11.1 LAB ABSNUC <0.01 k/uL Absolute nRBC <0.01 Performed By: #### CBC, CMP #### [facility] [place], [place] [address] COMP METABOLIC PANEL Collected: 03/04/2018 Status: F Source: MURDO 4:08 PM [facility] REPOSITORY TYPE CODE TESTS RESULT OUT OF REFERENCE UNITS RANGE LAB TP 6.3-8.0 g/dL Protein, Total 7.7 LAB ALB 3.9-4.9 g/dL Albumin 4.3 LAB CA 8.5-10.2 mg/dL Calcium, High Total 10.5 LAB TBIL 0.2-1.3 mg/dL Bilirubin, Total 0.2 LAB ALKP 34-123 U/L Alkaline Phosphatase 101 LAB AST 13-35 U/L AST 13 LAB GLU 74-99 mg/dL Glucose High 118 Result Comment: The [place] Diabetes Association (ADA) provides guidance for cutoff values for fasting glucose and random glucose. The ADA defines fasting as no caloric intake for at least 8 hours. Fas ting plasma glucose results between 100 to 125 mg/dL indicate increased risk for diabetes (prediabetes). Fasting plasma glucose results greater than or equal to 126 mg/dL meet the criteria for diagnosis of diabetes. In the absence of unequivocal hyperglycemia, results should be confirmed by repeat testing. In a patient with classic symptoms of hyperglycemia or hyperglycemic crisis, random plasma glucose results greater than or equal to 200 mg/dL meet the criteria for diagnosis of diabetes. Reference: Standards of Medical Care in Diabetes 2016, [place] Diabetes Association. Diabetes Care. 2016.39(Suppl 1). LAB BUN 7-21 mg/dL BUN 18 LAB CRET 0.58-0.96 mg/dL Creatinine 0.90 LAB NA 136-144 mmol/L Sodium 142 LAB K 3.7-5.1 mmol/L Potassium Low 3.6 LAB CL 97-105 mmol/L Chloride 102 LAB CO2 22-30 mmol/L CO2 24 LAB AGAP 9-18 mmol/L Anion Gap 16 LAB ALT 7-38 U/L ALT 11 LAB GFRAA eGFR- Amer. >60 LAB GFRNAA . eGFR-All Other Races >60 Result Comment: eGFR (Estimated GFR) Units of measure: mL/min/1.73 meters squared eGFR is derived from the reexpressed MDRD Study equation using the following parameters: serum creatinine, age, gender and race. The creatinine assay has been calibrated to be traceable to IDMS. An eGFR <60 mL/min/1.73m2 for >3 months is consistent with chronic kidney disease. Refer to KDOQI guidelines for clinical interpretation. In patients with unstable renal function, e.g. those with acute kidney injury, the eGFR may not accurately reflect actual GFR. Performed By: #### CBC, CMP #### [facility] [employer] [address], [place] [address] TYPE AND SCREEN Collected: 03/04/2018 Status: F Source: MURDO 4:00 PM [facility] REPOSITORY TYPE CODE TESTS RESULT OUT OF REFERENCE UNITS RANGE LAB %ABR A ABO/RH(D) POSITIVE LAB % Antibody Screen POS LAB %[facility] Antibody Identified ANTIBODY REACTIVITY, No Apparent Specificity. Performed By: #### TSCR #### [facility] [address], [place] [address] RBC ANTIBODY INTERP Collected: 03/04/2018 Status: F Source: MURDO (LAB ORDERED) 4:00 PM [facility] REPOSITORY TYPE CODE TESTS RESULT OUT OF REFERENCE UNITS RANGE LAB ABINT Antibody (NOTE) Interp Result Comment: Antibodies to common clinically significant red cell antigens have been excluded. The patient demonstrates weak reactivity against 6 of 18 reagent red cells by gel test method. The observed reactivity shows no apparent specificity. Units for RBC transfusion must be compatible on the antiglobulin crossmatch which will provide a measure of safety with regard to the reactivity of no apparent specificity. Please allow about 2 hours for pretransfusion and compatibility testing. LAB BBPATH Physician Signed Review by Lana Hwang MD ([id number]) Performed By: #### ABINTB #### [facility] [employer] [address], [place] [address] HISTORY PHYSICAL Observed: 03/04/2018 Status: COMPLETED Source: MURDO 3:15 PM [facility] REPOSITORY HNO ID: [id number] Author: Bill Gr Service: (none) Author Type: Physician Type: HANDP Filed: 03/05/2018 8:27 AM Note Text: HISTORY AND PHYSICAL EXAMINATION ([facility]) SERVICE DATE: 03/04/2018 SERVICE TIME: 3:15 PM PRIMARY CARE PHYSICIAN: Elizabeth Dinh MD CHIEF COMPLAINT/HISTORY OF PRESENT ILLNESS: Ms. Cordero is a 62 year old female referred to me for preoperative evaluation. My final recommendations will be communicated back to the requesting physician/surgeon by the way of the shared medical record. Referring Surgeon: Dr. YODER Date of Surgery: 03/06/2018 Planned Surgery/Procedure: LAPAROSCOPY DIAGNOSTIC Indication for Planned Surgery / Procedure: colon mass Patient presents for perioeprative evaluation. Was seen and evaluated by [facility] today for transverse colon mass and possible peritonoeal carcinomatosis. Plans for diagnostic laparoscopy followed by possible Segmental colectomy possible diverting ileostomy. Biopsy on 02/14/18: showed Poorly differentiated carcinoma with neuroendocrine features undermining unremarkable colonic mucosa; favor adenocarcinoma with neuroendocrine differentiation. Per patient, this was routine work-up for anemia. Now scheduled for above surgery. Refer to Assessment section for details of any comorbidities. Patient is Able to Perform the Following Physical Activity: Climb a flight of stairs or walk up a hill (5.50 METs) Patient denies any chest pain or undue shortness of breath with the above physical activity. Patient's functional class is II based on self-reported physical activity. Significant Anesthesia Considerations: None. PAST MEDICAL/SURGICAL/FAMILY/SOCIAL HISTORY PAST MEDICAL HISTORY Diagnosis Date - Abnormal EKG RIGHT BUNDLE BRANCH BLOCK - Anxiety state, unspecified - Arrhythmia Dr. Chan-cardiology - Depressive disorder, not elsewhere classified - Diarrhea - Diverticulosis of colon (without mention of hemorrhage) - Esophageal reflux - Family history of malignant neoplasm of gastrointestinal tract family history of colon cancer - Goiter, unspecified Goiter - Internal hemorrhoids without mention of complication - LATERAL EPICONDYLITIS 04/27/2007 - Mixed hyperlipidemia Hyperlipidemia - Obesity, unspecified Obesity - Osteoarthrosis, unspecified whether generalized or localized, other specified sites - Osteopenia - Snoring - Tooth abscess - Type II or unspecified type diabetes mellitus without mention of complication, not stated as uncontrolled - Unspecified essential hypertension Essential hypertension - Unspecified hypothyroidism PAST SURGICAL HISTORY Procedure Laterality Date - APPENDECTOMY 07/24/1966 - CARPAL TUNNEL 2011 bilateral - [facility] DELIVERY 1986 , low cervical - COLONOSCOP W/ OR W/O [facility] SPEC 07/15/06 Repeat in -2011 - COLONOSCOP W/ OR W/O [facility] SPEC 12/26/2011 Colonoscopy - COLONOSCOP W/ OR W/O [facility] SPEC 01/07/2015 Colonoscopy - COLONOSCOP W/ OR W/O [facility] SPEC 02/14/2018 Colonoscopy - EGD W/O OR W/BRUSH/WASH 12/26/2011 EGD - EGD W/O OR W/BRUSH/WASH 02/14/2018 EGD - HYSTEROSCOPY, DIAGNOSTIC (SEPARATE 11/30/1993 Hysteroscopy - KNEE SCOPE,DIAGNOSTIC 04/29/2003 Arthroscopy, knee, left - PAST SURGICAL HISTORY OF SINUS SURGERY - PAST SURGICAL HISTORY OF 2010 EYE SURGERY- DROOPY LIDS - PAST SURGICAL HISTORY OF 03/11 right partial knee replacement - PAST SURGICAL HISTORY OF 01/08/12 left medial compartment unicompartmental knee arthroplasty - REMOVAL OF TONSILS,<12 Y/O 03/08/1961 Tonsillectomy AND adenoidectomy - SIGMOIDOSCOPY FLEX DIAG 5 YEARS AGO Sigmoidoscopy - THYROIDECTOMY 08/25/1992 left - THYROIDECTOMY 12/14/2003 right lobectomy - TOTAL ABDOM HYSTERECTOMY 03/29/1994 Hysterectomy, [facility] FAMILY HISTORY Problem Relation Age of Onset - Breast Cancer Mother - Heart Mother - Diabetes Mother - Colon Cancer Father - Heart Father - Diabetes Father - Colon Cancer Paternal Grandmother - Colon Cancer Paternal Grandfather SOCIAL HISTORYSocial History Marital status: Spouse name: Ivelisse Years of education: Number of children: 2 Occupational History 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[employer] Social History Main Topics Smoking status: Never Smoker Smokeless tobacco: Never Used Alcohol use: No Drug use: No Sexual activity: Yes Partners with: Male control/protection: Surgical Comment: [facility] MEDICATIONS/ALLERGIES Current Outpatient Prescriptions: metFORMIN (GLUCOPHAGE) 1,000 mg tablet TAKE 1 TABLET BY MOUTH TWICE A DAY WITH MEALS Disp: 180 tablet Rfl: 1 lansoprazole (PREVACID) 30 mg capsule TAKE 1 CAPSULE BY MOUTH ONCE DAILY Disp: 90 capsule Rfl: 1 verapamil ER (VERELAN) 120 mg 24 hr capsule TAKE 1 CAPSULE BY MOUTH ONCE DAILY Disp: 90 capsule Rfl: 1 lisinopril 2.5 mg tablet TAKE 1 TABLET BY MOUTH ONCE A DAY FOR BLOOD PRESSURE Disp: 90 tablet Rfl: 3 atorvastatin (LIPITOR) 80 mg tablet TAKE ONE-HALF TABLET BY MOUTH ONCE DAILY Disp: 45 tablet Rfl: 3 spironolactone-hctz 25/25 (ALDACTAZIDE) 25-25 mg per tablet TAKE 1 TABLET BY MOUTH ONCE DAILY Disp: 90 tablet Rfl: 1 sertraline (ZOLOFT) 100 mg tablet TAKE 1 TABLET BY MOUTH ONCE DAILY Disp: 90 tablet Rfl: 1 clotrimazole (LOTRIMIN, CLOTRIM) 1 % cream Apply 1 application to affected area twice daily. Disp: 30 g Rfl: 2 fluticasone (FLONASE) 50 mcg/actuation nasal spray Use 2 Sprays in each nostril once daily. Rinse mouth after use. Disp: 3 Bottle Rfl: 3 Oxymetazoline HCl 0.05 % mist Use 30 mL in the nose twice daily as needed. WEAN off Disp: Rfl: Cholecalciferol, Vitamin D3, 1,000 unit cap Take 1 capsule by mouth once daily. Disp: 100 capsule Rfl: 3 levothyroxine (SYNTHROID) 100 mcg ORAL tablet Take 1 tablet by mouth once daily. Disp: 90 tablet Rfl: 3 ASPIRIN 81 MG ORAL TAB Take one (1) tablet daily . Disp: Rfl: 0 peg 3350-electrolytes (COLYTE) 240-22.72-6.72 -5.84 gram solution Take 4,000 mL by mouth one time only for 1 dose. (Patient not taking: Reported on 03/04/2018 ) Disp: 1 Bottle Rfl: 0 neomycin 500 mg tablet Take 2 tablets by mouth at 9pm and take 2 tablets by mouth at 11pm the night before surgery. (Patient not taking: Reported on 03/04/2018 ) Disp: 4 tablet Rfl: 0 metroNIDAZOLE (FLAGYL) 500 mg tablet Take 1 tablet by mouth at 9pm and take 1 tablet by mouth at 11pm the night before surgery. (Patient not taking: Reported on 03/04/2018 ) Disp: 2 tablet Rfl: 0 montelukast (SINGULAIR) 10 mg tablet Take 1 tablet by mouth daily at bedtime. (Patient not taking: Reported on 03/04/2018 ) Disp: 30 tablet Rfl: 5 LORATADINE/PSEUDOEPHEDRINE (CLARITIN-D 24 HOUR ORAL) Take 1 tablet by mouth once daily. Disp: Rfl: blood sugar diagnostic (RELION CONFIRM-MICRO) test strip Use as instructed twice daily. (Patient not taking: Reported on 03/04/2018 ) Disp: 50 Strip Rfl: 11 Lancets lancets Relion Lancets. Test blood sugar(s) 2 times daily. Dx: 250.00. Insulin: No (Patient not taking: Reported on 03/04/2018 ) Disp: 100 Each Rfl: 11 Fgdwc3-VgkM0-Y42-E-FA-Fish Oil [id number] ut-iu-wdn-mcg cap Take 2 capsules by mouth once daily. (Patient not taking: Reported on 03/04/2018 ) Disp: 60 capsule Rfl: 11 Sod Lwa-Ejsuqatuj-Buig-Silica (FORDUSTIN) Powd Apply 1 application to affected area once daily. Apply in am to dried skin under breasts. (disp 1 bottle) (Patient not taking: Reported on 03/04/2018 ) Disp: 1 g Rfl: 0 No current facility-administered medications for this visit. ALLERGIES Allergen Reactions - Atenolol Mental Status Change fatigue - Depo-Medrol [Methyl* facial redness, elevated glucose - Ivp Dye [Iodine] Hives, Swelling occurred in the 70's. Had swelling and hives on arm only where IV was - Sulfa (Sulfonamide * Hives REVIEW OF SYSTEMS General: 20 lb weight loss unintentional. No fever Neuro: No history of TIA's, stroke, [place] [employer] tumor, impaired sensorium, hemiplegia, paraplegia or quadriplegia. No neurological symptoms or problems. Respiratory: No history of current cough or dyspnea, or pneumonia in the past 6 weeks. No history of respiratory/pulmonary symptoms or problems., Denies any asthma, COPD or SHEREEN. had use dinhaler once in the past for acute bronchitis. No recent cough or colds. No SOB. +seasonal allergies Cardiovascular: Hypertension requiring meds, Denies any CAD/IL/stents/CHF/VTE/chest pain. +Chronic RBBB GI: Colon mass-see HPI. No n/v/abd pain.+GERD. Denies any liver problems : No history of UTI in past 6 weeks. No history of renal failure. Not currently on or requiring dialysis. No history of symptoms or problems. SENIOR QUALITY TECHNICIAN: LMP: s/p hysterectomy Endocrine: Diabetes Mellitus on oral agent, Hypothyroidism, No signifcant steroid us ein the past one year (just took steroid for contrast allergy for CT scan-1 day course) Hematology: Anemia, No bleeding or clotting d/o. Not on blood thinners. 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 PHYSICAL EXAM VITALS: BP 117/69 Pulse 70 Temp (Src) 99.2 (Oral) Ht 5' 4 (1.63m) Wt 213 lb 9.6 oz (96.9kg) SpO2 97% BMI 36.65 kg/(m2). General: Alert, oriented, cooperative Skin: Normal color, no rash, no lesions. HEENT: teeth in good repair. Pupils equal, round and reactive. Cardiovascular: Normal S1 AND S2, no rubs, murmurs or gallops. Pulse regular. Lungs: Normal breath sounds, no wheezes or crackles. Abdomen: Soft, non-tender, no rigidity. Extremities: No deformity, no edema or tenderness, no joint swelling or clubbing. Neurological: Alert, Normal cognition and motor skills. Pulses: Radial pulses, B. +2. No carotid bruit ASSESSMENT Ms. Cordero is a 62 year old female referred to me for preoperative evaluation. Patient has the following medical comorbidities which might affect the perioperative course: - Anemia due to iron deficiency. - Type II Diabetes with no complications. Patient is on oral medications. - Hypertension, well controlled. - Obesity related to unspecified. Body mass index is 36.66 kg/m?. - Hx of chronic RBBB, stable, negative stress test Patient's RCRI (Revised Cardiac Risk Index: CAD/CHF/Stroke or TIA/SCr>2/DM on Insulin/High Risk Surgery) score is 1 and is at low risk for major adverse cardiac events in the perioperative period. OTHER ASSESSMENT - Anxiety state, unspecified - Esophageal reflux - Colon mass/adenoCA-for surgery - Unspecified hypothyroidism Diagnostic tests reviewed for today's visit: Component Latest Ref Rng AND Units 02/14/2018 WBC 3.70 - 11.00 k/uL 7.68 RBC 3.90 - 5.20 m/uL 4.03 Hemoglobin 11.5 - 15.5 g/dL 8.8 (L) Hematocrit 36.0 - 46.0 % 30.4 (L) MCV 80.0 - 100.0 fL 75.4 (L) MCH 26.0 - 34.0 pG 21.8 (L) MCHC 30.5 - 36.0 g/dL 28.9 (L) RDW-CV 11.5 - 15.0 % 19.6 (H) Platelet Count 150 - 400 k/uL 339 MPV 9.0 - 12.7 fL 10.5 Neut% % 70.8 Abs Neut (ANC) 1.45 - 7.50 k/uL 5.44 Lymph% % 21.1 Abs Lymph 1.00 - 4.00 k/uL 1.62 Lancaster% % 5.9 Abs Lancaster <0.87 k/uL 0.45 Eosin% % 1.8 Abs Eosin <0.46 k/uL 0.14 Baso% % 0.4 Abs Baso <0.11 k/uL 0.03 Nucleated Reds 0 /100 WBC 0.0 Absolute nRBC <0.01 k/uL <0.01 Diff Type Auto Diff Protein, Total 6.3 - 8.0 g/dL 6.7 Albumin 3.9 - 4.9 g/dL 3.9 Calcium 8.5 - 10.2 mg/dL 10.2 Bilirubin, Total 0.2 - 1.3 mg/dL 0.2 Alkaline Phosphatase 34 - 123 U/L 95 AST 13 - 35 U/L 11 (L) Glucose 74 - 99 mg/dL 139 (H) BUN 7 - 21 mg/dL 14 Creatinine 0.58 - 0.96 mg/dL 0.87 Sodium 136 - 144 mmol/L 138 Potassium 3.7 - 5.1 mmol/L 3.9 Chloride 97 - 105 mmol/L 103 CO2 22 - 30 mmol/L 28 Anion Gap mmol/L 7 ALT 7 - 38 U/L 10 eGFR- >60 eGFR-All Other Races . >60 CEA 0.0 - 2.9 ng/mL 4.0 (H) EKG March 04, 2018 Diagnosis:NORMAL SINUS RHYTHM COMPLETE RIGHT BUNDLE BRANCH BLOCK INFERIOR MYOCARDIAL INFARCTION , AGE UNDETERMINED EKG 03/2011: Diagnosis:SINUS RHYTHM WITH FREQUENT PREMATURE VENTRICULAR COMPLEXES RATE RELATED ?COMPLETE RIGHT BUNDLE BRANCH BLOCK POSSIBLE INFERIOR MYOCARDIAL INFARCTION , AGE UNDETERMINED OSH Stress test 10/17/17: Normal myocardial perfusion stress test EF 82% Stress echo 2007: STRESS ECHO RESULTS ?The left ventricular cavity size is decreased with stress and all segments ?augment normally. The LVEF increased to 80%. The stress echo results are negative for ischemia. CONCLUSIONS Hyperdynamic resting LV systolic function. Nonstenotic valves. STRESS ECHO CONCLUSIONS Negative for ischemia at 89% of MPHR and at 6.8 METS. PLAN/RECOMMENDATIONS CARDIAC: Patient is at optimal cardiac condition for scheduled surgery / procedure. Continue the following medications uninterrupted in the perioperative period: verapamil PULMONARY: Suggest the following in the post-operative period: Aggressive bronchopulmonary hygiene and Early ambulation ENDOCRINE: DIABETES: - Initiate [facility] Guidelines for perioperative diabetes management. Check finger stick glucose on the morning of surgery. - Patient has been instructed on Preoperative DM medication management. HEMATOLOGY: Transfuse as needed. CBC pending DVT prophylaxis post-op Patient is optimally prepared for surgery pending labs Patient Instructions: As per patient instructions section. General Preoperative/Medication/Fasting Instructions Preoperative Diabetes Medication Instructions I have discussed the above recommendations with the patient in detail, in ramy and lay terms, and provided a written summary of instructions as needed. We have discussed that no surgery is without risk, but that the goal of preoperative assessment is to optimize that risk, and that was clearly understood by the patient. I have given ample opportunity for the patient to ask questions, and answered all questions to their stated satisfaction. ADDENDUM: Pre-op lab results reviewed and are within acceptable range for surgery. Patient is optimized for surgery. SIGNATURE: Bill Gr MD, [facility], PATIENT NAME: Anne Cordero DATE: March 04, 2018 TIME: 3:15 PM PROGRESS Observed: 03/04/2018 Status: COMPLETED Source: [place] 2:54 PM [facility] REPOSITORY HNO ID: [id number] Author: Erin Ramos Service: (none) Author Type: (none) Type: Progress Notes Filed: 03/04/2018 3:42 PM Note Text: Anne Cordero is a 62 year old female here today for visit in [facility] Referring Surgeon: Dr. YODER Date of Surgery: 03/06/2018 Planned Surgery/Procedure: LAPAROSCOPY DIAGNOSTIC Allergies have been reviewed and verified. They include the following: Atenolol; Depo-Medrol [Methylprednisolone Acetate]; Ivp Dye [Iodine]; Sulfa (Sulfonamide Antibiotics) Social History Substance Use Topics - Smoking status: Never Smoker - Smokeless tobacco: Never Used - Alcohol use No Medications reviewed and updated: Yes Erin Ramos CNOV Observed: 03/04/2018 Status: COMPLETED Source: [place] 2:45 PM [facility] REPOSITORY Office Visit ([facility]) ANNE CORDERO ([id number]) 1955 F Date Time Provider Department 03/04/18 2:45 PM BILL GR During your visit today, we recorded the following information about you: Temperature Pulse Blood pressure Weight 99.2 degrees 70/minute 117/69 96.9 kg Height 1.626 m Erin Ramos 03/04/2018 3:42 PM Signed Anne Cordero is a 62 year old female here today for visit in [facility] Referring Surgeon: Dr. YODER Date of Surgery: 03/06/2018 Planned Surgery/Procedure: LAPAROSCOPY DIAGNOSTIC Allergies have been reviewed and verified. They include the following: Atenolol; Depo-Medrol [Methylprednisolone Acetate]; Ivp Dye [Iodine]; Sulfa (Sulfonamide Antibiotics) Social History Substance Use Topics - Smoking status: Never Smoker - Smokeless tobacco: Never Used - Alcohol use No Medications reviewed and updated: Yes Erin Gr MD, [facility], 03/05/2018 8:27 AM Addendum HISTORY AND PHYSICAL EXAMINATION (IMPACT) SERVICE DATE: 03/04/2018 SERVICE TIME: 3:15 PM PRIMARY CARE PHYSICIAN: Elizabeth Dinh MD CHIEF COMPLAINT/HISTORY OF PRESENT ILLNESS: Ms. Cordero is a 62 year old female referred to me for preoperative evaluation. My final recommendations will be communicated back to the requesting physician/surgeon by the way of the shared medical record. Referring Surgeon: Dr. YODER Date of Surgery: 03/06/2018 Planned Surgery/Procedure: LAPAROSCOPY DIAGNOSTIC Indication for Planned Surgery / Procedure: colon mass Patient presents for perioeprative evaluation. Was seen and evaluated by [facility] today for transverse colon mass and possible peritonoeal carcinomatosis. Plans for diagnostic laparoscopy followed by possible Segmental colectomy possible diverting ileostomy. Biopsy on 02/14/18: showed Poorly differentiated carcinoma with neuroendocrine features undermining unremarkable colonic mucosa; favor adenocarcinoma with neuroendocrine differentiation. Per patient, this was routine work-up for anemia. Now scheduled for above surgery. Refer to Assessment section for details of any comorbidities. Patient is Able to Perform the Following Physical Activity: Climb a flight of stairs or walk up a hill (5.50 METs) Patient denies any chest pain or undue shortness of breath with the above physical activity. Patient's functional class is II based on self-reported physical activity. Significant Anesthesia Considerations: None. PAST MEDICAL/SURGICAL/FAMILY/SOCIAL HISTORY PAST MEDICAL HISTORY Diagnosis Date - Abnormal EKG RIGHT BUNDLE BRANCH BLOCK - Anxiety state, unspecified - Arrhythmia Dr. Chan-cardiology - Depressive disorder, not elsewhere classified - Diarrhea - Diverticulosis of colon (without mention of hemorrhage) - Esophageal reflux - Family history of malignant neoplasm of gastrointestinal tract family history of colon cancer - Goiter, unspecified Goiter - Internal hemorrhoids without mention of complication - LATERAL EPICONDYLITIS 04/27/2007 - Mixed hyperlipidemia Hyperlipidemia - Obesity, unspecified Obesity - Osteoarthrosis, unspecified whether generalized or localized, other specified sites - Osteopenia - Snoring - Tooth abscess - Type II or unspecified type diabetes mellitus without mention of complication, not stated as uncontrolled - Unspecified essential hypertension Essential hypertension - Unspecified hypothyroidism PAST SURGICAL HISTORY Procedure Laterality Date - APPENDECTOMY 07/24/1966 - CARPAL TUNNEL 2011 bilateral - [facility] DELIVERY 1981, 1986 , low cervical - COLONOSCOP W/ OR W/O [facility] SPEC 07/15/06 Repeat in -2011 - COLONOSCOP W/ OR W/O [facility] SPEC 12/26/2011 Colonoscopy - COLONOSCOP W/ OR W/O [facility] SPEC 01/07/2015 Colonoscopy - COLONOSCOP W/ OR W/O [facility] SPEC 02/14/2018 Colonoscopy - EGD W/O OR W/BRUSH/WASH 12/26/2011 EGD - EGD W/O OR W/BRUSH/WASH 02/14/2018 EGD - HYSTEROSCOPY, DIAGNOSTIC (SEPARATE 11/30/1993 Hysteroscopy - KNEE SCOPE,DIAGNOSTIC 04/29/2003 Arthroscopy, knee, left - PAST SURGICAL HISTORY OF SINUS SURGERY - PAST SURGICAL HISTORY OF 2010 EYE SURGERY- DROOPY LIDS - PAST SURGICAL HISTORY OF 03/11 right partial knee replacement - PAST SURGICAL HISTORY OF 01/08/12 left medial compartment unicompartmental knee arthroplasty - REMOVAL OF TONSILS,<12 Y/O 03/08/1961 Tonsillectomy AND adenoidectomy - SIGMOIDOSCOPY FLEX DIAG 5 YEARS AGO Sigmoidoscopy - THYROIDECTOMY 08/25/1992 left - THYROIDECTOMY 12/14/2003 right lobectomy - TOTAL ABDOM HYSTERECTOMY 03/29/1994 Hysterectomy, [facility] FAMILY HISTORY Problem Relation Age of Onset - Breast Cancer Mother - Heart Mother - Diabetes Mother - Colon Cancer Father - Heart Father - Diabetes Father - Colon Cancer Paternal Grandmother - Colon Cancer Paternal Grandfather SOCIAL HISTORYSocial History Marital status: Spouse name: Ivelisse Years of education: Number of children: 2 Occupational History 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[employer] Social History Main Topics Smoking status: Never Smoker Smokeless tobacco: Never Used Alcohol use: No Drug use: No Sexual activity: Yes Partners with: Male control/protection: Surgical Comment: [facility] MEDICATIONS/ALLERGIES Current Outpatient Prescriptions: metFORMIN (GLUCOPHAGE) 1,000 mg tablet TAKE 1 TABLET BY MOUTH TWICE A DAY WITH MEALS Disp: 180 tablet Rfl: 1 lansoprazole (PREVACID) 30 mg capsule TAKE 1 CAPSULE BY MOUTH ONCE DAILY Disp: 90 capsule Rfl: 1 verapamil ER (VERELAN) 120 mg 24 hr capsule TAKE 1 CAPSULE BY MOUTH ONCE DAILY Disp: 90 capsule Rfl: 1 lisinopril 2.5 mg tablet TAKE 1 TABLET BY MOUTH ONCE A DAY FOR BLOOD PRESSURE Disp: 90 tablet Rfl: 3 atorvastatin (LIPITOR) 80 mg tablet TAKE ONE-HALF TABLET BY MOUTH ONCE DAILY Disp: 45 tablet Rfl: 3 spironolactone-hctz 25/25 (ALDACTAZIDE) 25-25 mg per tablet TAKE 1 TABLET BY MOUTH ONCE DAILY Disp: 90 tablet Rfl: 1 sertraline (ZOLOFT) 100 mg tablet TAKE 1 TABLET BY MOUTH ONCE DAILY Disp: 90 tablet Rfl: 1 clotrimazole (LOTRIMIN, CLOTRIM) 1 % cream Apply 1 application to affected area twice daily. Disp: 30 g Rfl: 2 fluticasone (FLONASE) 50 mcg/actuation nasal spray Use 2 Sprays in each nostril once daily. Rinse mouth after use. Disp: 3 Bottle Rfl: 3 Oxymetazoline HCl 0.05 % mist Use 30 mL in the nose twice daily as needed. WEAN off Disp: Rfl: Cholecalciferol, Vitamin D3, 1,000 unit cap Take 1 capsule by mouth once daily. Disp: 100 capsule Rfl: 3 levothyroxine (SYNTHROID) 100 mcg ORAL tablet Take 1 tablet by mouth once daily. Disp: 90 tablet Rfl: 3 ASPIRIN 81 MG ORAL TAB Take one (1) tablet daily . Disp: Rfl: 0 peg 3350-electrolytes (COLYTE) 240-22.72-6.72 -5.84 gram solution Take 4,000 mL by mouth one time only for 1 dose. (Patient not taking: Reported on 03/04/2018 ) Disp: 1 Bottle Rfl: 0 neomycin 500 mg tablet Take 2 tablets by mouth at 9pm and take 2 tablets by mouth at 11pm the night before surgery. (Patient not taking: Reported on 03/04/2018 ) Disp: 4 tablet Rfl: 0 metroNIDAZOLE (FLAGYL) 500 mg tablet Take 1 tablet by mouth at 9pm and take 1 tablet by mouth at 11pm the night before surgery. (Patient not taking: Reported on 03/04/2018 ) Disp: 2 tablet Rfl: 0 montelukast (SINGULAIR) 10 mg tablet Take 1 tablet by mouth daily at bedtime. (Patient not taking: Reported on 03/04/2018 ) Disp: 30 tablet Rfl: 5 LORATADINE/PSEUDOEPHEDRINE (CLARITIN-D 24 HOUR ORAL) Take 1 tablet by mouth once daily. Disp: Rfl: blood sugar diagnostic (RELION CONFIRM-MICRO) test strip Use as instructed twice daily. (Patient not taking: Reported on 03/04/2018 ) Disp: 50 Strip Rfl: 11 Lancets lancets Relion Lancets. Test blood sugar(s) 2 times daily. Dx: 250.00. Insulin: No (Patient not taking: Reported on 03/04/2018 ) Disp: 100 Each Rfl: 11 Jazdp5-FyrJ2-E35-E-FA-Fish Oil [id number] le-qa-tow-mcg cap Take 2 capsules by mouth once daily. (Patient not taking: Reported on 03/04/2018 ) Disp: 60 capsule Rfl: 11 Sod Uys-Qqrdzjtyn-Kkzp-Silica (FORDUSTIN) Powd Apply 1 application to affected area once daily. Apply in am to dried skin under breasts. (disp 1 bottle) (Patient not taking: Reported on 03/04/2018 ) Disp: 1 g Rfl: 0 No current facility-administered medications for this visit. ALLERGIES Allergen Reactions - Atenolol Mental Status Change fatigue - Depo-Medrol [Methyl* facial redness, elevated glucose - Ivp Dye [Iodine] Hives, Swelling occurred in the 70's. Had swelling and hives on arm only where IV was - Sulfa (Sulfonamide * Hives REVIEW OF SYSTEMS General: 20 lb weight loss unintentional. No fever Neuro: No history of TIA's, stroke, [place] [employer] tumor, impaired sensorium, hemiplegia, paraplegia or quadriplegia. No neurological symptoms or problems. Respiratory: No history of current cough or dyspnea, or pneumonia in the past 6 weeks. No history of respiratory/pulmonary symptoms or problems., Denies any asthma, COPD or SHEREEN. had use dinhaler once in the past for acute bronchitis. No recent cough or colds. No SOB. +seasonal allergies Cardiovascular: Hypertension requiring meds, Denies any CAD/IL/stents/CHF/VTE/chest pain. +Chronic RBBB GI: Colon mass-see HPI. No n/v/abd pain.+GERD. Denies any liver problems : No history of UTI in past 6 weeks. No history of renal failure. Not currently on or requiring dialysis. No history of symptoms or problems. SENIOR QUALITY TECHNICIAN: LMP: s/p hysterectomy Endocrine: Diabetes Mellitus on oral agent, Hypothyroidism, No signifcant steroid us ein the past one year (just took steroid for contrast allergy for CT scan-1 day course) Hematology: Anemia, No bleeding or clotting d/o. Not on blood thinners. 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 PHYSICAL EXAM VITALS: BP 117/69 Pulse 70 Temp (Src) 99.2 (Oral) Ht 5' 4 (1.63m) Wt 213 lb 9.6 oz (96.9kg) SpO2 97% BMI 36.65 kg/(m2). General: Alert, oriented, cooperative Skin: Normal color, no rash, no lesions. HEENT: teeth in good repair. Pupils equal, round and reactive. Cardiovascular: Normal S1 AND S2, no rubs, murmurs or gallops. Pulse regular. Lungs: Normal breath sounds, no wheezes or crackles. Abdomen: Soft, non-tender, no rigidity. Extremities: No deformity, no edema or tenderness, no joint swelling or clubbing. Neurological: Alert, Normal cognition and motor skills. Pulses: Radial pulses, B. +2. No carotid bruit ASSESSMENT Ms. Cordero is a 62 year old female referred to me for preoperative evaluation. Patient has the following medical comorbidities which might affect the perioperative course: - Anemia due to iron deficiency. - Type II Diabetes with no complications. Patient is on oral medications. - Hypertension, well controlled. - Obesity related to unspecified. Body mass index is 36.66 kg/m?. - Hx of chronic RBBB, stable, negative stress test Patient's RCRI (Revised Cardiac Risk Index: CAD/CHF/Stroke or TIA/SCr>2/DM on Insulin/High Risk Surgery) score is 1 and is at low risk for major adverse cardiac events in the perioperative period. OTHER ASSESSMENT - Anxiety state, unspecified - Esophageal reflux - Colon mass/adenoCA-for surgery - Unspecified hypothyroidism Diagnostic tests reviewed for today's visit: Component Latest Ref Rng AND Units 02/14/2018 WBC 3.70 - 11.00 k/uL 7.68 RBC 3.90 - 5.20 m/uL 4.03 Hemoglobin 11.5 - 15.5 g/dL 8.8 (L) Hematocrit 36.0 - 46.0 % 30.4 (L) MCV 80.0 - 100.0 fL 75.4 (L) MCH 26.0 - 34.0 pG 21.8 (L) MCHC 30.5 - 36.0 g/dL 28.9 (L) RDW-CV 11.5 - 15.0 % 19.6 (H) Platelet Count 150 - 400 k/uL 339 MPV 9.0 - 12.7 fL 10.5 Neut% % 70.8 Abs Neut (ANC) 1.45 - 7.50 k/uL 5.44 Lymph% % 21.1 Abs Lymph 1.00 - 4.00 k/uL 1.62 Lancaster% % 5.9 Abs Lancaster <0.87 k/uL 0.45 Eosin% % 1.8 Abs Eosin <0.46 k/uL 0.14 Baso% % 0.4 Abs Baso <0.11 k/uL 0.03 Nucleated Reds 0 /100 WBC 0.0 Absolute nRBC <0.01 k/uL <0.01 Diff Type Auto Diff Protein, Total 6.3 - 8.0 g/dL 6.7 Albumin 3.9 - 4.9 g/dL 3.9 Calcium 8.5 - 10.2 mg/dL 10.2 Bilirubin, Total 0.2 - 1.3 mg/dL 0.2 Alkaline Phosphatase 34 - 123 U/L 95 AST 13 - 35 U/L 11 (L) Glucose 74 - 99 mg/dL 139 (H) BUN 7 - 21 mg/dL 14 Creatinine 0.58 - 0.96 mg/dL 0.87 Sodium 136 - 144 mmol/L 138 Potassium 3.7 - 5.1 mmol/L 3.9 Chloride 97 - 105 mmol/L 103 CO2 22 - 30 mmol/L 28 Anion Gap mmol/L 7 ALT 7 - 38 U/L 10 eGFR- >60 eGFR-All Other Races . >60 CEA 0.0 - 2.9 ng/mL 4.0 (H) EKG March 04, 2018 Diagnosis:NORMAL SINUS RHYTHM COMPLETE RIGHT BUNDLE BRANCH BLOCK INFERIOR MYOCARDIAL INFARCTION , AGE UNDETERMINED EKG 03/2011: Diagnosis:SINUS RHYTHM WITH FREQUENT PREMATURE VENTRICULAR COMPLEXES RATE RELATED ?COMPLETE RIGHT BUNDLE BRANCH BLOCK POSSIBLE INFERIOR MYOCARDIAL INFARCTION , AGE UNDETERMINED OSH Stress test 10/17/17: Normal myocardial perfusion stress test EF 82% Stress echo 2007: STRESS ECHO RESULTS ?The left ventricular cavity size is decreased with stress and all segments ?augment normally. The LVEF increased to 80%. The stress echo results are negative for ischemia. CONCLUSIONS Hyperdynamic resting LV systolic function. Nonstenotic valves. STRESS ECHO CONCLUSIONS Negative for ischemia at 89% of MPHR and at 6.8 METS. PLAN/RECOMMENDATIONS CARDIAC: Patient is at optimal cardiac condition for scheduled surgery / procedure. Continue the following medications uninterrupted in the perioperative period: verapamil PULMONARY: Suggest the following in the post-operative period: Aggressive bronchopulmonary hygiene and Early ambulation ENDOCRINE: DIABETES: - Initiate [facility] Guidelines for perioperative diabetes management. Check finger stick glucose on the morning of surgery. - Patient has been instructed on Preoperative DM medication management. HEMATOLOGY: Transfuse as needed. CBC pending DVT prophylaxis post-op Patient is optimally prepared for surgery pending labs Patient Instructions: As per patient instructions section. General Preoperative/Medication/Fasting Instructions Preoperative Diabetes Medication Instructions I have discussed the above recommendations with the patient in detail, in ramy and lay terms, and provided a written summary of instructions as needed. We have discussed that no surgery is without risk, but that the goal of preoperative assessment is to optimize that risk, and that was clearly understood by the patient. I have given ample opportunity for the patient to ask questions, and answered all questions to their stated satisfaction. ADDENDUM: Pre-op lab results reviewed and are within acceptable range for surgery. Patient is optimized for surgery. SIGNATURE: Bill Gr MD, FACP, PATIENT NAME: Anne Cordero DATE: March 04, 2018 TIME: 3:15 PM Bill Gr MD, FACP, 03/04/2018 3:27 PM Addendum [facility] Patient Instructions for Surgery FOOD INSTRUCTIONS: NO solid food or non-clear liquids for 8 hours prior to the arrival time for your surgery. Unless you are instructed otherwise, you are allowed to drink up to 12 ounces of clear liquids (e.g. water, black tea/coffee, fruit juice without pulp, Darnell Lopez, etc.) up until 2 hours prior to the arrival time for surgery. MEDICATION INSTRUCTIONS: Prior to Surgery: Do not take the following medications for 7 days prior to surgery: - any NSAID's (e.g. Motrin, Aleve, Arthrotec, Naproxen,etc) - any herbal preparations - Aspirin or aspirin containing products Do not take any Vitamin E / multivitamins for 10-14 days before surgery You are allowed to take Tylenol if needed until the day of surgery. MEDICATION INSTRUCTIONS: Day/Morning of Surgery: The following medications should be taken with sips of water: levothyroxine, prevacid, verapamil Tylenol, if needed for pain, can be taken on morning of surgery. DIABETES MANAGEMENT INSTRUCTIONS: Eat a usual diet until the day prior to surgery unless indicated by your surgeon/physician. If your blood sugar is below 70 mg/dl at any time, treat with ? cup of apple juice or darnell lopez, or 4 glucose tabs or 1 tube of oral glucose gel. MEDICATION INSTRUCTIONS: Prior to Surgery: ? Continue all diabetic pills as scheduled including the evening prior to surgery. MEDICATION INSTRUCTIONS: Day/Morning of Surgery: ? Do not take your Diabetic pills. If you have any questions or concerns regarding today's visit please do not hesitate to contact the [facility] at [phone] or [phone], ext [phone]. Signature: Bill Gr MD, FACP, [facility] Date: March 04, 2018 Referring Provider: JUSTINA CONSTANTINO [[id number]] Allergies As of Date: 03/04/2018 Noted Allergy Reaction ATENOLOL 03/07/2011 1 - Mental Status Change Comments: fatigue DEPO-MEDROL (METHYLPREDNISOLONE A*03/01/2005 Comments: facial redness, elevated glucose IVP DYE (IODINE) 03/01/2005 4 - Hives 7 - Swelling Comments: occurred in the 70's. Had swelling and hives on arm only where IV was SULFA (SULFONAMIDE ANTIBIOTICS) 03/01/2005 4 - Hives Date Reviewed: 03/04/2018 Reviewed by: Erin Ramos - Fully Assessed Primary Visit Diagnosis:Pre-operative examination [Z01.818] Other Visit Diagnoses:Colonic mass [K63.9] Type 2 diabetes mellitus without complication, without long-term current use of insulin (HCC) [E11.9] Essential hypertension [I10] Gastroesophageal reflux disease, esophagitis presence not specified [K21.9] Acquired hypothyroidism [E03.9] Obesity, Class II, BMI 35-39.9 [E66.9] Prescriptions as of 03/04/2018 Sig: METFORMIN 1,000 MG TABLET TAKE 1 TABLET BY MOUTH TWICE* LANSOPRAZOLE 30 MG CAPSULE,DE* TAKE 1 CAPSULE BY MOUTH ONCE* VERAPAMIL ER 120 MG 24 HR CAP* TAKE 1 CAPSULE BY MOUTH ONCE* LISINOPRIL 2.5 MG TABLET TAKE 1 TABLET BY MOUTH ONCE A* ATORVASTATIN 80 MG TABLET TAKE ONE-HALF TABLET BY MOUT* SPIRONOLACTONE 25 MG-HYDROCHL* TAKE 1 TABLET BY MOUTH ONCE D* SERTRALINE 100 MG TABLET TAKE 1 TABLET BY MOUTH ONCE D* CLOTRIMAZOLE 1 % TOPICAL CREAM Apply 1 application to affect* FLUTICASONE 50 MCG/ACTUATION * Use 2 Sprays in each nostril * OXYMETAZOLINE 0.05 % NASAL IL* Use 30 mL in the nose twice d* CHOLECALCIFEROL (VITAMIN D3) * Take 1 capsule by mouth once * LEVOTHYROXINE 100 MCG TABLET Take 1 tablet by mouth once d* * ASPIRIN 81 MG TABLET Take one (1) tablet daily . PEG 3350 240 GRAM-ELECTROLYTE* Take 4,000 mL by mouth one ti* Patient not taking: Reported on 03/04/2018 NEOMYCIN 500 MG TABLET Take 2 tablets by mouth at 9p* Patient not taking: Reported on 03/04/2018 METRONIDAZOLE 500 MG TABLET Take 1 tablet by mouth at 9pm* Patient not taking: Reported on 03/04/2018 MONTELUKAST 10 MG TABLET Take 1 tablet by mouth daily * Patient not taking: Reported on 03/04/2018 CLARITIN-D 24 HOUR ORAL Take 1 tablet by mouth once d* BLOOD SUGAR DIAGNOSTIC STRIPS Use as instructed twice daily. Patient not taking: Reported on 03/04/2018 LANCETS Relion Lancets. 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 Essential hypertension [I10] INVALID FOR* More... Mixed hyperlipidemia [E78.2] INVALID FOR* More... Unspecified asthma(493.90) [J45.909] INVALID FOR*04/10/2017 More... Primary osteoarthritis involving multiple joint*INVALID FOR* RIGHT AXILLARY PAIN [R07.9] INVALID FOR*01/25/2011 FAMILY HX COLON CANCER [Z80.0] INVALID FOR* More... Esophageal reflux [K21.9] More... Anxiety [F41.9] Recurrent major depressive disorder, in full re* 04/10/2017 More... Hypopotassemia [E87.6] INVALID FOR*02/18/2013 More... OSTEOARTHROS NOS-L/LEG [M17.10] INVALID FOR* Lateral epicondylitis of elbow [M77.10] INVALID FOR*02/18/2013 Hypothyroidism [E03.9] INVALID FOR* More... PVC's [I49.49] INVALID FOR* Shoulder bursitis [M75.50] INVALID FOR*02/18/2013 Allergy to environmental factors [Z91.09] INVALID FOR* Special screening for malignant neoplasms, colo*INVALID FOR*01/07/2015 Colon cancer (HCC) [C18.9] INVALID FOR* More... Obesity, Class II, BMI 35-39.9 [E66.9] INVALID FOR* Other instructions from your clinician: [facility] Patient Instructions for Surgery FOOD INSTRUCTIONS: NO solid food or non-clear liquids for 8 hours prior to the arrival time for your surgery. Unless you are instructed otherwise, you are allowed to drink up to 12 ounces of clear liquids (e.g. water, black tea/coffee, fruit juice without pulp, Darnell Lopez, etc.) up until 2 hours prior to the arrival time for surgery. MEDICATION INSTRUCTIONS: Prior to Surgery: Do not take the following medications for 7 days prior to surgery: - any NSAID's (e.g. Motrin, Aleve, Arthrotec, Naproxen,etc) - any herbal preparations - Aspirin or aspirin containing products Do not take any Vitamin E / multivitamins for 10-14 days before surgery You are allowed to take Tylenol if needed until the day of surgery. MEDICATION INSTRUCTIONS: Day/Morning of Surgery: The following medications should be taken with sips of water: levothyroxine, prevacid, verapamil Tylenol, if needed for pain, can be taken on morning of surgery. DIABETES MANAGEMENT INSTRUCTIONS: Eat a usual diet until the day prior to surgery unless indicated by your surgeon/physician. If your blood sugar is below 70 mg/dl at any time, treat with ? cup of apple juice or darnell lopez, or 4 glucose tabs or 1 tube of oral glucose gel. MEDICATION INSTRUCTIONS: Prior to Surgery: ? Continue all diabetic pills as scheduled including the evening prior to surgery. MEDICATION INSTRUCTIONS: Day/Morning of Surgery: ? Do not take your Diabetic pills. If you have any questions or concerns regarding today's visit please do not hesitate to contact the [facility] at [phone] or [phone], ext [phone]. Signature: Bill Gr MD, FACP, [facility] Date: March 04, 2018 Medications Discontinued During This Encounter predniSONE (DELTASONE) 50 mg tab 3 ta* 0 02/14/2018 03/04/2018 Class: Print RX Route: ORAL Sig: Take 1 tablet by mouth three times daily. Patient not taking: Reported on 03/04/2018 Disc: Course of therapy completed levothyroxine (SYNTHROID) 100 mcg ta* 90 t* 3 11/06/2017 03/04/2018 Route: ORAL Sig: Take 1 tablet by mouth once daily. on an empty stomach 1/2 hour before meal. Disc: Duplicate Entry Encounter Status:Closed by JOSE GR [facility] BILL Rodriguez MD on 03/04/18 ECG COMPLETE W Observed: 03/04/2018 Status: F Source: [facility] INTERPRETATION 2:40 PM [facility] REPOSITORY NAME : ANNE CORDERO PID : [id number] : 1955 Gender : Female Race : ORD : [id number] Procedure Date : Mar 04 2018 14:40:20 Edit Date : Mar 10 2018 15:52:47 Diagnosis:NORMAL SINUS RHYTHM COMPLETE RIGHT BUNDLE BRANCH BLOCK ABNORMAL ECG Confirmed by DEVEN ALMEIDA M.D. ([id number]) on 03/10/2018 3:52:34 PM Ventricular Rate : 81 BPM Atrial Rate : 81 BPM P-R Interval : 174 ms QRS Duration : 144 ms Q-T Interval : 404 ms QTC Calculation(Bezet) : 469 ms P [place] : 41 degrees R [place] : -8 degrees T [place] : 14 degrees Test Reason : Location : 119 : A17 A17 Overread By : DEVEN ALMEIDA M.D. Edited By : DEVEN ALMEIDA M.D. Referred By : KING YODER Acquired by : YAA MONTOYA Observed: 03/04/2018 Status: COMPLETED Source: [facility] 12:30 PM [facility] REPOSITORY Office Visit (DERRICK) ANNE CORDERO ([id number]) 1955 F Date Time Provider Department 03/04/18 12:30 PM KING YODER During your visit today, we recorded the following information about you: Temperature Pulse Respiration Blood pressure 99.3 degrees 91/minute 18/minute 127/72 Weight Height 96.6 kg 1.626 m King Yoder MD 03/04/2018 3:00 PM Signed New Patient Consult REASON FOR VISIT Anne Cordero is a 62 year old female who is scheduled for a consult at the request of Praful Pathak for No chief complaint on file.. My final recommendations will be communicated back to the requesting physician by the way of the shared medical record, fax, or via US Mail History of Present Illness: Here to discuss recent mass seen in her distal transverse colon on surveillance colonoscopy in January. Has had scopes in the past which had picked up polyps. Has been found to be anemic which prompted her most recent scope. Imaging studies are suggestive on possible peritoneal mets 02/19/[address] evidence of acute abnormality. 02/17/2018 CT a/p Irregular wall thickening of the distal transverse /proximal descending colon at the splenic flexure surrounded by multiple nodules. Findings are concerning for malignancy with local peritoneal spread. Colonoscopy reports a lesion in the mid transverse colon however no discrete mass or wall irregularity is identified on this study. CT in general is limited in detecting colonic neoplasm. No metastatic disease identified elsewhere in the abdomen. Additional findings as detailed in the report. GI tract: Irregular wall thickening involving the colon at the splenic flexure with adjacent nodules which may represent peritoneal metastasis (2:36-59). No dilated bowel. Lymph nodes: No abdominal or pelvic lymphadenopathy. Mesentery/Peritoneum: Multiple nodules splenic flexure adjacent to the colonic wall thickening. Retroperitoneum: No mass. 02/14/2018 CEA 4.0 02/14/2018 Colonoscopy Likely malignant partially obstructing tumor in the mid transverse colon. Biopsied. Tattooed. Clip (MR conditional) was placed. - The examination was otherwise normal. - The distal rectum and anal verge are normal on retroflexion view. Pathology: 1. Stomach, antrum, biopsy (A) - Chronic inactive gastritis. - See comment. 2. Stomach, polypectomy (B) - Fundic gland polyp, negative for dysplasia. 3. 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 - See comment. Hx: hypothyroidism, hypertension, asthma, type 2 diabetes, obesity, reflux depression. surgical history includes carpal tunnel procedures, thyroidectomy, total abdominal hysterectomy, previous appendectomy FUNCTIONAL STATUS: Climb a flight of stairs or walk up a hill (5.50 METs) PAST MEDICAL HISTORY Diagnosis Date - Abnormal EKG RIGHT BUNDLE BRANCH BLOCK - Anxiety state, unspecified - Arrhythmia Dr. Chan-cardiology - Depressive disorder, not elsewhere classified - Diarrhea - Diverticulosis of colon (without mention of hemorrhage) - Esophageal reflux - Family history of malignant neoplasm of gastrointestinal tract family history of colon cancer - Goiter, unspecified Goiter - Internal hemorrhoids without mention of complication - LATERAL EPICONDYLITIS 04/27/2007 - Mixed hyperlipidemia Hyperlipidemia - Obesity, unspecified Obesity - Osteoarthrosis, unspecified whether generalized or localized, other specified sites - Osteopenia - Snoring - Tooth abscess - Type II or unspecified type diabetes mellitus without mention of complication, not stated as uncontrolled - Unspecified asthma(493.90) - Unspecified essential hypertension Essential hypertension - Unspecified hypothyroidism PAST SURGICAL HISTORY Procedure Laterality Date - APPENDECTOMY 07/24/1966 - CARPAL TUNNEL 2011 bilateral - CHG DELIVERY 1981, 1986 , low cervical - COLONOSCOP W/ OR W/O [facility] 07/15/06 Repeat in - COLONOSCOP W/ OR W/O [facility] 12/26/2011 Colonoscopy - COLONOSCOP W/ OR W/O [facility] SPE[facility] 01/07/2015 Colonoscopy - COLONOSCOP W/ OR W/O [facility] 02/14/2018 Colonoscopy - EGD W/O OR W/BRUSH/WASH 12/26/2011 EGD - EGD W/O OR W/BRUSH/WASH 02/14/2018 EGD - HYSTEROSCOPY, DIAGNOSTIC (SEPARATE 11/30/1993 Hysteroscopy - KNEE SCOPE,DIAGNOSTIC 04/29/2003 Arthroscopy, knee, left - PAST SURGICAL HISTORY OF SINUS SURGERY - PAST SURGICAL HISTORY OF 2010 EYE SURGERY- DROOPY LIDS - PAST SURGICAL HISTORY OF 03/11 right partial knee replacement - PAST SURGICAL HISTORY OF 01/08/12 left medial compartment unicompartmental knee arthroplasty - REMOVAL OF TONSILS,<12 Y/O 03/08/1961 Tonsillectomy AND adenoidectomy - SIGMOIDOSCOPY FLEX DIAG 5 YEARS AGO Sigmoidoscopy - THYROIDECTOMY 08/25/1992 left - THYROIDECTOMY 12/14/2003 right lobectomy - TOTAL ABDOM HYSTERECTOMY 03/29/1994 Hysterectomy, PASCUAL FAMILY HISTORY Problem Relation Age of Onset - Breast Cancer Mother - Heart Mother - Diabetes Mother - Colon Cancer Father - Heart Father - Diabetes Father - Colon Cancer Paternal Grandmother - Colon Cancer Paternal Grandfather Social History Substance Use Topics - Smoking status: Never Smoker - Smokeless tobacco: Never Used - Alcohol use No The patient has the following: Problem List Noted Noted By Resolved Resolved By Allergy to environmental factors 04/07/2012 Charly Porter No PVC's 09/23/2007 Bianka Johnson No Hypothyroidism 07/25/2007 Bianka Johnson No Osteoarthrosis, unspecified whether generalized or localized, lower leg 10/29/2006 Celestina (Pt) Lemon No Esophageal reflux Josy Wilder ZONE MANAGER No Anxiety Josy Wilder ZONE MANAGER No FAMILY HX COLON CANCER 03/29/2006 Bianka Johnson No Overview Addendum 02/18/2013 1:46 PM by Dara (Manager Of Training And Development) Jean Colonoscopy 2011 Dr. Yip - [place] in 3 years. Personal hx polypectomies. Primary osteoarthritis involving multiple joints 05/31/2005 Bianka Johnson No Diabetes mellitus (HCC) 03/01/2005 iBanka Johnson No Essential hypertension 03/01/2005 Bianka Johnson No Mixed hyperlipidemia 03/01/2005 Bianka Johnson No Special screening for malignant neoplasms, colon 01/07/2015 Kole Parra 01/07/2015 Kole Parra Shoulder bursitis 08/09/2011 Rosemary (Pt)(Hist) Gordon Pantera 02/18/2013 Dara Jean Lateral epicondylitis of elbow 04/27/2007 Bianka Johnson 02/18/2013 Darachriss Harrisras Hypopotassemia 07/23/2006 Bianka Johnson 02/18/2013 Dara Kalsixto Recurrent major depressive disorder, in full remission (HCC) Josy Wilder ZONE MANAGER 04/10/2017 Elizabeth Huerta) Burskandis RIGHT AXILLARY PAIN 12/28/2005 Bianka Johnson 01/25/2011 Dara Pena Unspecified asthma(493.90) 03/01/2005 Bianka Johnson 04/10/2017 Elizabeth Huerta) Bursley Chondromalacia of patella 02/21/2005 Jeanmarie (Pt) Swathi 02/06/2016 Carmel Friedman [facility] MEDICATION[facility] Current Outpatient Prescriptions: predniSONE (DELTASONE) 50 mg tab Take 1 tablet by mouth three times daily. Disp: 3 tablet Rfl: 0 metFORMIN (GLUCOPHAGE) 1,000 mg tablet TAKE 1 TABLET BY MOUTH TWICE A DAY WITH MEALS Disp: 180 tablet Rfl: 1 lansoprazole (PREVACID) 30 mg capsule TAKE 1 CAPSULE BY MOUTH ONCE DAILY Disp: 90 capsule Rfl: 1 verapamil ER (VERELAN) 120 mg 24 hr capsule TAKE 1 CAPSULE BY MOUTH ONCE DAILY Disp: 90 capsule Rfl: 1 lisinopril 2.5 mg tablet TAKE 1 TABLET BY MOUTH ONCE A DAY FOR BLOOD PRESSURE Disp: 90 tablet Rfl: 3 atorvastatin (LIPITOR) 80 mg tablet TAKE ONE-HALF TABLET BY MOUTH ONCE DAILY Disp: 45 tablet Rfl: 3 spironolactone-hctz 25/25 (ALDACTAZIDE) 25-25 mg per tablet TAKE 1 TABLET BY MOUTH ONCE DAILY Disp: 90 tablet Rfl: 1 levothyroxine (SYNTHROID) 100 mcg tablet Take 1 tablet by mouth once daily. on an empty stomach 1/2 hour before meal. Disp: 90 tablet Rfl: 3 montelukast (SINGULAIR) 10 mg tablet Take 1 tablet by mouth daily at bedtime. Disp: 30 tablet Rfl: 5 sertraline (ZOLOFT) 100 mg tablet TAKE 1 TABLET BY MOUTH ONCE DAILY Disp: 90 tablet Rfl: 1 clotrimazole (LOTRIMIN, CLOTRIM) 1 % cream Apply 1 application to affected area twice daily. Disp: 30 g Rfl: 2 fluticasone (FLONASE) 50 mcg/actuation nasal spray Use 2 Sprays in each nostril once daily. Rinse mouth after use. Disp: 3 Bottle Rfl: 3 LORATADINE/PSEUDOEPHEDRINE (CLARITIN-D 24 HOUR ORAL) Take 1 tablet by mouth once daily. Disp: Rfl: blood sugar diagnostic (RELION CONFIRM-MICRO) test strip Use as instructed twice daily. Disp: 50 Strip Rfl: 11 Lancets lancets Relion Lancets. Test blood sugar(s) 2 times daily. Dx: 250.00. Insulin: No Disp: 100 Each Rfl: 11 Oxymetazoline HCl 0.05 % mist Use 30 mL in the nose twice daily as needed. WEAN off Disp: Rfl: [id number]-Fish Oil [phone] ap-io-tjg-mcg cap Take 2 capsules by mouth once daily. Disp: 60 capsule Rfl: 11 Cholecalciferol, Vitamin D3, 1,000 unit cap Take 1 capsule by mouth once daily. Disp: 100 capsule Rfl: 3 Sod Ggb-Oueqftigv-Ooif-Silica (FORDUSTIN) Powd Apply 1 application to affected area once daily. Apply in am to dried skin under breasts. (disp 1 bottle) Disp: 1 g Rfl: 0 levothyroxine (SYNTHROID) 100 mcg ORAL tablet Take 1 tablet by mouth once daily. Disp: 90 tablet Rfl: 3 ASPIRIN 81 MG ORAL TAB Take one (1) tablet daily . Disp: Rfl: 0 No current facility-administered medications for this visit. CURRENT ALLERGIES ALLERGIES Allergen Reactions - Atenolol Mental Status Change fatigue - Depo-Medrol [Methyl* facial redness, elevated glucose - Ivp Dye [Iodine] Hives, Swelling occurred in the 70's. Had swelling and hives on arm only where IV was - Sulfa (Sulfonamide * Hives REVIEW OF SYSTEMS PAIN ASSESSMENT: General: Unintentional > 10% weight loss in < 6 months Respiratory: No history of current cough or dyspnea, or pneumonia in the past 6 weeks. No history of respiratory/pulmonary symptoms or problems Cardiovascular: Has HTN GI: No history of GI symptoms or problems. No history of esophageal varices, recent ascites, or ETOH greater than 2 drinks per day. : No history of UTI in past 6 weeks. No history of renal failure. Not currently on or requiring dialysis. No history of symptoms or problems. 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 Endocrine: Diabetes Mellitus on oral agent Hematology: No history of bleeding or clotting disorder. Pt is not taking anti-coagulation or platelet medications. No history of hematological symptoms or problems. Oncology: Has lost more than 10 % body weight and has colon cancer Psych: No history of psychiatric symptoms or problems. Musculoskeletal: Negative for joint pain or swelling, back pain or muscle pain. Skin: Negative for lesions, rash and itching. Anemia: Yes, blood loss PHYSICAL EXAMINATION There were no vitals taken for this visit. General Appearance: Well appearing, alert, in no acute distress, well-hydrated, well nourished. Skin: Skin color, texture, turgor normal, no suspicious rashes or lesions Head: Normocephalic, no masses, lesions, tenderness or abnormalities Oropharynx: Lips, mucosa, and tongue normal, teeth and gums normal, oropharynx normal Neck: Supple, no adenopathy; thyroid symmetric, normal size, no bruits Lungs: Lungs clear to auscultation. No wheezing, rhonchi, rales Heart: RRR without murmur, gallop, or rubs. No ectopy Extremities: No deformities, edema, skin discoloration, clubbing or cyanosis. Good capillary refill. Neuro: Gait normal. Reflexes normal and symmetric. Sensation grossly intact. Abdomen: Normal abdominal exam, Abdomen soft, non-tender. Bowel sounds normal. No obvious palpable masses, organomegaly, Negative CVA tenderness Anorectal: Deferred Wall Washer present: Yes Diagnostic tests reviewed for today's visit: Colonoscopy Report see note above Pathology Report See above CT imaging see note above Assessment ASSESSMENT 62 / F with a transverse colon mass and possible peritonoeal carcinomatosis RECOMMENDATION Diagnostic laparoscopy followed by possible Segmental colectomy possible diverting ileostomy. All risks and benefits of surgery were discussed with the patient and her family in detail. Procedure:dx lap -- if this is normal and no carcinomatosis, then will proceed with segmental resection. If carcinomatosis, then would need to have biopsy and possible HIPEC. The risks, benefits and anticipated outcomes of the procedure, the risks and benefits of the alternatives to the procedure, and the roles and tasks of the personnel to be involved, were discussed with the patient, and the patient consents to the procedure and agrees to proceed. Risks of perforation and leak and need for ostomy explained and willing to proceed. King Yoder MD DATE: 03/04/18 TIME: 7:37 AM Referring Provider: PRAFUL PATHAK [[id number]] Allergies As of Date: 03/04/2018 Noted Allergy Reaction ATENOLOL 03/07/2011 1 - Mental Status Change Comments: fatigue DEPO-MEDROL (METHYLPREDNISOLONE A*03/01/2005 Comments: facial redness, elevated glucose IVP DYE (IODINE) 03/01/2005 4 - Hives 7 - Swelling Comments: occurred in the 70's. Had swelling and hives on arm only where IV was SULFA (SULFONAMIDE ANTIBIOTICS) 03/01/2005 4 - Hives Date Reviewed: 03/04/2018 Reviewed by: King Yoder - Fully Assessed Reason for Visit: Consult [173] Cmt: Rectal Cancer Primary Visit Diagnosis:Carcinoma of colon (HCC) [C18.9] Other Visit Diagnosis:Obesity, Class II, BMI 35-39.9 [E66.9] Order(s):GENI WHAT TO EXPECT DURING YOUR HOSPITAL STAY [[id number]] Order #: [id number]. #:[id number]: 1 peg 3350-electrolytes (COLYTE) 240-22.72-6.72 -5.84 gram solutionTake 4,000 mL by mouth one time only for 1 dose.Disp: 1 BottleRfl: 0 neomycin 500 mg tabletTake 2 tablets by mouth at 9pm and take 2 tablets by mouth at 11pm the night before surgery.Disp: 4 tabletRfl: 0 metroNIDAZOLE (FLAGYL) 500 mg tabletTake 1 tablet by mouth at 9pm and take 1 tablet by mouth at 11pm the night before surgery.Disp: 2 tabletRfl: 0 Prescriptions as of 03/04/2018 Sig: PEG 3350 240 GRAM-ELECTROLYTE* Take 4,000 mL by mouth one ti* NEOMYCIN 500 MG TABLET Take 2 tablets by mouth at 9p* METRONIDAZOLE 500 MG TABLET Take 1 tablet by mouth at 9pm* PREDNISONE 50 MG TABLET Take 1 tablet by mouth three * METFORMIN 1,000 MG TABLET TAKE 1 TABLET BY MOUTH TWICE* LANSOPRAZOLE 30 MG CAPSULE,DE* TAKE 1 CAPSULE BY MOUTH ONCE* VERAPAMIL ER 120 MG 24 HR CAP* TAKE 1 CAPSULE BY MOUTH ONCE* LISINOPRIL 2.5 MG TABLET TAKE 1 TABLET BY MOUTH ONCE A* ATORVASTATIN 80 MG TABLET TAKE ONE-HALF TABLET BY MOUT* SPIRONOLACTONE 25 MG-HYDROCHL* TAKE 1 TABLET BY MOUTH ONCE D* LEVOTHYROXINE 100 MCG TABLET Take 1 tablet by mouth once d* MONTELUKAST 10 MG TABLET Take 1 tablet by mouth daily * SERTRALINE 100 MG TABLET TAKE 1 TABLET BY MOUTH ONCE D* CLOTRIMAZOLE 1 % TOPICAL CREAM Apply 1 application to affect* FLUTICASONE 50 MCG/ACTUATION * Use 2 Sprays in each nostril * CLARITIN-D 24 HOUR ORAL Take 1 tablet by mouth once d* BLOOD SUGAR DIAGNOSTIC STRIPS Use as instructed twice daily. LANCETS Relion Lancets. Test blood aquino* OXYMETAZOLINE 0.05 % NASAL IL* Use 30 mL in the nose twice d* OMEGA [id number] OIL * Take 2 capsules by mouth once* CHOLECALCIFEROL (VITAMIN D3) * Take 1 capsule by mouth once * SODIUM BICARB-METHYLBENZETHON* Apply 1 application to affect* LEVOTHYROXINE 100 MCG TABLET Take 1 tablet by mouth once d* * ASPIRIN 81 MG TABLET Take one (1) tablet daily . 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 Essential hypertension [I10] INVALID FOR* More... Mixed hyperlipidemia [E78.2] INVALID FOR* More... Unspecified asthma(493.90) [J45.909] INVALID FOR*04/10/2017 More... Primary osteoarthritis involving multiple joint*INVALID FOR* RIGHT AXILLARY PAIN [R07.9] INVALID FOR*01/25/2011 FAMILY HX COLON CANCER [Z80.0] INVALID FOR* More... Esophageal reflux [K21.9] More... Anxiety [F41.9] Recurrent major depressive disorder, in full re* 04/10/2017 More... Hypopotassemia [E87.6] INVALID FOR*02/18/2013 More... OSTEOARTHROS NOS-L/LEG [M17.10] INVALID FOR* Lateral epicondylitis of elbow [M77.10] INVALID FOR*02/18/2013 Hypothyroidism [E03.9] INVALID FOR* More... PVC's [I49.49] INVALID FOR* Shoulder bursitis [M75.50] INVALID FOR*02/18/2013 Allergy to environmental factors [Z91.09] INVALID FOR* Special screening for malignant neoplasms, colo*INVALID FOR*01/07/2015 Colon cancer (HCC) [C18.9] INVALID FOR* More... Obesity, Class II, BMI 35-39.9 [E66.9] INVALID FOR* Prescriptions ordered this encounter Disp Refills Start End PEG 3350 240 GRAM-ELECTROLYTES 22.72* 1 Morgan* 0 03/04/2018 03/04/2018 Route: ORAL Sig: Take 4,000 mL by mouth one time only for 1 dose. NEOMYCIN 500 MG TABLET 4 ta* 0 03/04/2018 Sig: Take 2 tablets by mouth at 9pm and take 2 tablets by mouth at 11pm the night before surgery. METRONIDAZOLE 500 MG TABLET 2 ta* 0 03/04/2018 Sig: Take 1 tablet by mouth at 9pm and take 1 tablet by mouth at 11pm the night before surgery. Level of Service: NEW PATIENT VISIT LEVEL 5 [[id number]] Disposition: Return for . Follow-up and Disposition History Recorded Encounter Status:Closed by KING YODER MD on 03/04/18 HISTORY PHYSICAL Observed: 03/04/2018 Status: COMPLETED Source: [place] 7:37 AM [facility] [place] REPOSITORY O ID: [id number] Author: King Yoder Service: (none) Author Type: Physician Type: HANDP Filed: 03/04/2018 3:00 PM Note Text: New Patient Consult REASON FOR VISIT Anne Cordero is a 62 year old female who is scheduled for a consult at the request of Praful Pathak for No chief complaint on file.. My final recommendations will be communicated back to the requesting physician by the way of the shared medical record, fax, or via US Mail History of Present Illness: Here to discuss recent mass seen in her distal transverse colon on surveillance colonoscopy in January. Has had scopes in the past which had picked up polyps. Has been found to be anemic which prompted her most recent scope. Imaging studies are suggestive on possible peritoneal mets 02/19/[address] evidence of acute abnormality. 02/17/2018 CT a/p Irregular wall thickening of the distal transverse /proximal descending colon at the splenic flexure surrounded by multiple nodules. Findings are concerning for malignancy with local peritoneal spread. Colonoscopy reports a lesion in the mid transverse colon however no discrete mass or wall irregularity is identified on this study. CT in general is limited in detecting colonic neoplasm. No metastatic disease identified elsewhere in the abdomen. Additional findings as detailed in the report. GI tract: Irregular wall thickening involving the colon at the splenic flexure with adjacent nodules which may represent peritoneal metastasis (2:36-59). No dilated bowel. Lymph nodes: No abdominal or pelvic lymphadenopathy. Mesentery/Peritoneum: Multiple nodules splenic flexure adjacent to the colonic wall thickening. Retroperitoneum: No mass. 02/14/2018 CEA 4.0 02/14/2018 Colonoscopy Likely malignant partially obstructing tumor in the mid transverse colon. Biopsied. Tattooed. Clip (MR conditional) was placed. - The examination was otherwise normal. - The distal rectum and anal verge are normal on retroflexion view. Pathology: 1. Stomach, antrum, biopsy (A) - Chronic inactive gastritis. - See comment. 2. Stomach, polypectomy (B) - Fundic gland polyp, negative for dysplasia. 3. 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 - See comment. Hx: hypothyroidism, hypertension, asthma, type 2 diabetes, obesity, reflux depression. surgical history includes carpal tunnel procedures, thyroidectomy, total abdominal hysterectomy, previous appendectomy FUNCTIONAL STATUS: Climb a flight of stairs or walk up a hill (5.50 METs) PAST MEDICAL HISTORY Diagnosis Date - Abnormal EKG RIGHT BUNDLE BRANCH BLOCK - Anxiety state, unspecified - Arrhythmia Dr. Chan-cardiology - Depressive disorder, not elsewhere classified - Diarrhea - Diverticulosis of colon (without mention of hemorrhage) - Esophageal reflux - Family history of malignant neoplasm of gastrointestinal tract family history of colon cancer - Goiter, unspecified Goiter - Internal hemorrhoids without mention of complication - LATERAL EPICONDYLITIS 04/27/2007 - Mixed hyperlipidemia Hyperlipidemia - Obesity, unspecified Obesity - Osteoarthrosis, unspecified whether generalized or localized, other specified sites - Osteopenia - Snoring - Tooth abscess - Type II or unspecified type diabetes mellitus without mention of complication, not stated as uncontrolled - Unspecified asthma(493.90) - Unspecified essential hypertension Essential hypertension - Unspecified hypothyroidism PAST SURGICAL HISTORY Procedure Laterality Date - APPENDECTOMY 07/24/1966 - CARPAL TUNNEL 2010 bilateral - CHG DELIVERY 1986 , low cervical - COLONOSCOP W/ OR W/O [facility] 07/15/06 Repeat in -2011 - COLONOSCOP W/ OR W/O [facility] SPEC 12/26/2011 Colonoscopy - COLONOSCOP W/ OR W/O [facility] SPE[facility] 01/07/2015 Colonoscopy - COLONOSCOP W/ OR W/O [facility] SPE[facility] 02/14/2018 Colonoscopy - EGD W/O OR W/BRUSH/WASH 12/26/2011 EGD - EGD W/O OR W/BRUSH/WASH 02/14/2018 EGD - HYSTEROSCOPY, DIAGNOSTIC (SEPARATE 11/30/1993 Hysteroscopy - KNEE SCOPE,DIAGNOSTIC 04/29/2003 Arthroscopy, knee, left - PAST SURGICAL HISTORY OF SINUS SURGERY - PAST SURGICAL HISTORY OF 2010 EYE SURGERY- DROOPY LIDS - PAST SURGICAL HISTORY OF 03/11 right partial knee replacement - PAST SURGICAL HISTORY OF 01/08/12 left medial compartment unicompartmental knee arthroplasty - REMOVAL OF TONSILS,<12 Y/O 03/08/1961 Tonsillectomy AND adenoidectomy - SIGMOIDOSCOPY FLEX DIAG 5 YEARS AGO Sigmoidoscopy - THYROIDECTOMY 08/25/1992 left - THYROIDECTOMY 12/14/2003 right lobectomy - TOTAL ABDOM HYSTERECTOMY 03/29/1994 Hysterectomy, PASCUAL FAMILY HISTORY Problem Relation Age of Onset - Breast Cancer Mother - Heart Mother - Diabetes Mother - Colon Cancer Father - Heart Father - Diabetes Father - Colon Cancer Paternal Grandmother - Colon Cancer Paternal Grandfather Social History Substance Use Topics - Smoking status: Never Smoker - Smokeless tobacco: Never Used - Alcohol use No The patient has the following: Problem List Noted Noted By Resolved Resolved By Allergy to environmental factors 04/07/2012 Charly Porter No PVC's 09/23/2007 Bianka Johnson No Hypothyroidism 07/25/2007 Bianka Johnson No Osteoarthrosis, unspecified whether generalized or localized, lower leg 10/29/2006 Celestina (Pt) Lemon No Esophageal reflux Josy Wilder LPN No Anxiety Josy Wilder LPN No FAMILY HX COLON CANCER 03/29/2006 Bianka Johnson No Overview Addendum 02/18/2013 1:46 PM by Dara John) Jean Colonoscopy 2011 Dr. Yip - Repeat in 3 years. Personal hx polypectomies. Primary osteoarthritis involving multiple joints 05/31/2005 Bianka Johnson No Diabetes mellitus (HCC) 03/01/2005 Bianka Johnson No Essential hypertension 03/01/2005 Bianka Johnson No Mixed hyperlipidemia 03/01/2005 Bianka Johnson No Special screening for malignant neoplasms, colon 01/07/2015 Kole Parra 01/07/2015 Kole Parra Shoulder bursitis 08/09/2011 Rosemary (Pt)(Hist) Gordon Mott 02/18/2013 Dara Kalamaras Lateral epicondylitis of elbow 04/27/2007 Bianka Johnson 02/18/2013 Dara Kallesleyras Hypopotassemia 07/23/2006 Bianka Johnson 02/18/2013 Dara Jean Recurrent major depressive disorder, in full remission (HCC) Josy Wilder ZONE MANAGER 04/10/2017 Elizabeth Huerta) Fabrizio RIGHT AXILLARY PAIN 12/28/2005 Bianka Johnson 01/25/2011 Dara Jean Unspecified asthma(493.90) 03/01/2005 Bianka Johnson 04/10/2017 Elizabeth Huerta) Fabrizio Chondromalacia of patella 02/21/2005 Jeanmarie Hawk) Swathi 02/06/2016 Carmel Friedman [facility] MEDICATION[facility] Current Outpatient Prescriptions: predniSONE (DELTASONE) 50 mg tab Take 1 tablet by mouth three times daily. Disp: 3 tablet Rfl: 0 metFORMIN (GLUCOPHAGE) 1,000 mg tablet TAKE 1 TABLET BY MOUTH TWICE A DAY WITH MEALS Disp: 180 tablet Rfl: 1 lansoprazole (PREVACID) 30 mg capsule TAKE 1 CAPSULE BY MOUTH ONCE DAILY Disp: 90 capsule Rfl: 1 verapamil ER (VERELAN) 120 mg 24 hr capsule TAKE 1 CAPSULE BY MOUTH ONCE DAILY Disp: 90 capsule Rfl: 1 lisinopril 2.5 mg tablet TAKE 1 TABLET BY MOUTH ONCE A DAY FOR BLOOD PRESSURE Disp: 90 tablet Rfl: 3 atorvastatin (LIPITOR) 80 mg tablet TAKE ONE-HALF TABLET BY MOUTH ONCE DAILY Disp: 45 tablet Rfl: 3 spironolactone-hctz 25/25 (ALDACTAZIDE) 25-25 mg per tablet TAKE 1 TABLET BY MOUTH ONCE DAILY Disp: 90 tablet Rfl: 1 levothyroxine (SYNTHROID) 100 mcg tablet Take 1 tablet by mouth once daily. on an empty stomach 1/2 hour before meal. Disp: 90 tablet Rfl: 3 montelukast (SINGULAIR) 10 mg tablet Take 1 tablet by mouth daily at bedtime. Disp: 30 tablet Rfl: 5 sertraline (ZOLOFT) 100 mg tablet TAKE 1 TABLET BY MOUTH ONCE DAILY Disp: 90 tablet Rfl: 1 clotrimazole (LOTRIMIN, CLOTRIM) 1 % cream Apply 1 application to affected area twice daily. Disp: 30 g Rfl: 2 fluticasone (FLONASE) 50 mcg/actuation nasal spray Use 2 Sprays in each nostril once daily. Rinse mouth after use. Disp: 3 Bottle Rfl: 3 LORATADINE/PSEUDOEPHEDRINE (CLARITIN-D 24 HOUR ORAL) Take 1 tablet by mouth once daily. Disp: Rfl: blood sugar diagnostic (RELION CONFIRM-MICRO) test strip Use as instructed twice daily. Disp: 50 Strip Rfl: 11 Lancets lancets Relion Lancets. Test blood sugar(s) 2 times daily. Dx: 250.00. Insulin: No Disp: 100 Each Rfl: 11 Oxymetazoline HCl 0.05 % mist Use 30 mL in the nose twice daily as needed. WEAN off Disp: Rfl: Mlzco9-[id number]-E-FA-Fish Oil [id number] qh-kw-tbg-mcg cap Take 2 capsules by mouth once daily. Disp: 60 capsule Rfl: 11 Cholecalciferol, Vitamin D3, 1,000 unit cap Take 1 capsule by mouth once daily. Disp: 100 capsule Rfl: 3 Sod Hbd-Acnlhitcb-Rjzz-Silica (FORDUSTIN) Powd Apply 1 application to affected area once daily. Apply in am to dried skin under breasts. (disp 1 bottle) Disp: 1 g Rfl: 0 levothyroxine (SYNTHROID) 100 mcg ORAL tablet Take 1 tablet by mouth once daily. Disp: 90 tablet Rfl: 3 ASPIRIN 81 MG ORAL TAB Take one (1) tablet daily . Disp: Rfl: 0 No current facility-administered medications for this visit. CURRENT ALLERGIES ALLERGIES Allergen Reactions - Atenolol Mental Status Change fatigue - Depo-Medrol [Methyl* facial redness, elevated glucose - Ivp Dye [Iodine] Hives, Swelling occurred in the 70's. Had swelling and hives on arm only where IV was - Sulfa (Sulfonamide * Hives REVIEW OF SYSTEMS PAIN ASSESSMENT: General: Unintentional > 10% weight loss in < 6 months Respiratory: No history of current cough or dyspnea, or pneumonia in the past 6 weeks. No history of respiratory/pulmonary symptoms or problems Cardiovascular: Has HTN GI: No history of GI symptoms or problems. No history of esophageal varices, recent ascites, or ETOH greater than 2 drinks per day. : No history of UTI in past 6 weeks. No history of renal failure. Not currently on or requiring dialysis. No history of symptoms or problems. 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 Endocrine: Diabetes Mellitus on oral agent Hematology: No history of bleeding or clotting disorder. Pt is not taking anti-coagulation or platelet medications. No history of hematological symptoms or problems. Oncology: Has lost more than 10 % body weight and has colon cancer Psych: No history of psychiatric symptoms or problems. Musculoskeletal: Negative for joint pain or swelling, back pain or muscle pain. Skin: Negative for lesions, rash and itching. Anemia: Yes, blood loss PHYSICAL EXAMINATION There were no vitals taken for this visit. General Appearance: Well appearing, alert, in no acute distress, well-hydrated, well nourished. Skin: Skin color, texture, turgor normal, no suspicious rashes or lesions Head: Normocephalic, no masses, lesions, tenderness or abnormalities Oropharynx: Lips, mucosa, and tongue normal, teeth and gums normal, oropharynx normal Neck: Supple, no adenopathy; thyroid symmetric, normal size, no bruits Lungs: Lungs clear to auscultation. No wheezing, rhonchi, rales Heart: RRR without murmur, gallop, or rubs. No ectopy Extremities: No deformities, edema, skin discoloration, clubbing or cyanosis. Good capillary refill. Neuro: Gait normal. Reflexes normal and symmetric. Sensation grossly intact. Abdomen: Normal abdominal exam, Abdomen soft, non-tender. Bowel sounds normal. No obvious palpable masses, organomegaly, Negative CVA tenderness Anorectal: Deferred Wall Washer present: Yes Diagnostic tests reviewed for today's visit: Colonoscopy Report see note above Pathology Report See above CT imaging see note above Assessment ASSESSMENT 62 / F with a transverse colon mass and possible peritonoeal carcinomatosis RECOMMENDATION Diagnostic laparoscopy followed by possible Segmental colectomy possible diverting ileostomy. All risks and benefits of surgery were discussed with the patient and her family in detail. Procedure:dx lap -- if this is normal and no carcinomatosis, then will proceed with segmental resection. If carcinomatosis, then would need to have biopsy and possible HIPEC. The risks, benefits and anticipated outcomes of the procedure, the risks and benefits of the alternatives to the procedure, and the roles and tasks of the personnel to be involved, were discussed with the patient, and the patient consents to the procedure and agrees to proceed. Risks of perforation and leak and need for ostomy explained and willing to proceed. King Yoder MD DATE: 03/04/18 TIME: 7:37 AM HOSP Observed: 03/04/2018 Status: COMPLETED Source: [facility] 12:00 AM [facility] REPOSITORY Patient:Anne Cordero MRN: <[id number]> Height:5' 4.016(1.626 m) Weight:213 lb (96.616 kg) Outpatient Medications as of 03/06/18: metFORMIN (GLUCOPHAGE) 1,000 mg tablet lansoprazole (PREVACID) 30 mg capsule verapamil ER (VERELAN) 120 mg 24 hr capsule lisinopril 2.5 mg tablet atorvastatin (LIPITOR) 80 mg tablet spironolactone-hctz 25/25 (ALDACTAZIDE) 25-25 mg per tablet sertraline (ZOLOFT) 100 mg tablet clotrimazole (LOTRIMIN, CLOTRIM) 1 % cream fluticasone (FLONASE) 50 mcg/actuation nasal spray LORATADINE/PSEUDOEPHEDRINE (CLARITIN-D 24 HOUR ORAL) Oxymetazoline HCl 0.05 % mist Cholecalciferol, Vitamin D3, 1,000 unit cap levothyroxine (SYNTHROID) 100 mcg ORAL tablet ASPIRIN 81 MG ORAL TAB Admission/Clinic Administered Medications as of 03/06/18: lidocaine (PF) 10 mg/mL (1 %) 1-2 mg injection (XYLOCAINE) lactated ringers infusion heparin 5,000 Units injection cefTRIAXone 2 g in D5W 100 mL MB+ (ROCEPHIN) metroNIDAZOLE 500 mg PREMIX piggyback (FLAGYL) Problem List: Diabetes mellitus (HCC) [E11.9] Essential hypertension [I10] Mixed hyperlipidemia [E78.2] Primary osteoarthritis involving multiple joints [M15.0] FAMILY HX COLON CANCER [Z80.0] Esophageal reflux [K21.9] Anxiety [F41.9] Osteoarthrosis, unspecified whether generalized or localized, lower leg [M17.10] Hypothyroidism [E03.9] PVC's [I49.49] Allergy to environmental factors [Z91.09] Colon cancer (HCC) [C18.9] Obesity, Class II, BMI 35-39.9 [E66.9] Allergies: Atenolol Depo-Medrol [Methylprednisolone Acetate] Ivp Dye [Iodine] Sulfa (Sulfonamide Antibiotics) Date Verified: 03/06/18 Lab Values Lab Value Units Date High Low POTA* 3.6 mmol/L 03/04/2018 5.1 3.7 MAURA* 32.9 % 03/04/2018 46.0 36.0 Progress Notes ([facility]): Erin Ramos 03/04/2018 3:42 PM Signed Anne Cordero is a 62 year old female here today for visit in [facility] Referring Surgeon: Dr. YODER Date of Surgery: 03/06/2018 Planned Surgery/Procedure: LAPAROSCOPY DIAGNOSTIC Allergies have been reviewed and verified. They include the following: Atenolol; Depo-Medrol [Methylprednisolone Acetate]; Ivp Dye [Iodine]; Sulfa (Sulfonamide Antibiotics) Social History Substance Use Topics - Smoking status: Never Smoker - Smokeless tobacco: Never Used - Alcohol use No Medications reviewed and updated: Yes Erin Gr MD, FACP, 03/05/2018 8:27 AM Addendum HISTORY AND PHYSICAL EXAMINATION (IMPACT) SERVICE DATE: 03/04/2018 SERVICE TIME: 3:15 PM PRIMARY CARE PHYSICIAN: Elizabeth Dinh MD CHIEF COMPLAINT/HISTORY OF PRESENT ILLNESS: Ms. Cordero is a 62 year old female referred to me for preoperative evaluation. My final recommendations will be communicated back to the requesting physician/surgeon by the way of the shared medical record. Referring Surgeon: Dr. YODER Date of Surgery: 03/06/2018 Planned Surgery/Procedure: LAPAROSCOPY DIAGNOSTIC Indication for Planned Surgery / Procedure: colon mass Patient presents for perioeprative evaluation. Was seen and evaluated by [facility] today for transverse colon mass and possible peritonoeal carcinomatosis. Plans for diagnostic laparoscopy followed by possible Segmental colectomy possible diverting ileostomy. Biopsy on 02/14/18: showed Poorly differentiated carcinoma with neuroendocrine features undermining unremarkable colonic mucosa; favor adenocarcinoma with neuroendocrine differentiation. Per patient, this was routine work-up for anemia. Now scheduled for above surgery. Refer to Assessment section for details of any comorbidities. Patient is Able to Perform the Following Physical Activity: Climb a flight of stairs or walk up a hill (5.50 METs) Patient denies any chest pain or undue shortness of breath with the above physical activity. Patient's functional class is II based on self-reported physical activity. Significant Anesthesia Considerations: None. PAST MEDICAL/SURGICAL/FAMILY/SOCIAL HISTORY PAST MEDICAL HISTORY Diagnosis Date - Abnormal EKG RIGHT BUNDLE BRANCH BLOCK - Anxiety state, unspecified - Arrhythmia Dr. Chan-cardiology - Depressive disorder, not elsewhere classified - Diarrhea - Diverticulosis of colon (without mention of hemorrhage) - Esophageal reflux - Family history of malignant neoplasm of gastrointestinal tract family history of colon cancer - Goiter, unspecified Goiter - Internal hemorrhoids without mention of complication - LATERAL EPICONDYLITIS 04/27/2007 - Mixed hyperlipidemia Hyperlipidemia - Obesity, unspecified Obesity - Osteoarthrosis, unspecified whether generalized or localized, other specified sites - Osteopenia - Snoring - Tooth abscess - Type II or unspecified type diabetes mellitus without mention of complication, not stated as uncontrolled - Unspecified essential hypertension Essential hypertension - Unspecified hypothyroidism PAST SURGICAL HISTORY Procedure Laterality Date - APPENDECTOMY 07/24/1966 - CARPAL TUNNEL 2011 bilateral - CHG DELIVERY 1981, 1986 , low cervical - COLONOSCOP W/ OR W/O BRS SPEC 07/15/06 Repeat in - COLONOSCOP W/ OR W/O BRSH SPEC 12/26/2011 Colonoscopy - COLONOSCOP W/ OR W/O BRSH SPEC 01/07/2015 Colonoscopy - COLONOSCOP W/ OR W/O BRSH SPEC 02/14/2018 Colonoscopy - EGD W/O OR W/BRUSH/WASH 12/26/2011 EGD - EGD W/O OR W/BRUSH/WASH 02/14/2018 EGD - HYSTEROSCOPY, DIAGNOSTIC (SEPARATE 11/30/1993 Hysteroscopy - KNEE SCOPE,DIAGNOSTIC 04/29/2003 Arthroscopy, knee, left - PAST SURGICAL HISTORY OF SINUS SURGERY - PAST SURGICAL HISTORY OF 2010 EYE SURGERY- DROOPY LIDS - PAST SURGICAL HISTORY OF 03/11 right partial knee replacement - PAST SURGICAL HISTORY OF 01/08/12 left medial compartment unicompartmental knee arthroplasty - REMOVAL OF TONSILS,<12 Y/O 03/08/1961 Tonsillectomy AND adenoidectomy - SIGMOIDOSCOPY FLEX DIAG 5 YEARS AGO Sigmoidoscopy - THYROIDECTOMY 08/25/1992 left - THYROIDECTOMY 12/14/2003 right lobectomy - TOTAL ABDOM HYSTERECTOMY 03/29/1994 Hysterectomy, [facility] FAMILY HISTORY Problem Relation Age of Onset - Breast Cancer Mother - Heart Mother - Diabetes Mother - Colon Cancer Father - Heart Father - Diabetes Father - Colon Cancer Paternal Grandmother - Colon Cancer Paternal Grandfather SOCIAL HISTORYSocial History Marital status: Spouse name: Ivelisse Years of education: Number of children: 2 Occupational History 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 Social History Main Topics Smoking status: Never Smoker Smokeless tobacco: Never Used Alcohol use: No Drug use: No Sexual activity: Yes Partners with: Male control/protection: Surgical Comment: [facility] MEDICATIONS/ALLERGIES Current Outpatient Prescriptions: metFORMIN (GLUCOPHAGE) 1,000 mg tablet TAKE 1 TABLET BY MOUTH TWICE A DAY WITH MEALS Disp: 180 tablet Rfl: 1 lansoprazole (PREVACID) 30 mg capsule TAKE 1 CAPSULE BY MOUTH ONCE DAILY Disp: 90 capsule Rfl: 1 verapamil ER (VERELAN) 120 mg 24 hr capsule TAKE 1 CAPSULE BY MOUTH ONCE DAILY Disp: 90 capsule Rfl: 1 lisinopril 2.5 mg tablet TAKE 1 TABLET BY MOUTH ONCE A DAY FOR BLOOD PRESSURE Disp: 90 tablet Rfl: 3 atorvastatin (LIPITOR) 80 mg tablet TAKE ONE-HALF TABLET BY MOUTH ONCE DAILY Disp: 45 tablet Rfl: 3 spironolactone-hctz 25/25 (ALDACTAZIDE) 25-25 mg per tablet TAKE 1 TABLET BY MOUTH ONCE DAILY Disp: 90 tablet Rfl: 1 sertraline (ZOLOFT) 100 mg tablet TAKE 1 TABLET BY MOUTH ONCE DAILY Disp: 90 tablet Rfl: 1 clotrimazole (LOTRIMIN, CLOTRIM) 1 % cream Apply 1 application to affected area twice daily. Disp: 30 g Rfl: 2 fluticasone (FLONASE) 50 mcg/actuation nasal spray Use 2 Sprays in each nostril once daily. Rinse mouth after use. Disp: 3 Bottle Rfl: 3 Oxymetazoline HCl 0.05 % mist Use 30 mL in the nose twice daily as needed. WEAN off Disp: Rfl: Cholecalciferol, Vitamin D3, 1,000 unit cap Take 1 capsule by mouth once daily. Disp: 100 capsule Rfl: 3 levothyroxine (SYNTHROID) 100 mcg ORAL tablet Take 1 tablet by mouth once daily. Disp: 90 tablet Rfl: 3 ASPIRIN 81 MG ORAL TAB Take one (1) tablet daily . Disp: Rfl: 0 peg 3350-electrolytes (COLYTE) 240-22.72-6.72 -5.84 gram solution Take 4,000 mL by mouth one time only for 1 dose. (Patient not taking: Reported on 03/04/2018 ) Disp: 1 Bottle Rfl: 0 neomycin 500 mg tablet Take 2 tablets by mouth at 9pm and take 2 tablets by mouth at 11pm the night before surgery. (Patient not taking: Reported on 03/04/2018 ) Disp: 4 tablet Rfl: 0 metroNIDAZOLE (FLAGYL) 500 mg tablet Take 1 tablet by mouth at 9pm and take 1 tablet by mouth at 11pm the night before surgery. (Patient not taking: Reported on 03/04/2018 ) Disp: 2 tablet Rfl: 0 montelukast (SINGULAIR) 10 mg tablet Take 1 tablet by mouth daily at bedtime. (Patient not taking: Reported on 03/04/2018 ) Disp: 30 tablet Rfl: 5 LORATADINE/PSEUDOEPHEDRINE (CLARITIN-D 24 HOUR ORAL) Take 1 tablet by mouth once daily. Disp: Rfl: blood sugar diagnostic (RELION CONFIRM-MICRO) test strip Use as instructed twice daily. (Patient not taking: Reported on 03/04/2018 ) Disp: 50 Strip Rfl: 11 Lancets lancets Relion Lancets. Test blood sugar(s) 2 times daily. Dx: 250.00. Insulin: No (Patient not taking: Reported on 03/04/2018 ) Disp: 100 Each Rfl: 11 Jwmxf3-DbyH0-N49-E-FA-Fish Oil [id number] ge-mx-pem-mcg cap Take 2 capsules by mouth once daily. (Patient not taking: Reported on 03/04/2018 ) Disp: 60 capsule Rfl: 11 Sod Diq-Qdpmpwcfn-Qjmg-Silica (FORDUSTIN) Powd Apply 1 application to affected area once daily. Apply in am to dried skin under breasts. (disp 1 bottle) (Patient not taking: Reported on 03/04/2018 ) Disp: 1 g Rfl: 0 No current facility-administered medications for this visit. ALLERGIES Allergen Reactions - Atenolol Mental Status Change fatigue - Depo-Medrol [Methyl* facial redness, elevated glucose - Ivp Dye [Iodine] Hives, Swelling occurred in the 70's. Had swelling and hives on arm only where IV was - Sulfa (Sulfonamide * Hives REVIEW OF SYSTEMS General: 20 lb weight loss unintentional. No fever Neuro: No history of TIA's, stroke, [employer] tumor, impaired sensorium, hemiplegia, paraplegia or quadriplegia. No neurological symptoms or problems. Respiratory: No history of current cough or dyspnea, or pneumonia in the past 6 weeks. No history of respiratory/pulmonary symptoms or problems., Denies any asthma, COPD or SHEREEN. had use dinhaler once in the past for acute bronchitis. No recent cough or colds. No SOB. +seasonal allergies Cardiovascular: Hypertension requiring meds, Denies any CAD/IL/stents/CHF/VTE/chest pain. +Chronic RBBB GI: Colon mass-see HPI. No n/v/abd pain.+GERD. Denies any liver problems : No history of UTI in past 6 weeks. No history of renal failure. Not currently on or requiring dialysis. No history of symptoms or problems. SENIOR QUALITY TECHNICIAN: LMP: s/p hysterectomy Endocrine: Diabetes Mellitus on oral agent, Hypothyroidism, No signifcant steroid us ein the past one year (just took steroid for contrast allergy for CT scan-1 day course) Hematology: Anemia, No bleeding or clotting d/o. Not on blood thinners. 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 PHYSICAL EXAM VITALS: BP 117/69 Pulse 70 Temp (Src) 99.2 (Oral) Ht 5' 4 (1.63m) Wt 213 lb 9.6 oz (96.9kg) SpO2 97% BMI 36.65 kg/(m2). General: Alert, oriented, cooperative Skin: Normal color, no rash, no lesions. HEENT: teeth in good repair. Pupils equal, round and reactive. Cardiovascular: Normal S1 AND S2, no rubs, murmurs or gallops. Pulse regular. Lungs: Normal breath sounds, no wheezes or crackles. Abdomen: Soft, non-tender, no rigidity. Extremities: No deformity, no edema or tenderness, no joint swelling or clubbing. Neurological: Alert, Normal cognition and motor skills. Pulses: Radial pulses, B. +2. No carotid bruit ASSESSMENT Ms. Cordero is a 62 year old female referred to me for preoperative evaluation. Patient has the following medical comorbidities which might affect the perioperative course: - Anemia due to iron deficiency. - Type II Diabetes with no complications. Patient is on oral medications. - Hypertension, well controlled. - Obesity related to unspecified. Body mass index is 36.66 kg/m?. - Hx of chronic RBBB, stable, negative stress test Patient's RCRI (Revised Cardiac Risk Index: CAD/CHF/Stroke or TIA/SCr>2/DM on Insulin/High Risk Surgery) score is 1 and is at low risk for major adverse cardiac events in the perioperative period. OTHER ASSESSMENT - Anxiety state, unspecified - Esophageal reflux - Colon mass/adenoCA-for surgery - Unspecified hypothyroidism Diagnostic tests reviewed for today's visit: Component Latest Ref Rng AND Units 02/14/2018 WBC 3.70 - 11.00 k/uL 7.68 RBC 3.90 - 5.20 m/uL 4.03 Hemoglobin 11.5 - 15.5 g/dL 8.8 (L) Hematocrit 36.0 - 46.0 % 30.4 (L) MCV 80.0 - 100.0 fL 75.4 (L) MCH 26.0 - 34.0 pG 21.8 (L) MCHC 30.5 - 36.0 g/dL 28.9 (L) RDW-CV 11.5 - 15.0 % 19.6 (H) Platelet Count 150 - 400 k/uL 339 MPV 9.0 - 12.7 fL 10.5 Neut% % 70.8 Abs Neut (ANC) 1.45 - 7.50 k/uL 5.44 Lymph% % 21.1 Abs Lymph 1.00 - 4.00 k/uL 1.62 Lancaster% % 5.9 Abs Lancaster <0.87 k/uL 0.45 Eosin% % 1.8 Abs Eosin <0.46 k/uL 0.14 Baso% % 0.4 Abs Baso <0.11 k/uL 0.03 Nucleated Reds 0 /100 WBC 0.0 Absolute nRBC <0.01 k/uL <0.01 Diff Type Auto Diff Protein, Total 6.3 - 8.0 g/dL 6.7 Albumin 3.9 - 4.9 g/dL 3.9 Calcium 8.5 - 10.2 mg/dL 10.2 Bilirubin, Total 0.2 - 1.3 mg/dL 0.2 Alkaline Phosphatase 34 - 123 U/L 95 AST 13 - 35 U/L 11 (L) Glucose 74 - 99 mg/dL 139 (H) BUN 7 - 21 mg/dL 14 Creatinine 0.58 - 0.96 mg/dL 0.87 Sodium 136 - 144 mmol/L 138 Potassium 3.7 - 5.1 mmol/L 3.9 Chloride 97 - 105 mmol/L 103 CO2 22 - 30 mmol/L 28 Anion Gap mmol/L 7 ALT 7 - 38 U/L 10 eGFR- >60 eGFR-All Other Races . >60 CEA 0.0 - 2.9 ng/mL 4.0 (H) EKG March 04, 2018 Diagnosis:NORMAL SINUS RHYTHM COMPLETE RIGHT BUNDLE BRANCH BLOCK INFERIOR MYOCARDIAL INFARCTION , AGE UNDETERMINED EKG 03/2011: Diagnosis:SINUS RHYTHM WITH FREQUENT PREMATURE VENTRICULAR COMPLEXES RATE RELATED ?COMPLETE RIGHT BUNDLE BRANCH BLOCK POSSIBLE INFERIOR MYOCARDIAL INFARCTION , AGE UNDETERMINED OSH Stress test 7/19/18: Normal myocardial perfusion stress test EF 82% Stress echo 2007: STRESS ECHO RESULTS ?The left ventricular cavity size is decreased with stress and all segments ?augment normally. The LVEF increased to 80%. The stress echo results are negative for ischemia. CONCLUSIONS Hyperdynamic resting LV systolic function. Nonstenotic valves. STRESS ECHO CONCLUSIONS Negative for ischemia at 89% of MPHR and at 6.8 METS. PLAN/RECOMMENDATIONS CARDIAC: Patient is at optimal cardiac condition for scheduled surgery / procedure. Continue the following medications uninterrupted in the perioperative period: verapamil PULMONARY: Suggest the following in the post-operative period: Aggressive bronchopulmonary hygiene and Early ambulation ENDOCRINE: DIABETES: - Initiate [facility] Guidelines for perioperative diabetes management. Check finger stick glucose on the morning of surgery. - Patient has been instructed on Preoperative DM medication management. HEMATOLOGY: Transfuse as needed. CBC pending DVT prophylaxis post-op Patient is optimally prepared for surgery pending labs Patient Instructions: As per patient instructions section. General Preoperative/Medication/Fasting Instructions Preoperative Diabetes Medication Instructions I have discussed the above recommendations with the patient in detail, in ramy and lay terms, and provided a written summary of instructions as needed. We have discussed that no surgery is without risk, but that the goal of preoperative assessment is to optimize that risk, and that was clearly understood by the patient. I have given ample opportunity for the patient to ask questions, and answered all questions to their stated satisfaction. ADDENDUM: Pre-op lab results reviewed and are within acceptable range for surgery. Patient is optimized for surgery. SIGNATURE: Bill Gr MD, FACP, PATIENT NAME: Anne Cordero DATE: March 04, 2018 TIME: 3:15 PM Previous Version Bill Gr MD, FACP, 03/04/2018 3:27 PM Addendum [facility] Patient Instructions for Surgery FOOD INSTRUCTIONS: NO solid food or non-clear liquids for 8 hours prior to the arrival time for your surgery. Unless you are instructed otherwise, you are allowed to drink up to 12 ounces of clear liquids (e.g. water, black tea/coffee, fruit juice without pulp, Darnell Lopez, etc.) up until 2 hours prior to the arrival time for surgery. MEDICATION INSTRUCTIONS: Prior to Surgery: Do not take the following medications for 7 days prior to surgery: - any NSAID's (e.g. Motrin, Aleve, Arthrotec, Naproxen,etc) - any herbal preparations - Aspirin or aspirin containing products Do not take any Vitamin E / multivitamins for 10-14 days before surgery You are allowed to take Tylenol if needed until the day of surgery. MEDICATION INSTRUCTIONS: Day/Morning of Surgery: The following medications should be taken with sips of water: levothyroxine, prevacid, verapamil Tylenol, if needed for pain, can be taken on morning of surgery. DIABETES MANAGEMENT INSTRUCTIONS: Eat a usual diet until the day prior to surgery unless indicated by your surgeon/physician. If your blood sugar is below 70 mg/dl at any time, treat with ? cup of apple juice or darnell lopez, or 4 glucose tabs or 1 tube of oral glucose gel. MEDICATION INSTRUCTIONS: Prior to Surgery: ? Continue all diabetic pills as scheduled including the evening prior to surgery. MEDICATION INSTRUCTIONS: Day/Morning of Surgery: ? Do not take your Diabetic pills. If you have any questions or concerns regarding today's visit please do not hesitate to contact the [facility] center at [phone] or [phone], [phone]. Signature: Bill Gr MD, FACP, [facility] Date: March 04, 2018 Previous Version Progress Notes (RADIO CT SCAN [facility]): Vicky Wilson 02/19/2018 8:45 AM Signed Radiology Service Progress Note PATIENT NAME: Anne Cordero DATE OF SERVICE: February 19, 2018 TIME: 8:45 AM PATIENT IDENTITY VERIFICATION COMPLETED USING TWO (2) METHODS: Patient confirmed name verbally and Date of . PATIENT GENDER DATA: Female. status: : No status: NO. PATIENT RELEVANT IMPLANT DATA REVIEWED: Not Applicable RADIOLOGY DEPARTMENT: CT; Exam(s) Completed: Chest PERIPHERAL IV DATA: Not applicable SIGNED BY: Vicky Wilson February 19, 2018 8:45 AM 12 LEAD ELECTROCARDIOGRAM Observed: 02/28/2018 Status: F Source: [place]ER 9:17 AM [facility] REPOSITORY [facility] Cardiovascular Services [address] [place] [address] [place] [address] EKG - [facility] 02/18/18 1018 MR#: [id number] Acct: [id number] Name: ANNE CORDERO Rep #: [id number] : 1955 62 From: Bart Veras MD Attending Dr: Praful Pathak MD Status: PRE IN Ordering Dr: Janice Jacobs MD Date: 02/18/18 Location: [facility] Sex: F C Admitted: Test Reason : Blood Pressure : / mmHG Vent. Rate : 075 BPM Atrial Rate : 075 BPM P-R Int : 176 ms QRS Dur : 144 ms QT Int : 410 ms P-R-T Axes : 038 000 003 degrees QTc Int : 457 ms Normal sinus rhythm Right bundle branch block Abnormal ECG Confirmed by BART VERAS MD ([id number]), visual effects editor SUSAN PATRICIA ([id number]) on 02/21/2018 1:44:49 PM Referred By: Praful Pathak Confirmed By:BART VERAS MD 02/21/18 1344 Date Bart Veras MD CC: Janice Jacobs MD; Vladimir Dinh MD; Praful Pathak MD Date Dictated: 02/18/18 1018 Date Transcribed: 02/18/18 1018 Emulsion Operator: Signed CT CHEST WO LEXIE Observed: 02/19/2018 Status: F Source: [place] 8:51 AM [facility] REPOSITORY * * *Final Report* * * DATE OF EXAM: Feb 19 2018 8:51AM [facility] 0541 - CT CHEST WO IVCON / PROCEDURE REASON: chest * * * * Physician Interpretation * * * * EXAMINATION: CHEST CT WITHOUT CONTRAST CLINICAL HISTORY: New hx colon ca,no chest surg, non smoke kmr Technique: Spiral CT acquisition of the chest from the thoracic inlet to the upper abdomen without contrast. MQ: CTCWOR_4 CT Dose-Length Product: 424 mGy*cm CT Dose Reduction Employed: Automated exposure control(AEC) and iterative recon Comparison: Chest x-ray 06/13/2009 RESULT: Limitations: None. Lines, tubes, and devices: None. Lung parenchyma and pleura: No consolidation. No suspicious pulmonary nodule. No pleural effusion. Central airways are patent. Thoracic inlet, heart, and mediastinum: No lymphadenopathy in the axillary, mediastinal, or hilar regions. The thoracic aorta and main pulmonary artery are normal in caliber. The cardiac chambers are normal in size. No coronary artery atherosclerotic calcifications are noted, although the study is not optimized for coronary assessment. No pericardial effusion or thickening. Bones and soft tissues: No destructive bone lesion. Chest wall is unremarkable. Upper abdomen: No abnormality in the imaged upper abdomen. IMPRESSION: No CT evidence of acute abnormality. Emulsion Operator: GARY Transcribe Date/Time: Feb 21 2018 12:33P Dictated by : BOLIVAR VALDES DO This examination was interpreted and the report reviewed and electronically signed by: BOLIVAR VALDES DO on Feb 21 2018 3:15PM EST [id number] PROGRESS Observed: 02/19/2018 Status: COMPLETED Source: [place] 8:45 AM [facility] REPOSITORY HNO ID: [id number] Author: Vicky Wilson Service: (none) Author Type: (none) Type: Progress Notes Filed: 02/19/2018 8:45 AM Note Text: Radiology Service Progress Note PATIENT NAME: Anne Cordero DATE OF SERVICE: February 19, 2018 TIME: 8:45 AM PATIENT IDENTITY VERIFICATION COMPLETED USING TWO (2) METHODS: Patient confirmed name verbally and Date of . PATIENT GENDER DATA: Female. status: : No status: NO. PATIENT RELEVANT IMPLANT DATA REVIEWED: Not Applicable RADIOLOGY DEPARTMENT: CT; Exam(s) Completed: Chest PERIPHERAL IV DATA: Not applicable SIGNED BY: Vicky Wilson February 19, 2018 8:45 AM PROGRESS Observed: 02/18/2018 Status: COMPLETED Source: [place] 6:58 PM [facility] REPOSITORY HNO ID: [id number] Author: Praful Pathak Service: (none) Author Type: Physician Type: Progress Notes Filed: 02/18/2018 7:12 PM Note Text: FOLLOW UP VISIT - ENDOSCOPY NAME: Anne Cordero [facility] NO.: [id number] DATE OF SERVICE: 02/18/2018 : 1955 REFERRING PHYSICIAN: Elizabeth Dinh MD Anne is a patient I am following for anemia with no other significant complaints. I saw her in [facility] on February 10 and the diagnosis of anemia The patient is a 62 year old F who has noticed increasing fatigue for at least the last few weeks. She presented for her routine gynecologic evaluation was noted to be pale. The patient had undergone a previous hysterectomy. She notes no reasons for other than gastrointestinal blood loss. She denies abdominal pain. She notes no black tarry stools other difficulties. She underwent a complete blood count which demonstrated on 02/07/18 a hemoglobin of 7.8 with microcytic parameters. The patient had previous undergone a CBC in 2016 with a hemoglobin of 12.2 and normal red cell indices. She had undergone colonoscopy by Dr. Kole Parra on January 07, 2015. 2 - 5 mm polyps were found in the proximal transverse colon and also noted was a degree of diverticulosis. It was recommended the patient have follow-up colonoscopy in 5 years. Prior to that, the patient went upper and lower endoscopy in December 26, 2011. Also by Dr. Kole Parra. Upper endoscopy was unremarkable. Colonoscopy demonstrated 2 - 10 mm polyps and the patient was recommended 3 year follow-up colonoscopy at that time. All polyps were noted to be adenomatous polyps. The patient's past history is otherwise significant for hypothyroidism, hypertension, asthma, type 2 diabetes, obesity, reflux depression. she'll surgical history includes carpal tunnel procedures, thyroidectomy, total abdominal hysterectomy, previous appendectomy. I performed upper and lower endoscopy on February 14, 2018. The patient was found to have a degree of erosive gastritis with some adherent superficial clots without significant ulceration noted and fundic gland polyps on upper endoscopy. Colonoscopy demonstrated a near obstructing mass when the scope was advanced to 90 cm. Attempts to advance the scope beyond this point were unsuccessful. The site was tattooed and a resolution metallic clip was placed to allow identification of the site of abnormality. A KUB was obtained that day which demonstrated the abnormality to be at the splenic flexure. Laboratory studies were obtained which demonstrated: CT scan and pathology results were also ordered which have not returned as the following: Admission on 02/14/2018, Discharged on 02/14/2018 Component Date Value - Business Representative 02/14/2018 Value: Specimen originated from [facility] Specimen #: [id number] Submitting Physician: PRAFUL PATHAK ([id number]) FINAL DIAGNOSIS 1. Stomach, antrum, biopsy (A) - Chronic inactive gastritis. - See comment. 2. Stomach, polypectomy (B) - Fundic gland polyp, negative for dysplasia. 3. 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 - See comment. SHAQUILLE/sandy 02/17/2018 COMMENT 1. Immunohistochemical stain for Helicobacter pylori is pending and the results will be reported as an addendum. 3. Immunohistochemical stains were performed to evaluate this lesion and show that the cells of interest are diffusely positive for chromogranin, synaptophysin, SATB2 and show variable expression of CDX2 and CK20. They do not express CK7 or NKX3.1. 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 Histologic features of a small cell carcinoma are not identified. Laboratory Developed Test (LDT) Disclaimer: Positive and negative controls stain appropriately. Performance characteristics of immunohistochemical, immunofluorescent and chromogenic in-situ hybridization tests have been determined by [facility]ology [facility] [place] ([facility]) in a manner consistent with CLIA requirements. One or more of these tests have not been cleared or approved by the FDA. [facility] is regulated under CLIA as qualified to perform high-complexity testing. These tests are used for clinical purposes. They should not be regarded as investigational or for research. Kristal Thompson M.D. (Electronic Signature) SPECIMEN SUBMITTED A: ANTRUM, BIOPSY B: GASTRIC POLYP C: AT 75CM COLON, BIOPSY CLINICAL DATA D64.9 H/H GROSS DESCRIPTION A. Received in formalin is one piece of brewer, soft tissue measuring 0.5 x 0.2 x 0.1 cm. Totally submitted in one cassette. B. Received in formalin is one piece of brewer, soft tissue measuring 0.3 x 0.2 x 0.2 cm. Totally submitted in one cassette. C. Received in formalin are two pieces of brewer, soft tissue aggregating to 0.6 x 0.2 x 0.2 cm. Totally submitted in one cassette. Gross examination performed at [facility], [address] [place] [address] 02/15/2018 12:59:52 AM Date of Report: 02/18/2018 Date of Procedure: 02/14/2018 Date of Receipt: 02/14/2018 Submitted by: PRAFUL PATAHK ([id number]) Location: [id number] Diagnostic interpretation performed at [place] [address]. Appointment on 02/14/2018 Component Date Value - Cholesterol, Total 02/14/2018 140 - Triglyceride 02/14/2018 201* - HDL Cholesterol 02/14/2018 22* - LDL Cholesterol 02/14/2018 78 - Non HDL Cholesterol 02/14/2018 118 - Fasting Time 02/14/2018 12 - VLDL Cholesterol 02/14/2018 40* - TC:HDL Ratio 02/14/2018 6.36* - LDL:HDL Ratio 02/14/2018 3.55* - WBC 02/14/2018 7.68 - RBC 02/14/2018 4.03 - Hemoglobin 02/14/2018 8.8* - Hematocrit 02/14/2018 30.4* - MCV 02/14/2018 75.4* - MCH 02/14/2018 21.8* - MCHC 02/14/2018 28.9* - RDW-CV 02/14/2018 19.6* - Platelet Count 02/14/2018 339 - MPV 02/14/2018 10.5 - Neut% 02/14/2018 70.8 - Abs Neut (ANC) 02/14/2018 5.44 - Lymph% 02/14/2018 21.1 - Abs Lymph 02/14/2018 1.62 - Lancaster% 02/14/2018 5.9 - Abs Lancaster 02/14/2018 0.45 - Eosin% 02/14/2018 1.8 - Abs Eosin 02/14/2018 0.14 - Baso% 02/14/2018 0.4 - Abs Baso 02/14/2018 0.03 - Nucleated Reds 02/14/2018 0.0 - Absolute nRBC 02/14/2018 <0.01 - Diff Type 02/14/2018 Auto Diff - CEA 02/14/2018 4.0* - Protein, Total 02/14/2018 6.7 - Albumin 02/14/2018 3.9 - Calcium 02/14/2018 10.2 - Bilirubin, Total 02/14/2018 0.2 - Alkaline Phosphatase 02/14/2018 95 - AST 02/14/2018 11* - Glucose 02/14/2018 139* - BUN 02/14/2018 14 - Creatinine 02/14/2018 0.87 - Sodium 02/14/2018 138 - Potassium 02/14/2018 3.9 - Chloride 02/14/2018 103 - CO2 02/14/2018 28 - Anion Gap 02/14/2018 7 - ALT 02/14/2018 10 - eGFR- 02/14/2018 >60 - eGFR-All Other Races 02/14/2018 >60 Results Only on 02/11/2018 Component Date Value - Business Representative 02/11/2018 Value:Ken PATHAK your patient ANNE CORDERO has been assigned their Geni program. The date to complete this order is 03-28-2018 The Geni program is: COLONOSCOPY The patient access code to view the Geni program is: [phone] To view the Geni program go to: [email or web address] Telephone on 02/11/2018 Component Date Value - Business Representative 02/14/2018 Value:Rupinder [facility] Gastrointestinal Endoscopy Patient Name: Anne Cordero Procedure Date: 02/14/2018 8:28 AM Date of : 1955 Admit Type: Ambulatory Age: 62 Gender: Female Note Status: Finalized Sedation Initiated: 839 AM Procedure: Upper GI endoscopy Indications: Iron deficiency anemia Providers: Praful Pathak MD Patient Profile: This is a 62 year old female. Refer to note in patient chart for documentation of history and physical. Referring Physician: Elizabeth Dinh MD Medicines: Midazolam 5 mg IV, Fentanyl 100 micrograms IV, Diphenhydramine 50 mg IV Complications: No immediate complications. Requesting Provider: Procedure: Pre-Anesthesia Assessment: - Prior to the procedure, a History and Physical was performed, and patient medications and allergies were reviewed. The patient is competent. The risks and benefits of the procedure and the sedation options and risks were discussed with the patient. All questions were answered and informed consent was obtained. Patient identification and proposed procedure were verified by the physician and the nurse in the procedure room. Mental Status Examination: alert and oriented. Airway Examination: normal oropharyngeal airway and neck mobility. Respiratory Examination: clear to auscultation. CV Examination: normal. Prophylactic Antibiotics: The patient does not require prophylactic antibiotics. Prior Anticoagulants: The patient has taken no previous anticoagulant or antiplatelet agents. ASA Grade Assessment: II - A patient with mild systemic disease. After reviewing the risks and benefits, the patient was deemed in satisfactory condition to undergo the procedure. The anesthesia plan was to use moderate sedation / analgesia (conscious sedation). Immediately prior to administration of medications, the patient was re-assessed for adequacy to receive sedatives. The heart rate, respiratory rate, oxygen saturations, blood pressure, adequacy of pulmonary ventilation, and response to care were monitored throughout the procedure. The physical status of the patient was re-assessed after the procedure. - Prior to the procedure, a History and Physical was performed, and patient medications and allergies were reviewed. The patient's tolerance of previous anesthesia was also reviewed. The risks and benefits of the procedure and the sedation options and risks were discussed with the patient. All questions were answered, and informed consent was obtained. Prior Anticoagulants: The patient has taken aspirin. ASA Grade Assessment: II - A patient with mild systemic disease. After reviewing the risks and benefits, the patient was deemed in satisfactory condition to undergo the procedure. After obtaining informed consent, the endoscope was passed under direct vision. Throughout the procedure, the patient's blood pressure, pulse, and oxygen saturations were monitored continuously. The Endoscope was introduced through the mouth, and advanced to the jejunum. The upper GI endoscopy was accomplished without difficulty. The patient tolerated the procedure well. Findings: The examined jejunum was normal. The examined duodenum was normal. Scattered moderate inflammation characterized by adherent blood, erosions and erythema was found in the gastric antrum. Biopsies were taken with a cold forceps for histology. The examined esophagus was normal. Multiple small sessile polyps with no stigmata of recent bleeding were found in the gastric fundus. The polyp was removed with a cold biopsy forceps. Resection and retrieval were complete. Impression: - Normal examined jejunum. - Normal examined duodenum. - Gastriti s. Biopsied. - Normal esophagus. - Multiple gastric polyps. Resected and retrieved. Attending Participation: I was present and participated during the entire procedure, including non-mckenzie portions, and during the administration and monitoring of Moderate Sedation. Scope In: 8:43:42 AM Scope Out: 8:50:04 AM MD Praful Castañeda MD 02/14/2018 9:09:54 AM This report has been signed electronically by Praful Pathak MD Number of Addenda: 0 Note Initiated On: 02/14/2018 8:28 AM Estimated Blood Loss: Estimated blood loss: none. - Business Representative 02/14/2018 Value:Rupinder [facility] Gastrointestinal Endoscopy Patient Name: Anne Cordero Procedure Date: 02/14/2018 8:26 AM Date of : 1955 Admit Type: Ambulatory Age: 62 Gender: Female Note Status: Finalized Sedation Initiated: 839 AM Procedure: Colonoscopy Indications: Iron deficiency anemia Providers: Praful Pathak MD Patient Profile: This is a 62 year old female. Refer to note in patient chart for documentation of history and physical. Last Colonoscopy: 5 years ago. Referring Physician: Elizabeth Dinh MD Medicines: See the other procedure note for documentation of the administered medications Complications: No immediate complications. Requesting Provider: Procedure: Pre-Anesthesia Assessment: - Prior to the procedure, a History and Physical was performed, and patient medicati ons and allergies were reviewed. The patient is competent. The risks and benefits of the procedure and the sedation options and risks were discussed with the patient. All questions were answered and informed consent was obtained. Patient identification and proposed procedure were verified by the physician and the nurse in the procedure room. Mental Status Examination: alert and oriented. Airway Examination: normal oropharyngeal airway and neck mobility. Respiratory Examination: clear to auscultation. CV Examination: normal. Prophylactic Antibiotics: The patient does not require prophylactic antibiotics. Prior Anticoagulants: The patient has taken aspirin. ASA Grade Asse ssment: II - A patient with mild systemic disease. After reviewing the risks and benefits, the patient was deemed in satisfactory condition to undergo the procedure. The anesthesia plan was to use moderate sedation / analgesia (conscious sedation). Immediately prior to administration of medications, the patient was re-assessed for adequacy to receive sedatives. The heart rate, respiratory rate, oxygen saturations, blood pressure, adequacy of pulmonary ventilation, and response to care were monitored throughout the procedure. The physical status of the patient was re-assessed after the procedure. After I obtained informed consent, the scope was passed under direct vision . Throughout the procedure, the patient's blood pressure, pulse, and oxygen saturations were monitored continuously. The Colonoscope was introduced through the anus and advanced to the transverse colon to examine a mass. This was the intended extent. The colonoscopy was performed without difficulty. The patient tolerated the procedure well. The quality of the bowel preparation was good. The ileocecal valve, appendiceal orifice, and rectum were photographed. Findings: The perianal and digital rectal examinations were normal. A fungating partially obstructing large mass was found in the mid transverse colon. The mass was circumferential. Oozing was present. Biopsies were taken with a cold forceps for histology. Biopsies were taken with a cold forceps for histology. Area was tattooed with an injection of 1 mL of Miladis ink. For location marking, one hemostatic clip was successfully placed (MR conditional). There was no bleeding at the end of the procedure. The exam was otherwise without abnormality. The retroflexed view of the distal rectum and anal verge was normal and showed no anal or rectal abnormalities. Impression: - Likely malignant partially obstructing tumor in the mid transverse colon. Biopsied. Tattooed. Clip (MR conditional) was placed. - The examination was otherwise normal. - The distal rectum and anal verge are normal on retroflexion view. Recommendation: - Perform a flat plate abdominal x-ray. - Perform CT scan (computed tomography) of the abdomen with contrast. - Resume aspirin today at prior dose. - Patient has a contact number available for emergencies. The signs and symptoms of potential delayed complications were discussed with the patient. Return to normal activities tomorrow. Written discharge instructions were provided to the patient. - Continue present medications. - Low fiber diet. - Repeat colonoscopy. Attending Participation: I was present and participated during the entire procedure, including non-mckenzie portions, and during the administration and monitoring of Moderate Sedation. Scope In: 8:50:55 AM Scope Out: 9:04:56 AM MD Praful Castañeda MD 02/14/2018 9:16:14 AM This report has been signed electronically by Praful Pathak MD Number of Addenda: 0 Note Initiated On: 02/14/2018 8:26 AM Estimated Blood Loss: Estimated blood loss: none. CT scan of the abdomen pelvis was obtained at [facility] due to a presumed but likely nonrenal based on patient's history of a contrast allergy yesterday on February 17, 2018. CT scan demonstrated: IMPRESSION: Irregular wall thickening of the distal transverse /proximal descending colon at the splenic flexure surrounded by multiple nodules. Findings are concerning for malignancy with local peritoneal spread. Colonoscopy reports a lesion in the mid transverse colon however no discrete mass or wall irregularity is identified on this study. CT in general is limited in detecting colonic neoplasm. No metastatic disease identified elsewhere in the abdomen. Additional findings as detailed in the report. Emulsion Operator: GARY ? Transcribe Date/Time: Feb 17 2018 12:27P Dictated by : RHIANNON BAZAN MD This examination was interpreted and the report reviewed and electronically signed by: RHIANNON BAZAN MD on Feb 17 2018 12:55PM ?EST Results-Findings * * *Final Report* * * DATE OF EXAM: Feb 17 2018 12:03PM ? [facility] [place]- ?CT ABD/PEL W IVCON ?/ PROCEDURE REASON: R19.00-Abdominal mass, unspecified abdominal location ?? ? * * * * Physician Interpretation * * * * ?EXAMINATION: ?CT ABDOMEN AND PELVIS WITH IV CONTRAST CLINICAL HISTORY: ?Abdominal mass, unspecified abdominal location RECENT DIAG COLON CA TECHNIQUE: CT of the abdomen and pelvis was performed using standard technique, scanning from just above the dome of the diaphragm to the symphysis pubis. MQ: ?CTAP_3 Contrast: IV: ?150 ml of Omnipaque 300 Oral: ?900 ml of 50ML Omnipaque [address] Radiation dose: Integrated Dose-length product (DLP) for this visit = ? 926 mGy*cm. CT Dose Reduction Employed: mAs-kVp adjusted based on patient size-age COMPARISON: None RESULT: Liver: No mass. Normal hepatic morphology. Biliary: No bile duct dilation. ?Gallbladder is unremarkable. Spleen: No mass. No splenomegaly. Pancreas: No mass or duct dilation. Adrenals: No mass. Kidneys: Bilateral punctate hypodensities too small to characterize. No calculus or hydronephrosis. GI tract: Irregular wall thickening involving the colon at the splenic flexure with adjacent nodules which may represent peritoneal metastasis (2:36-59). No dilated bowel. Lymph nodes: No abdominal or pelvic lymphadenopathy. Mesentery/Peritoneum: Multiple nodules splenic flexure adjacent to the colonic wall thickening. Retroperitoneum: No mass. Vasculature: ?The celiac axis and SMA are patent. The portal vein and branches, splenic vein, SMV, and hepatic veins are patent. ?Mild atherosclerotic calcifications in the abdominal aorta without aneurysm. Pelvis: No mass, ascites or fluid collection. Urinary bladder is decompressed. Bones/Soft Tissues: No destructive osseous lesions. Soft tissues are unremarkable. Lower thorax: Unremarkable. Given the bulkiness of this abnormality, I contacted King Yoder MD for his advice on how to proceed. My initial impression would be to plan for segmental splenic flexure resection but given the degree of tumor and the nodularity along with the patient's history of multiple polyps at previous endoscopy one at his opinion concerning a more aggressive resection. The patient notes no abdominal complaints since the procedure but had swelling in her right forearm that was seen in the ER and diagnosis thrombophlebitis. There was no pus noted but she was started on Keflex. VITALS: There were no vitals taken for this visit. On examination, the abdomen is benign. Assessment IMPRESSION: Splenic flexure adenocarcinoma PLAN: After discussions with the patient and her agreement that she would like to be aggressive with this abnormality and would actually be comfortable with the subtotal colectomy-I'm most comfortable transferring the patient to care to Dr. Yoder at [facility] given the potential challenges of the subtotal colectomy and bulkiness of the tumor with proximity to the proximal jejunum. The patient this morning underwent additional laboratory testing at [facility] for the initial plan of resection locally. Her hemoglobin today was 9.5. I discussed with the patient that I am comfortable with her continuing her iron supplementation. Its listed that she is currently taking Prevacid. Given her hemoglobin of 9.5 I would not plan for further transfusion due to the risk of immunosuppression at definitive surgical intervention. Diagnoses: (C18.5) Malignant neoplasm of splenic flexure (HCC) (primary encounter diagnosis) Return to Clinic: The patient is instructed to follow- up with me as needed. Praful Pathak MD CNOV Observed: 02/18/2018 Status: COMPLETED Source: [facility] 2:40 PM [facility] REPOSITORY Office Visit (GENSWS) ANNE CORDERO ([id number]) 1955 F Date Time Provider Department 02/18/18 2:40 PM PRAFUL PATHAK During your visit today, we recorded the following information about you: Praful Pathak MD 02/18/2018 7:12 PM Signed FOLLOW UP VISIT - ENDOSCOPY NAME: Anne Cordero [facility] NO.: [id number] DATE OF SERVICE: 02/18/2018 : 1955 REFERRING PHYSICIAN: Elizabeth Dinh MD Anne is a patient I am following for anemia with no other significant complaints. I saw her in [facility] on February 10 and the diagnosis of anemia The patient is a 62 year old F who has noticed increasing fatigue for at least the last few weeks. She presented for her routine gynecologic evaluation was noted to be pale. The patient had undergone a previous hysterectomy. She notes no reasons for other than gastrointestinal blood loss. She denies abdominal pain. She notes no black tarry stools other difficulties. She underwent a complete blood count which demonstrated on 02/07/18 a hemoglobin of 7.8 with microcytic parameters. The patient had previous undergone a CBC in 2017 with a hemoglobin of 12.2 and normal red cell indices. She had undergone colonoscopy by Dr. Kole Parra on January 07, 2015. 2 - 5 mm polyps were found in the proximal transverse colon and also noted was a degree of diverticulosis. It was recommended the patient have follow-up colonoscopy in 5 years. Prior to that, the patient went upper and lower endoscopy in December 26, 2011. Also by Dr. Kole Parra. Upper endoscopy was unremarkable. Colonoscopy demonstrated 2 - 10 mm polyps and the patient was recommended 3 year follow-up colonoscopy at that time. All polyps were noted to be adenomatous polyps. The patient's past history is otherwise significant for hypothyroidism, hypertension, asthma, type 2 diabetes, obesity, reflux depression. she'll surgical history includes carpal tunnel procedures, thyroidectomy, total abdominal hysterectomy, previous appendectomy. I performed upper and lower endoscopy on February 14, 2018. The patient was found to have a degree of erosive gastritis with some adherent superficial clots without significant ulceration noted and fundic gland polyps on upper endoscopy. Colonoscopy demonstrated a near obstructing mass when the scope was advanced to 90 cm. Attempts to advance the scope beyond this point were unsuccessful. The site was tattooed and a resolution metallic clip was placed to allow identification of the site of abnormality. A KUB was obtained that day which demonstrated the abnormality to be at the splenic flexure. Laboratory studies were obtained which demonstrated: CT scan and pathology results were also ordered which have not returned as the following: Admission on 02/14/2018, Discharged on 02/14/2018 Component Date Value - Business Representative 02/14/2018 Value: Specimen originated from [facility] Specimen #: [id number] Submitting Physician: PRAFUL PATHAK ([id number]) FINAL DIAGNOSIS 1. Stomach, antrum, biopsy (A) - Chronic inactive gastritis. - See comment. 2. Stomach, polypectomy (B) - Fundic gland polyp, negative for dysplasia. 3. 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 - See comment. SHAQUILLE/sandy 02/17/2018 COMMENT 1. Immunohistochemical stain for Helicobacter pylori is pending and the results will be reported as an addendum. 3. Immunohistochemical stains were performed to evaluate this lesion and show that the cells of interest are diffusely positive for chromogranin, synaptophysin, SATB2 and show variable expression of CDX2 and CK20. They do not express CK7 or NKX3.1. 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 Histologic features of a small cell carcinoma are not identified. Laboratory Developed Test (LDT) Disclaimer: Positive and negative controls stain appropriately. Performance characteristics of immunohistochemical, immunofluorescent and chromogenic in-situ hybridization tests have been determined by [facility] [place] [facility] in a manner consistent with CLIA requirements. One or more of these tests have not been cleared or approved by the FDA. [facility] is regulated under CLIA as qualified to perform high-complexity testing. These tests are used for clinical purposes. They should not be regarded as investigational or for research. Kristal Thompson M.D. (Electronic Signature) SPECIMEN SUBMITTED A: ANTRUM, BIOPSY B: GASTRIC POLYP C: AT 75CM COLON, BIOPSY CLINICAL DATA D64.9 H/H GROSS DESCRIPTION A. Received in formalin is one piece of brewer, soft tissue measuring 0.5 x 0.2 x 0.1 cm. Totally submitted in one cassette. B. Received in formalin is one piece of brewer, soft tissue measuring 0.3 x 0.2 x 0.2 cm. Totally submitted in one cassette. C. Received in formalin are two pieces of brewer, soft tissue aggregating to 0.6 x 0.2 x 0.2 cm. Totally submitted in one cassette. Gross examination performed at [address] 02/15/2018 12:59:52 AM Date of Report: 02/18/2018 Date of Procedure: 02/14/2018 Date of Receipt: 02/14/2018 Submitted by: PRAFUL PATHAK ([id number]) Location: [id number] Diagnostic interpretation performed at [place] [address]. Appointment on 02/14/2018 Component Date Value - Cholesterol, Total 02/14/2018 140 - Triglyceride 02/14/2018 201* - HDL Cholesterol 02/14/2018 22* - LDL Cholesterol 02/14/2018 78 - Non HDL Cholesterol 02/14/2018 118 - Fasting Time 02/14/2018 12 - VLDL Cholesterol 02/14/2018 40* - TC:HDL Ratio 02/14/2018 6.36* - LDL:HDL Ratio 02/14/2018 3.55* - WBC 02/14/2018 7.68 - RBC 02/14/2018 4.03 - Hemoglobin 02/14/2018 8.8* - Hematocrit 02/14/2018 30.4* - MCV 02/14/2018 75.4* - MCH 02/14/2018 21.8* - MCHC 02/14/2018 28.9* - RDW-CV 02/14/2018 19.6* - Platelet Count 02/14/2018 339 - MPV 02/14/2018 10.5 - Neut% 02/14/2018 70.8 - Abs Neut (ANC) 02/14/2018 5.44 - Lymph% 02/14/2018 21.1 - Abs Lymph 02/14/2018 1.62 - [place]% 02/14/2018 5.9 - Abs [place] 02/14/2018 0.45 - Eosin% 02/14/2018 1.8 - Abs Eosin 02/14/2018 0.14 - Baso% 02/14/2018 0.4 - Abs Baso 02/14/2018 0.03 - Nucleated Reds 02/14/2018 0.0 - Absolute nRBC 02/14/2018 <0.01 - Diff Type 02/14/2018 Auto Diff - CEA 02/14/2018 4.0* - Protein, Total 02/14/2018 6.7 - Albumin 02/14/2018 3.9 - Calcium 02/14/2018 10.2 - Bilirubin, Total 02/14/2018 0.2 - Alkaline Phosphatase 02/14/2018 95 - AST 02/14/2018 11* - Glucose 02/14/2018 139* - BUN 02/14/2018 14 - Creatinine 02/14/2018 0.87 - Sodium 02/14/2018 138 - Potassium 02/14/2018 3.9 - Chloride 02/14/2018 103 - CO2 02/14/2018 28 - Anion Gap 02/14/2018 7 - ALT 02/14/2018 10 - eGFR- 02/14/2018 >60 - eGFR-All Other Races 02/14/2018 >60 Results Only on 02/11/2018 Component Date Value - Business Representative 02/11/2018 Value:Ken PATHAK your patient ANNE CORDERO has been assigned their Geni program. The date to complete this order is 03-28-2018 The Geni program is: COLONOSCOPY The patient access code to view the Geni program is: [phone] To view the Geni program go to: [email or web address] Telephone on 02/11/2018 Component Date Value - Business Representative 02/14/2018 Value:Rupinder [facility] Gastrointestinal Endoscopy Patient Name: Anne Cordero Procedure Date: 02/14/2018 8:28 AM Date of : 1955 Admit Type: Ambulatory Age: 62 Gender: Female Note Status: Finalized Sedation Initiated: 839 AM Procedure: Upper GI endoscopy Indications: Iron deficiency anemia Providers: Praful Pathak MD Patient Profile: This is a 62 year old female. Refer to note in patient chart for documentation of history and physical. Referring Physician: Elizabeth Dinh MD Medicines: Midazolam 5 mg IV, Fentanyl 100 micrograms IV, Diphenhydramine 50 mg IV Complications: No immediate complications. Requesting Provider: Procedure: Pre-Anesthesia Assessment: - Prior to the procedure, a History and Physical was performed, and patient medications and allergies were reviewed. The patient is competent. The risks and benefits of the procedure and the sedation options and risks were discussed with the patient. All questions were answered and informed consent was obtained. Patient identification and proposed procedure were verified by the physician and the nurse in the procedure room. Mental Status Examination: alert and oriented. Airway Examination: normal oropharyngeal airway and neck mobility. Respiratory Examination: clear to auscultation. CV Examination: normal. Prophylactic Antibiotics: The patient does not require prophylactic antibiotics. Prior Anticoagulants: The patient has taken no previous anticoagulant or antiplatelet agents. ASA Grade Assessment: II - A patient with mild systemic disease. After reviewing the risks and benefits, the patient was deemed in satisfactory condition to undergo the procedure. The anesthesia plan was to use moderate sedation / analgesia (conscious sedation). Immediately prior to administration of medications, the patient was re-assessed for adequacy to receive sedatives. The heart rate, respiratory rate, oxygen saturations, blood pressure, adequacy of pulmonary ventilation, and response to care were monitored throughout the procedure. The physical status of the patient was re-assessed after the procedure. - Prior to the procedure, a History and Physical was performed, and patient medications and allergies were reviewed. The patient's tolerance of previous anesthesia was also reviewed. The risks and benefits of the procedure and the sedation options and risks were discussed with the patient. All questions were answered, and informed consent was obtained. Prior Anticoagulants: The patient has taken aspirin. ASA Grade Assessment: II - A patient with mild systemic disease. After reviewing the risks and benefits, the patient was deemed in satisfactory condition to undergo the procedure. After obtaining informed consent, the endoscope was passed under direct vision. Throughout the procedure, the patient's blood pressure, pulse, and oxygen saturations were monitored continuously. The Endoscope was introduced through the mouth, and advanced to the jejunum. The upper GI endoscopy was accomplished without difficulty. The patient tolerated the procedure well. Findings: The examined jejunum was normal. The examined duodenum was normal. Scattered moderate inflammation characterized by adherent blood, erosions and erythema was found in the gastric antrum. Biopsies were taken with a cold forceps for histology. The examined esophagus was normal. Multiple small sessile polyps with no stigmata of recent bleeding were found in the gastric fundus. The polyp was removed with a cold biopsy forceps. Resection and retrieval were complete. Impression: - Normal examined jejunum. - Normal examined duodenum. - Gastriti s. Biopsied. - Normal esophagus. - Multiple gastric polyps. Resected and retrieved. Attending Participation: I was present and participated during the entire procedure, including non-mckenzie portions, and during the administration and monitoring of Moderate Sedation. Scope In: 8:43:42 AM Scope Out: 8:50:04 AM MD Praful Castañeda MD 02/14/2018 9:09:54 AM This report has been signed electronically by Praful Pathak MD Number of Addenda: 0 Note Initiated On: 02/14/2018 8:28 AM Estimated Blood Loss: Estimated blood loss: none. - Business Representative 02/14/2018 Value:Rupinder [facility] Gastrointestinal Endoscopy Patient Name: Anne Cordero Procedure Date: 02/14/2018 8:26 AM Date of : 1955 Admit Type: Ambulatory Age: 62 Gender: Female Note Status: Finalized Sedation Initiated: 839 AM Procedure: Colonoscopy Indications: Iron deficiency anemia Providers: Praful Pathak MD Patient Profile: This is a 62 year old female. Refer to note in patient chart for documentation of history and physical. Last Colonoscopy: 5 years ago. Referring Physician: Elizabeth Dinh MD Medicines: See the other procedure note for documentation of the administered medications Complications: No immediate complications. Requesting Provider: Procedure: Pre-Anesthesia Assessment: - Prior to the procedure, a History and Physical was performed, and patient medicati ons and allergies were reviewed. The patient is competent. The risks and benefits of the procedure and the sedation options and risks were discussed with the patient. All questions were answered and informed consent was obtained. Patient identification and proposed procedure were verified by the physician and the nurse in the procedure room. Mental Status Examination: alert and oriented. Airway Examination: normal oropharyngeal airway and neck mobility. Respiratory Examination: clear to auscultation. CV Examination: normal. Prophylactic Antibiotics: The patient does not require prophylactic antibiotics. Prior Anticoagulants: The patient has taken aspirin. ASA Grade Asse ssment: II - A patient with mild systemic disease. After reviewing the risks and benefits, the patient was deemed in satisfactory condition to undergo the procedure. The anesthesia plan was to use moderate sedation / analgesia (conscious sedation). Immediately prior to administration of medications, the patient was re-assessed for adequacy to receive sedatives. The heart rate, respiratory rate, oxygen saturations, blood pressure, adequacy of pulmonary ventilation, and response to care were monitored throughout the procedure. The physical status of the patient was re-assessed after the procedure. After I obtained informed consent, the scope was passed under direct vision . Throughout the procedure, the patient's blood pressure, pulse, and oxygen saturations were monitored continuously. The Colonoscope was introduced through the anus and advanced to the transverse colon to examine a mass. This was the intended extent. The colonoscopy was performed without difficulty. The patient tolerated the procedure well. The quality of the bowel preparation was good. The ileocecal valve, appendiceal orifice, and rectum were photographed. Findings: The perianal and digital rectal examinations were normal. A fungating partially obstructing large mass was found in the mid transverse colon. The mass was circumferential. Oozing was present. Biopsies were taken with a cold forceps for histology. Biopsies were taken with a cold forceps for histology. Area was tattooed with an injection of 1 mL of Miladis ink. For location marking, one hemostatic clip was successfully placed (MR conditional). There was no bleeding at the end of the procedure. The exam was otherwise without abnormality. The retroflexed view of the distal rectum and anal verge was normal and showed no anal or rectal abnormalities. Impression: - Likely malignant partially obstructing tumor in the mid transverse colon. Biopsied. Tattooed. Clip (MR conditional) was placed. - The examination was otherwise normal. - The distal rectum and anal verge are normal on retroflexion view. Recommendation: - Perform a flat plate abdominal x-ray. - Perform CT scan (computed tomography) of the abdomen with contrast. - Resume aspirin today at prior dose. - Patient has a contact number available for emergencies. The signs and symptoms of potential delayed complications were discussed with the patient. Return to normal activities tomorrow. Written discharge instructions were provided to the patient. - Continue present medications. - Low fiber diet. - Repeat colonoscopy. Attending Participation: I was present and participated during the entire procedure, including non-mckenzie portions, and during the administration and monitoring of Moderate Sedation. Scope In: 8:50:55 AM Scope Out: 9:04:56 AM MD Praful Castañeda MD 02/14/2018 9:16:14 AM This report has been signed electronically by Praful Pathak MD Number of Addenda: 0 Note Initiated On: 02/14/2018 8:26 AM Estimated Blood Loss: Estimated blood loss: none. CT scan of the abdomen pelvis was obtained at [facility] due to a presumed but likely nonrenal based on patient's history of a contrast allergy yesterday on February 17, 2018. CT scan demonstrated: IMPRESSION: Irregular wall thickening of the distal transverse /proximal descending colon at the splenic flexure surrounded by multiple nodules. Findings are concerning for malignancy with local peritoneal spread. Colonoscopy reports a lesion in the mid transverse colon however no discrete mass or wall irregularity is identified on this study. CT in general is limited in detecting colonic neoplasm. No metastatic disease identified elsewhere in the abdomen. Additional findings as detailed in the report. Emulsion Operator: GARY ? Transcribe Date/Time: Feb 17 2018 12:27P Dictated by : RHIANNON BAZAN MD This examination was interpreted and the report reviewed and electronically signed by: RHIANNON BAZAN MD on Feb 17 2018 12:55PM ?EST Results-Findings * * *Final Report* * * DATE OF EXAM: Feb 17 2018 12:03PM ? [facility] ? 0530 ?- ?CT ABD/PEL W IVCON ?/ PROCEDURE REASON: R19.00-Abdominal mass, unspecified abdominal location ?? ? * * * * Physician Interpretation * * * * ?EXAMINATION: ?CT ABDOMEN AND PELVIS WITH IV CONTRAST CLINICAL HISTORY: ?Abdominal mass, unspecified abdominal location RECENT DIAG COLON CA TECHNIQUE: CT of the abdomen and pelvis was performed using standard technique, scanning from just above the dome of the diaphragm to the symphysis pubis. MQ: ?CTAP_3 Contrast: IV: ?150 ml of Omnipaque 300 Oral: ?900 ml of 50ML Omnipaque [address] Radiation dose: Integrated Dose-length product (DLP) for this visit = ? 926 mGy*cm. CT Dose Reduction Employed: mAs-kVp adjusted based on patient size-age COMPARISON: None RESULT: Liver: No mass. Normal hepatic morphology. Biliary: No bile duct dilation. ?Gallbladder is unremarkable. Spleen: No mass. No splenomegaly. Pancreas: No mass or duct dilation. Adrenals: No mass. Kidneys: Bilateral punctate hypodensities too small to characterize. No calculus or hydronephrosis. GI tract: Irregular wall thickening involving the colon at the splenic flexure with adjacent nodules which may represent peritoneal metastasis (2:36-59). No dilated bowel. Lymph nodes: No abdominal or pelvic lymphadenopathy. Mesentery/Peritoneum: Multiple nodules splenic flexure adjacent to the colonic wall thickening. Retroperitoneum: No mass. Vasculature: ?The celiac axis and SMA are patent. The portal vein and branches, splenic vein, SMV, and hepatic veins are patent. ?Mild atherosclerotic calcifications in the abdominal aorta without aneurysm. Pelvis: No mass, ascites or fluid collection. Urinary bladder is decompressed. Bones/Soft Tissues: No destructive osseous lesions. Soft tissues are unremarkable. Lower thorax: Unremarkable. Given the bulkiness of this abnormality, I contacted King Yoder MD for his advice on how to proceed. My initial impression would be to plan for segmental splenic flexure resection but given the degree of tumor and the nodularity along with the patient's history of multiple polyps at previous endoscopy one at his opinion concerning a more aggressive resection. The patient notes no abdominal complaints since the procedure but had swelling in her right forearm that was seen in the ER and diagnosis thrombophlebitis. There was no pus noted but she was started on Keflex. VITALS: There were no vitals taken for this visit. On examination, the abdomen is benign. Assessment IMPRESSION: Splenic flexure adenocarcinoma PLAN: After discussions with the patient and her agreement that she would like to be aggressive with this abnormality and would actually be comfortable with the subtotal colectomy-I'm most comfortable transferring the patient to care to Dr. Yoder at [facility] given the potential challenges of the subtotal colectomy and bulkiness of the tumor with proximity to the proximal jejunum. The patient this morning underwent additional laboratory testing at [facility] for the initial plan of resection locally. Her hemoglobin today was 9.5. I discussed with the patient that I am comfortable with her continuing her iron supplementation. Its listed that she is currently taking Prevacid. Given her hemoglobin of 9.5 I would not plan for further transfusion due to the risk of immunosuppression at definitive surgical intervention. Diagnoses: (C18.5) Malignant neoplasm of splenic flexure (HCC) (primary encounter diagnosis) Return to Clinic: The patient is instructed to follow- up with me as needed. Praful Pathak MD Referring Provider: ELIZABETH DINH) [[id number]] Allergies As of Date: 02/18/2018 Noted Allergy Reaction ATENOLOL 03/07/2011 1 - Mental Status Change Comments: fatigue DEPO-MEDROL (METHYLPREDNISOLONE A*03/01/2005 Comments: facial redness, elevated glucose IVP DYE (IODINE) 03/01/2005 4 - Hives 7 - Swelling Comments: occurred in the 70's. Had swelling and hives on arm only where IV was SULFA (SULFONAMIDE ANTIBIOTICS) 03/01/2005 4 - Hives Date Reviewed: 02/18/2018 Reviewed by: Praful Pathak - Fully Assessed Reason for Visit: Post Op [174] Primary Visit Diagnosis:Malignant neoplasm of splenic flexure (HCC) [C18.5] Order(s):CT CHEST WO IVCON [[id number]] Order #: [id number] FUTURE Prescriptions as of 02/18/2018 Sig: PREDNISONE 50 MG TABLET Take 1 tablet by mouth three * METFORMIN 1,000 MG TABLET TAKE 1 TABLET BY MOUTH TWICE* LANSOPRAZOLE 30 MG CAPSULE,DE* TAKE 1 CAPSULE BY MOUTH ONCE* VERAPAMIL ER 120 MG 24 HR CAP* TAKE 1 CAPSULE BY MOUTH ONCE* LISINOPRIL 2.5 MG TABLET TAKE 1 TABLET BY MOUTH ONCE A* ATORVASTATIN 80 MG TABLET TAKE ONE-HALF TABLET BY MOUT* SPIRONOLACTONE 25 MG-HYDROCHL* TAKE 1 TABLET BY MOUTH ONCE D* LEVOTHYROXINE 100 MCG TABLET Take 1 tablet by mouth once d* MONTELUKAST 10 MG TABLET Take 1 tablet by mouth daily * SERTRALINE 100 MG TABLET TAKE 1 TABLET BY MOUTH ONCE D* CLOTRIMAZOLE 1 % TOPICAL CREAM Apply 1 application to affect* FLUTICASONE 50 MCG/ACTUATION * Use 2 Sprays in each nostril * CLARITIN-D 24 HOUR ORAL Take 1 tablet by mouth once d* BLOOD SUGAR DIAGNOSTIC STRIPS Use as instructed twice daily. LANCETS Relion Lancets. Test blood aquino* OXYMETAZOLINE 0.05 % NASAL IL* Use 30 mL in the nose twice d* OMEGA [id number] OIL * Take 2 capsules by mouth once* CHOLECALCIFEROL (VITAMIN D3) * Take 1 capsule by mouth once * SODIUM BICARB-METHYLBENZETHON* Apply 1 application to affect* LEVOTHYROXINE 100 MCG TABLET Take 1 tablet by mouth once d* * ASPIRIN 81 MG TABLET Take one (1) tablet daily . 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 Essential hypertension [I10] INVALID FOR* More... Mixed hyperlipidemia [E78.2] INVALID FOR* More... Unspecified asthma(493.90) [J45.909] INVALID FOR*04/10/2017 More... Primary osteoarthritis involving multiple joint*INVALID FOR* RIGHT AXILLARY PAIN [R07.9] INVALID FOR*01/25/2011 FAMILY HX COLON CANCER [Z80.0] INVALID FOR* More... Esophageal reflux [K21.9] More... Anxiety [F41.9] Recurrent major depressive disorder, in full re* 04/10/2017 More... Hypopotassemia [E87.6] INVALID FOR*02/18/2013 More... OSTEOARTHROS NOS-L/LEG [M17.10] INVALID FOR* Lateral epicondylitis of elbow [M77.10] INVALID FOR*02/18/2013 Hypothyroidism [E03.9] INVALID FOR* More... PVC's [I49.49] INVALID FOR* Shoulder bursitis [M75.50] INVALID FOR*02/18/2013 Allergy to environmental factors [Z91.09] INVALID FOR* Special screening for malignant neoplasms, colo*INVALID FOR*01/07/2015 Follow-up and Disposition History Recorded Encounter Status:Closed by PRAFUL PATHAK MD on 02/18/18 PROTHROMBIN TIME W/INR Collected: 02/18/2018 Status: F Source: RUPINDER 10:25 AM [facility] REPOSITORY TYPE CODE TESTS RESULT OUT OF RANGE REFERENCE UNITS LAB L300.4150 11.7-14.9 SECONDS Normal PROTIME 13.0 LAB L300.4200 Normal INR 1.0 Performed By: #### L300.3900, L300.4310 #### [facility] [address] [place], [place], [id number] PARTIAL THROMBOPLAST Collected: 02/18/2018 Status: F Source: RUPINDER TIME 10:25 AM [facility] REPOSITORY TYPE CODE TESTS RESULT OUT OF RANGE REFERENCE UNITS LAB L300.4310 24.1-36.2 Seconds Normal PTT 24.7 Performed By: #### L300.3900, L300.4310 #### [facility] [address] [place], [place], [id number] CBC-COMPLETE BLOOD CNT Collected: 02/18/2018 Status: F Source: RUP[place] NO DIFF 10:25 AM [facility] REPOSITORY TYPE CODE TESTS RESULT OUT OF RANGE REFERENCE UNITS LAB L100.1000 4.4-11.0 K/mm3 High WBC 13.3 LAB L100.1200 4.2-5.4 M/mm3 Normal RBC 4.20 LAB L100.1300 12.0-15.0 g/dl Low HGB 9.5 LAB L100.1400 37-47 % Low HCT 31.4 LAB L100.1500 81-99 fL Low MCV 74.8 LAB L100.1600 27.0-32.0 pg Low MCH 22.6 LAB L100.1700 32-36 g/gl Low MCHC 30.3 LAB L100.1810 11.6-14.6 % High RDW CV 20.2 LAB L100.1820 35.1-43.9 fl High RDW SD 52.5 LAB L100.1900 150-450 K/mm3 Normal PLT 351 LAB L100.2000 6.2-12.0 fl Normal MPV 10.7 Performed By: #### L100.0500, L100.4500 #### [facility] [address] [place], [place], [address] DIFFERENTIAL COMMENT Collected: 02/18/2018 Status: F Source: RUPINDER 10:25 AM [facility] REPOSITORY TYPE CODE TESTS RESULT OUT OF RANGE REFERENCE UNITS LAB L100.4500 Normal SMEAR COMMENT Result Comment: ANISOCYTOSIS 2+ HYPOCHRMOMIA 1+ OVALOCYTES 1+ MICROCYTOSIS 2+ Performed By: #### L100.0500, L100.4500 #### [facility] [address] [place], [place], [address] BASIC METABOLIC Collected: 02/18/2018 Status: F Source: RUPINDER PROFILE (BMP) 10:25 AM [facility] REPOSITORY TYPE CODE TESTS RESULT OUT OF RANGE REFERENCE UNITS LAB L501.0100 74-106 mg/dL High GLU 124 Result Comment: Fasting Glucose result from 100 to 125 mg/dL suggests IMPAIRED HOMEOSTASIS per A.D.A. criteria. Please note revised GLUCOSE reference range effective 2017. LAB L501.1000 7-18 mg/dL High BUN 22 LAB L501.1100 0.55-1.02 mg/dL Normal CREAT,SERUM 0.92 Result Comment: The validity of the calculated GFR AND GFRAA in patients over 70 years has not been determined. Clinical correlation is essential. LAB L501.1110 >60 mL/min Normal EST GFR 65 Result Comment: Non- GFR Calc LAB L501.1115 >60 mL/min Normal EST GFR - AA 79 Result Comment: GFR Calc LAB L501.1255 ml/min Normal Estimated CRCL 54.75 LAB L501.1300 10-20 RATIO High BUN/CRE 23.8 LAB L501.2200 8.5-10 mg/dL Normal .1 CA 9.8 LAB L501.5300 136-14 mmol/L Normal 5 NA 142 LAB L501.5600 3.5-5. mmol/L Normal 1 K 3.5 LAB L501.5900 98-107 mmol/L Normal CL 106 LAB L501.6100 21.0-3 mmol/L Normal 2.0 CO2 25.0 LAB L501.6200 5-15 Normal GAP 11 Performed By: #### L500.2500, L501.9520 #### [facility] [address] [place], [address] THYROID STIM HORMONE Collected: 02/18/2018 Status: F Source: [place] (TSH) 10:25 AM [facility] REPOSITORY TYPE CODE TESTS RESULT OUT OF RANGE REFERENCE UNITS LAB L501.9520 0.358-3.74 uIU/mL Normal TSH 0.45 Performed By: #### L500.2500, L501.9520 #### [facility] [address] [place], [address] HEMOGLOBIN A1C Collected: 02/18/2018 Status: F Source: [place] 10:25 AM [facility] REPOSITORY TYPE CODE TESTS RESULT OUT OF RANGE REFERENCE UNITS LAB L501.9985 4.2-6.3 % High HGB A1C 6.6 Performed By: #### L501.9985 #### [facility] [address] [facility], [address] CT ABD/PEL W IVCON Observed: 02/17/2018 Status: F Source: MURDO 12:03 PM CLINIC OTHER CAMPUS REPOSITORY * * *Final Report* * * DATE OF EXAM: Feb 17 2018 12:03PM [facility] [place] ABD/PEL W IVCON / PROCEDURE REASON: R19.00-Abdominal mass, unspecified abdominal location * * * * Physician Interpretation * * * * EXAMINATION: CT ABDOMEN AND PELVIS WITH IV CONTRAST CLINICAL HISTORY: Abdominal mass, unspecified abdominal location RECENT DIAG COLON CA TECHNIQUE: CT of the abdomen and pelvis was performed using standard technique, scanning from just above the dome of the diaphragm to the symphysis pubis. MQ: CTAP_3 Contrast: IV: 150 ml of Omnipaque 300 Oral: 900 ml of 50ML Omnipaque [address] Radiation dose: Integrated Dose-length product (DLP) for this visit = 926 mGy*cm. CT Dose Reduction Employed: mAs-kVp adjusted based on patient size-age COMPARISON: None RESULT: Liver: No mass. Normal hepatic morphology. Biliary: No bile duct dilation. Gallbladder is unremarkable. Spleen: No mass. No splenomegaly. Pancreas: No mass or duct dilation. Adrenals: No mass. Kidneys: Bilateral punctate hypodensities too small to characterize. No calculus or hydronephrosis. GI tract: Irregular wall thickening involving the colon at the splenic flexure with adjacent nodules which may represent peritoneal metastasis (2:36-59). No dilated bowel. Lymph nodes: No abdominal or pelvic lymphadenopathy. Mesentery/Peritoneum: Multiple nodules splenic flexure adjacent to the colonic wall thickening. Retroperitoneum: No mass. Vasculature: The celiac axis and SMA are patent. The portal vein and branches, splenic vein, SMV, and hepatic veins are patent. Mild atherosclerotic calcifications in the abdominal aorta without aneurysm. Pelvis: No mass, ascites or fluid collection. Urinary bladder is decompressed. Bones/Soft Tissues: No destructive osseous lesions. Soft tissues are unremarkable. Lower thorax: Unremarkable. IMPRESSION: Irregular wall thickening of the distal transverse /proximal descending colon at the splenic flexure surrounded by multiple nodules. Findings are concerning for malignancy with local peritoneal spread. Colonoscopy reports a lesion in the mid transverse colon however no discrete mass or wall irregularity is identified on this study. CT in general is limited in detecting colonic neoplasm. No metastatic disease identified elsewhere in the abdomen. Additional findings as detailed in the report. Emulsion Operator: GARY Transcribe Date/Time: Feb 17 2018 12:27P Dictated by : RHIANNON BAZAN MD This examination was interpreted and the report reviewed and electronically signed by: RHIANNON BAZAN MD on Feb 17 2018 12:55PM EST [id number] DISCHARGE INSTRUCTION Observed: 02/14/2018 Status: F Source: [place] 10:29 PM [facility] REPOSITORY [facility] Medical Records Department [address] [place] [address] [place] [address] Discharge Instruction 02/14/182227 MR#: [id number] Acct: [id number] Name: ANNE CORDERO Rep #: [id number] : 1955 62 From: Zack Felix MD PCP: Vladimir Dinh MD Status: PRE ER ED Disposition - Plan for ED Patient: Chief Complaint: Cellulitis Instructions: ED Phlebitis Superficial, ED Infec Skin Cellulitis Prescriptions: Cephalexin [Keflex] 500 mg PO Q6 #40 cap Referrals: Vladimir Dinh MD [Primary Care Provider] - What to do if you have Problems For any increased pain, shortness of breath, bleeding, nausea or vomiting, chest pain, or any unexpected problems, contact your Primary Care Provider. Call [facility] ([phone]) or report to the closest Emergency Room. Call 911 if necessary. 02/14/182228 <Electronically signed by Zack Felix MD> Date Zack Felix MD Cosigner Signature (If Indicated): Date CC: Vladimir Dinh MD EMERGENCY DEPARTMENT Observed: 02/14/2018 Status: F Source: [place] SUMMARY 10:28 PM [facility] REPOSITORY [facility] Medical Records Department [address] [facility] [place] [address] Emergency Department Summary 02/14/182225 MR#: [id number] Acct: [id number] Name: ANNE CORDERO Rep #: [id number] : 1955 62 From: Zack Felix MD PCP: Vladimir Dinh MD Status: PRE ER - ER Visit Summary Date of Service: 02/14/18 Chief Complaint: Right arm redness History of Present Illness: The patient is a 62 F who presents with redness on her right arm. She was admitted earlier this week for anemia and had a blood transfusion. Tonight she noticed some redness around the site where her IV was. She otherwise denies any fever chest pain shortness of breath or other complaints. Physical Examination: Afebrile vitals normal Moist mucous membranes Heart regular Arrest distress There is some induration in the right forearm near the site where her IV was. However there is also some surrounding cellulitis no fluctuance no drainage no lymphangitic streaking she is neurovascularly intact distally with easily palpable radial pulse brisk capillary refill normal sensation no edema of the upper extremity Test Results: Not indicated Emergency Department Course and Treatment: History and examination are consistent with thrombophlebitis with associated cellulitis. She was advised on supportive care for phlebitis including warm compresses. She was prescribed Keflex. She understands to return for new or worsening symptoms and was instructed on signs and symptoms to monitor for. She was discharged Treatment Plan: [] Disposition: Discharge Impression: Phlebitis Cellulitis This note was generated with [employer] dictation software. It may contain incorrect words, spelling, and punctuation that were not noted in review of the chart prior to signing ED Disposition - Plan for ED Patient: Chief Complaint: Cellulitis Referrals: Vladimir Dinh MD [Primary Care Provider] - What to do if you have Problems For any increased pain, shortness of breath, bleeding, nausea or vomiting, chest pain, or any unexpected problems, contact your Primary Care Provider. Call [facility] ([phone]) or report to the closest Emergency Room. Call 911 if necessary. 02/14/18 2228 <Electronically signed by Zack Felix MD> Date Zack Felix MD Cosigner Signature (If Indicated): Date CC: Vladimir Dinh MD NURSING PROG Observed: 02/14/2018 Status: COMPLETED Source: M[place]DO 11:05 AM [facility] [place] REPOSITORY O ID: [id number] Author: Claudine Montes De Oca RN Service: (none) Author Type: Registered Nurse Type: Nursing Progress Note Filed: 02/14/2018 11:17 AM Note Text: Patient did not experience a fall prior to discharge. Patient did not experience a burn prior to discharge. Claudine Montes De Oca RN NURSING PROG Observed: 02/14/2018 Status: COMPLETED Source: [place] 11:00 AM [facility] REPOSITORY HNO ID: [id number] Author: Claudine Montes De Oca RN Service: (none) Author Type: Registered Nurse Type: Nursing Progress Note Filed: 02/14/2018 11:17 AM Note Text: Very detailed written and verbal instructions given to both patient and her regarding preventative medications prescribed for CT scan dye which patient will be taking on SaturdayFeb 17. Both verbalize understanding. Claudine Montes De Oca RN NURSING PROG Observed: 02/14/2018 Status: COMPLETED Source: [place] 10:55 AM [facility] REPOSITORY HNO ID: [id number] Author: Claudine Montes De Oca RN Service: (none) Author Type: Registered Nurse Type: Nursing Progress Note Filed: 02/14/2018 11:17 AM Note Text: Pt back to unit from x-ray. Claudine Montes De Oca RN XR ABDOMEN 1V SUPINE Observed: 02/14/2018 Status: F Source: [place] 10:47 AM [facility] REPOSITORY * * *Final Report* * * DATE OF EXAM: Feb 14 2018 10:47AM WRX [id number] - XR ABDOMEN 1V SUPINE / PROCEDURE REASON: Abdominal mass, unspecified abdominal location * * * * Physician Interpretation * * * * EXAMINATION: XR ABDOMEN 1V SUPINE HISTORY: Clip placement during colonoscopy. Abdominal mass, unspecified abdominal location . TECHNIQUE: XR ABDOMEN 1V SUPINE Laterality: NOT APPLICABLE Number of different views (projections): 1 M: XB_1 COMPARISON: There are no prior abdomen studies for comparison RESULT: 2 recumbent radiographs of the abdomen demonstrate a nonobstructive bowel gas pattern with scattered fecal retention. There is a tiny linear metallic density measuring 10 mm along the tip of the left 12th rib which is nonspecific and may be extrinsic or intrinsic to the body. Soft tissues and bony structures are otherwise unremarkable. No other significant abnormality. IMPRESSION: Nonobstructive bowel gas pattern. Emulsion Operator: GARY Transcribe Date/Time: Feb 14 2018 8:26P Dictated by : JUANI JORDAN MD This examination was interpreted and the report reviewed and electronically signed by: JUANI JORDAN MD on Feb 14 2018 8:29PM EST [id number] [id number] Observed: 02/14/2018 Status: COMPLETED Source: [place] 10:46 AM [facility] REPOSITORY HNO ID: [id number] Author: Kassandra Harvey (Rt) Lan Tobar Service: (none) Author Type: Manager Medicare Marketing Type: Progress Notes Filed: 02/14/2018 10:46 AM Note Text: Radiology Service Progress Note PATIENT NAME: Anne Cordero DATE OF SERVICE: February 14, 2018 TIME: 10:46 AM PATIENT IDENTITY VERIFICATION COMPLETED USING TWO (2) METHODS: Patient confirmed name verbally and Date of . PATIENT GENDER DATA: Female. status: : No status: NO. PATIENT RELEVANT IMPLANT DATA REVIEWED: Not Applicable RADIOLOGY DEPARTMENT: General X-ray: Exam(s) Completed: Abdomen X-Ray Abdomen PERIPHERAL IV DATA: Not applicable SIGNED BY: RT Darrin February 14, 2018 10:46 AM NURSING PROG Observed: 02/14/2018 Status: COMPLETED Source: [place] 10:32 AM [facility] REPOSITORY HNO ID: [id number] Author: Claudine (Rn) FILIPPO Montes De Oca Service: (none) Author Type: Registered Nurse Type: Nursing Progress Note Filed: 02/14/2018 10:33 AM Note Text: Taken to x-ray for KUB per wheelchair. Claudine Montes De Oca RN COMP METABOLIC PANEL Collected: 02/14/2018 Status: F Source: [place] 10:11 AM [facility] REPOSITORY TYPE CODE TESTS RESULT OUT OF REFERENCE UNITS RANGE LAB TP 6.3-8.0 g/dL Protein, Total 6.7 LAB ALB 3.9-4.9 g/dL Albumin 3.9 LAB CA 8.5-10.2 mg/dL Calcium, Total 10.2 LAB TBIL 0.2-1.3 mg/dL Bilirubin, Total 0.2 LAB ALKP 34-123 U/L Alkaline Phosphatase 95 LAB AST 13-35 U/L AST Low 11 LAB GLU 74-99 mg/dL Glucose High 139 LAB BUN 7-21 mg/dL BUN 14 LAB CRET 0.58-0.96 mg/dL Creatinine 0.87 LAB NA 136-144 mmol/L Sodium 138 LAB K 3.7-5.1 mmol/L Potassium 3.9 LAB CL 97-105 mmol/L Chloride 103 LAB CO2 22-30 mmol/L CO2 28 LAB AGAP mmol/L Anion Gap 7 LAB ALT 7-38 U/L ALT 10 LAB GFRAA eGFR- >60 Amer. LAB GFRNAA . eGFR-All Other Races >60 Result Comment: eGFR (Estimated GFR) Units of measure: mL/min/1.73 meters squared eGFR is derived from the reexpressed MDRD Study equation using the following parameters: serum creatinine, age, gender and race. The creatinine assay has been calibrated to be traceable to IDMS. An eGFR <60 mL/min/1.73m2 for >3 months is consistent with chronic kidney disease. Refer to KDOQI guidelines for clinical interpretation. In patients with unstable renal function, e.g. those with acute kidney injury, the eGFR may not accurately reflect actual GFR. LIPID PANEL, BASIC Collected: 02/14/2018 Status: F Source: [place] 10:10 AM [facility] REPOSITORY TYPE CODE TESTS RESULT OUT OF REFERENCE UNITS RANGE LAB CHOL <200 mg/dL Cholesterol 140 Result Comment: <200 mg/dL, Desirable 200-239 mg/dL, Borderline high >239 mg/dL, High LAB TRIGLY <150 mg/dL Triglyceride High 201 Result Comment: <150 mg/dL, Normal 150-199 mg/dL, Borderline high 200-499 mg/dL, High >499 mg/dL, Very high LAB HDL >39 mg/dL HDL-Cholesterol Low 22 Result Comment: 40-59 mg/dL, Acceptable >59 mg/dL, High: Negative risk factor for coronary heart disease <40 mg/dL, Low: Positive risk factor for coronary heart disease LAB LDL <100 mg/dL LDL-Cholesterol 78 Result Comment: <100 mg/dL, Optimal 100-129 mg/dL, Near optimal/above optimal 130-159 mg/dL, Borderline high 160-189 mg/dL, High >189 mg/dL, Very high Secondary prevention optimal LDL Cholesterol levels are recommended to be < 70 mg/dL LAB NONHDL <130 mg/dL Non HDL Cholesterol 118 Result Comment: <130 mg/dL, Optimal 130-159 mg/dL, Near optimal/above optimal 160-189 mg/dL, Borderline high 190-219 mg/dL, High >219 mg/dL, Very high Secondary prevention optimal non HDL Cholesterol levels are recommended to be < 100 mg/dL LAB FT hrs Fasting Time 12 LAB VLDL <30 mg/dL High VLDL Cholesterol 40 LAB TCHDL <5.10 High TC:HDL Ratio 6.36 LAB LDLHDL <2.54 High LDL:HDL Ratio 3.55 Result Comment: Reference: 1. National Cholesterol Education Program ATP III Guideline At-A-Glance Quick Desk Reference: National Heart, Lung, and Blood [place]. National Institutes of Health. 2001: NIH Publication No. 01-3305. 2. An International Atherosclerosis Society position paper: global recommendations for the management of dyslipidemia: executive summary, Atherosclerosis. 2014: 232(2):410-413. Performed By: #### LIPB, CBCDIF, CEA #### [facility] [address] [place] [address] CBC AND DIFFERENTIAL Collected: 02/14/2018 Status: F Source: [facility] 10:10 AM [facility] REPOSIT[facility] TYPE CODE TESTS RESULT OUT OF REFERENCE UNITS RANGE LAB WBC 3.70-11.00 k/uL WBC 7.68 LAB RBC 3.90-5.20 m/uL RBC 4.03 LAB HGB 11.5-15.5 g/dL Low Hemoglobin 8.8 LAB HCT 36.0-46.0 % Low Hematocrit 30.4 LAB MCV 80.0-100.0 fL Low MCV 75.4 LAB MCH 26.0-34.0 pG Low MCH 21.8 LAB MCHC 30.5-36.0 g/dL Low MCHC 28.9 LAB RDWCV 11.5-15.0 % RDW-CV High 19.6 LAB PLTCT 150-400 k/uL Platelet Count 339 LAB MPV 9.0-12.7 fL MPV 10.5 LAB ANEUT % Neut% 70.8 LAB AANEUT 1.45-7.50 k/uL Abs Neut 5.44 LAB ALYMP % Lymph% 21.1 LAB AALYMP 1.00-4.00 k/uL Abs Lymph 1.62 LAB AMONO % Lancaster% 5.9 LAB AAMONO <0.87 k/uL Abs Lancaster 0.45 LAB AEOS % Eosin% 1.8 LAB AAEOS <0.46 k/uL Abs Eosin 0.14 LAB ABASO % Baso% 0.4 LAB AABASO <0.11 k/uL Abs Baso 0.03 LAB AUNRBC 0 /100 WBC NRBCs 0.0 LAB ABNRBC <0.01 k/uL Absolute nRBC <0.01 LAB DTYP DTYPE Auto Diff Performed By: #### LIPB, CBCDIF, CEA #### [facility] [employer] [facility] [address] [place] [id number] CEA Collected: 02/14/2018 Status: F Source: [place] 10:10 AM [facility] REPOSITORY TYPE CODE TESTS RESULT OUT OF RANGE REFERENCE UNITS LAB CEA 0.0-2.9 ng/mL High CEA 4.0 Result Comment: Test analyzed by the Penzata DxI method. Performed By: #### LIPB, CBCDIF, CEA #### [facility] [employer] [address] [place] [id number] NURSING PROG Observed: 02/14/2018 Status: COMPLETED Source: [place] 10:07 AM [facility] REPOSITORY HNO ID: [id number] Author: Claudine MckennaRnShlomo Montes De Oca RN Service: (none) Author Type: Registered Nurse Type: Nursing Progress Note Filed: 02/14/2018 10:08 AM Note Text: Pt sitting up in bed tolerating snack and drink. Denies pain or nausea. remains at bedside. Abd soft and nondistended. No complaints. Claudine Montes De Oca RN NURSING PROG Observed: 02/14/2018 Status: COMPLETED Source: [place] 10:05 AM [facility] REPOSITORY HNO ID: [id number] Author: Claudine Childers) FILIPPO Montes De Oca Service: (none) Author Type: Registered Nurse Type: Nursing Progress Note Filed: 02/14/2018 10:34 AM Note Text: Lab here to draw bloodwork. Claudine Montes De Oca RN NURSING PROG Observed: 02/14/2018 Status: COMPLETED Source: [place] 9:58 AM [facility] REPOSITORY HNO ID: [id number] Author: Claudine Montes De Oca RN Service: (none) Author Type: Registered Nurse Type: Nursing Progress Note Filed: 02/14/2018 10:01 AM Note Text: Dr. Pathak in room and spoke with both patient and . Discussed results and upcoming appts, scans and labs. Both patient and verbalize understanding. Claudine Montes De Oca RN PT ED Observed: 02/14/2018 Status: COMPLETED Source: [place] 9:47 AM [facility] REPOSITORY HNO ID: [id number] Author: Claudine Montes De Oca RN Service: (none) Author Type: Registered Nurse Type: Patient Education Filed: 02/14/2018 9:48 AM Note Text: POST OP LEARNING RESPONSE INSTRUCTION PROVIDED TO: Patient and Spouse METHOD OF INSTRUCTION: Individual instruction Written instruction - handouts Verbal instruction PATIENT / FAMILY RESPONSE: Verbalizes understanding of: MEDICAL REGIMEN-Importance of following prescribed medical regimen POST-PROCEDURE INSTRUCTIONS-Correct actions to take to reduce post procedure complications WORSENING CONDITION-Signs and symptoms of a worsening condition that warrant a call to the physician FOLLOW-UP PLAN: Patient instructed to call with any further issues Follow up phone call. Contact information given. follw up appts and radiology exams and labs SUPPLEMENTAL MATERIAL: Procedure discharge instructions REFERRAL (RECOMMENDATION): None Electronically Signed By: Claudine Montes De Oca RN In Department: AMBULATORY SURGERY NURSING PROG Observed: 02/14/2018 Status: COMPLETED Source: [place] 9:18 AM [facility] REPOSITORY HNO ID: [id number] Author: Claudine Montes De Oca RN Service: (none) Author Type: Registered Nurse Type: Nursing Progress Note Filed: 02/14/2018 9:47 AM Note Text: Received in PACU. Resting comfortably on left side. Pt very sleepy. Claudine Montes De Oca RN NURSING PROG Observed: 02/14/2018 Status: COMPLETED Source: [place] 9:07 AM [facility] REPOSITORY HNO ID: [id number] Author: Carrie Levin RN Service: (none) Author Type: Registered Nurse Type: Nursing Progress Note Filed: 02/14/2018 9:08 AM Note Text: Patient did not experience a fall within the Intraoperative area. Patient did not experience a burn within the Intraoperative area. Carrie Levin RN NURSING PROG Observed: 02/14/2018 Status: COMPLETED Source: [place] 8:27 AM [facility] REPOSITORY HNO ID: [id number] Author: Claudine Montes De Oca RN Service: (none) Author Type: Registered Nurse Type: Nursing Progress Note Filed: 02/14/2018 9:17 AM Note Text: [facility] PRE-OP NURSING HAND OFF NOTE SBAR Hand off given to Baylee Jones RN. Hand off was communicated verbally and at the patient's bedside and all questions were answered. FALLS/BECKETT Patient did not experience a fall within the Preoperative area. Patient did not experience a burn within the Preoperative area. Claudine Montes De Oca RN PT ED Observed: 02/14/2018 Status: COMPLETED Source: [place] 7:32 AM [facility] REPOSITORY HNO ID: [id number] Author: Claudine MckennaRn) FILIPPO Montes De Oca Service: (none) Author Type: Registered Nurse Type: Patient Education Filed: 02/14/2018 7:32 AM Note Text: PRE OP LEARNING ASSESSMENT PROCEDURE/SURGERY: GI PROCEDURES: Colonoscopy and EGD READINESS TO LEARN COGNITIVE ABILITY: Alert and oriented MOTIVATION TO LEARN: Eager FAMILY SUPPORT: High - Very involved in pt care PATIENT LEARNS BEST BY: Multiple Methods FACTORS AFFECTING LEARNING: None PHYSICAL LIMITATIONS AFFECTING LEARNING: None Electronically Signed By: Claudine Montes De Oca RN In Department: AMBULATORY SURGERY HISTORY PHYSICAL Observed: 02/14/2018 Status: COMPLETED Source: [place] 5:46 AM [facility] REPOSITORY HNO ID: [id number] Author: Praful Pathak Service: (none) Author Type: Physician Type: HANDP Filed: 02/14/2018 5:47 AM Note Text: 02/10/182047 MR#: [id number] Acct: [id number] Name: ANNE CORDERO Rep #: [id number] : 1955 62 From: Praful Pathak MD PCP: Vladimir Dinh MD Status: ADM ROCHELLE Y Location: [place] [address] Reason for Consult Date of Consultation: 02/10/18 Reason for Consultation: fatigue-anemia History of Present Illness: The patient is a 62 year old F who has noticed increasing fatigue for at least the last few weeks. She presented for her routine gynecologic evaluation was noted to be pale. The patient a previous hysterectomy. She notes no reasons for pad blood loss. She denies abdominal pain. She notes no black tarry stools other difficulties. She underwent a complete blood count which demonstrated on 02 07 a hemoglobin of 7.8 with microcytic parameters. The patient had previous undergone a CBC in 2016 with a hemoglobin of 12.2 and normal red cell indices. She had undergone colonoscopy by Dr. Kole Parra on January 07, 2015. 25 mm polyps were found in the proximal transverse colon diverticulosis. It was recommended the patient have follow-up colonoscopy in 5 years. Prior to that, the patient went upper and lower endoscopy in December 26, 2011. Also by Dr. Kole Parra. Upper endoscopy was unremarkable.colonoscopy demonstrated 210 mm polyps and the patient was recommended 3 year follow-up colonoscopy at that time. patient's past history is otherwise significant for hypothyroidism, hypertension, asthma, type 2 diabetes, obesity, reflux depression. she'll surgical history includes carpal tunnel procedures, thyroidectomy, total abdominal hysterectomy, previous appendectomy. Past Medical History Past Medical History (Chronic Problems): Chronic Problems Hypertension (Chronic) DM type 2 (diabetes mellitus, type 2) (Chronic) Hypothyroidism (Chronic) Allergies Iodinated Contrast- Oral and IV Dye [CONTRASTS] Allergy (Verified 02/02/17 10:34) Rash Sulfa (Sulfonamide Antibiotics) Allergy (Verified 02/02/17 10:34) Hives Home Medications: Ambulatory Orders Medication Instructions Recorded Cholecalciferol (VIT D3) [Vitamin 1,000 unit PO DAILY 02/02/17 D] Fish Oil/Om-3/E/Folic/B6-B12 1 capsule PO DAILY 02/02/17 [Cardiovid Plus Softgel] Fluticasone 0.05% [Flonase Nasal 1 spray NASAL QHS 02/02/17 Pana] Lansoprazole 30 mg PO DAILY 02/02/17 Levothyroxine [Synthroid] 100 mcg PO DAILY 02/02/17 Lisinopril [Zestril] 2.5 mg PO DAILY 02/02/17 Sertraline HCl [Zoloft] 100 mg PO DAILY 02/02/17 Spironolact/Hydrochlorothiazid 1 tab PO DAILY 02/02/17 [Aldactazide 25-25 Tablet] Verapamil HCl [Verapamil Sr] 120 mg PO DAILY 02/02/17 Aspirin E.C. [Ecotrin] 81 mg PO DAILY 02/10/18 Atorvastatin Calcium [Lipitor] 40 mg PO QHS 02/10/18 Diphenhydramine HCl [Benadryl 25 mg PO QHS PRN PRN 02/10/18 Allergy] Metformin HCl 1,000 mg PO BID 02/10/18 Montelukast Sodium [Singulair] 10 mg PO QHS 02/10/18 Surgical History: appendectomy, hysterectomy, total knee arthroplasty - Bilateral, tonsillectomy, - - Status post thyroid surgery Psychiatric History: No pertinent psych hx SENIOR QUALITY TECHNICIAN History: No pertinent SENIOR QUALITY TECHNICIAN history Lives: With Family Smoking Status: Never smoker Tobacco Use: Non-smoker Alcohol: None Drugs: None - *Family History Maternal History Items: Cancer, Heart Disease - Rheumatic heart disease, Paternal History Items: Heart Disease - Rheumatic heart disease Review of Systems Constitutional: Reports: Malaise, Weakness. Denies: Chills, Fever, Weight Change HEENT: Denies: Head Aches, Sinus Congestion, Sinus Drainage Cardiovascular: Denies: Chest Pain, Palpitations Respiratory: Denies: Cough, Shortness of breath at rest, Sputum production Gastrointestinal: Denies: Abdominal Pain, Nausea, Vomiting Genitourinary: Denies: Dysuria Musculoskeletal: Denies: Joint Pain, Joint Tenderness Skin: Denies: Rash, Wounds Neurological: Denies: Numbness, Tingling, Focal weakness Psychiatric: Denies: Anxiety, Depression, Homicidal Ideations, Suicidal Ideations Hematologic/ Lymphatic: Denies: Easy Bruising, Easy Bleeding Patient Problems: Active and Suspected Problems Severe anemia (Acute) - Physical Exam General: Alert, Oriented x3, Cooperative HEENT: Atraumatic, PERRLA, EOMI, Normocephalic Neck: Supple, No JVD, Negative Carotid Bruits Lungs: Clear to auscultation, Normal air movement Cardiovascular: Regular rate, No murmurs Abdomen: Bowel Sounds Present, Soft, Non Tender Extremities: No edema, Capillary Refill Less than 3 Seconds Skin: No rashes, No breakdown Musculoskeletal: No Tenderness to Palpation of Joints or Extremities Neurological: Cranial nerves II-XII grossly intact Psych/Mental Status: Normal Affect, Appropriate Vital Signs Temp Pulse Resp BP Pulse Ox 98.2 F 83 18 98/56 L 93 02/10/18 20:23 02/10/18 20:23 02/10/18 20:23 02/10/18 20:23 02/10/18 20:23 Oxygen Delivery Method Room Air Weight: 97.976 kg Body Mass Index (BMI) 37.0 Intake and Output for Last 24 Hours 02/08/18 02/09/18 02/10/18 23:59 23:59 23:59 Intake Total 764 / 764 Output Total 0 / 0 Balance 764 / 764 Laboratory Tests Past 24 Hrs 02/10/18 02/10/18 02/10/18 14:34 14:34 14:34 WBC 7.1 RBC 3.49 L Hgb 7.1 L Hct 24.6 L MCV 70.5 L MCH 20.3 L MCHC 28.9 L RDW 16.5 H RDW Differential 42.5 Plt Count 331 MPV 9.4 Immature Gran % (Auto) 0.300 Neut % (Auto) 70.0 Lymph % (Auto) 22.1 [place] % (Auto) 5.5 Eos % (Auto) 2.0 Baso % (Auto) 0.1 Absolute Neuts (auto) 5.0 Absolute Lymphs (auto) 1.57 Total Counted Not Reportable Platelet Estimate ADEQUATE Polychromasia RARE Hypochromasia 2+ Anisocytosis 1+ Microcytosis 1+ Ovalocytes 1+ Sodium 140 Potassium 3.4 L Chloride 102 Carbon Dioxide 26.0 Anion Gap 12 BUN 22 H Creatinine 1.05 H Estim Creat Clear Calc 47.97 Est GFR (MDRD) Af Amer 68 Est GFR (MDRD) Non-Af 56 L BUN/Creatinine Ratio 21.0 H Glucose 237 H Calcium 9.2 Iron TIBC Iron Saturation Ferritin Blood Type A POSITIVE Antibody Screen NEGATIVE Crossmatch See Detail 02/10/18 14:34 WBC RBC Hgb Hct MCV MCH MCHC RDW RDW Differential Plt Count MPV Immature Gran % (Auto) Neut % (Auto) Lymph % (Auto) [place] % (Auto) Eos % (Auto) Baso % (Auto) Absolute Neuts (auto) Absolute Lymphs (auto) Total Counted Platelet Estimate Polychromasia Hypochromasia Anisocytosis Microcytosis Ovalocytes Sodium Potassium Chloride Carbon Dioxide Anion Gap BUN Creatinine Estim Creat Clear Calc Est GFR (MDRD) Af Amer Est GFR (MDRD) Non-Af BUN/Creatinine Ratio Glucose Calcium Iron 16 L TIBC 342 Iron Saturation 4.7 L Ferritin 5 L Blood Type Antibody Screen Crossmatch POC Glucose 02/10/18 17:19 POC Glucose 89 Assessment/Plan All Active Problems Severe anemia (Acute) significant anemia with iron deficient parameters. I would recommend upper and lower endoscopy. The patient understands the risks, benefits, complications and possible alternatives and consents to the planned procedure. She does not need to remain in the hospital for this procedure. Reaming performance procedure urgently the following week. She would like to proceed free from this week since her will be undergoing a foot procedure next Saturday. 02/10/182052 <Electronically signed by Praful Pathak MD> Date Praful Pathak MD Outside H AND KRISTOPHEROV Observed: 02/14/2018 Status: COMPLETED Source: [place] 12:00 AM [facility] REPOSITORY Office Visit (GENSWS) ANNE CORDERO ([id number]) 1955 F Date Time Provider Department 02/14/18 PRAFUL PATHAK During your visit today, we recorded the following information about you: Praful Pathak MD 02/14/2018 5:47 AM Signed 02/10/182047 MR#: [id number] Acct: [id number] Name: ANNE CORDERO Rep #: [id number] : 1955 62 From: Praful Pathak MD PCP: Vladimir Dinh MD Status: ADM ROCHELLE Y Location: [place] [address] Reason for Consult Date of Consultation: 02/10/18 Reason for Consultation: fatigue-anemia History of Present Illness: The patient is a 62 year old F who has noticed increasing fatigue for at least the last few weeks. She presented for her routine gynecologic evaluation was noted to be pale. The patient a previous hysterectomy. She notes no reasons for pad blood loss. She denies abdominal pain. She notes no black tarry stools other difficulties. She underwent a complete blood count which demonstrated on 02 07 a hemoglobin of 7.8 with microcytic parameters. The patient had previous undergone a CBC in 2016 with a hemoglobin of 12.2 and normal red cell indices. She had undergone colonoscopy by Dr. Kole Parra on January 07, 2015. 25 mm polyps were found in the proximal transverse colon diverticulosis. It was recommended the patient have follow-up colonoscopy in 5 years. Prior to that, the patient went upper and lower endoscopy in December 26, 2011. Also by Dr. Kole Parra. Upper endoscopy was unremarkable.colonoscopy demonstrated 210 mm polyps and the patient was recommended 3 year follow-up colonoscopy at that time. patient's past history is otherwise significant for hypothyroidism, hypertension, asthma, type 2 diabetes, obesity, reflux depression. she'll surgical history includes carpal tunnel procedures, thyroidectomy, total abdominal hysterectomy, previous appendectomy. Past Medical History Past Medical History (Chronic Problems): Chronic Problems Hypertension (Chronic) DM type 2 (diabetes mellitus, type 2) (Chronic) Hypothyroidism (Chronic) Allergies Iodinated Contrast- Oral and IV Dye [CONTRASTS] Allergy (Verified 02/02/17 10:34) Rash Sulfa (Sulfonamide Antibiotics) Allergy (Verified 02/02/17 10:34) Hives Home Medications: Ambulatory Orders Medication Instructions Recorded Cholecalciferol (VIT D3) [Vitamin 1,000 unit PO DAILY 02/02/17 D] Fish Oil/Om-3/E/Folic/B6-B12 1 capsule PO DAILY 02/02/17 [Cardiovid Plus Softgel] Fluticasone 0.05% [Flonase Nasal 1 spray NASAL QHS 02/02/17 Pana] Lansoprazole 30 mg PO DAILY 02/02/17 Levothyroxine [Synthroid] 100 mcg PO DAILY 02/02/17 Lisinopril [Zestril] 2.5 mg PO DAILY 02/02/17 Sertraline HCl [Zoloft] 100 mg PO DAILY 02/02/17 Spironolact/Hydrochlorothiazid 1 tab PO DAILY 02/02/17 [Aldactazide 25-25 Tablet] Verapamil HCl [Verapamil Sr] 120 mg PO DAILY 02/02/17 Aspirin E.C. [Ecotrin] 81 mg PO DAILY 02/10/18 Atorvastatin Calcium [Lipitor] 40 mg PO QHS 02/10/18 Diphenhydramine HCl [Benadryl 25 mg PO QHS PRN PRN 02/10/18 Allergy] Metformin HCl 1,000 mg PO BID 02/10/18 Montelukast Sodium [Singulair] 10 mg PO QHS 02/10/18 Surgical History: appendectomy, hysterectomy, total knee arthroplasty - Bilateral, tonsillectomy, - - Status post thyroid surgery Psychiatric History: No pertinent psych hx SENIOR QUALITY TECHNICIAN History: No pertinent SENIOR QUALITY TECHNICIAN history Lives: With Family Smoking Status: Never smoker Tobacco Use: Non-smoker Alcohol: None Drugs: None - *Family History Maternal History Items: Cancer, Heart Disease - Rheumatic heart disease, Paternal History Items: Heart Disease - Rheumatic heart disease Review of Systems Constitutional: Reports: Malaise, Weakness. Denies: Chills, Fever, Weight Change HEENT: Denies: Head Aches, Sinus Congestion, Sinus Drainage Cardiovascular: Denies: Chest Pain, Palpitations Respiratory: Denies: Cough, Shortness of breath at rest, Sputum production Gastrointestinal: Denies: Abdominal Pain, Nausea, Vomiting Genitourinary: Denies: Dysuria Musculoskeletal: Denies: Joint Pain, Joint Tenderness Skin: Denies: Rash, Wounds Neurological: Denies: Numbness, Tingling, Focal weakness Psychiatric: Denies: Anxiety, Depression, Homicidal Ideations, Suicidal Ideations Hematologic/ Lymphatic: Denies: Easy Bruising, Easy Bleeding Patient Problems: Active and Suspected Problems Severe anemia (Acute) - Physical Exam General: Alert, Oriented x3, Cooperative HEENT: Atraumatic, PERRLA, EOMI, Normocephalic Neck: Supple, No JVD, Negative Carotid Bruits Lungs: Clear to auscultation, Normal air movement Cardiovascular: Regular rate, No murmurs Abdomen: Bowel Sounds Present, Soft, Non Tender Extremities: No edema, Capillary Refill Less than 3 Seconds Skin: No rashes, No breakdown Musculoskeletal: No Tenderness to Palpation of Joints or Extremities Neurological: Cranial nerves II-XII grossly intact Psych/Mental Status: Normal Affect, Appropriate Vital Signs Temp Pulse Resp BP Pulse Ox 98.2 F 83 18 98/56 L 93 02/10/18 20:23 02/10/18 20:23 02/10/18 20:23 02/10/18 20:23 02/10/18 20:23 Oxygen Delivery Method Room Air Weight: 97.976 kg Body Mass Index (BMI) 37.0 Intake and Output for Last 24 Hours 02/08/18 02/09/18 02/10/18 23:59 23:59 23:59 Intake Total 764 / 764 Output Total 0 / 0 Balance 764 / 764 Laboratory Tests Past 24 Hrs 02/10/18 02/10/18 02/10/18 14:34 14:34 14:34 WBC 7.1 RBC 3.49 L Hgb 7.1 L Hct 24.6 L MCV 70.5 L MCH 20.3 L MCHC 28.9 L RDW 16.5 H RDW Differential 42.5 Plt Count 331 MPV 9.4 Immature Gran % (Auto) 0.300 Neut % (Auto) 70.0 Lymph % (Auto) 22.1 [place] % (Auto) 5.5 Eos % (Auto) 2.0 Baso % (Auto) 0.1 Absolute Neuts (auto) 5.0 Absolute Lymphs (auto) 1.57 Total Counted Not Reportable Platelet Estimate ADEQUATE Polychromasia RARE Hypochromasia 2+ Anisocytosis 1+ Microcytosis 1+ Ovalocytes 1+ Sodium 140 Potassium 3.4 L Chloride 102 Carbon Dioxide 26.0 Anion Gap 12 BUN 22 H Creatinine 1.05 H Estim Creat Clear Calc 47.97 Est GFR (MDRD) Af Amer 68 Est GFR (MDRD) Non-Af 56 L BUN/Creatinine Ratio 21.0 H Glucose 237 H Calcium 9.2 Iron TIBC Iron Saturation Ferritin Blood Type A POSITIVE Antibody Screen NEGATIVE Crossmatch See Detail 02/10/18 14:34 WBC RBC Hgb Hct MCV MCH MCHC RDW RDW Differential Plt Count MPV Immature Gran % (Auto) Neut % (Auto) Lymph % (Auto) Lancaster % (Auto) Eos % (Auto) Baso % (Auto) Absolute Neuts (auto) Absolute Lymphs (auto) Total Counted Platelet Estimate Polychromasia Hypochromasia Anisocytosis Microcytosis Ovalocytes Sodium Potassium Chloride Carbon Dioxide Anion Gap BUN Creatinine Estim Creat Clear Calc Est GFR (MDRD) Af Amer Est GFR (MDRD) Non-Af BUN/Creatinine Ratio Glucose Calcium Iron 16 L TIBC 342 Iron Saturation 4.7 L Ferritin 5 L Blood Type Antibody Screen Crossmatch POC Glucose 02/10/18 17:19 POC Glucose 89 Assessment/Plan All Active Problems Severe anemia (Acute) significant anemia with iron deficient parameters. I would recommend upper and lower endoscopy. The patient understands the risks, benefits, complications and possible alternatives and consents to the planned procedure. She does not need to remain in the hospital for this procedure. Reaming performance procedure urgently the following week. She would like to proceed free from this week since her will be undergoing a foot procedure next Saturday. 02/10/182052 <Electronically signed by Praful Pathak MD> Date Praful Pathak MD Outside H ANDP Allergies As of Date: 02/14/2018 Noted Allergy Reaction ATENOLOL 03/07/2011 1 - Mental Status Change Comments: fatigue DEPO-MEDROL (METHYLPREDNISOLONE A*03/01/2005 Comments: facial redness, elevated glucose IVP DYE (IODINE) 03/01/2005 4 - Hives 7 - Swelling SULFA (SULFONAMIDE ANTIBIOTICS) 03/01/2005 4 - Hives Date Reviewed: 02/13/2018 Reviewed by: Claudine (Rn) FILIPPO Montes De Oca - Fully Assessed Primary Visit Diagnosis:Iron deficiency anemia, unspecified iron deficiency anemia type [D50.9] Prescriptions as of 02/14/2018 Sig: METFORMIN 1,000 MG TABLET TAKE 1 TABLET BY MOUTH TWICE* LANSOPRAZOLE 30 MG CAPSULE,DE* TAKE 1 CAPSULE BY MOUTH ONCE* VERAPAMIL ER 120 MG 24 HR CAP* TAKE 1 CAPSULE BY MOUTH ONCE* LISINOPRIL 2.5 MG TABLET TAKE 1 TABLET BY MOUTH ONCE A* ATORVASTATIN 80 MG TABLET TAKE ONE-HALF TABLET BY MOUT* SPIRONOLACTONE 25 MG-HYDROCHL* TAKE 1 TABLET BY MOUTH ONCE D* LEVOTHYROXINE 100 MCG TABLET Take 1 tablet by mouth once d* MONTELUKAST 10 MG TABLET Take 1 tablet by mouth daily * SERTRALINE 100 MG TABLET TAKE 1 TABLET BY MOUTH ONCE D* CLOTRIMAZOLE 1 % TOPICAL CREAM Apply 1 application to affect* FLUTICASONE 50 MCG/ACTUATION * Use 2 Sprays in each nostril * CLARITIN-D 24 HOUR ORAL Take 1 tablet by mouth once d* BLOOD SUGAR DIAGNOSTIC STRIPS Use as instructed twice daily. LANCETS Relion Lancets. Test blood aquino* OXYMETAZOLINE 0.05 % NASAL IL* Use 30 mL in the nose twice d* OMEGA [id number] OIL * Take 2 capsules by mouth once* CHOLECALCIFEROL (VITAMIN D3) * Take 1 capsule by mouth once * SODIUM BICARB-METHYLBENZETHON* Apply 1 application to affect* LEVOTHYROXINE 100 MCG TABLET Take 1 tablet by mouth once d* * ASPIRIN 81 MG TABLET Take one (1) tablet daily . 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 Essential hypertension [I10] INVALID FOR* More... Mixed hyperlipidemia [E78.2] INVALID FOR* More... Unspecified asthma(493.90) [J45.909] INVALID FOR*04/10/2017 More... Primary osteoarthritis involving multiple joint*INVALID FOR* RIGHT AXILLARY PAIN [R07.9] INVALID FOR*01/25/2011 FAMILY HX COLON CANCER [Z80.0] INVALID FOR* More... Esophageal reflux [K21.9] More... Anxiety [F41.9] Recurrent major depressive disorder, in full re* 04/10/2017 More... Hypopotassemia [E87.6] INVALID FOR*02/18/2013 More... OSTEOARTHROS NOS-L/LEG [M17.10] INVALID FOR* Lateral epicondylitis of elbow [M77.10] INVALID FOR*02/18/2013 Hypothyroidism [E03.9] INVALID FOR* More... PVC's [I49.49] INVALID FOR* Shoulder bursitis [M75.50] INVALID FOR*02/18/2013 Allergy to environmental factors [Z91.09] INVALID FOR* Special screening for malignant neoplasms, colo*INVALID FOR*01/07/2015 Encounter Status:Closed by PRAFUL PATHAK MD on 02/14/18 SURGICAL PATHOLOGY Observed: 02/14/2018 Status: C Source: [place] 12:00 AM [facility] REPOSITORY ADDENDUM PRESENT Specimen originated from [facility] Specimen #: [id number] Submitting Physician: PRAFUL PATHAK ([id number]) FINAL DIAGNOSIS 1. Stomach, antrum, biopsy (A) - Chronic inactive gastritis. - See comment. 2. Stomach, polypectomy (B) - Fundic gland polyp, negative for dysplasia. 3. 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 - See comment. DTP/sandy 02/17/2018 COMMENT 1. Immunohistochemical stain for Helicobacter pylori is pending and the results will be reported as an addendum. 3. Immunohistochemical stains were performed to evaluate this lesion and show that the cells of interest are diffusely positive for chromogranin, synaptophysin, SATB2 and show variable expression of CDX2 and CK20. They do not express CK7 or NKX3.1. 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 Histologic features of a small cell carcinoma are not identified. Laboratory Developed Test (LDT) Disclaimer: Positive and negative controls stain appropriately. Performance characteristics of immunohistochemical, immunofluorescent and chromogenic in-situ hybridization tests have been determined by [facility]'s [facility] [place] ([facility]) in a manner consistent with CLIA requirements. One or more of these tests have not been cleared or approved by the FDA. [facility] is regulated under CLIA as qualified to perform high-complexity testing. These tests are used for clinical purposes. They should not be regarded as investigational or for research. Kristal Thompson M.D. (Electronic Signature) SPECIMEN SUBMITTED A: ANTRUM, BIOPSY B: GASTRIC POLYP C: AT 75CM COLON, BIOPSY ADDENDUM Date Ordered: 02/19/2018 Date Reported: 02/19/2018 Given the background of chronic gastritis, a Helicobacter pylori immunostain was performed on block A and is negative for Helicobacter pylori organisms. DTP/dss 02/19/2018 Laboratory Developed Test (LDT) Disclaimer: Positive and negative controls stain appropriately. Performance characteristics of immunohistochemical, immunofluorescent and chromogenic in-situ hybridization tests have been determined by [facility]'s [facility]ology [facility] [place] ([facility]) in a manner consistent with CLIA requirements. One or more of these tests have not been cleared or approved by the FDA. [facility] is regulated under CLIA as qualified to perform high-complexity testing. These tests are used for clinical purposes. They should not be regarded as investigational or for research. Addendum Pathologist: Kristal Thompson M.D. Electronic Signature CLINICAL DATA D64.9 H/H GROSS DESCRIPTION A. Received in formalin is one piece of brewer, soft tissue measuring 0.5 x 0.2 x 0.1 cm. Totally submitted in one cassette. B. Received in formalin is one piece of brewer, soft tissue measuring 0.3 x 0.2 x 0.2 cm. Totally submitted in one cassette. C. Received in formalin are two pieces of brewer, soft tissue aggregating to 0.6 x 0.2 x 0.2 cm. Totally submitted in one cassette. Gross examination performed at [facility], [address] [place] [address] 02/15/2018 12:59:52 AM Date of Report: 02/18/2018 Date of Procedure: 02/14/2018 Date of Receipt: 02/14/2018 Submitted by: PRAFUL PATHAK ([id number]) Location: W010 Diagnostic interpretation performed at [facility], [address], [facility] [address]. PROGRESS Observed: 02/12/2018 Status: COMPLETED Source: [place] 2:07 PM [facility] REPOSITORY HNO ID: [id number] Author: Elizabeth Huerta) Fabrizio Service: (none) Author Type: Physician Type: Progress Notes Filed: 02/12/2018 2:07 PM Note Text: Patient following up with you on 02/19 PROGRESS Observed: 02/12/2018 Status: COMPLETED Source: [place] 1:36 PM [facility] REPOSITORY HNO ID: [id number] Author: Anne Santana (David) DAVID Martinez Service: (none) Author Type: LICENSED NURSE Type: Progress Notes Filed: 03/17/2018 3:01 AM Note Text: TRANSITION CARE MANAGEMENT (TCM) INITIAL CONTACT Museum Host/Hostess Outreach Provider Action/FYI: Pt has no concerns at this time. Initial contact with patient post discharge, spoke to patient. Patient identified by name and . TRANSITION CARE MANAGEMENT INITIAL OUTREACH DOCUMENTATION: Date of Outreach: 02/12/2018 02/12/2018 Outreach Attempt 1: Contact Not Made - Date of Discharge 02/12/2018 02/12/2018 Some recent data might be hidden SUMMARY: -Pt discharged from [facility] on 02/11/18. -Admitted for: severe anemia Do you have a hospital follow up appointment with your PCP? Appointment on 02/19/2018 with Elizabeth Correalogdorys LAND. Yes. Remind patient of appointment date, time, and location. If not within 14 calendar days of discharge - please reschedule accordingly. MEDICATIONS: Many patients have questions or concerns about their medications once they are home. Were you prescribed any new medications? Yes FEROUS SULFATE 325 MG TWICE DAILY Were you told to hold any medications? Yes ASA UNTIL AFTER COLONOSCOPY Saturday02/14/2018 Were any of your medications discontinued? No Do you have any questions about getting or taking your medications? No Your discharge instructions/After visit Summary (AVS) are important in guiding you through the recovery process. Is there anything I might help you understand? Yes, discharge instructions/AVS are inadequate, not clear to the patient. If further clinical clarification is needed - follow site specific process for handoff to RN/ZONE MANAGER, or LIP. Do you have all the necessary equipment and supplies at home? Yes Medical records from recent hospitalization: YES FAXED TO US FROM [facility] PROGRESS Observed: 02/12/2018 Status: COMPLETED Source: [place] 9:03 AM [facility] REPOSITORY HNO ID: [id number] Author: Anne Martinez LPN Service: (none) Author Type: LICENSED NURSE Type: Progress Notes Filed: 03/17/2018 3:01 AM Note Text: Left message to return call to start tcm. REBEKA Observed: 02/12/2018 Status: COMPLETED Source: [place] 12:00 AM [facility] REPOSITORY Patient Outreach (FAMPWS) ANNE CORDERO ([id number]) 1955 F Date Time Provider Department 02/12/18 ELIZABETH DINH) RASHAWN During your visit today, we recorded the following information about you: Anne Martinez LPN, LPN 03/17/2018 3:01 AM Signed Left message to return call to start tcm. Anne Martinez LPN, LPN 03/17/2018 3:01 AM Signed TRANSITION CARE MANAGEMENT (TCM) INITIAL CONTACT Museum Host/Hostess Outreach Provider Action/FYI: Pt has no concerns at this time. Initial contact with patient post discharge, spoke to patient. Patient identified by name and . TRANSITION CARE MANAGEMENT INITIAL OUTREACH DOCUMENTATION: Date of Outreach: 02/12/2018 02/12/2018 Outreach Attempt 1: Contact Not Made - Date of Discharge 02/12/2018 02/12/2018 Some recent data might be hidden SUMMARY: -Pt discharged from [facility] on 02/11/18. -Admitted for: severe anemia Do you have a hospital follow up appointment with your PCP? Appointment on 02/19/2018 with Elizabeth Mariee CNP. Yes. Remind patient of appointment date, time, and location. If not within 14 calendar days of discharge - please reschedule accordingly. MEDICATIONS: Many patients have questions or concerns about their medications once they are home. Were you prescribed any new medications? Yes FEROUS SULFATE 325 MG TWICE DAILY Were you told to hold any medications? Yes ASA UNTIL AFTER COLONOSCOPY Saturday02/14/2018 Were any of your medications discontinued? No Do you have any questions about getting or taking your medications? No Your discharge instructions/After visit Summary (AVS) are important in guiding you through the recovery process. Is there anything I might help you understand? Yes, discharge instructions/AVS are inadequate, not clear to the patient. If further clinical clarification is needed - follow site specific process for handoff to RN/ZONE MANAGER, or LIP. Do you have all the necessary equipment and supplies at home? Yes Medical records from recent hospitalization: YES FAXED TO US FROM [facility] Elizabeth Dinh MD 02/12/2018 2:07 PM Signed Patient following up with you on 02/19 Allergies As of Date: 02/12/2018 Noted Allergy Reaction ATENOLOL 03/07/2011 1 - Mental Status Change Comments: fatigue DEPO-MEDROL (METHYLPREDNISOLONE A*03/01/2005 Comments: facial redness, elevated glucose IVP DYE (IODINE) 03/01/2005 4 - Hives 7 - Swelling SULFA (SULFONAMIDE ANTIBIOTICS) 03/01/2005 4 - Hives Date Reviewed: 02/07/2018 Reviewed by: Daly [facility] Fully Assessed Reason for Visit: Transition Of Care [4074] Prescriptions as of 02/12/2018 Sig: * ASPIRIN 81 MG TABLET Take one (1) tablet daily . ATORVASTATIN 80 MG TABLET TAKE ONE-HALF TABLET BY MOUT* CHOLECALCIFEROL (VITAMIN D3) * Take 1 capsule by mouth once * CLOTRIMAZOLE 1 % TOPICAL CREAM Apply 1 application to affect* DIPHENHYDRAMINE 50 MG CAPSULE Take 1 capsule by mouth one t* ENTERIC CONTRAST (RADIOLOGY P* For CT ABD/PEL W IVCON Routin* ENTERIC CONTRAST (RADIOLOGY P* For CT ABD/PEL W IVCON Routin* FLUTICASONE 50 MCG/ACTUATION * Use 2 Sprays in each nostril * IV CONTRAST (RADIOLOGY PROCED* CT ABD/PEL -Inject, intraveno* IV CONTRAST (RADIOLOGY PROCED* CT ABD/PEL -Inject, intraveno* LANSOPRAZOLE 30 MG CAPSULE,DE* TAKE 1 CAPSULE BY MOUTH ONCE* LEVOTHYROXINE 100 MCG TABLET Take 1 tablet by mouth once d* LISINOPRIL 2.5 MG TABLET TAKE 1 TABLET BY MOUTH ONCE A* CLARITIN-D 24 HOUR ORAL Take 1 tablet by mouth once d* METFORMIN 1,000 MG TABLET TAKE 1 TABLET BY MOUTH TWICE* OXYMETAZOLINE 0.05 % NASAL IL* Use 30 mL in the nose twice d* SERTRALINE 100 MG TABLET TAKE 1 TABLET BY MOUTH ONCE D* SPIRONOLACTONE 25 MG-HYDROCHL* TAKE 1 TABLET BY MOUTH ONCE D* VERAPAMIL ER 120 MG 24 HR CAP* TAKE 1 CAPSULE BY MOUTH ONCE* X BLOOD SUGAR DIAGNOSTIC STRIPS Use as instructed twice daily. Patient not taking: Reported on 03/04/2018 X LANCETS Relion Lancets. 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 Essential hypertension [I10] INVALID FOR* More... Mixed hyperlipidemia [E78.2] INVALID FOR* More... Unspecified asthma(493.90) [J45.909] INVALID FOR*04/10/2017 More... Primary osteoarthritis involving multiple joint*INVALID FOR* RIGHT AXILLARY PAIN [R07.9] INVALID FOR*01/25/2011 FAMILY HX COLON CANCER [Z80.0] INVALID FOR* More... Esophageal reflux [K21.9] More... Anxiety [F41.9] Recurrent major depressive disorder, in full re* 04/10/2017 More... Hypopotassemia [E87.6] INVALID FOR*02/18/2013 More... OSTEOARTHROS NOS-L/LEG [M17.10] INVALID FOR* Lateral epicondylitis of elbow [M77.10] INVALID FOR*02/18/2013 Hypothyroidism [E03.9] INVALID FOR* More... PVC's [I49.49] INVALID FOR* Shoulder bursitis [M75.50] INVALID FOR*02/18/2013 Allergy to environmental factors [Z91.09] INVALID FOR* Special screening for malignant neoplasms, colo*INVALID FOR*01/07/2015 Encounter Status:Closed by HOWARD, PRODUSER on 03/17/18 DISCHARGE SUMMARY Observed: 02/11/2018 Status: F Source: [place] 11:44 AM [facility] REPOSITORY [facility] Medical Records Department [address] [place] [address] Discharge Summary 02/11/18 1100 MR#: [id number] Acct: [id number] Name: ANNE CORDERO Rep #: [id number] : 1955 62 From: Jaci Timmons ANCHOR TACKER-C PCP: Vladimir Dinh MD Status: ADM ROCHELLE Y Location: [place] [id number] <Jaci Timmons - Last Filed: 02/11/18 11:12> Discharge Date and Diagnosis Date of Admission: 02/10/18 Date of Discharge: 02/11/18 - Primary Discharge Diagnosis Active and Suspected Problems 1. Acute blood loss anemia due to suspected GI bleed/iron deficiency anemia 2. Hypertension 3. Hyperlipidemia 4. Type 2 diabetes mellitus 5. Depression 6. Hypothyroidism 7. Obesity - Secondary Discharge Diagnosis Chronic Problems Hypertension (Chronic) DM type 2 (diabetes mellitus, type 2) (Chronic) Hypothyroidism (Chronic) Hospital Course and Treatment Dr. Pathak- General Surgery Operations: None Procedures: None Summary of Care Provided: The patient is a 62 year old F admitted 02/10/2018 due to abnormal blood work with hemoglobin 7.1. Patient denies symptoms with this. She states she was at routine [employer] appointments where her provider felt that she was pale and ordered routine lab work. She was noted to have a hemoglobin of 7.1 and referred to the emergency room. Stool positive for occult blood. Patient received 2 units PRBC. Hemoglobin 8.[address] Hollingsworth, general surgery consulted. Patient is stable for discharge home with EGD/colonoscopy with Dr. Hollingsworth on 02/14/2018. Patient was instructed to hold home aspirin regimen until further evaluated by general surgery. She was noted to have iron deficiency and received IV iron x1. She will be discharged on iron 325 mg p.o. twice daily. She will also be discharged on Protonix 40 mg daily which may later be discontinued if further workup unremarkable. Patient denies melena, hematochezia, hematemesis. She denies dizziness, lightheadedness, shortness of breath, chest pain. Her other past medical history includes hypertension, hyperlipidemia, type 2 diabetes mellitus, hypothyroidism, depression, obesity. Chronic medical conditions stable at this time. General: Alert, Oriented x3, Cooperative, No apparent distress HEENT: Atraumatic, PERRLA, EOMI, Normocephalic Oral: Moist Mucosa Neck: Supple Lungs: Clear to auscultation, Normal air movement Cardiovascular: Regular rate, Regular Rhythm, Normal S1, Normal S2, No murmurs Abdomen: Bowel Sounds Present, Soft, Non Tender, Non-Distended, Obese Extremities: No edema, Capillary Refill Less than 3 Seconds Skin: No rashes, No breakdown Musculoskeletal: No Tenderness to Palpation of Joints or Extremities Lymphatic: No Cervical, Supraclavicular, or Inguinal Adenopathy Neurological: Cranial nerves II-XII grossly intact, Neuro grossly intact Psych/Mental Status: Normal Affect, Appropriate Patient seen and examined prior to discharge. Physical assessment as noted above. Patient is stable for discharge home with follow-up as noted above. This patient was seen by DILMA Chino under the supervision of Dr. Granados. - Physical Exam Vital Signs Temp Pulse Resp BP Pulse Ox 98.2 F 80 18 103/62 94 02/11/18 10:11 02/11/18 10:11 02/11/18 10:11 02/11/18 10:11 02/11/18 10:11 Oxygen Delivery Method Room Air Weight: 216 lb Body Mass Index (BMI) 37.0 Orthostatic Vital Signs Start: 02/11/18 04:52 Freq: q24h Status: Active Protocol: Activity Type Activity Date Activity User E-Sign Co-Sign Detail Recorded Client Recorded Date Recorded By Document 02/11/18 04:52 [facility] [id number] 02/11/18 04:57 [facility] Orthostatic Vitals Standing -Blood Pressure (90/60-120/80) 136/77 H -Extremity Use Left Arm -Pulse Rate (60-100) 76 Sitting -Blood Pressure (90/60-120/80) 129/83 H Intake and Output for Last 24 Hours Intake Total 1404 / 1404 520 / 520 Output Total 350 / 350 Balance 1054 / 1054 520 / 520 Microbiology Past 72 Hours 02/11/18 06:40 Stool Occult Blood (YULIA) - Final Stool Occult Blood Positive Laboratory Tests Past 24 Hrs WBC 7.1 RBC 3.49 L Hgb 7.1 L Hct 24.6 L MCV 70.5 L MCH 20.3 L WBC RBC Hgb 7.9 L Hct 26.1 L MCV MCH MCHC RDW RDW Differential WBC 8.4 RBC 3.93 L POC Glucose POC Glucose 129 H 101 89 Discharge Diet: - - Light diet Discharge Activity: Return to Normal Activity Call your doctor if you observe: Shortness of breath, Dizziness, Fainting spells, Chest pain Home Medications: Medications to take at Discharge Cholecalciferol (VIT D3) [Vitamin D3] 1,000 unit PO DAILY 02/02/17 Fish Oil/Om-3/E/Folic/B6-B12 [Cardiovid Plus Softgel] 1 capsule PO DAILY 02/02/17 Fluticasone 0.05% [Flonase Nasal Pana] 1 spray NASAL QHS 02/02/17 Lansoprazole 30 mg PO DAILY 02/02/17 Levothyroxine [Synthroid] 100 mcg PO DAILY 02/02/17 Lisinopril [Zestril] 2.5 mg PO DAILY 02/02/17 Sertraline HCl [Zoloft] 100 mg PO DAILY 02/02/17 Spironolact/Hydrochlorothiazid [Aldactazide 25-25 Tablet] 1 tab PO DAILY 02/02/17 Verapamil HCl [Verapamil Sr] 120 mg PO DAILY 02/02/17 Aspirin E.C. [Ecotrin] 81 mg PO DAILY 02/10/18 Atorvastatin Calcium [Lipitor] 40 mg PO QHS 02/10/18 Diphenhydramine HCl [Benadryl Allergy] 25 mg PO QHS PRN PRN 02/10/18 Metformin HCl 1,000 mg PO BID 02/10/18 Montelukast Sodium [Singulair] 10 mg PO QHS 02/10/18 Ferrous Sulfate [Iron] 325 mg PO BID #60 tablet 02/11/18 Pantoprazole Sodium [Protonix] 40 mg PO DAILY #30 tablet 02/11/18 Following Prescrptions Were Given to Patient: Pantoprazole Sodium [Protonix] 40 mg PO DAILY #30 tablet Ferrous Sulfate [Iron] 325 mg PO BID #60 tablet Primary Care Physician: Vladimir Dinh MD [Primary Care Provider] - Please follow up with your Primary Care Physician in: 1 Week Please Follow Up With: Praful Pathak MD When: As scheduled, for scope 02/14/18. Disposition: Home Minutes spent on discharge:: 35 Patient Condition:: Stable Medical Necessity - Tobacco Use Smoking Status: Never smoker Tobacco Use: Non-smoker Meaningful Use Info Meaningful Use Diagnoses (Choose all that apply): None applicable <Lulu Granados E - Last Filed: 02/11/18 11:43> Discharge Date and Diagnosis - Secondary Discharge Diagnosis Chronic Problems Hypertension (Chronic) DM type 2 (diabetes mellitus, type 2) (Chronic) Hypothyroidism (Chronic) Hospital Course and Treatment Procedures: Blood transfusion Summary of Care Provided: Hospitalist note: Discharge summary above reviewed and I agree with above discharge plan. Patient was admitted for symptoms of fatigue and dizziness secondary to acute blood loss anemia attributed to suspected GI bleed as well as severe iron deficiency anemia. On admission, her hemoglobin was 7.1 g/dL and she was symptomatic. She denied any bleeding from body orifices such as epistaxis, hematemesis, hemoptysis, hematuria, metaplasia or melena. She did have a history of menorrhagia long time ago status post hysterectomy. At this time, she denied any vaginal bleeding. Her stool was positive for occult blood. She received 2 units of packed RBCs and hemoglobin went up to 8.7 g/dL. Serum iron was very low as well as serum ferritin and iron saturation her TIBC was normal. General surgery consulted and Dr. Hollingsworth recommended outpatient upper EGD and colonoscopy this coming Saturday. After transfusion, patient symptoms improved and her vital signs remained stable. She received 1 dose of IV Venofer. Patient discharged home in a stable medical condition, discharged on Protonix and iron supplement, continued on her home medications without any changes, plan for upper EGD and colonoscopy this coming Saturday with Dr. Hollingsworth, recommended from PCP in 1 week. - Physical Exam General: Alert, Oriented x3, Cooperative, No apparent distress. HEENT: Atraumatic, PERRLA, EOMI. Neck: Supple, No JVD, Negative Carotid Bruits, Trachea Midline, Thyroid Normal. Lungs: Clear to auscultation, Normal air movement, No rhonchi, No wheeze, No rales. Cardiovascular: Regular rate, Regular Rhythm, Normal S1, Normal S2, PMI Normal. Abdomen: Bowel Sounds Present, Soft, Non Tender, Non-Distended, No Hepato-splenomegaly. Extremities: No clubbing, No cyanosis, No edema Skin: No rashes, No breakdown Neurological: Neuro grossly intact Vital Signs are stable. This note was generated with [employer] dictation software. It may contain incorrect words, spelling, and punctuation that were not noted in checking the note before signing. - Physical Exam Vital Signs Temp Pulse Resp BP Pulse Ox 98.2 F 77 18 103/62 94 02/11/18 10:11 02/11/18 11:06 02/11/18 10:11 02/11/18 10:11 02/11/18 10:11 Oxygen Delivery Method Room Air Weight: 216 lb Body Mass Index (BMI) 37.0 Orthostatic Vital Signs Start: 02/11/18 04:52 Freq: q24h Status: Active Protocol: Activity Type Activity Date Activity User E-Sign Co-Sign Detail Recorded Client Recorded Date Recorded By Document 02/11/18 04:52 [facility] [id number] 02/11/18 04:57 [facility] Orthostatic Vitals Standing -Blood Pressure (90/60-120/80) 136/77 H -Extremity Use Left Arm -Pulse Rate (60-100) 76 Sitting -Blood Pressure (90/60-120/80) 129/83 H Intake and Output for Last 24 Hours Intake Total 1404 / 1404 838 / 838 Output Total 350 / 350 Balance 1054 / 1054 838 / 838 Microbiology Past 72 Hours 02/11/18 06:40 Stool Occult Blood (YULIA) - Final Stool Occult Blood Positive Laboratory Tests Past 24 Hrs WBC 7.1 RBC 3.49 L Hgb 7.1 L Hct 24.6 L MCV 70.5 L MCH 20.3 L WBC RBC Hgb 7.9 L Hct 26.1 L MCV MCH MCHC RDW RDW Differential WBC 8.4 RBC 3.93 L POC Glucose POC Glucose 129 H 101 89 Disposition: Home Minutes spent on discharge:: 26 Patient Condition:: Stable Meaningful Use Info Meaningful Use Diagnoses (Choose all that apply): None applicable Code Visit OBSConnie Rice AND M: [id number] Observation care discharge 02/11/18 1113 <Electronically signed by Jaci ECHEVERRIAC> Date Jaci PERERA 02/11/18 1144<Electronically signed by Lulu Granados MD> Cosigner Signature (if applicable): Date Lulu Granados MD CC: DILMA Timmons; Vladimir Dinh MD; Lulu Granados Signed BEDSIDE GLUCOSE Collected: 02/11/2018 Status: F Source: [place] 11:33 AM [facility] REPOSITORY TYPE CODE TESTS RESULT OUT OF REFERENCE UNITS RANGE LAB L501.080 70-110 mg/dL High BEDSIDE GLU 135 Result Comment: MANAGEMENT OF PATIENT CARE PER NURSING PROTOCOL Performed By: #### L501.080 #### [facility] Laboratory Point of Care [address] [facility] [address] DISCHARGE INSTRUCTION Observed: 02/11/2018 Status: F Source: [place] 11:03 AM [facility] REPOSITORY [facility] Medical Records Department [address] [place] [address] Instructions for Home/Discharge Instructions 02/11/18 1055 MR#: [id number] Acct: [id number] Name: ANNE CORDERO Rep #: [id number] : 1955 62 From: Jaci PERERA PCP: Vladimir Dinh MD Status: ADM ROCHELLE ADDENDUM by DILMA Timmons on 02/11/18 at 1103 Hold home aspirin regimen until further evaluated by Dr. Hollingsworth. 02/11/18 1103 Date Jaci Timmons cc: Vladimir Dinh MD; Praful Pathak MD * Signed - Discharge Diagnoses Current Active Problems: Current Active and Chronic Problems Severe anemia (Acute) Hypertension (Chronic) DM type 2 (diabetes mellitus, type 2) (Chronic) Hypothyroidism (Chronic) You will use the following diet at home:: Other - Light diet. Clear liquids beginning 02/13/18 with bowel prep per Dr. Pathak orders. Discharge Activity: Return to Normal Activity Call your doctor if you observe: Shortness of breath, Dizziness, Fainting spells, Chest pain Allergies/Adverse Reactions: Allergies Iodinated Contrast- Oral and IV Dye [CONTRASTS] Allergy (Verified 02/02/17 10:34) Rash Sulfa (Sulfonamide Antibiotics) Allergy (Verified 02/02/17 10:34) Hives Medications to take at Discharge Cholecalciferol (VIT D3) [Vitamin D3] 1,000 unit PO DAILY 02/02/17 Fish Oil/Om-3/E/Folic/B6-B12 [Cardiovid Plus Softgel] 1 capsule PO DAILY 02/02/17 Fluticasone 0.05% [Flonase Nasal Pana] 1 spray NASAL QHS 02/02/17 Lansoprazole 30 mg PO DAILY 02/02/17 Levothyroxine [Synthroid] 100 mcg PO DAILY 02/02/17 Lisinopril [Zestril] 2.5 mg PO DAILY 02/02/17 Sertraline HCl [Zoloft] 100 mg PO DAILY 02/02/17 Spironolact/Hydrochlorothiazid [Aldactazide 25-25 Tablet] 1 tab PO DAILY 02/02/17 Verapamil HCl [Verapamil Sr] 120 mg PO DAILY 02/02/17 Aspirin E.C. [Ecotrin] 81 mg PO DAILY 02/10/18 Atorvastatin Calcium [Lipitor] 40 mg PO QHS 02/10/18 Diphenhydramine HCl [Benadryl Allergy] 25 mg PO QHS PRN PRN 02/10/18 Metformin HCl 1,000 mg PO BID 02/10/18 Montelukast Sodium [Singulair] 10 mg PO QHS 02/10/18 Ferrous Sulfate [Iron] 325 mg PO BID #60 tablet 02/11/18 Pantoprazole Sodium [Protonix] 40 mg PO DAILY #30 tablet 02/11/18 The following prescriptions were given: Pantoprazole Sodium [Protonix] 40 mg PO DAILY #30 tablet Ferrous Sulfate [Iron] 325 mg PO BID #60 tablet Primary Care Physician: Vladimir Dinh MD [Primary Care Provider] - Please follow up with your Primary Care Physician in: 1 Week Test Results: Test results from this visit will be discussed in further detail at your follow-up appointment, if applicable. Please Follow Up With: Praful Pathak MD When: As scheduled, for scope 02/14/18. Proposed Discharge Date: 02/11/18 02/11/18 1100 <Electronically signed by Jaci PERERA> Date Jaci PERERA CC: Vladimir Dinh MD; Praful Pathak MD Observed: 02/11/2018 Status: F Source: [place] STOOL OCCULT BLOOD 6:40 AM [facility] IFOB REPOSITORY STOB iFOB Normal Reference Range = Negative Occult Blood Positive ORGANISM 1: OCCULT BLOOD POSITIVE Performed By: #### M100.7900 #### [facility] [address] [facility] [place], [place], [id number] BEDSIDE GLUCOSE Collected: 02/11/2018 Status: F Source: [place] 6:39 AM [facility] REPOSITORY TYPE CODE TESTS RESULT OUT OF REFERENCE UNITS RANGE LAB L501.080 70-110 mg/dL High BEDSIDE GLU 129 Result Comment: MANAGEMENT OF PATIENT CARE PER NURSING PROTOCOL Performed By: #### L501.080 #### [facility] Point of Care [address] [facility] [address] CBC W/DIFF, AUTOMATED Collected: 02/11/2018 Status: F Source: [place] 5:44 AM [facility] REPOSITORY TYPE CODE TESTS RESULT OUT OF RANGE REFERENCE UNITS LAB L100.1000 4.4-11.0 K/mm3 Normal WBC 8.4 LAB L100.1200 4.2-5.4 M/mm3 Low RBC 3.93 LAB L100.1300 12.0-15.0 g/dl Low HGB 8.7 LAB L100.1400 37-47 % Low HCT 29.0 LAB L100.1500 81-99 fL Low MCV 73.8 LAB L100.1600 27.0-32.0 pg Low MCH 22.1 LAB L100.1700 32-36 g/gl Low MCHC 30.0 LAB L100.1810 11.6-14.6 % High RDW CV 18.2 LAB L100.1820 35.1-43.9 fl High RDW SD 49.3 LAB L100.1900 150-450 K/mm3 Normal PLT 327 LAB L100.2000 6.2-12.0 fl Normal MPV 9.6 LAB L100.2100 47-70 % Normal NEUT% 60.3 LAB L100.2200 19-41 % Normal LY% 29.7 LAB L100.2300 0-10 % Normal MONO% 7.5 LAB L100.2400 0-5 % Normal EO% 2.1 LAB L100.2500 0-1 % Normal BASO% 0.2 LAB L100.2550 0.0-0.9 % Normal IM GRAN % 0.200 Result Comment: IG% - Immature Granulocytes (promyelocytes, myelocytes and metamyelocytes) > 1% indicates that a LEFT SHIFT is Present. LAB L100.2620 2.0-7.7 X10 3/uL Absolute Neut Normal 5.1 LAB L100.2720 0.83-4.51 X10 3/ul Absolute Lymph Normal 2.50 LAB L100.4500 SMEAR COMMENT Normal SCANNED LAB L100.7300 ANISO Normal 3+ LAB L100.7600 HYPOCHROMASIA Normal 3+ LAB L100.7700 MICROCYTES Normal 2+ LAB L100.7800 MACROCYTE Normal 1+ LAB L100.8200 OVALOCYTE Normal 1+ LAB L100.8400 SCHISTOCYTES Normal RARE LAB L100.8600 TARGET CELLS Normal RARE Performed By: #### L100.0100 #### [facility] [address] [place], [address] BASIC METABOLIC Collected: 02/11/2018 Status: F Source: [place] PROFILE ([facility]) 5:44 AM [facility] REPOSITORY TYPE CODE TESTS RESULT OUT OF RANGE REFERENCE UNITS LAB L501.0100 74-106 mg/dL High GLU 108 Result Comment: Fasting Glucose result from 100 to 125 mg/dL suggests IMPAIRED HOMEOSTASIS per A.D.A. criteria. Please note revised GLUCOSE reference range effective 2017. LAB L501.1000 7-18 mg/dL High BUN 19 LAB L501.1100 0.55-1.02 mg/dL Normal CREAT,SERUM 0.95 Result Comment: The validity of the calculated GFR AND GFRAA in patients over 70 years has not been determined. Clinical correlation is essential. LAB L501.1110 >60 mL/min Normal EST GFR 64 Result Comment: Non- GFR Calc LAB L501.1115 >60 mL/min Normal EST GFR - AA 77 Result Comment: GFR Calc LAB L501.1255 ml/min Normal Estimated CRCL 53.02 LAB L501.1300 10-20 RATIO High BUN/CRE 20.1 LAB L501.2200 8.5-10 mg/dL Normal .1 CA 8.9 LAB L501.5300 136-14 mmol/L Normal 5 NA 143 LAB L501.5600 3.5-5. mmol/L Normal 1 K 4.2 LAB L501.5900 98-107 mmol/L Normal CL 106 LAB L501.6100 21.0-3 mmol/L Normal 2.0 CO2 27.0 LAB L501.6200 5-15 Normal GAP 10 Performed By: #### L500.2500 #### [facility] [address] [place], [address] HOSP Observed: 02/11/2018 Status: COMPLETED Source: [place] 12:00 AM [facility] REPOSITORY Patient:Anne Cordero MRN: <[id number]> Height:5' 4.567(1.64 m) Weight:216 lb (97.977 kg) Outpatient Medications as of 02/14/18: iv contrast (will be provided with radiology test) enteric contrast (will be provided with radiology test) iv contrast (will be provided with radiology test) enteric contrast (will be provided with radiology test) predniSONE (DELTASONE) 50 mg tab diphenhydrAMINE (BENADRYL) 50 mg capsule metFORMIN (GLUCOPHAGE) 1,000 mg tablet lansoprazole (PREVACID) 30 mg capsule verapamil ER (VERELAN) 120 mg 24 hr capsule lisinopril 2.5 mg tablet atorvastatin (LIPITOR) 80 mg tablet spironolactone-hctz 25/25 (ALDACTAZIDE) 25-25 mg per tablet levothyroxine (SYNTHROID) 100 mcg tablet montelukast (SINGULAIR) 10 mg tablet sertraline (ZOLOFT) 100 mg tablet clotrimazole (LOTRIMIN, CLOTRIM) 1 % cream fluticasone (FLONASE) 50 mcg/actuation nasal spray LORATADINE/PSEUDOEPHEDRINE (CLARITIN-D 24 HOUR ORAL) blood sugar diagnostic (RELION CONFIRM-MICRO) test strip Lancets lancets Oxymetazoline HCl 0.05 % mist [id number]-E-FA-Fish Oil [id number] em-mr-lqv-mcg cap Cholecalciferol, Vitamin D3, 1,000 unit cap Sod Amw-Ztagimkqz-Szyr-Silica (FORDUSTIN) Powd levothyroxine (SYNTHROID) 100 mcg ORAL tablet ASPIRIN 81 MG ORAL TAB Admission/Clinic Administered Medications as of 02/14/18: lactated ringers infusion predniSONE 50 mg tab(s) (DELTASONE) diphenhydrAMINE 50 mg (BENADRYL) Problem List: Diabetes mellitus (HCC) [E11.9] Essential hypertension [I10] Mixed hyperlipidemia [E78.2] Primary osteoarthritis involving multiple joints [M15.0] FAMILY HX COLON CANCER [Z80.0] Esophageal reflux [K21.9] Anxiety [F41.9] Osteoarthrosis, unspecified whether generalized or localized, lower leg [M17.10] Hypothyroidism [E03.9] PVC's [I49.49] Allergy to environmental factors [Z91.09] Allergies: Atenolol Depo-Medrol [Methylprednisolone Acetate] Ivp Dye [Iodine] Sulfa (Sulfonamide Antibiotics) Date Verified: 02/14/18 Lab Values Lab Value Units Date High Low POTA* 4.2 mmol/L 02/07/2018 5.1 3.7 MAURA* 27.2 % 02/07/2018 46.0 36.0 Progress Notes ([facility]): Anne Martinez LPN, LPN 02/12/2018 9:04 AM Sign at close encounter Left message to return call to start tcm. Anne M DAVID Martinez LPN 02/12/2018 1:43 PM Sign at close encounter TRANSITION CARE MANAGEMENT (TCM) INITIAL CONTACT Museum Host/Hostess Outreach Provider Action/FYI: Pt has no concerns at this time. Initial contact with patient post discharge, spoke to patient. Patient identified by name and . TRANSITION CARE MANAGEMENT INITIAL OUTREACH DOCUMENTATION: Date of Outreach: 02/12/2018 02/12/2018 Outreach Attempt 1: Contact Not Made - Date of Discharge 02/12/2018 02/12/2018 Some recent data might be hidden SUMMARY: -Pt discharged from [facility] on 02/11/18. -Admitted for: severe anemia Do you have a hospital follow up appointment with your PCP? Appointment on 02/19/2018 with Elizabeth Mariee CNP. Yes. Remind patient of appointment date, time, and location. If not within 14 calendar days of discharge - please reschedule accordingly. MEDICATIONS: Many patients have questions or concerns about their medications once they are home. Were you prescribed any new medications? Yes FEROUS SULFATE 325 MG TWICE DAILY Were you told to hold any medications? Yes ASA UNTIL AFTER COLONOSCOPY Saturday02/14/2018 Were any of your medications discontinued? No Do you have any questions about getting or taking your medications? No Your discharge instructions/After visit Summary (AVS) are important in guiding you through the recovery process. Is there anything I might help you understand? Yes, discharge instructions/AVS are inadequate, not clear to the patient. If further clinical clarification is needed - follow site specific process for handoff to RN/ZONE MANAGER, or LIP. Do you have all the necessary equipment and supplies at home? Yes Medical records from recent hospitalization: YES FAXED TO US FROM [facility] Elizabeth Dinh MD 02/12/2018 2:07 PM Signed Patient following up with you on 02/19 Progress Notes ([facility]): Praful Pathak MD 02/10/2018 8:56 PM Signed Found to be anemic with hemoglobin of 7.1. We'll need to add on this week for EGD and colonoscopy. Naresh Patricia 02/11/2018 9:47 AM Signed added patient to Saturday for a double. Naresh Patricia BEDSIDE GLUCOSE Collected: 02/10/2018 Status: F Source: [place] 9:36 PM [facility] REPOSITORY TYPE CODE TESTS RESULT OUT OF RANGE REFERENCE UNITS LAB L501.080 70-110 mg/dL Normal BEDSIDE GLU 101 Result Comment: MANAGEMENT OF PATIENT CARE PER NURSING PROTOCOL Performed By: #### L501.080 #### [facility] Point of Care [address] [facility] [address] HH, HEMOGLOBIN AND Collected: 02/10/2018 Status: F Source: [place] HEMATOCRIT 9:30 PM [facility] REPOSITORY Order Comment: CHANGE TIME PER NURSE. TYPE CODE TESTS RESULT OUT OF RANGE REFERENCE UNITS LAB L100.1300 12.0-15.0 g/dl Low HGB 7.9 LAB L100.1400 37-47 % Low HCT 26.1 Performed By: #### L100.0600 #### [facility] [address] [facility], [address] CONSULTATION Observed: 02/10/2018 Status: F Source: [place] 8:53 PM [facility] REPOSITORY [facility] Medical Records Department [address] [place] [address] Consultation 02/10/182047 MR#: [id number] Acct: [id number] Name: ANNE CORDERO Rep #: [id number] : 1955 62 From: Praful Pathak MD PCP: Vladimir Dinh MD Status: ADM ROCHELLE Y Location: [place] [address] Reason for Consult Date of Consultation: 02/10/18 Reason for Consultation: fatigue-anemia History of Present Illness: The patient is a 62 year old F who has noticed increasing fatigue for at least the last few weeks. She presented for her routine gynecologic evaluation was noted to be pale. The patient a previous hysterectomy. She notes no reasons for pad blood loss. She denies abdominal pain. She notes no black tarry stools other difficulties. She underwent a complete blood count which demonstrated on 02 07 a hemoglobin of 7.8 with microcytic parameters. The patient had previous undergone a CBC in 2017 with a hemoglobin of 12.2 and normal red cell indices. She had undergone colonoscopy by Dr. Kole Parra on January 07, 2015. 25 mm polyps were found in the proximal transverse colon diverticulosis. It was recommended the patient have follow-up colonoscopy in 5 years. Prior to that, the patient went upper and lower endoscopy in December 26, 2011. Also by Dr. Kole Parra. Upper endoscopy was unremarkable.colonoscopy demonstrated 210 mm polyps and the patient was recommended 3 year follow-up colonoscopy at that time. patient's past history is otherwise significant for hypothyroidism, hypertension, asthma, type 2 diabetes, obesity, reflux depression. she'll surgical history includes carpal tunnel procedures, thyroidectomy, total abdominal hysterectomy, previous appendectomy. Past Medical History Past Medical History (Chronic Problems): Chronic Problems Hypertension (Chronic) DM type 2 (diabetes mellitus, type 2) (Chronic) Hypothyroidism (Chronic) Allergies Iodinated Contrast- Oral and IV Dye [CONTRASTS] Allergy (Verified 02/02/17 10:34) Rash Sulfa (Sulfonamide Antibiotics) Allergy (Verified 02/02/17 10:34) Hives Home Medications: Ambulatory Orders Medication Instructions Recorded Cholecalciferol (VIT D3) [Vitamin 1,000 unit PO DAILY 02/02/17 Surgical History: appendectomy, hysterectomy, total knee arthroplasty - Bilateral, tonsillectomy, - - Status post thyroid surgery Psychiatric History: No pertinent psych hx SENIOR QUALITY TECHNICIAN History: No pertinent SENIOR QUALITY TECHNICIAN history Lives: With Family Smoking Status: Never smoker Tobacco Use: Non-smoker Alcohol: None Drugs: None - *Family History Maternal History Items: Cancer, Heart Disease - Rheumatic heart disease, Paternal History Items: Heart Disease - Rheumatic heart disease Review of Systems Constitutional: Reports: Malaise, Weakness. Denies: Chills, Fever, Weight Change HEENT: Denies: Head Aches, Sinus Congestion, Sinus Drainage Cardiovascular: Denies: Chest Pain, Palpitations Respiratory: Denies: Cough, Shortness of breath at rest, Sputum production Gastrointestinal: Denies: Abdominal Pain, Nausea, Vomiting Genitourinary: Denies: Dysuria Musculoskeletal: Denies: Joint Pain, Joint Tenderness Skin: Denies: Rash, Wounds Neurological: Denies: Numbness, Tingling, Focal weakness Psychiatric: Denies: Anxiety, Depression, Homicidal Ideations, Suicidal Ideations Hematologic/ Lymphatic: Denies: Easy Bruising, Easy Bleeding Patient Problems: Active and Suspected Problems Severe anemia (Acute) - Physical Exam General: Alert, Oriented x3, Cooperative HEENT: Atraumatic, PERRLA, EOMI, Normocephalic Neck: Supple, No JVD, Negative Carotid Bruits Lungs: Clear to auscultation, Normal air movement Cardiovascular: Regular rate, No murmurs Abdomen: Bowel Sounds Present, Soft, Non Tender Extremities: No edema, Capillary Refill Less than 3 Seconds Skin: No rashes, No breakdown Musculoskeletal: No Tenderness to Palpation of Joints or Extremities Neurological: Cranial nerves II-XII grossly intact Psych/Mental Status: Normal Affect, Appropriate Vital Signs Temp Pulse Resp BP Pulse Ox 98.2 F 83 18 98/56 L 93 02/10/18 20:23 02/10/18 20:23 02/10/18 20:23 02/10/18 20:23 02/10/18 20:23 Oxygen Delivery Method Room Air Weight: 97.976 kg Body Mass Index (BMI) 37.0 Intake and Output for Last 24 Hours Intake Total 764 / 764 Output Total 0 / 0 Balance 764 / 764 Laboratory Tests Past 24 Hrs WBC 7.1 WBC RBC Hgb Hct MCV MCH MCHC RDW RDW Differential Plt Count MPV Immature Gran % (Auto) POC Glucose POC Glucose 89 Assessment/Plan All Active Problems Severe anemia (Acute) significant anemia with iron deficient parameters. I would recommend upper and lower endoscopy. The patient understands the risks, benefits, complications and possible alternatives and consents to the planned procedure. She does not need to remain in the hospital for this procedure. Reaming performance procedure urgently the following week. She would like to proceed free from this week since her will be undergoing a foot procedure next Saturday. 02/10/182052 <Electronically signed by Praful Pathak MD> Date Praful Pathak MD Cosigner Signature (if applicable): Date CC: Vladimir Dinh MD; Praful Pathak MD Signed BEDSIDE GLUCOSE Collected: 02/10/2018 Status: F Source: [place] 5:19 PM [facility] REPOSITORY TYPE CODE TESTS RESULT OUT OF RANGE REFERENCE UNITS LAB L501.080 70-110 mg/dL Normal BEDSIDE GLU 89 Result Comment: MANAGEMENT OF PATIENT CARE PER NURSING PROTOCOL Performed By: #### L501.080 #### [facility] Point of Care [address] [place] [address] HISTORY AND PHYSICAL Observed: 02/10/2018 Status: F Source: [place] EXAM 4:14 PM [facility] REPOSITORY [facility] Medical Records Department [address] [place] [address] History and Physical 02/10/18 1544 MR#: [id number] Acct: [id number] Name: ANNE CORDERO Rep #: [id number] : 1955 62 From: Lesley Adorno MD PCP: Vladimir Dinh MD Status: ADM ROCHELLE Y Location: [place] [address] Problem List (1) Severe anemia Status: Acute (2) Hypertension Status: Chronic Qualifiers: Hypertension type: essential hypertension Qualified Code(s): I10 - Essential (primary) hypertension (3) DM type 2 (diabetes mellitus, type 2) Status: Chronic Qualifiers: Diabetes mellitus terminal operator insulin use: without penitentiary use Diabetes mellitus complication status: without complication Qualified Code(s): E11.9 - Type 2 diabetes mellitus without complications (4) Hypothyroidism Status: Chronic Qualifiers: Hypothyroidism type: unspecified Qualified Code(s): E03.9 - Hypothyroidism, unspecified History of Present Illness Date of Admission: 02/10/18 Chief Complaint: Fatigue and dizziness on standing on going for days The patient is a 62 year old F with past medical history of menorrhagia status post hysterectomy who comes to the ED with abnormal blood work with hemoglobin of 7.1. Patient had blood work done by her life skills coach and was supposed to follow- up with a physician television production assistant in [facility]. She received a call today to come to the ED because her blood work was abnormal. She had been complaining of fatigue and dizziness on standing up from lying. Denied any melena or hematochezia or hematemesis. In the ED showed temperature of 95.7, heart rate 105, blood pressure 143/90 which improved to 118/61, respiratory rate was 16, SPO2 is 97% on room air. Admitting blood work showed RBC count of 7.1, hemoglobin 7.1, with microcytic indices, platelet count 231, BMP shows sodium 140, potassium 3.4, chloride 102, bicarbonate 26, BUN 20, creatinine 1.05 Past Medical History Past Medical History (Chronic Problems): Chronic Problems Hypertension (Chronic) DM type 2 (diabetes mellitus, type 2) (Chronic) Hypothyroidism (Chronic) Allergies Iodinated Contrast- Oral and IV Dye [CONTRASTS] Allergy (Verified 02/02/17 10:34) Rash Sulfa (Sulfonamide Antibiotics) Allergy (Verified 02/02/17 10:34) Hives Home Medications: Ambulatory Orders Medication Instructions Recorded Cholecalciferol (VIT D3) [Vitamin 1,000 unit PO DAILY 02/02/17 Surgical History: appendectomy, hysterectomy, total knee arthroplasty - Bilateral, tonsillectomy, - - Status post thyroid surgery Psychiatric History: No pertinent psych hx SENIOR QUALITY TECHNICIAN History: No pertinent SENIOR QUALITY TECHNICIAN history Lives: With Family Smoking Status: Never smoker Tobacco Use: Non-smoker Alcohol: None Drugs: None - *Family History Maternal History Items: Cancer, Heart Disease - Rheumatic heart disease, Paternal History Items: Heart Disease - Rheumatic heart disease Review of Systems Constitutional: Reports: Fatigue. Denies: Anorexia, Chills, Fever, Malaise, Weakness, Weight Change Eyes: Denies: Blurred vision, Cataracts, Pain, Redness, Vision Change HEENT: Denies: Difficulty Hearing, Difficulty Swallowing, Head Aches, Hearing Changes, Sinus Congestion, Sinus Drainage, Sore Throat Cardiovascular: Denies: Chest Pain, Claudication, Chest Pressure, Chest Tightness, Orthopnea, Palpitations, Paroxysmal Noc. Dyspnea Respiratory: Denies: Cough, Hemoptysis, Shortness of Breath, Shortness of breath at rest, Shortness of breath upon exertion, Sputum production Gastrointestinal: Denies: Abdominal Pain, Constipation, Hematemesis, Hematochezia, Nausea, Vomiting Genitourinary: Denies: Dysuria, Frequency, Incontinence, Nocturia Gynecological: Denies: Breast symptoms, Excessively long or heavy periods, Vaginal discharge, Vaginal itching Musculoskeletal: Denies: Joint Pain, Joint stiffness, Joint swelling, Joint Tenderness Skin: Denies: Pruritis, Rash, Wounds Neurological: Denies: Difficulty swallowing, Focal weakness, Numbness, Tingling Psychiatric: Denies: Anxiety, Depression, Homicidal Ideations, Suicidal Ideations Endocrine: Denies: Change in Body Habitus, Heat/ Cold Intolerance Hematologic/ Lymphatic: Denies: Easy Bruising, Easy Bleeding VTE Information - Inpt Only VTE Present on Admission: No VTE Pharm Prophylaxis ordered?: Yes Patient Problems: Active and Suspected Problems Severe anemia (Acute) - Physical Exam General: Alert, Oriented x3, Cooperative, No apparent distress HEENT: Atraumatic, PERRLA, EOMI, Normocephalic, - - obese Oral: Moist Mucosa Neck: Supple Lungs: Clear to auscultation, Normal air movement Cardiovascular: Regular rate, Regular Rhythm, Normal S1, Normal S2, No murmurs Abdomen: Bowel Sounds Present, Soft, Non Tender, Non-Distended, No Hepato-splenomegaly, Obese Extremities: No edema, Capillary Refill Less than 3 Seconds Skin: No rashes, No breakdown Musculoskeletal: No Tenderness to Palpation of Joints or Extremities Lymphatic: No Cervical, Supraclavicular, or Inguinal Adenopathy Neurological: Cranial nerves II-XII grossly intact, Neuro grossly intact Psych/Mental Status: Normal Affect, Appropriate Vital Signs Temp Pulse Resp BP Pulse Ox 95.7 F L 105 H 16 143/90 H 97 02/10/18 13:50 02/10/18 13:50 02/10/18 13:50 02/10/18 13:50 02/10/18 13:50 Oxygen Delivery Method Room Air Weight: 97.976 kg Body Mass Index (BMI) 37.0 Laboratory Tests Past 24 Hrs Assessment/Plan All Active Problems Severe anemia (Acute) 62 year old F with past medical history of menorrhagia status post hysterectomy who comes to the ED with abnormal blood work with hemoglobin of 7.1. Patient had blood work done by her life skills coach and was supposed to follow-up with a physician television production assistant in [facility]. 1. Severe symptomatic anemia, with fatigue, dizziness on from lying to standing, hemoglobin of 7.1, no active cardiac history, status post hysterectomy, suspected GI bleed, Plan: Admit to PCU, monitor on telemetry, will transfuse 1 unit of packed RBC, monitor per protocol, H AND H, PPI IV twice daily, will hold aspirin, labs in a.m. 2. Suspected GI bleed, history of polyps, last colonoscopy was 3 years ago, will check stool for occult blood, IV PPI, general surgery, Dr. Pathak consulted, aspirin on hold 3. Hypertension, controlled, will continue on lisinopril, continue to monitor vitals 4. Type 2 DM, on metformin, will hold metformin during this admission, will put on Accu-Cheks with insulin sliding scale 5. Hypothyroidism, on levothyroxine 6. Hyperlipidemia, on statin 7. Depression, on Zoloft, will hold zoloft for now in the light of possible GI bleed 8. DVT PPx- SCDs. Code Visit Inpatient E AND M: [id number] Init Hosp L3 02/10/18 1614 <Electronically signed by Lesley Adorno MD> Date Lesley Adorno MD Cosigner Signature: Date (if applicable) CC: Lesley Adorno MD; Vladimir Dinh MD Signed EMERGENCY DEPARTMENT Observed: 02/10/2018 Status: F Source: [place] SUMMARY 3:42 PM [facility] REPOSITORY [facility] Medical Records Department [address] [place] [address] Emergency Department Summary 02/10/18 1436 MR#: [id number] Acct: [id number] Name: ANNE CORDERO Rep #: [id number] : 1955 62 From: Jerrod Larsen MD PCP: Vladimir Dinh MD Status: REG ER - ER Visit Summary Date of Service: 02/10/18 Chief Complaint: Sent in for low blood count from outpatient lab History of Present Illness: The patient is a 62 F prior history of noncemented diabetes, hypertension and prior hysterectomy due to heavy periods. Patient states she saw her SENIOR QUALITY TECHNICIAN office last Saturday and thought she looked pale they sent labs and her hemoglobin returned low in the center in the ER today. She denies any vaginal bleeding. She denies any rectal bleeding or melena. She denies any hematemesis. She denies any bruising. She denies any petechiae or purpura. She denies any nosebleeds. She is on no blood thinners. She has felt fatigued for multiple weeks. She denies chest pain. Physical Examination: Well-appearing older female. Vital signs are stable afebrile. Her initial blood pressure is 143/90. Heart rate 105. H EENT exam unremarkable other than pale. Moist weeks membranes. Neck anterior cervical lymphadenopathy bilaterally. Trachea midline. Lungs clear to auscultation bilaterally. Heart regular rhythm rate about 105 no murmur. Abdomen soft nontender nondistended no organomegaly or masses. Normal bowel sounds. No peritoneal signs. Patient is moving all 4 extremities. They are neurovascularly intact. Calves are nontender without edema or cords. Neurologically she is awake and alert. With no focal motor or sensory deficits. Back is nontender. Skin is unremarkable other than pale. There is no bruising or rashes. Test Results: CBC shows a white count of 7. Hemoglobin is 7.1 hematocrit of 24. We do not have any recent labs in the year except from 2011 at that time her hemoglobin was 12. Electrolytes unremarkable. Gap at 12. Glucose 237. Creatinine of 1. Emergency Department Course and Treatment: Patient with anemia with low hemoglobin from outpatient labs. She will be typed and crossed. Treatment Plan: I discussed with the patient options she is comfortable with inpatient admission for further workup of her anemia. I spoke to the hospitalist and they will admit her and do further evaluation of the cause of her anemia. I will leave it up to the hospitalist to order the labs they want to do further evaluation. Disposition: Admission Impression: Acute anemia of uncertain etiology This note was generated with [employer] dictation software. It may contain incorrect words, spelling, and punctuation that were not noted in review of the chart prior to signing ED Disposition - Plan for ED Patient: Chief Complaint: Abn Labs Referrals: Vladimir Dinh MD [Primary Care Provider] - What to do if you have Problems For any increased pain, shortness of breath, bleeding, nausea or vomiting, chest pain, or any unexpected problems, contact your Primary Care Provider. Call [facility] ([phone]) or report to the closest Emergency Room. Call 911 if necessary. 02/10/18 1566 <Electronically signed by Jerrod Larsen MD> Date Jerrod Larsen MD Cosigner Signature (If Indicated): Date CC: Vladimir Dinh MD CBC W/DIFF, AUTOMATED Collected: 02/10/2018 Status: F Source: [place] 2:34 PM [facility] REPOSITORY TYPE CODE TESTS RESULT OUT OF RANGE REFERENCE UNITS LAB L100.1000 4.4-11.0 K/mm3 Normal WBC 7.1 LAB L100.1200 4.2-5.4 M/mm3 Low RBC 3.49 LAB L100.1300 12.0-15.0 g/dl Low HGB 7.1 LAB L100.1400 37-47 % Low HCT 24.6 LAB L100.1500 81-99 fL Low MCV 70.5 LAB L100.1600 27.0-32.0 pg Low MCH 20.3 LAB L100.1700 32-36 g/gl Low MCHC 28.9 LAB L100.1810 11.6-14.6 % High RDW CV 16.5 LAB L100.1820 35.1-43.9 fl Normal RDW SD 42.5 LAB L100.1900 150-450 K/mm3 Normal PLT 331 LAB L100.2000 6.2-12.0 fl Normal MPV 9.4 LAB L100.2100 47-70 % Normal NEUT% 70.0 LAB L100.2200 19-41 % Normal LY% 22.1 LAB L100.2300 0-10 % Normal MONO% 5.5 LAB L100.2400 0-5 % Normal EO% 2.0 LAB L100.2500 0-1 % Normal BASO% 0.1 LAB L100.2550 0.0-0.9 % Normal IM GRAN % 0.300 Result Comment: IG% - Immature Granulocytes (promyelocytes, myelocytes and metamyelocytes) > 1% indicates that a LEFT SHIFT is Present. LAB L100.2620 2.0-7.7 X10 3/uL Absolute Neut Normal 5.0 LAB L100.2720 0.83-4.51 X10 3/ul Absolute Lymph Normal 1.57 LAB L100.5500 ADEQ PLT EST Normal ADEQUATE LAB L100.7300 ANISO Normal 1+ LAB L100.7500 POLYCHROMASIA Normal RARE LAB L100.7600 HYPOCHROMASIA Normal 2+ LAB L100.7700 MICROCYTES Normal 1+ LAB L100.8200 OVALOCYTE Normal 1+ Performed By: #### L100.0100 #### [facility] [address] [place], [address] BASIC METABOLIC Collected: 02/10/2018 Status: F Source: [place] PROFILE (BMP) 2:34 PM [facility] REPOSITORY TYPE CODE TESTS RESULT OUT OF RANGE REFERENCE UNITS LAB L501.0100 74-106 mg/dL High GLU 237 Result Comment: Glucose result greater than or equal to 200 mg/dL suggests DIABETES MELLITUS per A.D.A. criteria. Please note revised GLUCOSE reference range effective 2017. LAB L501.1000 7-18 mg/dL High BUN 22 LAB L501.1100 0.55-1.02 mg/dL High CREAT,SERUM 1.05 Result Comment: The validity of the calculated GFR AND GFRAA in patients over 70 years has not been determined. Clinical correlation is essential. LAB L501.1110 >60 mL/min Low EST GFR 56 Result Comment: Non- GFR Calc LAB L501.1115 >60 mL/min Normal EST GFR - AA 68 Result Comment: GFR Calc LAB L501.1255 ml/min Normal Estimated CRCL 47.97 LAB L501.1300 10-20 RATIO High BUN/CRE 21.0 LAB L501.2200 8.5-10 mg/dL Normal .1 CA 9.2 LAB L501.5300 136-14 mmol/L Normal 5 NA 140 LAB L501.5600 3.5-5. mmol/L Low 1 K 3.4 LAB L501.5900 98-107 mmol/L Normal CL 102 LAB L501.6100 21.0-3 mmol/L Normal 2.0 CO2 26.0 LAB L501.6200 5-15 Normal GAP 12 Performed By: #### L500.2500 #### [facility] [address] [place], [address] TYPE AND SCREEN Collected: 02/10/2018 Status: F Source: [place] 2:34 PM [facility] REPOSITORY Order Comment: CMV NEG? N Number of units to transfuse: 1 Is there a >20% drop in pt's BP? N Is the pt's CVP (central venous pressure) <3 cm/H2O? N Is the EBL >/= 1000ml in adults or >/= 12ml/kg in children? Y Is there an orthostatic change in pt's BP(SBP drop >10mmHg)? Y Is pt's HR > 100 bpm? N Reason for Ordering Blood: Acute Are the blood/blood products to be transfused? Y Is the patient having/had surgery? N CMV NEG?* N Give When? When Ready Irradiated? N Leukodepleted? Y Reason for Type AND Screen/Red Cells: ANEMIA TYPE CODE TESTS RESULT OUT OF RANGE REFERENCE UNITS LAB B10.0800 A Normal BLOOD TYPE GEL POSITIVE LAB B100.4000 Normal Antibody NEGATIVE Screen Performed By: #### B101.7450 #### [facility] [address] [place], [place], [id number] RC Collected: 02/10/2018 Status: F Source: [place] 2:34 PM [facility] REPOSITORY TYPE CODE TESTS RESULT OUT OF REFERENCE UNITS RANGE LAB U100.0000 [id number] TRANSFUSED PRODUCT: T AND S with Crossmatch, Red Cells COUNT: 2 Performed By: #### U100.0000 #### Non-[facility] - refer to report for specific site IRON+IRON BINDING Collected: 02/10/2018 Status: F Source: [facility] 2:34 PM [facility] REPOSITORY Order Comment: Comments: as add on test Comments: as add on test TYPE CODE TESTS RESULT OUT OF RANGE REFERENCE UNITS LAB L503.6075 250-450 ug/dL TIBC Normal 342 LAB L503.6150 50-170 ug/dL Low IRON 16 LAB L503.6250 15.0-55.0 % Low IRON SATURATION 4.7 Performed By: #### L503.6030, L503.6550 #### [facility] [address] [place], [address] FERRITIN Collected: 02/10/2018 Status: F Source: [place] 2:34 PM [facility] REPOSITORY Order Comment: Comments: as add on test Comments: as add on test TYPE CODE TESTS RESULT OUT OF REFERENCE UNITS RANGE LAB L503.6550 8-252 ng/mL Low FERRITIN 5 Performed By: #### L503.6030, L503.6550 #### [facility] [address] [place], [address] CNPN Observed: 02/10/2018 Status: COMPLETED Source: [place] 12:00 AM [facility] REPOSITORY Telephone (GENSWS) ANNE CORDERO ([id number]) 1955 F Date Time Provider Department 02/10/18 PRAFUL PATHAK During your visit today, we recorded the following information about you: Praful Pathak MD 02/10/2018 8:56 PM Signed Found to be anemic with hemoglobin of 7.1. We'll need to add on this week for EGD and colonoscopy. Naresh Patricia 02/11/2018 9:47 AM Signed added patient to Saturday for a double. Naresh Patricia Allergies As of Date: 02/10/2018 Noted Allergy Reaction ATENOLOL 03/07/2011 1 - Mental Status Change Comments: fatigue DEPO-MEDROL (METHYLPREDNISOLONE A*03/01/2005 Comments: facial redness, elevated glucose IVP DYE (IODINE) 03/01/2005 4 - Hives 7 - Swelling SULFA (SULFONAMIDE ANTIBIOTICS) 03/01/2005 4 - Hives Date Reviewed: 02/07/2018 Reviewed by: Daly Harrison - Fully Assessed Reason for Visit: Symptoms [3640] Prescriptions as of 02/10/2018 Sig: METFORMIN 1,000 MG TABLET TAKE 1 TABLET BY MOUTH TWICE* LANSOPRAZOLE 30 MG CAPSULE,DE* TAKE 1 CAPSULE BY MOUTH ONCE* VERAPAMIL ER 120 MG 24 HR CAP* TAKE 1 CAPSULE BY MOUTH ONCE* LISINOPRIL 2.5 MG TABLET TAKE 1 TABLET BY MOUTH ONCE A* ATORVASTATIN 80 MG TABLET TAKE ONE-HALF TABLET BY MOUT* SPIRONOLACTONE 25 MG-HYDROCHL* TAKE 1 TABLET BY MOUTH ONCE D* LEVOTHYROXINE 100 MCG TABLET Take 1 tablet by mouth once d* MONTELUKAST 10 MG TABLET Take 1 tablet by mouth daily * SERTRALINE 100 MG TABLET TAKE 1 TABLET BY MOUTH ONCE D* CLOTRIMAZOLE 1 % TOPICAL CREAM Apply 1 application to affect* FLUTICASONE 50 MCG/ACTUATION * Use 2 Sprays in each nostril * CLARITIN-D 24 HOUR ORAL Take 1 tablet by mouth once d* BLOOD SUGAR DIAGNOSTIC STRIPS Use as instructed twice daily. LANCETS Relion Lancets. Test blood aquino* OXYMETAZOLINE 0.05 % NASAL IL* Use 30 mL in the nose twice d* OMEGA [id number] OIL * Take 2 capsules by mouth once* CHOLECALCIFEROL (VITAMIN D3) * Take 1 capsule by mouth once * SODIUM BICARB-METHYLBENZETHON* Apply 1 application to affect* LEVOTHYROXINE 100 MCG TABLET Take 1 tablet by mouth once d* * ASPIRIN 81 MG TABLET Take one (1) tablet daily . 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 Essential hypertension [I10] INVALID FOR* More... Mixed hyperlipidemia [E78.2] INVALID FOR* More... Unspecified asthma(493.90) [J45.909] INVALID FOR*04/10/2017 More... Primary osteoarthritis involving multiple joint*INVALID FOR* RIGHT AXILLARY PAIN [R07.9] INVALID FOR*01/25/2011 FAMILY HX COLON CANCER [Z80.0] INVALID FOR* More... Esophageal reflux [K21.9] More... Anxiety [F41.9] Recurrent major depressive disorder, in full re* 04/10/2017 More... Hypopotassemia [E87.6] INVALID FOR*02/18/2013 More... OSTEOARTHROS NOS-L/LEG [M17.10] INVALID FOR* Lateral epicondylitis of elbow [M77.10] INVALID FOR*02/18/2013 Hypothyroidism [E03.9] INVALID FOR* More... PVC's [I49.49] INVALID FOR* Shoulder bursitis [M75.50] INVALID FOR*02/18/2013 Allergy to environmental factors [Z91.09] INVALID FOR* Special screening for malignant neoplasms, colo*INVALID FOR*01/07/2015 Encounter Status:Closed by PRAFUL PATHAK MD on 02/10/18 CNCO Observed: 02/07/2018 Status: COMPLETED Source: [place] 2:25 PM [facility] [place] REPOSITORY HNO ID: [id number] Author: Mammography Coordinator Service: (none) Author Type: Physician Type: Letter Filed: 02/10/2018 11:52 PM Note Text: February 07, 2018 PID: [id number] Anne Cordero [address] [place] [address] Dear Ms. Cordero, We are pleased to inform you that the results of your recent breast imaging exam on 02/07/2018 are normal. Early detection of cancer is very important. We also understand recommendations regarding breast cancer screening are controversial. Please discuss with your primary care provider which strategy is best for you and whether a mammogram is right for you. Your imaging studies and report will be kept on file at [facility] as part of your permanent medical record and are available for your continuing care. Thank you for allowing us to help in meeting your health care needs. Sincerely, Dr. Vance Interpreting Radiologist [facility] (Normal over 40) COMP METABOLIC PANEL Collected: 02/07/2018 Status: F Source: [place] 2:18 PM [facility] [place] REPOSITORY TYPE CODE TESTS RESULT OUT OF REFERENCE UNITS RANGE LAB TP 6.3-8.0 g/dL Protein, Total 7.7 LAB ALB 3.9-4.9 g/dL Albumin 4.2 LAB CA 8.5-10.2 mg/dL Calcium, High Total 10.3 LAB TBIL 0.2-1.3 mg/dL Bilirubin, Total 0.2 LAB ALKP 34-123 U/L Alkaline Phosphatase 107 LAB AST 13-35 U/L AST 15 LAB GLU 74-99 mg/dL Glucose High 118 Result Comment: The English Diabetes Association (ADA) provides guidance for cutoff values for fasting glucose and random glucose. The ADA defines fasting as no caloric intake for at least 8 hours. Fas ting plasma glucose results between 100 to 125 mg/dL indicate increased risk for diabetes (prediabetes). Fasting plasma glucose results greater than or equal to 126 mg/dL meet the criteria for diagnosis of diabetes. In the absence of unequivocal hyperglycemia, results should be confirmed by repeat testing. In a patient with classic symptoms of hyperglycemia or hyperglycemic crisis, random plasma glucose results greater than or equal to 200 mg/dL meet the criteria for diagnosis of diabetes. Reference: Standards of Medical Care in Diabetes 2016, English Diabetes Association. Diabetes Care. 2016.39(Suppl 1). LAB BUN 7-21 mg/dL BUN 18 LAB CRET 0.58-0.96 mg/dL Creatinine 0.87 LAB NA 136-144 mmol/L Sodium 139 LAB K 3.7-5.1 mmol/L Potassium 4.2 LAB CL 97-105 mmol/L Chloride 99 LAB CO2 22-30 mmol/L CO2 24 LAB AGAP 9-18 mmol/L Anion Gap 16 LAB ALT 7-38 U/L ALT 8 LAB GFRAA eGFR- Amer. >60 LAB GFRNAA . eGFR-All Other Races >60 Result Comment: eGFR (Estimated GFR) Units of measure: mL/min/1.73 meters squared eGFR is derived from the reexpressed MDRD Study equation using the following parameters: serum creatinine, age, gender and race. The creatinine assay has been calibrated to be traceable to IDMS. An eGFR <60 mL/min/1.73m2 for >3 months is consistent with chronic kidney disease. Refer to KDOQI guidelines for clinical interpretation. In patients with unstable renal function, e.g. those with acute kidney injury, the eGFR may not accurately reflect actual GFR. Performed By: #### CMP, CBC, TSH #### [facility] [address], [place] [address] CBC Collected: 02/07/2018 Status: F Source: [place] 2:18 PM [facility] REPOSITORY TYPE CODE TESTS RESULT OUT OF REFERENCE UNITS RANGE LAB WBC 3.70-11.00 k/uL WBC 9.06 LAB RBC 3.90-5.20 m/uL Low RBC 3.75 LAB HGB 11.5-15.5 g/dL Low Hemoglobin 7.8 LAB HCT 36.0-46.0 % Low Hematocrit 27.2 LAB MCV 80.0-100.0 fL Low MCV 72.5 LAB MCH 26.0-34.0 pG Low MCH 20.8 LAB MCHC 30.5-36.0 g/dL Low MCHC 28.7 LAB RDWCV 11.5-15.0 % RDW-CV High 16.6 LAB PLTCT 150-400 k/uL Platelet High Count 460 LAB MPV 9.0-12.7 fL MPV 11.2 LAB ABSNUC <0.01 k/uL Absolute nRBC <0.01 Performed By: #### CMP, CBC, TSH #### [facility] [employer] [address] [place], [place] [address] TSH Collected: 02/07/2018 Status: F Source: [place] 2:18 PM [facility] REPOSITORY TYPE CODE TESTS RESULT OUT OF RANGE REFERENCE UNITS LAB TSH 0.400-5.500 uU/mL TSH 0.936 Performed By: #### CMP, CBC, TSH #### [facility] [employer] [address] [place], [place] [address] MELANIE SCREENING Observed: 02/07/2018 Status: F Source: [place] 2:13 PM [facility] REPOSITORY * * *Final Report* * * DATE OF EXAM: Feb 07 2018 2:13PM [facility] SCREENING / PROCEDURE REASON: Visit for screening mammogram * * * * Physician Interpretation * * * * RESULT: #[id number] - [facility] SCREENING BILATERAL DIGITAL SCREENING MAMMOGRAM WITH CAD: 02/07/2018 HISTORY: Screening Mammogram - patient reports NO breast symptoms /priors available for comparison. RESULT: TECHNIQUE: The study was acquired using full field digital technology and interpreted from soft copy. Current study was also evaluated with a Computer Aided Detection (CAD). Comparison is made to exams dated: 02/06/2017 mammogram, 02/06/2016 mammogram, 11/11/2014 mammogram, and 10/23/2013 mammogram - [facility]. There are scattered fibroglandular elements in both breasts. No significant masses, calcifications, or other findings are seen in either breast. There has been no significant interval change. IMPRESSION: NEGATIVE There is no mammographic evidence of malignancy.A 1 year screening mammogram is recommended. Leydi billy/donald:02/07/2018 14:25:20 Pediatric Physical Therapy Assistant: Sumi SANTIAGO (R)(Max), [facility] letter sent: Normal over 40 Mammogram BI-RADS: 1 Negative Multiple national specialty organizations have released breast cancer screening guidelines for women at average risk for developing breast cancer - guidelines that are based on both evidence and opinion, yet differ on when to start and how often to screen for breast cancer. With representation from Breast Imaging, Internal Medicine, Women's Health, Family Medicine, and Medical/Surgical Oncology, the [facility] has carefully reviewed the data and reached the following consensus: 1) All women should engage in shared decision-making with their providers to decide when to start and how often to screen; 2) All women should have the opportunity to start screening mammography at age 40; 3) For women ages 45-55, we recommend annual screening mammograms; 4) For women ages 55 and over, we support both the transition from an annual to a biennial interval if this aligns more with patient's values and preferences, or continuation with annual screening; 5) All women should discuss with their providers when to stop screening mammograms. Emulsion Operator: Donald Transcribe Date/Time: Feb 07 2018 2:00P Dictated by: LEYDI VANCE MD This examination was interpreted and the report reviewed and electronically signed by: LEYDI VANCE MD on Feb 07 2018 2:25PM EST [id number] Observed: 02/07/2018 Status: COMPLETED Source: [place] 1:00 PM [facility] REPOSITORY HNO ID: [id number] Author: Angelina Hernandez Ma Service: (none) Author Type: (none) Type: Progress Notes Filed: 02/07/2018 2:41 PM Note Text: Would you like a production quality manager present for your visit today? No Angelina Hernandez Ma CNOV Observed: 02/07/2018 Status: COMPLETED Source: [place] 1:00 PM [facility] REPOSITORY Office Visit (WOOB) ANNE CORDERO ([id number]) 1955 F Date Time Provider Department 02/07/18 1:00 PM DALY HARRISON (CHANCE) WOMARK During your visit today, we recorded the following information about you: Blood pressure Weight Height 126/80 98 kg 1.64 m Daly Harrison APRN.CNP 02/07/2018 2:41 PM Signed Anne Cordero is a 62 year old who presents for her annual gynecologic exam with complaints.Has had swollen glands on neck x 2 weeks. Pale, has been more tired lately. Has fullness in low abdomen. Has not contacted PCP because life has been hectic and is having surgery next week. Postmenopausal: PASCUAL - ovary sparing HRT use: No. History of abnormal pap: No Last mammogram: today pending History of abnormal mammogram: No Sexually active: No Hot flashes: No Night sweats: Yes, 2 per week Vaginal dryness: No Exercise: goes up and down stairs frequently Diet: tries to eat balanced diet Obstetric History T2 L2 SAB0 TAB0 Ectopic0 Multiple0 Live Births0 PAST MEDICAL HISTORY Diagnosis Date - Abnormal EKG RIGHT BUNDLE BRANCH BLOCK - Anxiety state, unspecified - Arrhythmia Dr. Chan-cardiology - Depressive disorder, not elsewhere classified - Diarrhea - Diverticulosis of colon (without mention of hemorrhage) - Esophageal reflux - Family history of malignant neoplasm of gastrointestinal tract family history of colon cancer - Goiter, unspecified Goiter - Internal hemorrhoids without mention of complication - LATERAL EPICONDYLITIS 04/27/2007 - Mixed hyperlipidemia Hyperlipidemia - Obesity, unspecified Obesity - Osteoarthrosis, unspecified whether generalized or localized, other specified sites - Osteopenia - Snoring - Tooth abscess - Type II or unspecified type diabetes mellitus without mention of complication, not stated as uncontrolled - Unspecified asthma(493.90) - Unspecified essential hypertension Essential hypertension - Unspecified hypothyroidism PAST SURGICAL HISTORY Procedure Laterality Date - APPENDECTOMY 07/24/1966 - CARPAL TUNNEL 2011 bilateral - CHG DELIVERY 1981, 1986 , low cervical - COLONOSCOP W/ OR W/O BRS SPEC 07/15/06 Repeat in - COLONOSCOP W/ OR W/O BRS SPEC 12/26/2011 Colonoscopy - COLONOSCOP W/ OR W/O BRS SPEC 01/07/2015 Colonoscopy - EGD W/O OR W/BRUSH/WASH 12/26/2011 EGD - HYSTEROSCOPY, DIAGNOSTIC (SEPARATE 11/30/1993 Hysteroscopy - KNEE SCOPE,DIAGNOSTIC 04/29/2003 Arthroscopy, knee, left - PAST SURGICAL HISTORY OF SINUS SURGERY - PAST SURGICAL HISTORY OF 2010 EYE SURGERY- DROOPY LIDS - PAST SURGICAL HISTORY OF 03/11 right partial knee replacement - PAST SURGICAL HISTORY OF 01/08/12 left medial compartment unicompartmental knee arthroplasty - REMOVAL OF TONSILS,<12 Y/O 03/08/1961 Tonsillectomy AND adenoidectomy - SIGMOIDOSCOPY FLEX DIAG 5 YEARS AGO Sigmoidoscopy - THYROIDECTOMY 08/25/1992 left - THYROIDECTOMY 12/14/2003 right lobectomy - TOTAL ABDOM HYSTERECTOMY 03/29/1994 Hysterectomy, PASCUAL FAMILY HISTORY Problem Relation Age of Onset - Breast Cancer Mother - Heart Mother - Diabetes Mother - Colon Cancer Father - Heart Father - Diabetes Father - Colon Cancer Paternal Grandmother - Colon Cancer Paternal Grandfather SOCIAL HISTORY Social History Substance Use Topics - Smoking status: Never Smoker - Smokeless tobacco: Never Used - Alcohol use No REVIEW OF SYSTEMS Abdomen: Occasional fullness in lower abdomen. Intermittent alternating diarrhea and constipation. Has history of diverticulosis and a family history of colon cancer. Last colonoscopy 2014 and is to have repeat in 2019. No abdominal pain, nausea, vomiting. No bloating, early satiety, indigestion, or increased flatulence. Bladder: No dysuria, gross hematuria, urinary frequency, urinary urgency, or incontinence Breast: No breast lumps, nipple d/c, overlying skin changes, redness or skin retraction Allergies and current medication updated:Yes EXAM: BP 126/80 Ht 5' 4.567 (1.64m) Wt 216 lb (98.0kg) BMI 36.43 kg/(m2). GENERAL: pleasant, female in no apparent distress, pale HEENT: Normocephalic, atraumatic, mucus membranes moist and no lesions NECK: Supple, full range of motion, thyroid normal and lymphadenopathy DERMATOLOGY: Normal, without lesions, non-icteric, non-hirsute and pale BREAST: soft, non-tender, symmetric, no dominant mass, normal nipple-areolar complex, no lymphadenopathy and no nipple discharge CHEST: Normal inspiratory effort ABDOMEN: soft, non-tender and no masses PELVIC: external genitalia normal, normal Bartholin's glands, urethra, Aldrich's glands, no vulvar lesions, physiologic discharge - thin mustard yellow present, normal appearing perineal body and perianal region, cervix surgically absent BIMANUAL: no adnexal masses, non-tender and uterus surgically absent. Difficult exam due to body habitus. RECTOVAGINAL: deferred. NEURO: alert and oriented x3,exam grossly non-focal EXTREMITIES: normal ASSESSMENT/PLAN: 1) Health maintenance: Pap/HPV screening no longer needed Mammogram ordered Nutrition, exercise and routine health maintenance exams reviewed. Colon cancer screening: up to date with screening 2. Vaginal discharge - ICD9: 623.5, ICD10: N89.8 - thin mustard yellow vaginal discharge, may be post-menopausal - RAPID BV B/O - neg - BACT/JONY VAG GRAM STAIN 3. Abdominal fullness - ICD9: 789.9, ICD10: R19.8 - RAPID BV B/O - negative - BACT/JONY VAG GRAM STAIN 4. Malaise and fatigue - ICD9: 780.79, ICD10: R53.81, R53.83 - skin pale, admits to feeling tired. Appointment made for pt to see PCP on Saturday02/11/18. Office notified of pt symptoms and appt, pt will have future labs drawn today. Pt advised to call PCP office or go to ED is feeling poorly. Daly Harrison APRN.CHANCE Hernandez Ma 02/07/2018 2:41 PM Signed Would you like a production quality manager present for your visit today? No Angelina Hernandez Ma Referring Provider: SELF [[id number]] Allergies As of Date: 02/07/2018 Noted Allergy Reaction ATENOLOL 03/07/2011 1 - Mental Status Change Comments: fatigue DEPO-MEDROL (METHYLPREDNISOLONE A*03/01/2005 Comments: facial redness, elevated glucose IVP DYE (IODINE) 03/01/2005 4 - Hives 7 - Swelling SULFA (SULFONAMIDE ANTIBIOTICS) 03/01/2005 4 - Hives Date Reviewed: 02/07/2018 Reviewed by: Daly Harrison - Fully Assessed Primary Visit Diagnosis:Encounter for gynecological examination (general) (routine) without abnormal findings [Z01.419] Other Visit Diagnoses:Encounter for screening mammogram for breast cancer [Z12.31] Vaginal discharge [N89.8] Abdominal fullness [R19.8] Malaise and fatigue [R53.81, R53.83] Order(s):MELANIE SCREENING [[id number]] Order #: [id number] FUTURE RAPID BV B/O [[id number]] Order #: [id number] BACT/JONY VAG GRAM STAIN [[id number]] Order #: [id number] FUTURE Prescriptions as of 02/07/2018 Sig: METFORMIN 1,000 MG TABLET TAKE 1 TABLET BY MOUTH TWICE* LANSOPRAZOLE 30 MG CAPSULE,DE* TAKE 1 CAPSULE BY MOUTH ONCE* VERAPAMIL ER 120 MG 24 HR CAP* TAKE 1 CAPSULE BY MOUTH ONCE* LISINOPRIL 2.5 MG TABLET TAKE 1 TABLET BY MOUTH ONCE A* ATORVASTATIN 80 MG TABLET TAKE ONE-HALF TABLET BY MOUT* SPIRONOLACTONE 25 MG-HYDROCHL* TAKE 1 TABLET BY MOUTH ONCE D* LEVOTHYROXINE 100 MCG TABLET Take 1 tablet by mouth once d* MONTELUKAST 10 MG TABLET Take 1 tablet by mouth daily * SERTRALINE 100 MG TABLET TAKE 1 TABLET BY MOUTH ONCE D* CLOTRIMAZOLE 1 % TOPICAL CREAM Apply 1 application to affect* FLUTICASONE 50 MCG/ACTUATION * Use 2 Sprays in each nostril * CLARITIN-D 24 HOUR ORAL Take 1 tablet by mouth once d* BLOOD SUGAR DIAGNOSTIC STRIPS Use as instructed twice daily. LANCETS Relion Lancets. Test blood aquino* OXYMETAZOLINE 0.05 % NASAL IL* Use 30 mL in the nose twice d* OMEGA [id number] OIL * Take 2 capsules by mouth once* CHOLECALCIFEROL (VITAMIN D3) * Take 1 capsule by mouth once * SODIUM BICARB-METHYLBENZETHON* Apply 1 application to affect* LEVOTHYROXINE 100 MCG TABLET Take 1 tablet by mouth once d* * ASPIRIN 81 MG TABLET Take one (1) tablet daily . 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 Essential hypertension [I10] INVALID FOR* More... Mixed hyperlipidemia [E78.2] INVALID FOR* More... Unspecified asthma(493.90) [J45.909] INVALID FOR*04/10/2017 More... Primary osteoarthritis involving multiple joint*INVALID FOR* RIGHT AXILLARY PAIN [R07.9] INVALID FOR*01/25/2011 FAMILY HX COLON CANCER [Z80.0] INVALID FOR* More... Esophageal reflux [K21.9] More... Anxiety [F41.9] Recurrent major depressive disorder, in full re* 04/10/2017 More... Hypopotassemia [E87.6] INVALID FOR*02/18/2013 More... OSTEOARTHROS NOS-L/LEG [M17.10] INVALID FOR* Lateral epicondylitis of elbow [M77.10] INVALID FOR*02/18/2013 Hypothyroidism [E03.9] INVALID FOR* More... PVC's [I49.49] INVALID FOR* Shoulder bursitis [M75.50] INVALID FOR*02/18/2013 Allergy to environmental factors [Z91.09] INVALID FOR* Special screening for malignant neoplasms, colo*INVALID FOR*01/07/2015 Disposition: Return in 1 year (on 02/07/2019) for Annual Exam. Follow-up and Disposition History Recorded Encounter Status:Closed by DALY HARRISON on 02/07/18 PROGRESS Observed: 02/07/2018 Status: COMPLETED Source: [facility] 12:55 PM [facility] RE[facility]ITORY O ID: [id number] Author: Daly (Veronique Harrison Service: (none) Author Type: Nurse Practitioner Type: Progress Notes Filed: 02/07/2018 2:41 PM Note Text: Anne Cordero is a 62 year old who presents for her annual gynecologic exam with complaints.Has had swollen glands on neck x 2 weeks. Pale, has been more tired lately. Has fullness in low abdomen. Has not contacted PCP because life has been hectic and is having surgery next week. Postmenopausal: PASCUAL - ovary sparing HRT use: No. History of abnormal pap: No Last mammogram: today pending History of abnormal mammogram: No Sexually active: No Hot flashes: No Night sweats: Yes, 2 per week Vaginal dryness: No Exercise: goes up and down stairs frequently Diet: tries to eat balanced diet Obstetric History T2 L2 SAB0 TAB0 Ectopic0 Multiple0 Live Births0 PAST MEDICAL HISTORY Diagnosis Date - Abnormal EKG RIGHT BUNDLE BRANCH BLOCK - Anxiety state, unspecified - Arrhythmia Dr. Chan-cardiology - Depressive disorder, not elsewhere classified - Diarrhea - Diverticulosis of colon (without mention of hemorrhage) - Esophageal reflux - Family history of malignant neoplasm of gastrointestinal tract family history of colon cancer - Goiter, unspecified Goiter - Internal hemorrhoids without mention of complication - LATERAL EPICONDYLITIS 04/27/2007 - Mixed hyperlipidemia Hyperlipidemia - Obesity, unspecified Obesity - Osteoarthrosis, unspecified whether generalized or localized, other specified sites - Osteopenia - Snoring - Tooth abscess - Type II or unspecified type diabetes mellitus without mention of complication, not stated as uncontrolled - Unspecified asthma(493.90) - Unspecified essential hypertension Essential hypertension - Unspecified hypothyroidism PAST SURGICAL HISTORY Procedure Laterality Date - APPENDECTOMY 07/24/1966 - CARPAL TUNNEL 2011 bilateral - CHG DELIVERY 1981, 1986 , low cervical - COLONOSCOP W/ OR W/O [facility] SPEC 07/15/06 Repeat in - COLONOSCOP W/ OR W/O [facility] SPEC 12/26/2011 Colonoscopy - COLONOSCOP W/ OR W/O [facility] SPEC 01/07/2015 Colonoscopy - EGD W/O OR W/BRUSH/WASH 12/26/2011 EGD - HYSTEROSCOPY, DIAGNOSTIC (SEPARATE 11/30/1993 Hysteroscopy - KNEE SCOPE,DIAGNOSTIC 04/29/2003 Arthroscopy, knee, left - PAST SURGICAL HISTORY OF SINUS SURGERY - PAST SURGICAL HISTORY OF 2010 EYE SURGERY- DROOPY LIDS - PAST SURGICAL HISTORY OF 03/11 right partial knee replacement - PAST SURGICAL HISTORY OF 01/08/12 left medial compartment unicompartmental knee arthroplasty - REMOVAL OF TONSILS,<12 Y/O 03/08/1961 Tonsillectomy AND adenoidectomy - SIGMOIDOSCOPY FLEX DIAG 5 YEARS AGO Sigmoidoscopy - THYROIDECTOMY 08/25/1992 left - THYROIDECTOMY 12/14/2003 right lobectomy - TOTAL ABDOM HYSTERECTOMY 03/29/1994 Hysterectomy, PASCUAL FAMILY HISTORY Problem Relation Age of Onset - Breast Cancer Mother - Heart Mother - Diabetes Mother - Colon Cancer Father - Heart Father - Diabetes Father - Colon Cancer Paternal Grandmother - Colon Cancer Paternal Grandfather SOCIAL HISTORY Social History Substance Use Topics - Smoking status: Never Smoker - Smokeless tobacco: Never Used - Alcohol use No REVIEW OF SYSTEMS Abdomen: Occasional fullness in lower abdomen. Intermittent alternating diarrhea and constipation. Has history of diverticulosis and a family history of colon cancer. Last colonoscopy 2014 and is to have repeat in 2020. No abdominal pain, nausea, vomiting. No bloating, early satiety, indigestion, or increased flatulence. Bladder: No dysuria, gross hematuria, urinary frequency, urinary urgency, or incontinence Breast: No breast lumps, nipple d/c, overlying skin changes, redness or skin retraction Allergies and current medication updated:Yes EXAM: BP 126/80 Ht 5' 4.567 (1.64m) Wt 216 lb (98.0kg) BMI 36.43 kg/(m2). GENERAL: pleasant, female in no apparent distress, pale HEENT: Normocephalic, atraumatic, mucus membranes moist and no lesions NECK: Supple, full range of motion, thyroid normal and lymphadenopathy DERMATOLOGY: Normal, without lesions, non-icteric, non-hirsute and pale BREAST: soft, non-tender, symmetric, no dominant mass, normal nipple-areolar complex, no lymphadenopathy and no nipple discharge CHEST: Normal inspiratory effort ABDOMEN: soft, non-tender and no masses PELVIC: external genitalia normal, normal Bartholin's glands, urethra, Aldrich's glands, no vulvar lesions, physiologic discharge - thin mustard yellow present, normal appearing perineal body and perianal region, cervix surgically absent BIMANUAL: no adnexal masses, non-tender and uterus surgically absent. Difficult exam due to body habitus. RECTOVAGINAL: deferred. NEURO: alert and oriented x3,exam grossly non-focal EXTREMITIES: normal ASSESSMENT/PLAN: 1) Health maintenance: Pap/HPV screening no longer needed Mammogram ordered Nutrition, exercise and routine health maintenance exams reviewed. Colon cancer screening: up to date with screening 2. Vaginal discharge - ICD9: 623.5, ICD10: N89.8 - thin mustard yellow vaginal discharge, may be post-menopausal - RAPID BV B/O - neg - BACT/JONY VAG GRAM STAIN 3. Abdominal fullness - ICD9: 789.9, ICD10: R19.8 - RAPID BV B/O - negative - BACT/JONY VAG GRAM STAIN 4. Malaise and fatigue - ICD9: 780.79, ICD10: R53.81, R53.83 - skin pale, admits to feeling tired. Appointment made for pt to see PCP on Saturday02/11/18. Office notified of pt symptoms and appt, pt will have future labs drawn today. Pt advised to call PCP office or go to ED is feeling poorly. Daly Harrison APRN.YARD STOCKER Observed: 02/07/2018 Status: F Source: [facility] BACT/CAND VAG GRM ST 3:31 AM [facility] REPOSITORY Sp. Request/Comment: - Swab Smear Result - BACTERIAL VAGINOSIS RESULT: Stain results indicate mixed morphotypes consistent with transition from normal vaginal jumana. No Yeast observed Rare Polymorphonuclear leukocytes Performed By: #### BVCNSM #### [facility] [address], [place] [address] STRESS REPORT Observed: 10/17/2017 Status: F Source: [place] 11:02 AM [facility] REPOSITORY [facility] Cardiovascular Services [address] [place] [address] MR#: [id number] Acct: [id number] Name: ANNE CORDERO Rep #: [id number] : 1955 62 From: Bart Veras MD Primary Care: Vladimir Dinh MD Status: REG CLI Ordering Dr: Sex: F C Stress Test Report Exercise/pharmacologic myocardial perfusion stress test. 62-year-old lady with a history of an abnormal EKG. Medications aspirin atorvastatin lisinopril. Stress protocol: Resting EKG demonstrates normal sinus rhythm with a rate of 89 bpm and a right bundle branch block pattern. Resting blood pressures 130/78 mmHg. The patient exercised according to regular Stephen protocol for total duration of 50 seconds and then discontinue the treadmill. 0.4 mg of regadenoson was infused per usual protocol. Patient maintained sinus rhythm throughout the recording there were occasional premature ventricular complexes noted the average heart rate was noted to be 121 bpm which was 76% maximum predicted heart rate the maximum workload was 1 metabolic equivalent. At rest no ST or T-wave changes were noted suggest abnormal flow reserve at peak infusion no ST or T- wave changes were noted suggest abnormal flow reserve. The resting blood pressure is 130/78 with a final blood pressure 120/80 mmHg. Myocardial perfusion protocol. 14.8 mCi of technetium 99m sestamibi was injected at rest. 0.4 mg regadenoson was infused per usual protocol peak infusion 44.5 mCi of technetium 99m sestamibi was injected stress images were obtained stress and rest images were reconstructed and compared in the short axis vertical long horizontal long axis. Gated images were also obtained pre- Perfusion SPECT analysis: Review of the stress images demonstrate normal uptake of tracer noted in all areas of the myocardium. The resting images similarly demonstrate normal uptake of tracer noted in all areas of myocardium. No areas of reversibility are noted suggest ischemia. Gated SPECT analysis: The gated ejection fraction is noted to be 82%. Conclusion: Normal pharmacologic myocardial perfusion stress test. Preserved ejection fraction. 10/17/17 1102 <Electronically signed by Bart Veras MD> Date Bart Veras MD CC: Vladimir Ledesma MD; Vladimir Dinh MD Date Dictated: 10/17/17 1100 Date Transcribed: 10/17/17 1100 Emulsion Operator: CO Signed EKG1 Observed: 10/09/2017 Status: F Source: [facility] 2:21 PM [facility] REPOSITORY NAME : ANNE CORDERO PID : [id number] : 1955 Gender : Female Race : ORD : Procedure Date : Oct 09 2017 14:21:18 Edit Date : Oct 11 2017 08:18:11 Diagnosis:NORMAL SINUS RHYTHM COMPLETE RIGHT BUNDLE BRANCH BLOCK INFERIOR MYOCARDIAL INFARCTION , AGE UNDETERMINED ABNORMAL ECG Confirmed by BIANKA MORLEY D.O. ([id number]) on 10/11/2017 8:18:04 AM Ventricular Rate : 90 BPM Atrial Rate : 90 BPM P-R Interval : 178 ms QRS Duration : 130 ms Q-T Interval : 386 ms QTC Calculation(Bezet) : 472 ms P [place] : 36 degrees R [place] : -23 degrees T [place] : 8 degrees Test Reason : Location : 185 : [facility] Overread By : BIANKA MORLEY D.O. Edited By : BIANKA MORLEY D.O. Referred By : ELIZABETH DINH Acquired by : LPARSSIXTO HERNANDEZ, PROGRESS Observed: 10/09/2017 Status: COMPLETED Source: [facility] 2:00 PM [facility] REPOSITORY O ID: [id number] Author: Elizabeth Huerta) Fabrizio Service: (none) Author Type: Physician Type: Progress Notes Filed: 10/09/2017 2:39 PM Note Text: Chief Complaint Patient presents with: Follow Up: 6 month HPI Anne Cordero is a 62 year old female who presents here today for 6 month follow up. DIABETES MELLITUS: Ms. Cordero was last seen 6 months ago. States that she has been under more stress at home with family illness and has not been taking care of herself. Admits to increased fast food. Since our last visit she denies excessive thirst or increased frequency of urination, numbness, tingling or pain in extremities, new or unusual visual symptoms and low sugar/hypoglycemic reactions. Follows a diabetic diet most of the time, generally not very much. She is compliant with medication(s) and is tolerating med(s) without any side effects. She reports checking her glucose on a infrequent to not at all basis. Patient's last HgA1C was Hemoglobin A1C (%) Date Value 10/04/2017 7.0 04/09/2017 6.6 ) Last Ophthalmology exam was within the past 12 months Last Podiatry exam was within the past 12 months Patient has history of unknown arrhythmia and is noted in chart that she was to be seeing Dr. Chan for cardiology follow up, but has not been seen in years. Last EKG showed RBBB with PVCs and inferior infarct age undetermined. Discussed repeat EKG today. Allergy symptoms uncontrolled with OTC 2nd gen antihistamine and flonase. c/o rhinorrhea, nasal congestion, post nasal drip. Requesting additional treatment if possible. Up to date on . Discussed contacting insurance regarding new shingles vaccine, Shingrix. Past medical history, appointments, medications, allergies reviewed. Previous Medical History PAST MEDICAL HISTORY Diagnosis Date - Abnormal EKG RIGHT BUNDLE BRANCH BLOCK - Anxiety state, unspecified - Arrhythmia Seeing Dr. Hodges-cardiology - Depressive disorder, not elsewhere classified - Diarrhea - Diverticulosis of colon (without mention of hemorrhage) - Esophageal reflux - Family history of malignant neoplasm of gastrointestinal tract family history of colon cancer - Goiter, unspecified Goiter - Internal hemorrhoids without mention of complication - LATERAL EPICONDYLITIS 04/27/2007 - Mixed hyperlipidemia Hyperlipidemia - Obesity, unspecified Obesity - Osteoarthrosis, unspecified whether generalized or localized, other specified sites - Osteopenia - Snoring - Tooth abscess - Type II or unspecified type diabetes mellitus without mention of complication, not stated as uncontrolled - Unspecified asthma(493.90) - Unspecified essential hypertension Essential hypertension - Unspecified hypothyroidism Previous Surgical History PAST SURGICAL HISTORY Procedure Laterality Date - APPENDECTOMY 07/24/1966 - CARPAL TUNNEL 2011 bilateral - CHG DELIVERY 1981, 1986 , low cervical - COLONOSCOP W/ OR W/O [facility] SPEC 07/15/06 Repeat in - COLONOSCOP W/ OR W/O [facility] SPEC 12/26/2011 Colonoscopy - COLONOSCOP W/ OR W/O [facility] SPEC 01/07/2015 Colonoscopy - EGD W/O OR W/BRUSH/WASH 12/26/2011 EGD - HYSTEROSCOPY, DIAGNOSTIC (SEPARATE 11/30/1993 Hysteroscopy - KNEE SCOPE,DIAGNOSTIC 04/29/2003 Arthroscopy, knee, left - PAST SURGICAL HISTORY OF SINUS SURGERY - PAST SURGICAL HISTORY OF 2010 EYE SURGERY- DROOPY LIDS - PAST SURGICAL HISTORY OF 03/11 right partial knee replacement - PAST SURGICAL HISTORY OF 01/08/12 left medial compartment unicompartmental knee arthroplasty - REMOVAL OF TONSILS,<12 Y/O 03/08/1961 Tonsillectomy AND adenoidectomy - SIGMOIDOSCOPY FLEX DIAG 5 YEARS AGO Sigmoidoscopy - THYROIDECTOMY 08/25/1992 left - THYROIDECTOMY 12/14/2003 right lobectomy - TOTAL ABDOM HYSTERECTOMY 03/29/1994 Hysterectomy, PASCUAL Family History FAMILY HISTORY Problem Relation Age of Onset - Breast Cancer Mother - Heart Mother - Diabetes Mother - Colon Cancer Father - Heart Father - Diabetes Father - Colon Cancer Paternal Grandmother - Colon Cancer Paternal Grandfather Patient Allergies ALLERGIES Allergen Reactions - Atenolol Mental Status Change fatigue - Depo-Medrol [Methyl* facial redness, elevated glucose - Ivp Dye [Iodine] Hives, Swelling - Sulfa (Sulfonamide * Hives Current Medications Current Outpatient Prescriptions on File Prior to Visit: metFORMIN (GLUCOPHAGE) 1,000 mg tablet TAKE 1 TABLET BY MOUTH TWICE A DAY WITH MEALS lansoprazole (PREVACID) 30 mg capsule TAKE 1 CAPSULE BY MOUTH ONCE DAILY lisinopril 2.5 mg tablet TAKE 1 TABLET BY MOUTH ONCE A DAY FOR BLOOD PRESSURE atorvastatin (LIPITOR) 80 mg tablet TAKE ONE-HALF TABLET BY MOUTH ONCE DAILY levothyroxine (SYNTHROID) 100 mcg tablet Take 1 tablet by mouth once daily. on an empty stomach 1/2 hour before meal. spironolactone-hctz 25/25 (ALDACTAZIDE) 25-25 mg per tablet TAKE 1 TABLET BY MOUTH ONCE DAILY sertraline (ZOLOFT) 100 mg tablet TAKE 1 TABLET BY MOUTH ONCE DAILY verapamil ER (VERELAN) 120 mg 24 hr capsule Take 1 capsule by mouth once daily. clotrimazole (LOTRIMIN, CLOTRIM) 1 % cream Apply 1 application to affected area twice daily. fluticasone (FLONASE) 50 mcg/actuation nasal spray Use 2 Sprays in each nostril once daily. Rinse mouth after use. blood sugar diagnostic (RELION CONFIRM-MICRO) test strip Use as instructed twice daily. Lancets lancets Relion Lancets. Test blood sugar(s) 2 times daily. Dx: 250.00. Insulin: No Oxymetazoline HCl 0.05 % mist Use 30 mL in the nose twice daily as needed. WEAN off Ehnzb0-NxvE4-K82-E-FA-Fish Oil [phone] po-oi-rvf-mcg cap Take 2 capsules by mouth once daily. Cholecalciferol, Vitamin D3, 1,000 unit cap Take 1 capsule by mouth once daily. Sod Xhg-Bfngfjbpb-Zsdg-Silica (FORDUSTIN) Powd Apply 1 application to affected area once daily. Apply in am to dried skin under breasts. (disp 1 bottle) levothyroxine (SYNTHROID) 100 mcg ORAL tablet Take 1 tablet by mouth once daily. ASPIRIN 81 MG ORAL TAB Take one (1) tablet daily . doxycycline monohydrate 100 mg tablet Take 1 tablet by mouth twice daily. (Patient not taking: Reported on 10/09/2017 ) LORATADINE/PSEUDOEPHEDRINE (CLARITIN-D 24 HOUR ORAL) Take 1 tablet by mouth once daily. No current facility-administered medications on file prior to visit. 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 Social History Main Topics Smoking status: Never Smoker Smokeless tobacco: Never Used Alcohol use: No Drug use: No Sexual activity: Yes Partners with: Male control/protection: Surgical Comment: PASCUAL Review of Symptoms REVIEW OF SYSTEMS GENERAL: No weight loss, malaise or fevers RESPIRATORY: Negative for cough, hemoptysis, wheezing, COPD, dyspnea or shortness of breath CARDIOVASCULAR: Negative for chest pain, leg swelling, hypertension, CHF or palpitations GI: No nausea, vomiting, or diarrhea SKIN: Negative for lesions, rash, and itching EXAM: BP 120/60 Pulse 88 Resp 18 Wt 102.1 kg (225 lb) BMI 37.95 kg/m? General Appearance: Well appearing, alert, in no acute distress, well-hydrated, well nourished.. Skin: Skin color, texture, turgor normal, no suspicious rashes or lesions. Lungs: Lungs clear to auscultation. No wheezing, rhonchi, rales. Heart: RRR without murmur, gallop, or rubs. No ectopy. Abdomen: Normal abdominal exam, Abdomen soft, non-tender. Bowel sounds normal. No masses, organomegaly. Extremities: No deformities, edema, skin discoloration, clubbing or cyanosis. Good capillary refill. . Feet: Shoes and socks removed, No deformities, ulcers, calluses, normal distal pulses and sensitive to 10 gm monofilament Health Maintenance List ZOSTER VACCINE (SHINGRIX)(2 of 3) due on 04/28/2014 DIABETIC FOOT EXAM due on 10/08/2017 INFLUENZA(1) due on 11/30/2017 MAMMOGRAM due on 02/06/2018 DILATED RETINAL EXAM due on 02/12/2018 HBA1C due on 04/06/2018 URINE ALBUMIN CREATININE RATIO due on 04/09/2018 LDL due on 04/09/2018 COLORECTAL CANCER SCREENING,SEE MODIFIER due on 01/08/2020 DTAP,TDAP,TD(2 - Td) due on 10/21/2023 ONE PNEUMOVAX PRIOR TO AGE 65 Completed HEPATITIS C SCREENING Completed Data reviewed Component Latest Ref Rng AND Units 04/09/2017 10/04/2017 Protein, Total 6.3 - 8.0 g/dL 7.1 Albumin 3.9 - 4.9 g/dL 4.3 Calcium 8.5 - 10.2 mg/dL 9.7 10.0 Bilirubin, Total 0.2 - 1.3 mg/dL 0.2 Alkaline Phosphatase 32 - 117 U/L 103 AST 13 - 35 U/L 14 Glucose 74 - 99 mg/dL 123 (H) 146 (H) BUN 7 - 21 mg/dL 18 20 Creatinine 0.58 - 0.96 mg/dL 0.84 0.93 Sodium 136 - 144 mmol/L 141 140 Potassium 3.7 - 5.1 mmol/L 4.2 4.1 Chloride 97 - 105 mmol/L 101 98 CO2 22 - 30 mmol/L 28 30 Anion Gap 9 - 18 mmol/L 12 12 ALT 7 - 38 U/L 13 eGFR- >60 >60 eGFR-All Other Races . >60 >60 Triglyceride 30 - 149 mg/dL 187 (H) Cholesterol, Total 100 - 199 mg/dL 174 HDL Cholesterol >55 mg/dL 31 (L) VLDL Cholesterol 6 - 40 mg/dL 37 LDL Cholesterol 60 - 129 mg/dL 106 Fasting Time hrs 12 TC:HDL Ratio 1.00 - 5.00 5.61 (H) LDL:HDL Ratio 0.50 - 3.55 3.42 Non HDL Cholesterol 90 - 159 mg/dL 143 Creatinine, Ur Random (UCRR) 20 - 300 mg/dL 146.1 Albumin, Urine Random 0.0 - 23.0 mg/L <12.0 Albumin/Creat Ratio 0 - 30 mg/g Not calculated Hemoglobin A1C 4.3 - 5.6 % 6.6 (H) 7.0 (H) Estimated Average Glucose mg/dL 143 154 TSH 0.400 - 5.500 uU/mL 1.680 EKG: NSR @90 bpm with RBBB, inferior infarct, age undetermined ASSESSMENT/PLAN: 1. Type 2 diabetes mellitus without complication, without long-term current use of insulin (HCC) - ICD9: 250.00, ICD10: E11.9 (primary diagnosis) worsening control - Continue current medications - Blood glucose monitoring on a once a day schedule - Encouraged regular aerobic exercise and weight loss - Daily Asprin therapy recommended - Follow up in 6 months, sooner should any other issues arise. - Discussed diabetic education issues of penitentiary diabetic complications, hypoglycemic symptoms, hyperglycemic symptoms, diet, medications- side effects and need for compliance and importance of exercise with patient. - HGB A1C - CBC - COMP METABOLIC PANEL 2. Gastroesophageal reflux disease, esophagitis presence not specified - ICD9: 530.81, ICD10: K21.9 - Continue treatment with Prevacid 3. Acquired hypothyroidism - ICD9: 244.9, ICD10: E03.9 - Instructed patient on importance of taking on an empty stomach either first thing in the morning or at bedtime. - continue current dose of Synthroid - TSH BLD 4. Anxiety - ICD9: 300.00, ICD10: F41.9 NO complaint today. Will monitor. 5. Essential hypertension - ICD9: 401.9, ICD10: I10 - good control - Continue current medication(s) - Encouraged dietary sodium restriction/DASH diet - Recommended regular aerobic exercise. - Reviewed risks of HTN and principles of treatment - Goal of BP <140/90 6. Mixed hyperlipidemia - ICD9: 272.2, ICD10: E78.2 - to be determined upon return of lab results - Continue current medication. - Encouraged following a low fat, low cholesterol diet. - Discussed the benefits of regular aerobic exercise and weight loss. - LIPID PANEL BASIC 7. Allergy to environmental factors - ICD9: V15.09, ICD10: Z91.09 Add singulair. Continue flonase and 2nd gen antihistamine OTC. - MONTELUKAST 10 MG TABLET 8. Cardiac arrhythmia, unspecified cardiac arrhythmia type - ICD9: 427.9, ICD10: I49.9 EKG today shows continued RBBB and old infarct. Discussed stress testing which patient is agreeable to. Will place order and follow up results. If abnormal, will refer to cardiology. - ECG COMPLETE W INTERPRETATION 9. RBBB - ICD9: 426.4, ICD10: I45.10 See above - NM CARDIAC PERF STRESS/EXERCISE 10. Abnormal electrocardiogram - ICD9: 794.31, ICD10: R94.31 See above. - NM CARDIAC PERF STRESS/EXERCISE Elizabeth Dinh MD CNOV Observed: 10/09/2017 Status: COMPLETED Source: [place] 1:40 PM [facility] REPOSITORY [facility] ANNE CORDERO ([id number]) 1955 F Date Time Provider Department 10/09/17 1:40 PM ELIZABETH DINH) HALINAWS During your visit today, we recorded the following information about you: Pulse Respiration Blood pressure Weight 88/minute 18/minute 120/60 102.1 kg Elizabeth Dinh MD 10/09/2017 2:39 PM Signed Chief Complaint Patient presents with: Follow Up: 6 month HPI Anne Cordero is a 62 year old female who presents here today for 6 month follow up. DIABETES MELLITUS: Ms. Cordero was last seen 6 months ago. States that she has been under more stress at home with family illness and has not been taking care of herself. Admits to increased fast food. Since our last visit she denies excessive thirst or increased frequency of urination, numbness, tingling or pain in extremities, new or unusual visual symptoms and low sugar/hypoglycemic reactions. Follows a diabetic diet most of the time, generally not very much. She is compliant with medication(s) and is tolerating med(s) without any side effects. She reports checking her glucose on a infrequent to not at all basis. Patient's last HgA1C was Hemoglobin A1C (%) Date Value 10/04/2017 7.0 04/09/2017 6.6 ) Last Ophthalmology exam was within the past 12 months Last Podiatry exam was within the past 12 months Patient has history of unknown arrhythmia and is noted in chart that she was to be seeing Dr. Chan for cardiology follow up, but has not been seen in years. Last EKG showed RBBB with PVCs and inferior infarct age undetermined. Discussed repeat EKG today. Allergy symptoms uncontrolled with OTC 2nd gen antihistamine and flonase. c/o rhinorrhea, nasal congestion, post nasal drip. Requesting additional treatment if possible. Up to date on HM. Discussed contacting insurance regarding new shingles vaccine, Shingrix. Past medical history, appointments, medications, allergies reviewed. Previous Medical History PAST MEDICAL HISTORY Diagnosis Date - Abnormal EKG RIGHT BUNDLE BRANCH BLOCK - Anxiety state, unspecified - Arrhythmia Seeing Dr. Hodges-cardiology - Depressive disorder, not elsewhere classified - Diarrhea - Diverticulosis of colon (without mention of hemorrhage) - Esophageal reflux - Family history of malignant neoplasm of gastrointestinal tract family history of colon cancer - Goiter, unspecified Goiter - Internal hemorrhoids without mention of complication - LATERAL EPICONDYLITIS 04/27/2007 - Mixed hyperlipidemia Hyperlipidemia - Obesity, unspecified Obesity - Osteoarthrosis, unspecified whether generalized or localized, other specified sites - Osteopenia - Snoring - Tooth abscess - Type II or unspecified type diabetes mellitus without mention of complication, not stated as uncontrolled - Unspecified asthma(493.90) - Unspecified essential hypertension Essential hypertension - Unspecified hypothyroidism Previous Surgical History PAST SURGICAL HISTORY Procedure Laterality Date - APPENDECTOMY 07/24/1966 - CARPAL TUNNEL 2011 bilateral - CHG DELIVERY 1986 , low cervical - COLONOSCOP W/ OR W/O [facility] SPEC 07/15/06 Repeat in - COLONOSCOP W/ OR W/O [facility] SPEC 12/26/2011 Colonoscopy - COLONOSCOP W/ OR W/O [facility] SPEC 01/07/2015 Colonoscopy - EGD W/O OR W/BRUSH/WASH 12/26/2011 EGD - HYSTEROSCOPY, DIAGNOSTIC (SEPARATE 11/30/1993 Hysteroscopy - KNEE SCOPE,DIAGNOSTIC 04/29/2003 Arthroscopy, knee, left - PAST SURGICAL HISTORY OF SINUS SURGERY - PAST SURGICAL HISTORY OF 2010 EYE SURGERY- DROOPY LIDS - PAST SURGICAL HISTORY OF 03/11 right partial knee replacement - PAST SURGICAL HISTORY OF 01/08/12 left medial compartment unicompartmental knee arthroplasty - REMOVAL OF TONSILS,<12 Y/O 03/08/1961 Tonsillectomy AND adenoidectomy - SIGMOIDOSCOPY FLEX DIAG 5 YEARS AGO Sigmoidoscopy - THYROIDECTOMY 08/25/1992 left - THYROIDECTOMY 12/14/2003 right lobectomy - TOTAL ABDOM HYSTERECTOMY 03/29/1994 Hysterectomy, PASCUAL Family History FAMILY HISTORY Problem Relation Age of Onset - Breast Cancer Mother - Heart Mother - Diabetes Mother - Colon Cancer Father - Heart Father - Diabetes Father - Colon Cancer Paternal Grandmother - Colon Cancer Paternal Grandfather Patient Allergies ALLERGIES Allergen Reactions - Atenolol Mental Status Change fatigue - Depo-Medrol [Methyl* facial redness, elevated glucose - Ivp Dye [Iodine] Hives, Swelling - Sulfa (Sulfonamide * Hives Current Medications Current Outpatient Prescriptions on File Prior to Visit: metFORMIN (GLUCOPHAGE) 1,000 mg tablet TAKE 1 TABLET BY MOUTH TWICE A DAY WITH MEALS lansoprazole (PREVACID) 30 mg capsule TAKE 1 CAPSULE BY MOUTH ONCE DAILY lisinopril 2.5 mg tablet TAKE 1 TABLET BY MOUTH ONCE A DAY FOR BLOOD PRESSURE atorvastatin (LIPITOR) 80 mg tablet TAKE ONE-HALF TABLET BY MOUTH ONCE DAILY levothyroxine (SYNTHROID) 100 mcg tablet Take 1 tablet by mouth once daily. on an empty stomach 1/2 hour before meal. spironolactone-hctz 25/25 (ALDACTAZIDE) 25-25 mg per tablet TAKE 1 TABLET BY MOUTH ONCE DAILY sertraline (ZOLOFT) 100 mg tablet TAKE 1 TABLET BY MOUTH ONCE DAILY verapamil ER (VERELAN) 120 mg 24 hr capsule Take 1 capsule by mouth once daily. clotrimazole (LOTRIMIN, CLOTRIM) 1 % cream Apply 1 application to affected area twice daily. fluticasone (FLONASE) 50 mcg/actuation nasal spray Use 2 Sprays in each nostril once daily. Rinse mouth after use. blood sugar diagnostic (RELION CONFIRM-MICRO) test strip Use as instructed twice daily. Lancets lancets Relion Lancets. Test blood sugar(s) 2 times daily. Dx: 250.00. Insulin: No Oxymetazoline HCl 0.05 % mist Use 30 mL in the nose twice daily as needed. WEAN off [id number]-[id number]-E-FA-Fish Oil [phone] ap-bt-fnb-mcg cap Take 2 capsules by mouth once daily. Cholecalciferol, Vitamin D3, 1,000 unit cap Take 1 capsule by mouth once daily. Sod Kkz-Pfvxqtibu-Ahjk-Silica (FORDUSTIN) Powd Apply 1 application to affected area once daily. Apply in am to dried skin under breasts. (disp 1 bottle) levothyroxine (SYNTHROID) 100 mcg ORAL tablet Take 1 tablet by mouth once daily. ASPIRIN 81 MG ORAL TAB Take one (1) tablet daily . doxycycline monohydrate 100 mg tablet Take 1 tablet by mouth twice daily. (Patient not taking: Reported on 10/09/2017 ) LORATADINE/PSEUDOEPHEDRINE (CLARITIN-D 24 HOUR ORAL) Take 1 tablet by mouth once daily. No current facility-administered medications on file prior to visit. 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 Social History Main Topics Smoking status: Never Smoker Smokeless tobacco: Never Used Alcohol use: No Drug use: No Sexual activity: Yes Partners with: Male control/protection: Surgical Comment: PASCUAL Review of Symptoms REVIEW OF SYSTEMS GENERAL: No weight loss, malaise or fevers RESPIRATORY: Negative for cough, hemoptysis, wheezing, COPD, dyspnea or shortness of breath CARDIOVASCULAR: Negative for chest pain, leg swelling, hypertension, CHF or palpitations GI: No nausea, vomiting, or diarrhea SKIN: Negative for lesions, rash, and itching EXAM: BP 120/60 Pulse 88 Resp 18 Wt 102.1 kg (225 lb) BMI 37.95 kg/m? General Appearance: Well appearing, alert, in no acute distress, well-hydrated, well nourished.. Skin: Skin color, texture, turgor normal, no suspicious rashes or lesions. Lungs: Lungs clear to auscultation. No wheezing, rhonchi, rales. Heart: RRR without murmur, gallop, or rubs. No ectopy. Abdomen: Normal abdominal exam, Abdomen soft, non-tender. Bowel sounds normal. No masses, organomegaly. Extremities: No deformities, edema, skin discoloration, clubbing or cyanosis. Good capillary refill. . Feet: Shoes and socks removed, No deformities, ulcers, calluses, normal distal pulses and sensitive to 10 gm monofilament Health Maintenance List ZOSTER VACCINE (SHINGRIX)(2 of 3) due on 04/28/2014 DIABETIC FOOT EXAM due on 10/08/2017 INFLUENZA(1) due on 11/30/2017 MAMMOGRAM due on 02/06/2018 DILATED RETINAL EXAM due on 02/12/2018 HBA1C due on 04/06/2018 URINE ALBUMIN CREATININE RATIO due on 04/09/2018 LDL due on 04/09/2018 COLORECTAL CANCER SCREENING,SEE MODIFIER due on 01/08/2020 DTAP,TDAP,TD(2 - Td) due on 10/21/2023 ONE PNEUMOVAX PRIOR TO AGE 65 Completed HEPATITIS C SCREENING Completed Data reviewed Component Latest Ref Rng AND Units 04/09/2017 10/04/2017 Protein, Total 6.3 - 8.0 g/dL 7.1 Albumin 3.9 - 4.9 g/dL 4.3 Calcium 8.5 - 10.2 mg/dL 9.7 10.0 Bilirubin, Total 0.2 - 1.3 mg/dL 0.2 Alkaline Phosphatase 32 - 117 U/L 103 AST 13 - 35 U/L 14 Glucose 74 - 99 mg/dL 123 (H) 146 (H) BUN 7 - 21 mg/dL 18 20 Creatinine 0.58 - 0.96 mg/dL 0.84 0.93 Sodium 136 - 144 mmol/L 141 140 Potassium 3.7 - 5.1 mmol/L 4.2 4.1 Chloride 97 - 105 mmol/L 101 98 CO2 22 - 30 mmol/L 28 30 Anion Gap 9 - 18 mmol/L 12 12 ALT 7 - 38 U/L 13 eGFR- >60 >60 eGFR-All Other Races . >60 >60 Triglyceride 30 - 149 mg/dL 187 (H) Cholesterol, Total 100 - 199 mg/dL 174 HDL Cholesterol >55 mg/dL 31 (L) VLDL Cholesterol 6 - 40 mg/dL 37 LDL Cholesterol 60 - 129 mg/dL 106 Fasting Time hrs 12 TC:HDL Ratio 1.00 - 5.00 5.61 (H) LDL:HDL Ratio 0.50 - 3.55 3.42 Non HDL Cholesterol 90 - 159 mg/dL 143 Creatinine, Ur Random (UCRR) 20 - 300 mg/dL 146.1 Albumin, Urine Random 0.0 - 23.0 mg/L <12.0 Albumin/Creat Ratio 0 - 30 mg/g Not calculated Hemoglobin A1C 4.3 - 5.6 % 6.6 (H) 7.0 (H) Estimated Average Glucose mg/dL 143 154 TSH 0.400 - 5.500 uU/mL 1.680 EKG: NSR @90 bpm with RBBB, inferior infarct, age undetermined ASSESSMENT/PLAN: 1. Type 2 diabetes mellitus without complication, without long-term current use of insulin (HCC) - ICD9: 250.00, ICD10: E11.9 (primary diagnosis) worsening control - Continue current medications - Blood glucose monitoring on a once a day schedule - Encouraged regular aerobic exercise and weight loss - Daily Asprin therapy recommended - Follow up in 6 months, sooner should any other issues arise. - Discussed diabetic education issues of terminal operator diabetic complications, hypoglycemic symptoms, hyperglycemic symptoms, diet, medications- side effects and need for compliance and importance of exercise with patient. - HGB A1C - CBC - COMP METABOLIC PANEL 2. Gastroesophageal reflux disease, esophagitis presence not specified - ICD9: 530.81, ICD10: K21.9 - Continue treatment with Prevacid 3. Acquired hypothyroidism - ICD9: 244.9, ICD10: E03.9 - Instructed patient on importance of taking on an empty stomach either first thing in the morning or at bedtime. - continue current dose of Synthroid - TSH BLD 4. Anxiety - ICD9: 300.00, ICD10: F41.9 NO complaint today. Will monitor. 5. Essential hypertension - ICD9: 401.9, ICD10: I10 - good control - Continue current medication(s) - Encouraged dietary sodium restriction/DASH diet - Recommended regular aerobic exercise. - Reviewed risks of HTN and principles of treatment - Goal of BP <140/90 6. Mixed hyperlipidemia - ICD9: 272.2, ICD10: E78.2 - to be determined upon return of lab results - Continue current medication. - Encouraged following a low fat, low cholesterol diet. - Discussed the benefits of regular aerobic exercise and weight loss. - LIPID PANEL BASIC 7. Allergy to environmental factors - ICD9: V15.09, ICD10: Z91.09 Add singulair. Continue flonase and 2nd gen antihistamine OTC. - MONTELUKAST 10 MG TABLET 8. Cardiac arrhythmia, unspecified cardiac arrhythmia type - ICD9: 427.9, ICD10: I49.9 EKG today shows continued RBBB and old infarct. Discussed stress testing which patient is agreeable to. Will place order and follow up results. If abnormal, will refer to cardiology. - ECG COMPLETE W INTERPRETATION 9. RBBB - ICD9: 426.4, ICD10: I45.10 See above - NM CARDIAC PERF STRESS/EXERCISE 10. Abnormal electrocardiogram - ICD9: 794.31, ICD10: R94.31 See above. - NM CARDIAC PERF STRESS/EXERCISE Elizabeth Dinh MD Referring Provider: ELIZABETH DINH () [[id number]] Allergies As of Date: 10/09/2017 Noted Allergy Reaction ATENOLOL 03/07/2011 1 - Mental Status Change Comments: fatigue DEPO-MEDROL (METHYLPREDNISOLONE A*03/01/2005 Comments: facial redness, elevated glucose IVP DYE (IODINE) 03/01/2005 4 - Hives 7 - Swelling SULFA (SULFONAMIDE ANTIBIOTICS) 03/01/2005 4 - Hives Date Reviewed: 10/09/2017 Reviewed by: Amanda Campos LPN - Fully Assessed Reason for Visit: Follow Up [171] Cmt: 6 month Primary Visit Diagnosis:Type 2 diabetes mellitus without complication, without long-term current use of insulin (HCC) [E11.9] Other Visit Diagnoses:Gastroesophageal reflux disease, esophagitis presence not specified [K21.9] Acquired hypothyroidism [E03.9] Anxiety [F41.9] Essential hypertension [I10] Mixed hyperlipidemia [E78.2] Allergy to environmental factors [Z91.09] Cardiac arrhythmia, unspecified cardiac arrhythmia type [I49.9] RBBB [I45.10] Abnormal electrocardiogram [R94.31] Order(s):HGB A1C [PIRYL6G] Order #: [id number] FUTURE CBC [SQCBC] Order #: [id number] FUTURE COMP METABOLIC PANEL [SQCMP] Order #: [id number] FUTURE LIPID PANEL BASIC [SQLIPB] Order #: [id number] FUTURE TSH BLD [SQTSH] Order #: [id number] FUTURE ECG COMPLETE W INTERPRETATION [ECG01] Order #: [id number] FUTURE NM CARDIAC PERF STRESS/EXERCISE [[id number]] Order #: [id number] FUTURE montelukast (SINGULAIR) 10 mg tabletTake 1 tablet by mouth daily at bedtime.Disp: 30 tabletRfl: 5 COMPLETE ECG [[id number]] Order #: [id number]. #:[id number]--[id number]: 1 Prescriptions as of 10/09/2017 Sig: METFORMIN 1,000 MG TABLET TAKE 1 TABLET BY MOUTH TWICE* LANSOPRAZOLE 30 MG CAPSULE,DE* TAKE 1 CAPSULE BY MOUTH ONCE* LISINOPRIL 2.5 MG TABLET TAKE 1 TABLET BY MOUTH ONCE A* ATORVASTATIN 80 MG TABLET TAKE ONE-HALF TABLET BY MOUT* LEVOTHYROXINE 100 MCG TABLET Take 1 tablet by mouth once d* SPIRONOLACTONE 25 MG-HYDROCHL* TAKE 1 TABLET BY MOUTH ONCE D* SERTRALINE 100 MG TABLET TAKE 1 TABLET BY MOUTH ONCE D* VERAPAMIL ER 120 MG 24 HR CAP* Take 1 capsule by mouth once * CLOTRIMAZOLE 1 % TOPICAL CREAM Apply 1 application to affect* FLUTICASONE 50 MCG/ACTUATION * Use 2 Sprays in each nostril * BLOOD SUGAR DIAGNOSTIC STRIPS Use as instructed twice daily. LANCETS Relion Lancets. Test blood aquino* OXYMETAZOLINE 0.05 % NASAL IL* Use 30 mL in the nose twice d* OMEGA [id number] OIL * Take 2 capsules by mouth once* CHOLECALCIFEROL (VITAMIN D3) * Take 1 capsule by mouth once * SODIUM BICARB-METHYLBENZETHON* Apply 1 application to affect* LEVOTHYROXINE 100 MCG TABLET Take 1 tablet by mouth once d* * ASPIRIN 81 MG TABLET Take one (1) tablet daily . 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 Essential hypertension [I10] INVALID FOR* More... Mixed hyperlipidemia [E78.2] INVALID FOR* More... Unspecified asthma(493.90) [J45.909] INVALID FOR*04/10/2017 More... Primary osteoarthritis involving multiple joint*INVALID FOR* RIGHT AXILLARY PAIN [R07.9] INVALID FOR*01/25/2011 FAMILY HX COLON CANCER [Z80.0] INVALID FOR* More... Esophageal reflux [K21.9] More... Anxiety [F41.9] Recurrent major depressive disorder, in full re* 04/10/2017 More... Hypopotassemia [E87.6] INVALID FOR*02/18/2013 More... OSTEOARTHROS NOS-L/LEG [M17.10] INVALID FOR* Lateral epicondylitis of elbow [M77.10] INVALID FOR*02/18/2013 Hypothyroidism [E03.9] INVALID FOR* More... PVC's [I49.49] INVALID FOR* Shoulder bursitis [M75.50] INVALID FOR*02/18/2013 Allergy to environmental factors [Z91.09] INVALID FOR* Special screening for malignant neoplasms, colo*INVALID FOR*01/07/2015 Prescriptions ordered this encounter Disp Refills Start End MONTELUKAST 10 MG TABLET 30 t* 5 10/09/2017 Route: ORAL Sig: Take 1 tablet by mouth daily at bedtime. Medications Discontinued During This Encounter doxycycline monohydrate 100 mg tablet 20 t* 0 04/10/2017 10/09/2017 Route: ORAL Sig: Take 1 tablet by mouth twice daily. Patient not taking: Reported on 10/09/2017 Disc: Reason for discontinue is not on file. Disposition: Return in about 6 months (around 04/11/2018). Follow-up and Disposition History Recorded Encounter Status:Closed by ELIZABETH DINH MD on 10/09/17 COMP METABOLIC PANEL Collected: 10/04/2017 Status: F Source: [place] 1:13 PM [facility] REPOSITORY TYPE CODE TESTS RESULT OUT OF REFERENCE UNITS RANGE LAB TP 6.3-8.0 g/dL Protein, Total 7.1 LAB ALB 3.9-4.9 g/dL Albumin 4.3 LAB CA 8.5-10.2 mg/dL Calcium, Total 10.0 LAB TBIL 0.2-1.3 mg/dL Bilirubin, Total 0.2 LAB ALKP 32-117 U/L Alkaline Phosphatase 103 LAB AST 13-35 U/L AST 14 LAB GLU 74-99 mg/dL Glucose High 146 Result Comment: The [place] Diabetes Association (ADA) provides guidance for cutoff values for fasting glucose and random glucose. The ADA defines fasting as no caloric intake for at least 8 hours. Fas ting plasma glucose results between 100 to 125 mg/dL indicate increased risk for diabetes (prediabetes). Fasting plasma glucose results greater than or equal to 126 mg/dL meet the criteria for diagnosis of diabetes. In the absence of unequivocal hyperglycemia, results should be confirmed by repeat testing. In a patient with classic symptoms of hyperglycemia or hyperglycemic crisis, random plasma glucose results greater than or equal to 200 mg/dL meet the criteria for diagnosis of diabetes. Reference: Standards of Medical Care in Diabetes 2016, [place] Diabetes Association. Diabetes Care. 2016.39(Suppl 1). LAB BUN 7-21 mg/dL BUN 20 LAB CRET 0.58-0.96 mg/dL Creatinine 0.93 LAB NA 136-144 mmol/L Sodium 140 LAB K 3.7-5.1 mmol/L Potassium 4.1 LAB CL 97-105 mmol/L Chloride 98 LAB CO2 22-30 mmol/L CO2 30 LAB AGAP 9-18 mmol/L Anion Gap 12 LAB ALT 7-38 U/L ALT 13 LAB GFRAA eGFR- Amer. >60 LAB GFRNAA . eGFR-All Other Races >60 Result Comment: eGFR (Estimated GFR) Units of measure: mL/min/1.73 meters squared eGFR is derived from the reexpressed MDRD Study equation using the following parameters: serum creatinine, age, gender and race. The creatinine assay has been calibrated to be traceable to IDMS. An eGFR <60 mL/min/1.73m2 for >3 months is consistent with chronic kidney disease. Refer to KDOQI guidelines for clinical interpretation. In patients with unstable renal function, e.g. those with acute kidney injury, the eGFR may not accurately reflect actual GFR. Performed By: #### CMP, HBA1C #### [facility] [address], [place] [address] HEMOGLOBIN A1C Collected: 10/04/2017 Status: F Source: [place] 1:13 PM [facility] REPOSITORY TYPE CODE TESTS RESULT OUT OF REFERENCE UNITS RANGE LAB HGBA1C 4.3-5.6 % High Hemoglobin A1c 7.0 LAB HBA0 mg/dL Est. Average Glucose 154 Result Comment: eAG: (Estimated average glucose) is a calculated value from HgbA1c and is small business sales representative of the average blood glucose level in the last 2-3 month period. Performed By: #### CMP, HBA1C #### [facility] [address] [id number] RESP VIR PNL BY Collected: 05/01/2017 Status: F Source: [place] PCR 7:57 PM [facility] REPOSITORY TYPE CODE TESTS RESULT OUT OF REFERENCE UNITS RANGE LAB RVPSRC Resp Viral Panl Srce Nasopharyngeal Swab LAB FLUARV Negative Influenza A Virus Positive Abnormal Alert LAB FLUAH1 Negative Influenza A H1 Negative Virus LAB FLUAH3 Negative Influenza A H3 Positive Abnormal Virus Alert LAB [id number] Negative Influenza A H1N1 Negative 09 LAB FLUBRV Negative Influenza B Virus Negative LAB RSVA Negative Resp Syncytial Negative Vir A LAB RSVB Negative Resp Syncytial Negative Vir B LAB PIV1 Negative Parainfluenza 1 Negative LAB PIV2 Negative Parainfluenza 2 Negative LAB PIV3 Negative Parainfluenza 3 Negative LAB HMPV Negative H Metapneumovirus Negative LAB HRV Negative Rhinovirus Negative LAB ADVBE Negative Adenovirus B/E Negative LAB ADVC Negative Adenovirus C Negative Performed By: #### RVPPCR #### [facility] [address] [place], [place] [address] PROGRESS Observed: 05/01/2017 Status: COMPLETED Source: MURDO 3:00 PM [facility] REPOSITORY HNO ID: [id number] Author: Celestina (Chance) Jaguar Service: (none) Author Type: Nurse Practitioner Type: Progress Notes Filed: 05/01/2017 3:30 PM Note Text: 05/01/2017 Patient presents with: Cough Fever: low grade fever and chills body aches SUBJECTIVE: This is a 61 year old that is here today for cough, fever, chills, body aches, weakness, decreased appetite that started Saturday night. She states that her son has the flu and was given tamiflu and she is hoping for a script for it as well. She states that it has continuously gotten worse and she has not been eating much. Cough made her throw up yesterday. Not bringing much up with cough, but feels like she should have to. Drinking about 4 bottles of water a day. Diabetes seems to be unchanged with fasting sugars about 130 and that is where they have been lately. Denies diarrhea or vomiting. PAST MEDICAL HISTORY Diagnosis Date - Abnormal EKG RIGHT BUNDLE BRANCH BLOCK - Anxiety state, unspecified - Arrhythmia Seeing Dr. Hodges-cardiology - Depressive disorder, not elsewhere classified - Diarrhea - Diverticulosis of colon (without mention of hemorrhage) - Esophageal reflux - Family history of malignant neoplasm of gastrointestinal tract family history of colon cancer - Goiter, unspecified Goiter - Internal hemorrhoids without mention of complication - LATERAL EPICONDYLITIS 04/27/2007 - Mixed hyperlipidemia Hyperlipidemia - Obesity, unspecified Obesity - Osteoarthrosis, unspecified whether generalized or localized, other specified sites - Osteopenia - Snoring - Tooth abscess - Type II or unspecified type diabetes mellitus without mention of complication, not stated as uncontrolled - Unspecified asthma(493.90) - Unspecified essential hypertension Essential hypertension - Unspecified hypothyroidism ALLERGIES Atenolol; Depo-Medrol [Methylprednisolone Acetate]; Ivp Dye [Iodine]; Sulfa (Sulfonamide Antibiotics) MEDICATIONS Current Outpatient Prescriptions: levothyroxine (SYNTHROID) 100 mcg tablet Take 1 tablet by mouth daily on an empty stomach for thyroid doxycycline monohydrate 100 mg tablet Take 1 tablet by mouth twice daily. metFORMIN (GLUCOPHAGE) 1,000 mg tablet TAKE 1 TABLET BY MOUTH TWICE A DAY WITH MEALS sertraline (ZOLOFT) 100 mg tablet TAKE 1 TABLET BY MOUTH ONCE DAILY verapamil ER (VERELAN) 120 mg 24 hr capsule Take 1 capsule by mouth once daily. clotrimazole (LOTRIMIN, CLOTRIM) 1 % cream Apply 1 application to affected area twice daily. lansoprazole (PREVACID) 30 mg capsule Take 1 capsule by mouth once daily. lisinopril 2.5 mg tablet Take 1 tablet by mouth once daily. For BP. fluticasone (FLONASE) 50 mcg/actuation nasal spray Use 2 Sprays in each nostril once daily. Rinse mouth after use. atorvastatin (LIPITOR) 80 mg tablet Take 0.5 tablets by mouth once daily. spironolactone-hctz 25/25 (ALDACTAZIDE) 25-25 mg per tablet TAKE 1 TABLET BY MOUTH ONCEDAILY LORATADINE/PSEUDOEPHEDRINE (CLARITIN-D 24 HOUR ORAL) Take 1 tablet by mouth once daily. blood sugar diagnostic (RELION CONFIRM-MICRO) test strip Use as instructed twice daily. Lancets lancets Relion Lancets. Test blood sugar(s) 2 times daily. Dx: 250.00. Insulin: No Oxymetazoline HCl 0.05 % mist Use 30 mL in the nose twice daily as needed. WEAN off Eeupp5-HqzY5-V42-E-FA-Fish Oil [phone] vo-if-hxu-mcg cap Take 2 capsules by mouth once daily. Cholecalciferol, Vitamin D3, 1,000 unit cap Take 1 capsule by mouth once daily. Sod Zdk-Nwoxltere-Aovf-Silica (FORDUSTIN) Powd Apply 1 application to affected area once daily. Apply in am to dried skin under breasts. (disp 1 bottle) levothyroxine (SYNTHROID) 100 mcg ORAL tablet Take 1 tablet by mouth once daily. ASPIRIN 81 MG ORAL TAB Take one (1) tablet daily . No current facility-administered medications for this visit. Medications and allergies reviewed by this provider. SOCIAL HISTORY Social History Marital status: Spouse name: Ivelisse Years of education: Number of children: 2 Occupational History 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ER Social History Main Topics Smoking status: Never Smoker Smokeless status: Never Used Alcohol use: No Drug use: No Sexual activity: Yes Partners with: Male control/protection: Surgical Comment: PASCUAL REVIEW OF SYSTEMS see HPI OBJECTIVE: BP 116/78 (BP Site: Left Arm, BP Position: Sitting, BP Cuff Size: Large Adult) Pulse 80 Temp 38.7 ?C (101.7 ?F) (Left Tympanic) Resp 12 Wt 101.2 kg (223 lb) BMI 37.61 kg/m2. Vital signs reviewed by this provider. PHYSICAL EXAMINATION: General appearance: ill appearing- nontoxic, alert, in no acute distress, well-hydrated, well nourished. Skin: Skin color, texture, turgor normal, no suspicious rashes or lesions, Diaphoretic Head: Normocephalic, no masses, lesions, tenderness or abnormalities Eyes: Anicteric sclera. Pupils are equally round and reactive to light. Ears: External ears normal, canals clear, TMs normal Nose/Sinuses: Positive findings: mucosa erythematous and swollen, purulent rhinorrhea Oropharynx: Positive findings: mild oropharyngeal erythema Neck: Positive findings: superficial cervical adenopathy Lungs: Lungs clear to auscultation. No wheezing, rhonchi, rales + harsh cough- difficult to take deep breaths due to coughing Heart: RRR without murmur, gallop, or rubs. No ectopy Abdomen: Abdomen soft, non-tender. Bowel sounds normal. Extremities: No deformities, edema, skin discoloration, clubbing or cyanosis. Good capillary refill. , Pulses: 2+ ASSESSMENT/PLAN: 1. Flu-like symptoms - ICD9: 780.99, ICD10: R68.89 - Discussed viral etiology - encouraged increased fluid intake and rest - OK to use OTC mucinex - offered tesmily aguilar- declined stating that they don't work - encouraged use of humidifier - Discussed sick management of DM - discussed risk for dehydration and pneumonia and ways to help try to prevent them - discussed that she is out of the 48 hour window for the tamiflu and there is a chance that it may not lessen the symptoms, she states that she is willing to pay for it in hopes that it will help - OSELTAMIVIR 75 MG CAPSULE - RESP VIRUS PANEL BY PCR - follow up with any worsening symptoms of no improvement in 5-7 days Celestina Montesinos CNP CNOV Observed: 05/01/2017 Status: COMPLETED Source: MUR[place] 3:00 PM [facility] REPOSITORY Office Visit (FAMPWS) ANNE CORDERO ([id number]) 1955 F Date Time Provider Department 05/01/17 3:00 PM CELESTINA MONTESINOS (CHANCE) FAMPWS During your visit today, we recorded the following information about you: Temperature Pulse Respiration Blood pressure 101.7 degrees 80/minute 12/minute 116/78 Weight 101.2 kg Celestina Montesinos CNP 05/01/2017 3:30 PM Signed 05/01/2017 Patient presents with: Cough Fever: low grade fever and chills body aches SUBJECTIVE: This is a 61 year old that is here today for cough, fever, chills, body aches, weakness, decreased appetite that started Saturday night. She states that her son has the flu and was given tamiflu and she is hoping for a script for it as well. She states that it has continuously gotten worse and she has not been eating much. Cough made her throw up yesterday. Not bringing much up with cough, but feels like she should have to. Drinking about 4 bottles of water a day. Diabetes seems to be unchanged with fasting sugars about 130 and that is where they have been lately. Denies diarrhea or vomiting. PAST MEDICAL HISTORY Diagnosis Date - Abnormal EKG RIGHT BUNDLE BRANCH BLOCK - Anxiety state, unspecified - Arrhythmia Seeing Dr. Hodges-cardiology - Depressive disorder, not elsewhere classified - Diarrhea - Diverticulosis of colon (without mention of hemorrhage) - Esophageal reflux - Family history of malignant neoplasm of gastrointestinal tract family history of colon cancer - Goiter, unspecified Goiter - Internal hemorrhoids without mention of complication - LATERAL EPICONDYLITIS 04/27/2007 - Mixed hyperlipidemia Hyperlipidemia - Obesity, unspecified Obesity - Osteoarthrosis, unspecified whether generalized or localized, other specified sites - Osteopenia - Snoring - Tooth abscess - Type II or unspecified type diabetes mellitus without mention of complication, not stated as uncontrolled - Unspecified asthma(493.90) - Unspecified essential hypertension Essential hypertension - Unspecified hypothyroidism ALLERGIES Atenolol; Depo-Medrol [Methylprednisolone Acetate]; Ivp Dye [Iodine]; Sulfa (Sulfonamide Antibiotics) MEDICATIONS Current Outpatient Prescriptions: levothyroxine (SYNTHROID) 100 mcg tablet Take 1 tablet by mouth daily on an empty stomach for thyroid doxycycline monohydrate 100 mg tablet Take 1 tablet by mouth twice daily. metFORMIN (GLUCOPHAGE) 1,000 mg tablet TAKE 1 TABLET BY MOUTH TWICE A DAY WITH MEALS sertraline (ZOLOFT) 100 mg tablet TAKE 1 TABLET BY MOUTH ONCE DAILY verapamil ER (VERELAN) 120 mg 24 hr capsule Take 1 capsule by mouth once daily. clotrimazole (LOTRIMIN, CLOTRIM) 1 % cream Apply 1 application to affected area twice daily. lansoprazole (PREVACID) 30 mg capsule Take 1 capsule by mouth once daily. lisinopril 2.5 mg tablet Take 1 tablet by mouth once daily. For BP. fluticasone (FLONASE) 50 mcg/actuation nasal spray Use 2 Sprays in each nostril once daily. Rinse mouth after use. atorvastatin (LIPITOR) 80 mg tablet Take 0.5 tablets by mouth once daily. spironolactone-hctz 25/25 (ALDACTAZIDE) 25-25 mg per tablet TAKE 1 TABLET BY MOUTH ONCEDAILY LORATADINE/PSEUDOEPHEDRINE (CLARITIN-D 24 HOUR ORAL) Take 1 tablet by mouth once daily. blood sugar diagnostic (RELION CONFIRM-MICRO) test strip Use as instructed twice daily. Lancets lancets Relion Lancets. Test blood sugar(s) 2 times daily. Dx: 250.00. Insulin: No Oxymetazoline HCl 0.05 % mist Use 30 mL in the nose twice daily as needed. WEAN off Pwran4-YusM0-Q57-E-FA-Fish Oil [id number] fu-uj-cpi-mcg cap Take 2 capsules by mouth once daily. Cholecalciferol, Vitamin D3, 1,000 unit cap Take 1 capsule by mouth once daily. Sod Bji-Frurxbvis-Gjuo-Silica (FORDUSTIN) Powd Apply 1 application to affected area once daily. Apply in am to dried skin under breasts. (disp 1 bottle) levothyroxine (SYNTHROID) 100 mcg ORAL tablet Take 1 tablet by mouth once daily. ASPIRIN 81 MG ORAL TAB Take one (1) tablet daily . No current facility-administered medications for this visit. Medications and allergies reviewed by this provider. SOCIAL HISTORY Social History Marital status: Spouse name: Ivelisse Years of education: Number of children: 2 Occupational History 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ER Social History Main Topics Smoking status: Never Smoker Smokeless status: Never Used Alcohol use: No Drug use: No Sexual activity: Yes Partners with: Male control/protection: Surgical Comment: [facility] REVIEW OF SYSTEMS see HPI OBJECTIVE: BP 116/78 (BP Site: Left Arm, BP Position: Sitting, BP Cuff Size: Large Adult) Pulse 80 Temp 38.7 ?C (101.7 ?F) (Left Tympanic) Resp 12 Wt 101.2 kg (223 lb) BMI 37.61 kg/m2. Vital signs reviewed by this provider. PHYSICAL EXAMINATION: General appearance: ill appearing- nontoxic, alert, in no acute distress, well-hydrated, well nourished. Skin: Skin color, texture, turgor normal, no suspicious rashes or lesions, Diaphoretic Head: Normocephalic, no masses, lesions, tenderness or abnormalities Eyes: Anicteric sclera. Pupils are equally round and reactive to light. Ears: External ears normal, canals clear, TMs normal Nose/Sinuses: Positive findings: mucosa erythematous and swollen, purulent rhinorrhea Oropharynx: Positive findings: mild oropharyngeal erythema Neck: Positive findings: superficial cervical adenopathy Lungs: Lungs clear to auscultation. No wheezing, rhonchi, rales + harsh cough- difficult to take deep breaths due to coughing Heart: RRR without murmur, gallop, or rubs. No ectopy Abdomen: Abdomen soft, non-tender. Bowel sounds normal. Extremities: No deformities, edema, skin discoloration, clubbing or cyanosis. Good capillary refill. , Pulses: 2+ ASSESSMENT/PLAN: 1. Flu-like symptoms - ICD9: 780.99, ICD10: R68.89 - Discussed viral etiology - encouraged increased fluid intake and rest - OK to use OTC mucinex - offered edgardo aguilar- declined stating that they don't work - encouraged use of humidifier - Discussed sick management of DM - discussed risk for dehydration and pneumonia and ways to help try to prevent them - discussed that she is out of the 48 hour window for the tamiflu and there is a chance that it may not lessen the symptoms, she states that she is willing to pay for it in hopes that it will help - OSELTAMIVIR 75 MG CAPSULE - RESP VIRUS PANEL BY PCR - follow up with any worsening symptoms of no improvement in 5-7 days Celestina Montesinos, YARD STOCKER Referring Provider: SELF [200] Allergies As of Date: 05/01/2017 Noted Allergy Reaction ATENOLOL 03/07/2011 1 - Mental Status Change Comments: fatigue DEPO-MEDROL (METHYLPREDNISOLONE A*03/01/2005 Comments: facial redness, elevated glucose IVP DYE (IODINE) 03/01/2005 4 - Hives 7 - Swelling SULFA (SULFONAMIDE ANTIBIOTICS) 03/01/2005 4 - Hives Date Reviewed: 05/01/2017 Reviewed by: Lisa Ruffin Heat Plant Specialist - Fully Assessed Reason for Visit: Cough [28] Fever [47] Cmt: low grade fever and chills body aches [Other] Primary Visit Diagnosis:Flu-like symptoms [R68.89] Order(s):oseltamivir (TAMIFLU) 75 mg capsuleTake 1 capsule by mouth twice daily for 5 days.Disp: 10 capsuleRfl: 0 RESP VIRUS PANEL BY PCR [SQRVPAN] Order #: [id number] Prescriptions as of 05/01/2017 Sig: LEVOTHYROXINE 100 MCG TABLET Take 1 tablet by mouth daily* DOXYCYCLINE MONOHYDRATE 100 M* Take 1 tablet by mouth twice * METFORMIN 1,000 MG TABLET TAKE 1 TABLET BY MOUTH TWICE* SERTRALINE 100 MG TABLET TAKE 1 TABLET BY MOUTH ONCE D* VERAPAMIL ER 120 MG 24 HR CAP* Take 1 capsule by mouth once * CLOTRIMAZOLE 1 % TOPICAL CREAM Apply 1 application to affect* LANSOPRAZOLE 30 MG CAPSULE,DE* Take 1 capsule by mouth once * LISINOPRIL 2.5 MG TABLET Take 1 tablet by mouth once d* FLUTICASONE 50 MCG/ACTUATION * Use 2 Sprays in each nostril * ATORVASTATIN 80 MG TABLET Take 0.5 tablets by mouth onc* SPIRONOLACTONE 25 MG-HYDROCHL* TAKE 1 TABLET BY MOUTH ONCED* CLARITIN-D 24 HOUR ORAL Take 1 tablet by mouth once d* BLOOD SUGAR DIAGNOSTIC STRIPS Use as instructed twice daily. LANCETS Relion Lancets. Test blood aquino* OXYMETAZOLINE 0.05 % NASAL IL* Use 30 mL in the nose twice d* OMEGA [id number] OIL * Take 2 capsules by mouth once* CHOLECALCIFEROL (VITAMIN D3) * Take 1 capsule by mouth once * SODIUM BICARB-METHYLBENZETHON* Apply 1 application to affect* LEVOTHYROXINE 100 MCG TABLET Take 1 tablet by mouth once d* * ASPIRIN 81 MG TABLET Take one (1) tablet daily . 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 Essential hypertension [I10] INVALID FOR* More... Mixed hyperlipidemia [E78.2] INVALID FOR* More... Unspecified asthma(493.90) [J45.909] INVALID FOR*04/10/2017 More... Primary osteoarthritis involving multiple joint*INVALID FOR* RIGHT AXILLARY PAIN [R07.9] INVALID FOR*01/25/2011 FAMILY HX COLON CANCER [Z80.0] INVALID FOR* More... Esophageal reflux [K21.9] More... Anxiety [F41.9] Recurrent major depressive disorder, in full re* 04/10/2017 More... Hypopotassemia [E87.6] INVALID FOR*02/18/2013 More... OSTEOARTHROS NOS-L/LEG [M17.10] INVALID FOR* Lateral epicondylitis of elbow [M77.10] INVALID FOR*02/18/2013 Hypothyroidism [E03.9] INVALID FOR* More... PVC's [I49.49] INVALID FOR* Shoulder bursitis [M75.50] INVALID FOR*02/18/2013 Allergy to environmental factors [Z91.09] INVALID FOR* Special screening for malignant neoplasms, colo*INVALID FOR*01/07/2015 Prescriptions ordered this encounter Disp Refills Start End OSELTAMIVIR 75 MG CAPSULE 10 c* 0 05/01/2017 05/06/2017 Route: ORAL Sig: Take 1 capsule by mouth twice daily for 5 days. Disposition: Return if symptoms worsen or fail to improve. Follow-up and Disposition History Recorded Encounter Status:Closed by CELESTINA MONTESINOS on 05/01/17 ALLERGIES ALLERGIES DATE TYPE / NAME / CODE REACTION SEVERITY SOURCE CODE 02/18/2018 Drug Iodinated Contrast- Oral Rash Unknown [place] Allergy/41 and IV Community [id number]( Dye/[id number](RXNORM) [facility]) Repository 02/18/2018 Drug Sulfa (Sulfonamide Hives Unknown [place] Allergy/41 Antibiotics)/[id number]( Community [id number]( RXNORM) Hospital O[facility]) Repository 03/07/2011 DRUG ATENOLOL Mental [facility] INGREDI/41 Clinic Main [id number]( [place] OMED [facility]) Repository 03/01/2005 DRUG METHYLPREDNISOLONE Purchase INGREDI/41 ACETATE Clinic Main [id number]( [place] OMED CT) Repository 03/01/2005 DRUG IODINE HIVES Purchase INGREDI/41 Clinic Main [id number]( [place] OMED CT) Repository 03/01/2005 Drug SULFA (SULFONAMIDE HIVES Purchase Class/4195 ANTIBIOTICS) Clinic Main [address] [place] [facility] Repository ENCOUNTERS ENCOUNTERS ADMIT/DISCHARGE ACCOUNT ADMITTING ENCOUNTER LOCATION SOURCE NUMBER CLASS 04/16/2018/04/17/19 [id number] Ambulatory [address] [place] Repository 04/15/2018/04/16/19 [id number] Ambulatory [address] Main [place] Repository 04/14/2018/04/14/19 [id number] Ambulatory [address] Main [place] Repository 04/14/2018/04/14/19 [id number] Ambulatory [address] Main [place] Repository 04/14/2018/04/14/19 [id number] Ambulatory [address] Main [place] Repository 04/14/2018/04/14/19 [id number] Ambulatory [address] Main [place] Repository 04/14/2018/04/14/19 [id number] Ambulatory [address] [place] Repository 04/14/2018/04/15/19 [id number] Ambulatory [address] Main [place] Repository 04/11/2018/04/14/19 [id number] Ambulatory [address] Main [place] Repository 04/10/2018/04/10/19 [id number] Ambulatory [address] Main [place] Repository 04/09/2018/04/09/19 [id number] ZO, Ambulatory [address] Other [place] Repository 03/31/2018/04/02/19 [id number] Ambulatory [address] Main [place] Repository 03/31/2018/04/03/19 [id number] Ambulatory [address] Main [place] Repository 03/26/2018/03/27/20 [id number] Ambulatory [address] Main [place] Repository 03/26/2018/03/28/20 [id number] Ambulatory [address] Main [place] Repository 03/20/2018/03/20/20 [id number] Ambulatory [address] Main [place] Repository 03/19/2018 [id number] Zo [facility] ing:SDC Repository 03/06/2018/03/08/20 [id number] KING YODER Inpatient [address] Main [place] Repository 03/04/2018/03/04/20 [id number] Ambulatory [address] Main [place] Repository 03/04/2018/03/04/20 [id number] Ambulatory [address] Main [place] Repository 03/04/2018/03/05/20 [id number] Ambulatory [address] Main [place] Repository 03/04/2018/03/04/20 [id number] Ambulatory [address] Main [place] Repository 03/04/2018/03/04/20 [id number] Ambulatory [address] Main [place] Repository 03/04/2018/03/05/20 [id number] Ambulatory [address] Main [place] Repository 02/19/2018/02/27/20 [id number] Ambulatory [address] Main [place] Repository 02/18/2018/02/20/20 [id number] Ambulatory [address] Main [place] Repository 02/18/2018 [id number] Ambulatory BMSBuilding:Julia Bucio [facility] Repository 02/17/2018 [id number] Ambulatory [facility] Other [place] Repository 02/17/2018 [id number] [facility] [place] Repository 02/14/2018/02/15/20 [id number] Emergency [place] ing:ED Repository 02/14/2018/02/15/20 [id number] ZO, Ambulatory [address] Repository 02/14/2018 [id number] ZO, Ambulatory [facility] Repository 02/14/2018/02/15/20 [id number] ZO, Ambulatory [address] Repository 02/14/2018/02/15/20 [id number] ZO, Ambulatory [address] Repository 02/10/2018/02/12/20 [id number] [place] [place] Ambulatory [address] ing:PCURoom: Repository [id number]: 1 02/10/2018 [id number] [place] Ambulatory BMSBuilding:Cheko Bucio [facility] Repository 02/10/2018 [id number] [place] Ambulatory BMSBuilding:[place]io [place] Repository 02/07/2018/02/08/20 [id number] Ambulatory [address] Repository 02/07/2018/02/08/20 [id number] Ambulatory [address] Repository 02/07/2018/02/11/20 [id number] Ambulatory [address] Repository 10/17/2017 [id number] [facility] ing:[facility] Repository 10/17/2017 [id number] Ambulatory BMSBuilding:Julia Bucio [facility] Repository 10/09/2017/10/11/19 [id number] Ambulatory [address] Repository 10/04/2017/10/05/19 [id number] Ambulatory [address] Repository 05/01/2017/05/01/19 [id number] Ambulatory [address] Repository PAYERS PAYERS ENCOUNTER GUARANTOR PAYER SUBSCRIBER SOURCE 03/19/2018 [id number] Insurance:ANTHEMPbello [place]OB: [facility] [place] Number: [id number] Hospital 17559Hdt: 330 [id number] Repository [phone] () Date:8019-53-62ED [id number] [place] [address] 36888RY: 03/19/2018 Secondary NOT GIVENUNK Rupinder Insurance:SELF PAY [facility] Number: Effective Repository Date:2018-02-14 02/18/2018 IVELISSE Fitzgerald Primary IVELISSE Bucio [id number] VILLA Insurance:ANTHEMPolic [place]: [place] Number: [id number] Hospital 19766Hgj: (407) [id number] Repository [phone] () Date:5850-19-78RE [address] [place] [address] 13158JS: 02/18/2018 Secondary NOT GIVENUNK [place] Insurance:SELF PAY [facility] Number: Effective Repository Date:2018-02-18 02/14/2018 IVELISSE Fitzgerald Primary IVELISSE Bucio [id number] VILLA Insurance:ANTHEMPolic [place]: [place] Number: [id number] Hospital 27197Jtq: (330) [id number] Repository [phone] () Date:[id number] [address] [place] [address] 33099GC: 02/14/2018 Secondary NOT GIVENUNK [place] Insurance:SELF PAY [facility] Number: Effective Repository Date:2018-02-14 02/10/2018 IVELISSE Fitzgerald Primary IVELISSE Bucio [id number] VILLA Insurance:ANTHEMPolic [place]UZONDOB: [facility] [place] Number: [id number] Hospital 09605Yrp: (330) [id number] Repository [phone] () Date:[id number] [address] [place] [address] 36062UM: 02/10/2018 Secondary NOT GIVENUNK [place] Insurance:SELF PAY [facility] Number: Effective Repository Date:2018-02-10 02/10/2018 IVELISSE Fitzgerald Primary IVELISSE Bucio [id number] VILLA Insurance:ANTHEMPolic [place]UZONDOB: [facility] [place] Number: [id number] Hospital 18577Fhn: (330) [id number] Repository [phone] (HP) Date:[id number] [address] 428[address]XP: 02/10/2018 Secondary NOT GIVENUNK [place] Insurance:SELF PAY [facility] Number: Effective Repository Date:2018-02-10 02/10/2018 GAYATHRI Primary IVELISSE Bucio [id number] [place] Insurance:ANTHEMPolic [place]: [place] Number: [id number] Hospital [id number]: (330) [id number] Repository [phone] (HP) Date:1210-88-86JX [address] [address]LF: 02/10/2018 Secondary NOT GIVENUNK Rupinder Insurance:SELF PAY [facility] Number: Effective Repository Date:2018-02-10 10/17/2017 GAYATHRI Primary Amilcar Pateloster [id number] [place]ILL[place] Insurance:ANTHEMPolic [place] Number: [id number] [id number]: [phone] [id number] Repository [phone] (HP) Date:[id number] [address] [place] [address] [id number]: 10/17/2017 Secondary NOT GIVENUNK [place] Insurance:SELF PAY [facility] Number: Effective Repository Date:2017-10-09 10/17/2017 GAYATHRI Primary Amilcar Pateloster [id number] [place]ILL[place] Insurance:ANTHEMPolic [place] Number: [id number] 16162Lki: [phone] [id number] Repository [phone] (HP) Date:1972-20-42ET [facility] [id number] [place] [id number]: 10/17/2017 Secondary NOT GIVENUNK [place] Insurance:SELF PAY [facility] Number: Effective Repository Date:2017-10-17
== END ==
PROVIDERS: Anesthesiology; Family Provider Family Medicine; PCP Family Medicine; Referring Provider Surgery; Visit Provider Surgery
DX: Z01.818 Encounter for other preprocedural examination (principal)
CPT/HCPCS: 80048; 83036; 84443; 85027; 85610; 85730; 93005

== ENCOUNTER 2019-06-03 13:49 | Emergency (ER) | payer BC, SELFPAY ==
[2019-06-03 13:49] VITALS: BMI 37.2
[2019-06-03 13:51] VITALS: BP 133/77; PULSE 93; RESP 18; TEMP 36.5; O2SAT 94; BMI 40.8
--- NOTE | 2019-06-03 14:24 | RAD_ITS ---
STUDY: X-RAY - RIGHT FOOT CLINICAL: Female, 64 years old. PAIN, WORSE ACROSS TOP OF FOOT; -- NO KNOWN INJURY TECHNIQUE: 3 view(s) of the foot. COMPARISON: Comparison is made with prior study dated February 02, 2017. FINDINGS: There is a plantar calcaneal spur. Normal visualized subtalar, talonavicular, calcaneocuboid, tarsal and tarsometatarsal articulations. Normal metatarsi. Normal metatarsophalangeal joint of the great toe. Normal tibial and fibular sesamoid bones. Normal interphalangeal joint of the great toe. Normal phalanges of the great toe. Normal second through fifth metatarsophalangeal joints. Normal interphalangeal joints and phalanges of the lesser toes. The soft tissue structures are unremarkable. RAD/Foot min 3 Views IMPRESSION: Small plantar spur. Electronically Signed: David Ferrari, at 15:04 EST , Service support ,
--- NOTE | 2019-06-03 15:05 | VDLE_ITS ---
Reason For Study: RLE swelling RIGHT GSV is normal. CFV is compressible, spontaneous, phasic, competent and demonstrates normal augmentation. FV is compressible, spontaneous, phasic, competent and demonstrates normal augmentation. POP V is compressible, spontaneous, phasic, competent and demonstrates normal augmentation. T/P Trunk is compressible. PTV is compressible. RT PerV is compressible. Procedure Exam performed portable in ED. The exam was diagnostic. A preliminary report was called and/or faxed to ED. Interpretation Summary There is no evidence of right lower extremity deep vein thrombosis. Right great saphenous vein appears patent and compressible segmentally. Ordering Physician: Marcos Nino Referring Physician: Valencia Dinh Performed By: Jo Ann Figueroa, RDCS, RVT
--- NOTE | 2019-06-03 15:32 | ED.VIS.LOWEX ---
History of Present Illness Chief Complaint: Lower Extremity Injury Narrative: Patient presenting for evaluation secondary to right foot and ankle pain. Patient reports that she woke up today and had atraumatic pain of the right foot and ankle. She reports that it is a throbbing type sensation that goes up to just proximal to her ankle. It was not associated with any sort of lifting twisting pushing pulling stumbling falls or any injuries. Patient states that she is never really had any prior similar episodes in the past. She denies any numbness or weakness. She denies any constitutional symptoms such as fever. Patient has a past history of colon cancer that is currently in remission she is not receiving any treatments currently. She denies any history of DVT or PE chest pain or shortness of breath. She reports that she called her oncology office and they were worried about DVT so they recommended that she come immediately to the emergency department. Past Medical History - Allergies and Home Meds Allergies/Adverse Reactions: Allergies Iodinated Contrast Media [CONTRASTS] Allergy (Verified 06/03/19 13:50) Rash Sulfa (Sulfonamide Antibiotics) Allergy (Verified 06/03/19 13:50) Adriana Primary Care Physician: Vladimir Dinh MD [Primary Care Provider] - Past Medical History: - - Colon cancer Surgical History: appendectomy, hysterectomy, total knee arthroplasty - Bilateral, tonsillectomy, - - Status post thyroid surgery Smoking Status: Never smoker - Family History Maternal Family History: Reports: Cancer, Heart Disease Paternal Family History: Reports: Heart Disease Review of Systems All systems negative except as indicated General: Denies: Chills, Fever, Sweats Eyes: Denies: Visual changes - bilaterally, Diplopia ENT: Denies: Rhinorrhea, Sore throat Cardiovascular: Denies: Chest pain, Palpitations Respiratory: Denies: Dyspnea, Cough, Dyspnea on exertion Gastrointestinal: Denies: Abdominal pain, Nausea, Vomiting, Diarrhea, Melena, Hematochezia Genitourinary: Denies: Dysuria, Hematuria, Frequency Musculoskeletal: Reports: Extremity Pain Skin: Denies: Rash, Wounds Neurological: Denies: Headache, Weakness, Numbness Physical Exam Vital Signs/Narrative: Vital Signs Temp Pulse Resp BP Pulse Ox 06/03/19 13:51 97.7 F L 93 18 133/77 H 94 - Extremity Exam Right Foot: - - Patient complains of a mild amount of pain over both the lateral and medial portions of the foot. She has some lateral malleolar swelling with no significant tenderness in that area. 2+ DP and PT pulses that are bilaterally symmetric. Calves are supple with no palpable cord. Negative Homans test. General: Well nourished, Well developed Head: Normocephalic, Atraumatic Eyes: Perrl, EOMI ENT: No Trauma Neck: Nontender, Full ROM Cardiovascular: Regular rate, Regular rhythm, No murmurs Respiratory: No distress, CTA bilaterally, Chest nontender Abdomen: Soft, Nontender, Nondistended, Normal bowel sounds Skin: Normal color, No rash Neurological: Alert, Oriented x3, Cranial nerves II-XII grossly intact, Normal Strength, Normal Sensation Psychological: Normal affect Diagnostic/Tx/Re-eval - Medical Decision Making Patient presented with atraumatic ankle pain and swelling. Physical exam shows normal circulation, mild swelling, no evidence of infectious etiology. X-ray was obtained and per radiology review and my personal review is found to be negative. Duplex ultrasound of the right lower extremity was also found to be negative for any sort of blood clots. Patient's pain is likely musculoskeletal she was recommended NSAIDs and compression. She will follow-up with primary care as needed. ED Disposition - Plan for ED Patient: Disposition: Home or Assisted Living Diagnosis: Right foot pain Instructions: Sprain Foot Referrals: Vladimir Dinh MD [Primary Care Provider] - As Needed
[2019-06-03 15:40] VITALS: BP 111/77; PULSE 80; RESP 16; O2SAT 96
[2019-06-03 16:19] VITALS: PULSE 80; RESP 17; O2SAT 96
== END 2019-06-03 16:20 | disposition home or self-care (01) ==
PROVIDERS: Emergency Provider Emergency Medicine; PCP Family Medicine
DX: M79.671 Pain in right foot (principal); E11.9 Type 2 diabetes mellitus without complications; E03.9 Hypothyroidism, unspecified; Z79.899 Other long term (current) drug therapy
CPT/HCPCS: 73630; 93971; 99282

== ENCOUNTER 2025-02-02 18:24 | Emergency (ER) | payer BC, SELFPAY ==
[2025-02-02] VITALS (7 sets, daily range): BP systolic 101–121; BP diastolic 54–71; PULSE 82–89; RESP 16–18; TEMP 37.3–37.4; O2SAT 93–99
--- NOTE | 2025-02-02 20:51 | EX.ED.DYSGE1 ---
HPI History of Present Illness Chief Complaint: Fall Informant: patient Onset/Context/Timing Onset: Days (3) Context: Gradual Onset Timing: Continuous Quality: Fatigue Location: Generalized Worsened by: Nothing Relieved by: Nothing Narrative Narrative: Patient presents because she is concerned she has the flu. Patient states that she has been having some fatigue over the past 3 days. Patient states nothing makes it better nothing makes it worse. Patient admits to some chills and sweats. Patient admits to some general myalgias. Patient also admits to a headache. Patient denies any chest pain or shortness of breath. Patient states that she became weak today and fell. Patient states she did not hit anything very hard. Patient denies any injuries from this. [facility] Medical History (Updated 02/02/25 @ 22:[address] Facundo Bennett, DO) Fatigue Home Medications ?Medication ?Instructions ?Recorded ?Last Taken ?Type cholecalciferol (vitamin D3) 25 1,000 unit PO DAILY supplement 02/02/17 02/10/18 History mcg (1,000 unit) tablet (Vitamin D3) fluticasone propionate 50 1 spray QHS allergies 02/02/17 02/09/18 History mcg/actuation nasal spray,suspension lansoprazole 30 mg capsule,delayed 30 mg PO DAILY reflux 02/02/17 02/09/18 History release levothyroxine 100 mcg tablet 100 mcg PO DAILY synthroid 02/02/17 02/10/18 History lisinopril 2.5 mg tablet 2.5 mg PO DAILY blood pressure 02/02/17 02/10/18 History sertraline 100 mg tablet 100 mg PO DAILY depression 02/02/17 02/10/18 History spironolactone 25 1 tab PO DAILY diuretic 02/02/17 02/10/18 History mg-hydrochlorothiazide 25 mg tablet (Aldactazide) verapamil 120 mg 24 hr 120 mg PO DAILY blood pressure 02/02/17 02/10/18 History capsule,extended release diphenhydramine HCl 25 mg tablet 25 mg PO QHS PRN PRN Allergies 02/10/18 02/09/18 History (Benadryl Allergy) metformin 1,000 mg tablet 1,000 mg PO BID diabetes 02/10/18 02/10/18 History ketotifen fumarate 0.025 % (0.035 10 ml OP DAILY 06/03/19 Unknown History %) eye drops loratadine-pseudoephedrine ER 10 1 ea PO DAILY 06/03/19 Unknown History mg-240 mg tablet,extended [id number] oxymetazoline 0.05 % nasal spray 15 spray NASAL PRN PRN Nasal 06/03/19 Unknown History Congestion empagliflozin 25 mg tablet 25 mg PO DAILY 02/02/25 Unknown History (Jardiance) glipizide 10 mg tablet 20 mg PO DAILY 02/02/25 Unknown History peg 400-propylene glycol (PF) 0.4 1 drp EACH EYE DAILY PRN dry eye(s) 02/02/25 Unknown History %-0.3 % eye drops in a dropperette (Lubricant Eye (PG-PEG 400) (PF)) Allergy/AdvReac Type Severity Reaction Status Date / Time Iodinated Contrast Media Allergy Rash Verified 02/02/25 18:25 (CONTRASTS) Sulfa (Sulfonamide Allergy Hives Verified 02/02/25 18:25 Antibiotics) Surgical History (Updated 02/02/25 @ 22:[address] Facundo Bennett DO) History of pancreatic surgery History of bowel resection Social History Smoking Status: Never smoker ROS ROS ED Constitutional Constitutional ED: Reports chills and sweats; Denies fever(s) Eyes Eyes: Denies blurry vision or change in vision ENT ENT ED: Denies rhinorrhea or sore throat Cardiovascular Cardiovascular: Denies chest pain or palpitations Respiratory/Chest Respiratory/Chest: Denies cough or dyspnea Gastrointestinal Gastrointestinal: Denies nausea or vomiting Genitourinary Genitourinary ED: Denies dysuria or hematuria Musculoskeletal Musculoskeletal: Reports myalgias; Denies neck pain Integumentary Denies abscess or rash Neurologic Neurologic: Reports headache(s); Denies weakness Allergic/Immunologic Allergic/Immunologic ED: Denies mouth swelling or urticaria EXAM Physical Exam Const Vital Signs: 02/02/25 18:25 02/02/25 19:40 02/02/25 19:42 Temperature 99.2 F H 99.3 F H Temperature Source Oral Oral Pulse Rate 89 84 Pulse Rate [Lying] Pulse Rate [Sitting (for 1 minute prior to obtaining)] Pulse Rate [Standing (for 1 minute prior to obtaining)] Respiratory Rate 18 18 Respiratory Effort Normal Non-Labored Respiratory Pattern Normal Blood Pressure 106/67 121/66 H Blood Pressure [Lying] Blood Pressure [Sitting (for 1 minute prior to obtaining)] Blood Pressure [Standing (for 1 minute prior to obtaining)] Blood Pressure Mean 80 84 Blood Pressure Mean [Lying] Blood Pressure Mean [Sitting (for 1 minute prior to obtaining)] Blood Pressure Mean [Standing (for 1 minute prior to obtaining)] Pulse Ox 94 93 Oxygen Delivery Method Room Air Room Air 02/02/25 20:25 02/02/25 20:50 02/02/25 22:12 Temperature 99.4 F H Temperature Source Oral Pulse Rate 82 88 Pulse Rate [Lying] 86 Pulse Rate [Sitting (for 1 minute prior to obtaining)] 88 Pulse Rate [Standing (for 1 minute prior to obtaining)] 89 Respiratory Rate 16 16 Respiratory Effort Respiratory Pattern Blood Pressure 110/54 L 101/59 L Blood Pressure [Lying] 106/59 L Blood Pressure [Sitting (for 1 minute prior to obtaining)] 117/71 Blood Pressure [Standing (for 1 minute prior to obtaining)] 101/59 L Blood Pressure Mean 72 73 Blood Pressure Mean [Lying] 74 Blood Pressure Mean [Sitting (for 1 minute prior to obtaining)] 86 Blood Pressure Mean [Standing (for 1 minute prior to obtaining)] 73 Pulse Ox 94 99 Oxygen Delivery Method Room Air Room Air 02/02/25 22:14 Temperature 99.4 F H Temperature Source Oral Pulse Rate 88 Pulse Rate [Lying] Pulse Rate [Sitting (for 1 minute prior to obtaining)] Pulse Rate [Standing (for 1 minute prior to obtaining)] Respiratory Rate 17 Respiratory Effort Respiratory Pattern Blood Pressure 101/59 L Blood Pressure [Lying] Blood Pressure [Sitting (for 1 minute prior to obtaining)] Blood Pressure [Standing (for 1 minute prior to obtaining)] Blood Pressure Mean 73 Blood Pressure Mean [Lying] Blood Pressure Mean [Sitting (for 1 minute prior to obtaining)] Blood Pressure Mean [Standing (for 1 minute prior to obtaining)] Pulse Ox 95 Oxygen Delivery Method Room Air Positive well nourished and well developed General Appearance ED: well developed and NAD HEENT Reports moist mucous membranes Neck supple and no JVD Chest Wall inspection of chest normal and palpation of chest normal Resp normal respiratory effort and clear to auscultation bilaterally Cardio regular rate and regular rhythm GI non-tender Palpation: soft Extremity normal to inspection Neuro oriented x3, CN's II-XII intact bilaterally and no sensory deficits noted Sensorium / Orientation: alert Motor Exam: strength 5/5 throughout Psych mental status grossly normal MDM MDM MDM Narrative Medical decision making narrative: Differential diagnosis includes but is not limited to viral illness, pneumonia, bronchitis, dehydration, and electrolyte abnormality. Chest x-ray will be obtained to assess for pneumonia. CBC will be obtained to assess for leukocytosis and anemia. Basic metabolic profile will be obtained to assess for electrolyte abnormality renal function. COVID-19, influenza, and RSV PCR will be obtained to assess for viral illness. Lab Data Attestation: I reviewed the patient's lab results. Lab results narrative: CBC was reviewed. There is a mild leukocytosis of 14.2. The remainder is within normal limits. Basic metabolic profile was reviewed and was essentially within normal limits. COVID-19 PCR was reviewed and was negative. Influenza PCR was reviewed and was negative for influenza A and influenza B. RSV PCR was reviewed and was negative. Labs: Laboratory Results - last 24 hr 02/02/25 19:45 WBC 14.2 H RBC 5.03 Hgb 14.6 Hct 46.0 MCV 91.5 MCH 29.0 MCHC 31.7 L RDW Std Deviation 47.6 H RDW Coeff of Freeman 14.2 Plt Count 403 MPV 10.5 Immature Gran % (Auto) 0.600 Neut % (Auto) 71.9 H Lymph % (Auto) 19.2 [place] % (Auto) 7.6 Eos % (Auto) 0.2 Baso % (Auto) 0.5 Absolute Neuts (auto) 10.2 H Absolute Lymphs (auto) 2.72 Nucleated RBC % 0 Sodium 137 Potassium 4.2 Chloride 99 Carbon Dioxide 25.1 Anion Gap 13 BUN 17 Creatinine 1.05 Est GFR (MDRD) Non-Af 58 L BUN/Creatinine Ratio 16.4 Glucose 124 H Calcium 9.9 Radiography Chest X-Ray - ED: 2 View, Read by ED Physician, Read by Radiologist and No Acute Disease Diagnostic Testing: Clinical Impression(s) from Imaging Studies Chest X-Ray 02/02/25 21:20 IMPRESSION: NO ACUTE FINDINGS. Reading Location: [id number] and lateral chest x-ray was obtained. There are 2 views. On my independent interpretation, lung adams are clear. There is normal cardiac silhouette. Bony thorax is normal. There is no acute process noted. Radiologist also interpreted the x-ray and agrees. Treatment and Re-Evaluation :: Orthostatic vital signs were obtained and were within normal limits. Patient was advised of her findings. Patient was instructed to drink fluids. Patient was directed to take Tylenol as needed for fevers and pain. Patient was instructed to follow-up with her primary care physician in 5 to 7 days. Patient understood and was agreeable with the plan. All questions were answered. Discharge Plan Triage Chief Complaint: Fall Other Complaint: Weakness ED Provider: Facundo Bennett Dx/Rx/DC Orders Clinical Impression: Viral illness, DM type 2 (diabetes mellitus, type 2) Instructions: ED Viral Syndrome (Adult) Prescriptions: No Action levothyroxine 100 MCG tablet 100 mcg PO DAILY lansoprazole 30 MG capsule,delayed release(DR/EC) 30 mg PO DAILY spironolacton-hydrochlorothiaz [Aldactazide] 1 EACH tablet 1 tab PO DAILY sertraline 100 MG tablet 100 mg PO DAILY fluticasone propionate 1 SPRAY spray,suspension 1 spray NASAL QHS lisinopril 2.5 MG tablet 2.5 mg PO DAILY verapamil 120 MG capsule,ext rel. pellets 24 hr 120 mg PO DAILY cholecalciferol (vitamin D3) [Vitamin D3] 1,000 UNIT tablet 1,000 unit PO DAILY metformin 1,000 MG tablet 1,000 mg PO BID diphenhydramine HCl [Benadryl Allergy] 25 MG tablet 25 mg PO QHS PRN PRN (Reason: Allergies) ketotifen fumarate 10 ML drops 10 ml OP DAILY loratadine-pseudoephedrine 1 EACH tablet extended release 24 hr 1 ea PO DAILY oxymetazoline 1 SPRAY spray,non-aerosol 15 spray NASAL PRN PRN (Reason: Nasal Congestion) Lubricant Eye (PG-PEG 400)(PF) 0.4-0.3 % dropperette 1 drp EACH EYE DAILY PRN (Reason: dry eye(s)) glipizide 10 mg tablet 20 mg PO DAILY Jardiance 25 mg tablet 25 mg PO DAILY Primary Care Provider: Vladimir Dinh Referrals: Vladiimr Dinh MD [Primary Care Provider, Family Practice] Print Language: Ecuadorean Disposition Disposition: Home, Self Care
[2025-02-02 21:03] LABS: Hematocrit 46.0 % (37-47); Hemoglobin 14.6 g/dL (12.0-15.0); Immature Granulocytes Count 0.090 X10^3/uL (0.0-0.0); Mean Corp Hgb Conc 31.7 g/dL (32-36); Mean Corpuscular Volume 91.5 fL (81-99); Mean Platelet Vol. 10.5 fl (6.2-12.0); NRBC Flagged by Analyzer 0 % (0-5); Platelet Count 403 K/mm3 (150-450); RBC Distribution Width CV 14.2 % (11.6-14.6); RBC Distribution Width SD 47.6 fl (35.1-43.9); Red Blood Count 5.03 M/mm3 (4.2-5.4); White Blood Count 14.2 K/mm3 (4.4-11.0)
--- NOTE | 2025-02-02 21:20 | RAD_ITS ---
PROCEDURE: RAD/Chest PA and Lateral
[2025-02-02 21:29] LABS: Anion Gap 13 (5-15); BUN 17 mg/dL (4-19); BUN/Creat Ratio 16.4 RATIO (10-20); Calcium,Total 9.9 mg/dL (7.6-11.0); Carbon Dioxide 25.1 mmol/L (21.0-32.0); Chloride 99 mmol/L (98-108); Glucose 124 mg/dL (70-99); Potassium 4.2 mmol/L (3.3-5.1)
== END 2025-02-02 22:56 | disposition home or self-care (01) ==
PROVIDERS: Emergency Provider Emergency Medicine; PCP Family Medicine; Visit Provider Emergency Medicine
DX: B34.9 Viral infection, unspecified (principal); E11.9 Type 2 diabetes mellitus without complications; R53.1 Weakness; Z79.84 Long term (current) use of oral hypoglycemic drugs; Z79.899 Other long term (current) drug therapy
CPT/HCPCS: 71046; 80048; 85025; 87631; 99285; A4216